=== PATIENT | female | born 1970 | race Caucasian/White ===

== ENCOUNTER 2018-06-16 16:01 | Emergency (ER) | payer SELFPAY ==
[2018-06-16] MEDS ORDERED: Morphine 4 MG/ML VIAL ONE (16:27)
[2018-06-16] MEDS ORDERED: Ondansetron HCl/PF 4 MG/2 ML Vial ONE (16:27)
[2018-06-16 16:41] LABS: Bilirubin Negative (Negative); Blood, Urine Negative (Negative); Clarity CLOUDY (Clear); Glucose, Urine (Dipstick) Negative (Negative); Leukocyte Small (Negative); Nitrite Negative (Negative); Protein, Urine (Dipstick) Negative (Neg-Trace); Specific Gravity, Urine 1.024 (1.002-1.036); Urobilinogen 0.2 mg/dL (0.2-1.0); pH, Urine 5.5 (5.0-9.0)
[2018-06-16 16:42] LABS: #Basophils 0.1 thou/uL (0.0-0.2); #Eosinphils 0.2 thou/uL (0.0-0.7); #Lymphocytes 2.1 thou/uL (1.20-3.40); #Monocytes 0.9 thou/uL (0.11-0.59); #Neutrophils 7.7 thou/uL (1.40-6.50); %Basophils 0.9 % (0.0-1.0); %Eosinophils 1.7 % (0.0-10.0); %Lymphocytes 19.1 % (21.0-51.0); %Neutrophils 70.3 % (42.0-75.0); Hemoglobin 14.5 g/dL (12.0-16.0); Mean Corpuscular HGB CONC 35.7 g/dL (32.0-36.0); Mean Corpuscular Hemoglobin 31.8 pg (27.0-31.0); Mean Corpuscular Volume 89.2 fL (78.0-98.0); Mean Platelet Volume 5.4 fL (7.4-10.4); Platelet Count 421 thou/uL (130-400); RBC Distribution Width 11.7 % (11.5-14.5); Red Blood Cell (RBC) Count 4.56 mill/uL (4.20-5.40)
[2018-06-16 16:43] LABS: Pathc Cast-AUWi Flag 1.59 (0-2.49); Squamous Epithelial 21-50 HPF (0-3); WBC/HPF 0-3 HPF (0-3)
[2018-06-16 16:51] LABS: RBC/HPF 0-3 HPF (0-3)
[2018-06-16 16:52] LABS: Hyaline Casts/LPF 0-3 HYALINE CAST LPF (0-3 Hyaline)
[2018-06-16 16:53] LABS: Bacteria/HPF 2+ HPF (None Seen)
[2018-06-16] MEDS ORDERED: Fentanyl 100 MCG/2 ML VIAL ONE (16:54)
[2018-06-16 17:02] LABS: ALT (SGPT) 17 U/L (8-55); AST (SGOT) 15 U/L (5-34); Albumin 4.1 g/dL (3.5-5.0); Alkaline Phosphatase 104 U/L (40-150); Anion Gap 17 mmol/L (10-20); BUN (Urea Nitrogen) 19 mg/dL (7.0-18.7); Bilirubin, Total 0.5 mg/dL (0.2-1.2); Calc. Creatinine Clearance 0 mL/min (70-130); Calcium 9.6 mg/dL (7.8-10.44); Carbon Dioxide 27 mmol/L (22-29); Chloride 98 mmol/L (98-107); Estimated GFR-MDRD 51; Globulin 3.6 g/dL (2.4-3.5); Glucose 109 mg/dL (70-105); Potassium 3.5 mmol/L (3.5-5.1); Protein, Total 7.7 g/dL (6.0-8.3); Sodium 138 mmol/L (136-145)
[2018-06-16] MEDS ORDERED: Ketorolac Tromethamine 30 MG/ML VIAL ONE (17:36)
--- NOTE | 2018-06-16 17:37 | CT ---
NONCONTRAST CT ABDOMEN AND PELVIS: 06/16/18 HISTORY: Bilateral flank pain, right greater than left. COMPARISON: None available. FINDINGS: No renal or ureteral calculi are seen bilaterally, and there is no hydronephrosis. There is a subcent imeter too small to characterize hypodense lesion in the mid portion left kidney with adjacent puncta te cortically based calcification as well as overlying scarring present. The liver, spleen, pancreas, bilateral adrenal glands, right kidney, and urinary bladder demonstrate a grossly normal nonenhanced CT appearance. The uterus is not visualized and likely related to hysterectomy. Surgical clips are seen adjacent to the cecal apex probably related to prior appendectomy. The append ix is not visualized. No free fluid, fluid collection, or lymphadenopathy is seen in the abdomen or p marty. Minimal vascular calcifications are seen at the origin of the left renal artery. Osseous structures appear intact. IMPRESSION: 1. No renal or ureteral calculi are seen bilaterally. 2. Small hiatal hernia. 3. Colonic diverticulosis. 4. Postsurgical changes adjacent to the cecal apex probably related to prior appendectomy. 5. Hysterectomy. 6. Subcentimeter too small to characterize hypodense lesion left kidney with adjacent punctate c alcification. POS: [facility]
[2018-06-16] MEDS ORDERED: diphenhydrAMINE 50 MG/ML VIAL ONE (17:48)
[2018-06-16] MEDS ORDERED: Famotidine/PF 20 mg/2ml Vial ONE (17:49)
== END 2018-06-16 18:32 | disposition home or self-care (01) ==
LOC: ERS 16:01
DX: N30.90 Cystitis, unspecified without hematuria (principal); I10 Essential (primary) hypertension; Z87.442 Personal history of urinary calculi
CPT/HCPCS: 74176; 80053; 81003; 81015; 85025; 87086; 96361; 96374; 96375; J1200; J1885; J2270; J2405; J3010; S0028

== ENCOUNTER 2018-10-25 07:48 | Emergency (ER) | payer SELFPAY ==
[2018-10-25 08:17] LABS: #Basophils 0.1 thou/uL (0.0-0.2); #Eosinphils 0.2 thou/uL (0.0-0.7); #Monocytes 0.9 thou/uL (0.11-0.59); #Neutrophils 5.6 thou/uL (1.40-6.50); %Basophils 0.8 % (0.0-1.0); %Eosinophils 1.8 % (0.0-10.0); %Lymphocytes 22.4 % (21.0-51.0); %Monocytes 10.7 % (0.0-10.0); %Neutrophils 64.2 % (42.0-75.0); Hemoglobin 14.2 g/dL (12.0-16.0); Mean Corpuscular HGB CONC 34.7 g/dL (32.0-36.0); Mean Corpuscular Hemoglobin 31.9 pg (27.0-31.0); Mean Corpuscular Volume 91.8 fL (78.0-98.0); Mean Platelet Volume 5.8 fL (7.4-10.4); Platelet Count 344 thou/uL (130-400); RBC Distribution Width 11.6 % (11.5-14.5); Red Blood Cell (RBC) Count 4.45 mill/uL (4.20-5.40); White Blood Cell (WBC) Count 8.7 thou/uL (4.8-10.8)
[2018-10-25] MEDS ORDERED: Nitroglycerin 0.4 MG TAB (25 Tab Bottle) ONE (08:20)
[2018-10-25] MEDS ORDERED: Acetaminophen 500 MG TAB ONE (08:20)
--- NOTE | 2018-10-25 08:30 | RAD ---
PORTABLE AP CHEST XRAY: DATE: 10/25/2018. HISTORY: Chest pain and jaw pain. Finger numbness that started last night. FINDINGS: The cardiac silhouette and pulmonary vasculature are within normal limits for the portable technique of the study. The lungs are clear. Osseous structures are intact. IMPRESSION: No acute cardiopulmonary process. POS: [facility]
[2018-10-25] MEDS ORDERED: diphenhydrAMINE 50 MG/ML VIAL ONE ×2 (08:37→09:49)
[2018-10-25] MEDS ORDERED: Metoclopramide HCl 10 MG/2 ML VIAL ONE (08:37)
[2018-10-25 08:40] LABS: ALT (SGPT) 14 U/L (8-55); AST (SGOT) 11 U/L (5-34); Albumin 3.9 g/dL (3.5-5.0); Alkaline Phosphatase 78 U/L (40-150); Anion Gap 15 mmol/L (10-20); BUN (Urea Nitrogen) 33 mg/dL (7.0-18.7); Bilirubin, Total 0.5 mg/dL (0.2-1.2); CK (CPK) 46 U/L (29-168); Calc. Creatinine Clearance 0 mL/min (70-130); Calcium 9.4 mg/dL (7.8-10.44); Carbon Dioxide 24 mmol/L (22-29); Chloride 104 mmol/L (98-107); Estimated GFR-MDRD 58; Globulin 3.2 g/dL (2.4-3.5); Glucose 104 mg/dL (70-105); Lipase 50 U/L (8-78); Potassium 3.8 mmol/L (3.5-5.1); Protein, Total 7.1 g/dL (6.0-8.3); Sodium 139 mmol/L (136-145)
[2018-10-25] MEDS ORDERED: Morphine 4 MG/ML VIAL ONE (09:17)
[2018-10-25] MEDS ORDERED: Famotidine/PF 20 mg/2ml Vial ONE (09:49)
[2018-10-25] MEDS ORDERED: methylPREDNISolone Sod Succ/PF 125 MG/2 ML VIAL ONE (09:49)
--- NOTE | 2018-10-25 10:02 | CT ---
HEAD CT WITHOUT CONTRAST: DATE: 10/25/2018. COMPARISON: None. HISTORY: Numbness and tingling, paresthesias. TECHNIQUE: Axial CT imaging obtained at 5 mm intervals from vertex through the skull base without contrast. FINDINGS: The imaged paranasal sinuses and mastoid air cells are well aerated. There is no displaced calvarial fracture. No intracranial hemorrhage, midline shift, mass effect, or ventricular enlargement. IMPRESSION: No acute findings. POS: [facility]
[2018-10-25] MEDS ORDERED: Ketorolac Tromethamine 30 MG/ML VIAL ONE (11:05)
[2018-10-25] MEDS ORDERED: Lidocaine Viscous Sol 2% 15 ml UD Cup ONE (11:57)
[2018-10-25] MEDS ORDERED: Mag-Al 1200 mg/1200 mg/30 ML UDCUP ONE (11:57)
[2018-10-25] MEDS ORDERED: Pantoprazole 40 MG VIAL ONE (11:58)
--- NOTE | 2018-10-25 12:14 | CT ---
CT ANGIOGRAM OF THORACIC AND ABDOMINAL AORTA: Date: 10/25/18 HISTORY: Chest pain. Numbness and tingling. Evaluate for dissection. COMPARISON: None. TECHNIQUE: CT angiogram of the thoracic and abdominal aorta performed in the axial plane. Three-dimensional refo rmatted images are submitted for interpretation. FINDINGS: CHEST CT: Nonspecific, nonenlarged mediastinal lymph nodes. No mediastinal mass, lymphadenopathy, or hematoma. No significant pericardial fluid. Heart size is within normal limits. Small hiatal hernia is noted. Dependent atelectatic changes and scarring in both lower lobes. No suspicious masses or consolidation . No pleural effusion or pneumothorax. Trachea and central bronchi are patent. ABDOMEN CT: There is arterial phase enhancement of the liver, spleen, pancreas, and adrenal glands. Symmetric enh ancement of the kidneys. No obstructive uropathy. No gastrohepatic, retrocrural, or periportal lymphadenopathy. No mesenteric mass, lymphadenopathy, free air, or free fluid. Limited evaluation of the alimentary canal due to lack of oral contrast. No evidence of bowel obstruc tion. Ileocecal junction is normal. No lytic or blastic lesions in the visualized osseous structures. CT ANGIOGRAM: There is appropriate enhancement and luminal diameter of the aortic root, ascending thoracic aorta, a ortic arch, descending thoracic aorta, abdominal aorta, and the aortic bifurcation. No aneurysm, diss ection, or periaortic fat stranding. The celiac artery origin, superior mesenteric artery origin, iris ateral renal artery origin, and the inferior mesenteric artery origin have appropriate enhancement an d luminal diameter. There is minimal atherosclerosis in the left renal artery ostium. IMPRESSION: 1. No evidence of aneurysm or dissection. 2. Dependent atelectatic changes in the lung parenchyma. POS: [facility]
[2018-10-25] MEDS ORDERED: Iopamidol 370 76% 50 ML VIAL FS ONE (16:51)
== END 2018-10-25 12:42 | disposition left against medical advice (07) ==
LOC: ERS 07:48
DX: R07.9 Chest pain, unspecified (principal); I10 Essential (primary) hypertension; F17.210 Nicotine dependence, cigarettes, uncomplicated; Z87.442 Personal history of urinary calculi; Z79.899 Other long term (current) drug therapy
CPT/HCPCS: 36415; 70450; 71045; 71275; 80053; 82550; 83690; 84484; 85025; 93005; 96365; 96366; 96375; C9113; J1200; J1885; J2270; J2765; J2930; S0028

== ENCOUNTER 2018-10-26 00:28 | Emergency (ER) | payer SELFPAY ==
[2018-10-26] MEDS ORDERED: Pantoprazole 40 MG VIAL ONE (00:45)
[2018-10-26] MEDS ORDERED: Lorazepam 2 MG/ML VIAL ONE (00:45)
[2018-10-26] MEDS ORDERED: Ondansetron PF 4 MG/2 ML Vial ONE (00:45)
[2018-10-26 01:22] LABS: ALT (SGPT) 14 U/L (8-55); AST (SGOT) 13 U/L (5-34); Alkaline Phosphatase 88 U/L (40-150); Anion Gap 18 mmol/L (10-20); BUN (Urea Nitrogen) 30 mg/dL (7.0-18.7); Bilirubin, Total 0.3 mg/dL (0.2-1.2); Calc. Creatinine Clearance 0 mL/min (70-130); Calcium 8.9 mg/dL (7.8-10.44); Carbon Dioxide 19 mmol/L (22-29); Chloride 105 mmol/L (98-107); Estimated GFR-MDRD 57; Glucose 196 mg/dL (70-105); Hemoglobin 13.7 g/dL (12.0-16.0); Lipase 46 U/L (8-78); Mean Corpuscular HGB CONC 34.5 g/dL (32.0-36.0); Mean Corpuscular Volume 92.6 fL (78.0-98.0); Platelet Count 351 thou/uL (130-400); RBC Distribution Width 11.4 % (11.5-14.5); Sodium 138 mmol/L (136-145); White Blood Cell (WBC) Count 13.3 thou/uL (4.8-10.8)
[2018-10-26 01:49] LABS: Band 4 % (5-11); Lymphocytes 8 % (21-51); MDiff Complete? YES; Monocytes 9 % (0-10); Neutrophil 79 % (42-75)
[2018-10-26] MEDS ORDERED: Morphine 4 MG/ML VIAL ONE (02:23)
[2018-10-26 03:18] LABS: Bilirubin Negative (Negative); Blood, Urine Negative (Negative); Clarity CLOUDY (Clear); Glucose, Urine (Dipstick) 100 mg/dL (Negative); Leukocyte Small (Negative); Nitrite Negative (Negative); Protein, Urine (Dipstick) Negative (Neg-Trace); Specific Gravity, Urine 1.029 (1.002-1.036); pH, Urine 5.5 (5.0-9.0)
[2018-10-26 03:21] LABS: Bacteria/HPF 1+ HPF (None Seen); Hyaline Casts/LPF 4-6 HYALINE CAST LPF (0-3 Hyaline); Squamous Epithelial 21-50 HPF (0-3); WBC/HPF 0-3 HPF (0-3)
== END 2018-10-26 03:37 | disposition home or self-care (01) ==
LOC: ERS 00:28
DX: R07.2 Precordial pain (principal); I10 Essential (primary) hypertension; F17.210 Nicotine dependence, cigarettes, uncomplicated; Z87.442 Personal history of urinary calculi; Z79.899 Other long term (current) drug therapy
CPT/HCPCS: 80053; 81003; 81015; 83690; 83880; 84484; 85025; 87086; 93005; 96361; 96374; 96375; C9113; J2060; J2270; J2405

== ENCOUNTER 2018-12-08 15:48 | Observation (INO) | payer SELFPAY ==
[~2018-12-08 15:48] MED LIST: ISOVUE-370 76%-LOCM 1 ML ONE
[2018-12-08] MEDS ORDERED: Ondansetron ODT 4 MG TAB ONE (15:53)
[2018-12-08 16:12] LABS: #Eosinphils 0.1 thou/uL (0.0-0.7); #Lymphocytes 1.5 thou/uL (1.20-3.40); #Monocytes 0.8 thou/uL (0.11-0.59); #Neutrophils 8.5 thou/uL (1.40-6.50); %Basophils 0.4 % (0.0-1.0); %Eosinophils 1.2 % (0.0-10.0); %Lymphocytes 13.5 % (21.0-51.0); %Monocytes 7.7 % (0.0-10.0); %Neutrophils 77.3 % (42.0-75.0); Hemoglobin 14.8 g/dL (12.0-16.0); Mean Corpuscular HGB CONC 34.1 g/dL (32.0-36.0); Mean Corpuscular Hemoglobin 31.8 pg (27.0-31.0); Mean Corpuscular Volume 93.3 fL (78.0-98.0); Mean Platelet Volume 5.6 fL (7.4-10.4); Platelet Count 401 thou/uL (130-400); RBC Distribution Width 11.4 % (11.5-14.5); Red Blood Cell (RBC) Count 4.66 mill/uL (4.20-5.40); White Blood Cell (WBC) Count 10.9 thou/uL (4.8-10.8)
[2018-12-08 16:34] LABS: ALT (SGPT) 14 U/L (8-55); AST (SGOT) 13 U/L (5-34); Albumin 4.4 g/dL (3.5-5.0); Alkaline Phosphatase 122 U/L (40-150); Anion Gap 14 mmol/L (10-20); BUN (Urea Nitrogen) 18 mg/dL (7.0-18.7); Bilirubin, Total 0.6 mg/dL (0.2-1.2); CK (CPK) 66 U/L (29-168); Calc. Creatinine Clearance 0 mL/min (70-130); Calcium 9.6 mg/dL (7.8-10.44); Carbon Dioxide 27 mmol/L (22-29); Chloride 100 mmol/L (98-107); Estimated GFR-MDRD 65; Globulin 3.6 g/dL (2.4-3.5); Glucose 171 mg/dL (70-105); Potassium 3.2 mmol/L (3.5-5.1); Sodium 138 mmol/L (136-145)
--- NOTE | 2018-12-08 16:39 | RAD ---
PORTABLE CHEST ONE VIEW 12/08/18 at 3:19 p.m. HISTORY: Chest pain, shortness of breath. FINDINGS: Comparison made with exam of 10/25/18. The heart size is borderline. The lungs are expanded without focal areas of consolidation, pneumothor ax, maurice pulmonary edema or pleural effusions. IMPRESSION: No radiographic evidence of acute cardiopulmonary process. POS: [facility]
[2018-12-08] MEDS ORDERED: Nitroglycerin 0.4 MG TAB 1 EACH ONE (16:50)
[2018-12-08] MEDS ORDERED: Ondansetron PF 4 MG/2 ML Vial ONE (16:50)
[2018-12-08] MEDS ORDERED: Morphine 4 MG/ML VIAL ONE ×2 (17:24→19:45)
[2018-12-08] MEDS ORDERED: methylPREDNISolone Sod Succ/PF 125 MG/2 ML VIAL ONE (17:32)
[2018-12-08] MEDS ORDERED: Famotidine/PF 20 mg/2ml Vial ONE (17:32)
[2018-12-08] MEDS ORDERED: diphenhydrAMINE 50 MG/ML VIAL ONE (17:32)
--- NOTE | 2018-12-08 19:02 | CT ---
CT PULMONARY ANGIOGRAM WITH IV CONTRAST AND 3D POSTPROCESSIN12/08/18 HISTORY: Chest pain. FINDINGS: There is good contrast opacification of the pulmonary artery vasculature without filling defects to s uggest pulmonary embolism. The thoracic aorta is well opacified without aneurysmal dissection. No ple ural or pericardial effusions are seen. A small hiatal hernia is present. No pneumothoraces, lobar co nsolidation, or lung bases are identified. There are mild degenerative changes in the spine. IMPRESSION: No CT evidence of pulmonary embolism. POS: [facility]
[2018-12-08] MEDS ORDERED: Ondansetron PF 4 MG/2 ML Vial IVP PRN (20:24)
[2018-12-08] MEDS ORDERED: Acetaminophen 325 MG TAB PO PRN (20:24)
[2018-12-08] MEDS ORDERED: Ondansetron ODT 4 MG TAB PO PRN (20:24)
[2018-12-08 22:27] VITALS: BMI 37.5
[2018-12-08] MEDS ORDERED: Ketorolac Tromethamine 30 MG/ML VIAL IVP PRN (23:09)
[2018-12-08] MEDS ORDERED: diphenhydrAMINE 50 MG/ML VIAL IVP SCH (23:45)
[2018-12-08] MEDS ORDERED: Famotidine/PF 20 mg/2ml Vial SLOW IVP SCH (23:45)
[2018-12-08] MEDS ORDERED: methylPREDNISolone Sod Succ/PF 125 MG/2 ML VIAL IVP SCH (23:45)
[2018-12-09] MEDS: Morphine 4 MG/ML VIAL SLOW IVP PRN ×4 (00:30→20:26)
[2018-12-09] MEDS ORDERED: Morphine 4 MG/ML VIAL SLOW IVP SCH ×2 (01:00→03:30)
--- NOTE | 2018-12-09 04:47 | HP ---
PRIMARY CARE DOCTOR: The patient goes to [facility]. CODE STATUS: Full code. TIME OF EVALUATION: 8:10 p.m. CHIEF COMPLAINT: Chest pain. HISTORY OF PRESENT ILLNESS: This is a 48-year-old female patient with past medical history of obesity, hypertension, and chronic kidney disease, came to the hospital after having severe chest pain that radiates to the back in between the shoulder blades, the patient described the pain as pressure-like, associated with diaphoresis, nausea. No clear triggers, no alleviating factors. The patient reported she had a stress test 5 to 6 years ago that was normal. The pain is severe, 10/10, needing opiate medications for optimal control. REVIEW OF SYSTEMS: CONSTITUTIONAL: No fever, chills, or generalized weakness. RESPIRATORY: No cough, sputum production, or shortness of breath. CARDIOVASCULAR: The patient has chest pain as described in HPI with radiation to the jaw associated with diaphoresis. GASTROINTESTINAL: The patient had nausea and vomiting. No diarrhea or abdominal pain. SAWYER HELPER: No dizziness, headache, or feeling lightheaded. GENITOURINARY: No burning on urination. EXTREMITIES: No leg swelling. All other systems were negative except for the findings mentioned in HPI. PAST MEDICAL HISTORY: As reported in HPI. PAST SURGICAL HISTORY: Hysterectomy, two C-sections, further removal of ovary, tonsillectomy. PSYCHIATRIC HISTORY: No previous psych history. SOCIAL HISTORY: No alcohol, no drugs. Smokes cigars on a daily basis half a pack per day. FAMILY HISTORY: Reviewed and noncontributory for current presentation. KNOWN ALLERGIES: To iodine, oral and IV dye, penicillins. REPORTED MEDICATIONS: 1. Hydrochlorothiazide. 2. Metoprolol. 3. Estradiol. 4. Acetaminophen with codeine. 5. Aspirin. 6. Clindamycin. PHYSICAL EXAMINATION: VITAL SIGNS: On presentation, heart rate 122, oxygen saturation was 100% with blood pressure 151/105, respiratory rate was 18. GENERAL APPEARANCE: The patient is alert, oriented, in distress due to pain. HEENT: Eyes, normal conjunctivae. Moist oral mucosa. Anicteric. No JVD. RESPIRATORY: Bilateral air entry. No rales. No wheezes. Symmetric expansion. CARDIOVASCULAR: Normal rate, regular rhythm. No murmurs, no gallops. No edema. ABDOMEN: Soft. Normal bowel sounds. MUSCULOSKELETAL: Baseline range of motion. No sternal tenderness. SKIN: Warm, intact. No pallor. No rash. No redness. Peripheral pulses are present. Capillary refill seems to be intact. NEUROLOGIC: No evidence of any new focal weakness. Baseline speech. Cranial nerves seems to be intact. PSYCHIATRIC: The patient is in good mood. No anxiety. Optimal judgment. IMAGING STUDIES: EKG was reviewed. The patient has sinus tachycardia at a rate of 122 with VA 126, QRS 79, QT corrected 481 that is mildly prolonged for this patient. Repeat EKG during the pain was also normal. Chest x-ray was done and reviewed. The patient has no radiographic evidence of acute cardiopulmonary process and CT angio was done and reviewed. CT angio of the chest showed no CTA evidence of pulmonary embolism. The thoracic aorta is well opacified without aneurysmal dissection. No pleural or pericardial effusion is seen. LABORATORY DATA: Labs were reviewed. The patient has white count 10.9, RBC , hemoglobin 14.8, MCV 93, platelet count 401, and neutrophils 77.3. Coagulation less than 0.27. Chemistry; sodium 138, potassium 3.2, chloride 100, carbon dioxide 27, anion gap 14, BUN 18, creatinine 0.91, GFR 65, glucose 171, calcium 9.6. Total bilirubin 0.6. LFTs were negative. Troponins were negative x2. Albumin 4.4, lipase 19, and albumin globulin ratio is 1.2. ASSESSMENT AND PLAN: The patient has been placed in the hospital with following medical problems: 1. Chest pain, rule out acute coronary syndrome. The patient has severe pain needing opioid medications. EKG and troponins have been negative. However, the pain has continued. Lipase has been negative. Other differentials including gallbladder pathologies are going to be ruled out. Ultrasound is being ordered, we will follow result and treat accordingly. If chest pain continues to be severe, might need Cardiology evaluation prior to the stress test. CT angio was negative for any PE and also for dissection. 2. Hypokalemia with potassium 3.2, we will replace electrolytes as needed. This is mild. 3. Uncontrolled hypertension, likely secondary to acute physical distress. We will treat the pain first, reconcile home medications. 4. She has allergies to dye. The patient received protocol to get the CT scan, needing Benadryl, Pepkelly, Solu-Medrol. We will continue to monitor and treat accordingly. 5. Deep venous thrombosis prophylaxis. Job ID: [id number]
[2018-12-09 06:10] LABS: #Lymphocytes 0.9 thou/uL (1.20-3.40); #Monocytes 0.1 thou/uL (0.11-0.59); #Neutrophils 10.4 thou/uL (1.40-6.50); %Basophils 0.3 % (0.0-1.0); %Eosinophils 0.2 % (0.0-10.0); %Lymphocytes 7.7 % (21.0-51.0); %Monocytes 0.5 % (0.0-10.0); %Neutrophils 91.4 % (42.0-75.0); Hemoglobin 14.1 g/dL (12.0-16.0); Mean Corpuscular HGB CONC 33.7 g/dL (32.0-36.0); Mean Corpuscular Hemoglobin 32.2 pg (27.0-31.0); Mean Corpuscular Volume 95.5 fL (78.0-98.0); Mean Platelet Volume 5.9 fL (7.4-10.4); Platelet Count 332 thou/uL (130-400); RBC Distribution Width 11.5 % (11.5-14.5); Red Blood Cell (RBC) Count 4.39 mill/uL (4.20-5.40); White Blood Cell (WBC) Count 11.4 thou/uL (4.8-10.8)
[2018-12-09] MEDS: Morphine 2 MG/ML SYRINGE SLOW IVP SCH (06:26)
[2018-12-09 06:32] LABS: Anion Gap 16 mmol/L (10-20); BUN (Urea Nitrogen) 20 mg/dL (7.0-18.7); Calc. Creatinine Clearance 124 mL/min (70-130); Calcium 9.4 mg/dL (7.8-10.44); Carbon Dioxide 21 mmol/L (22-29); Chloride 104 mmol/L (98-107); Estimated GFR-MDRD 68; Glucose 140 mg/dL (70-105); Potassium 3.9 mmol/L (3.5-5.1); Sodium 137 mmol/L (136-145)
--- NOTE | 2018-12-09 07:41 | ULT ---
GALLBLADDER ULTRASOUND: Date: 12/09/18 INDICATION: Upper abdominal pain, intermittent for duration of 2 weeks. FINDINGS: There is no acute gallbladder pathology or focal hepatic lesion. No ascites. The imaged common duct m easures 5.0 mm, without abnormal dilatation evident. Mercado's sign reported as negative. IMPRESSION: No acute gallbladder pathology. POS: [facility]
[2018-12-09] MEDS: Amlodipine 10 MG TAB PO SCH (08:40)
[2018-12-09] MEDS: Estradiol 1 MG TAB PO SCH (08:40)
[2018-12-09] MEDS: Hydrochlorothiazide 25 MG TAB PO SCH (08:41)
[2018-12-09] MEDS: Enoxaparin Sodium 40 MG/0.4 ML SYRINGE SC SCH (08:41)
[2018-12-09] MEDS: Aspirin 325 MG TAB PO SCH (08:41)
[2018-12-09] MEDS: Metoprolol Tartrate 50 MG TAB PO SCH ×2 (09:00→17:06)
[2018-12-09] MEDS ORDERED: ADENOSINE 60 MG/20 ML VIAL ONE (10:14)
[2018-12-09 12:23] LABS: Free T4 (Free Thyroxine) 1.12 ng/dL (0.70-1.48); Thyroid Stimulating Hormone 0.404 uIU/mL (0.35-4.94)
[2018-12-09] MEDS: Lorazepam 0.5 MG TAB PO PRN (16:05)
--- NOTE | 2018-12-09 17:24 | PDOC.PN ---
- Subjective Encounter Start Date: 12/09/18 Encounter Start Time: 09:00 Subjective: Patient examined this am, c/o of chest pain which radiated up to her jaw, -: Strong family hx of early CAD, reports acute on chronic thoracic pain - Objective Resuscitation Status - Order Detail: 12/08/18 20:24 Resuscitation Status Routine Resuscitation Status: FULL: Full Resuscitation Vital Signs & Weight: Vital Signs (12 hours) Temp Pulse Resp BP Pulse Ox 12/09/18 15:40 97.8 F 104 H 16 103/55 L 100 12/09/18 11:32 97.7 F 90 20 116/71 97 12/09/18 08:00 98.3 F 95 14 107/59 L 92 L Weight Weight 102.512 kg Result Diagrams: 12/09/18 04:43 12/09/18 04:43 Phys Exam - Physical Examination Constitutional: NAD HEENT: PERRLA, moist MMs Neck: no nodes, no JVD Respiratory: clear to auscultation bilateral Cardiovascular: RRR, no significant murmur Gastrointestinal: soft, non-tender Musculoskeletal: pulses present Neurological: non-focal, normal sensation, moves all 4 limbs Lymphatic: no nodes Psychiatric: A&O x 3 Deviation from normal: anxious Skin: no rash, normal turgor, cap refill <2 seconds Dx/Plan (1) Chest pain Code(s): R07.9 - CHEST PAIN, UNSPECIFIED Status: Acute (2) Back pain Code(s): M54.9 - DORSALGIA, UNSPECIFIED Status: Chronic Qualifiers: Back pain location: thoracic back pain (3) Hypertension Code(s): I10 - ESSENTIAL (PRIMARY) HYPERTENSION Status: Chronic (4) Anxiety Code(s): F41.9 - ANXIETY DISORDER, UNSPECIFIED Status: Chronic - Plan cont current plan of care, DVT proph w/SCDs Will need resting stress in the am, reports acute on chronic back pain, -: RUQ U/S negative, CTA chest is negative -: Home in AM in stress is negative * . Review of Systems - Review of Systems Respiratory: Shortness of Breath Cardiovascular: chest pain Musculoskeletal: Back Pain - Medications/Allergies Allergies/Adverse Reactions: Allergies Allergy/AdvReac Type Severity Reaction Status Date / Time Iodinated Contrast- Oral and AdvReac Severe Anaphylaxis Verified 12/09/18 03:14 IV Dye Medications: Current Medications Acetaminophen (Tylenol) 650 mg PO Q4H PRN PRN Reason: Headache/Fever/Mild Pain (1-3) Last Admin: 12/08/18 22:14 Dose: 650 mg Amlodipine Besylate (Norvasc) 10 mg PO DAILY [facility] Last Admin: 12/09/18 08:40 Dose: 10 mg Aspirin (Aspirin) 325 mg PO DAILY [facility] Last Admin: 12/09/18 08:41 Dose: 325 mg Enoxaparin Sodium (Lovenox) 40 mg SC 0900 [facility] Last Admin: 12/09/18 08:41 Dose: 40 mg Estradiol (Estrace) 2 mg PO DAILY [facility] Last Admin: 12/09/18 08:40 Dose: 2 mg Hydrochlorothiazide (Hydrochlorothiazide) 25 mg PO DAILY [facility] Last Admin: 12/09/18 08:41 Dose: 25 mg Lorazepam (Ativan) 0.5 mg PO Q4H PRN PRN Reason: Anxiety Last Admin: 12/09/18 16:05 Dose: 0.5 mg Metoprolol Tartrate (Lopressor) 50 mg PO BID [facility] Last Admin: 12/09/18 17:06 Dose: 50 mg Morphine Sulfate (Morphine) 2 mg SLOW IVP Q4H PRN PRN Reason: Moderate to Severe Pain (4-10) Last Admin: 12/09/18 16:50 Dose: 2 mg Ondansetron HCl (Zofran Odt) 4 mg PO Q6H PRN PRN Reason: Nausea/Vomiting Ondansetron HCl (Zofran) 4 mg IVP Q6H PRN PRN Reason: Nausea/Vomiting Last Admin: 12/09/18 08:42 Dose: 4 mg Sodium Chloride (Flush - Normal Saline) 10 ml IVF PRN PRN PRN Reason: Saline Flush Last Admin: 12/09/18 00:30 Dose: 10 ml
[2018-12-09] MEDS: Clindamycin 150 MG CAP PO SCH (20:27)
[2018-12-10] MEDS: Morphine 4 MG/ML VIAL SLOW IVP PRN ×4 (00:09→14:12)
[2018-12-10] MEDS: Lorazepam 0.5 MG TAB PO PRN ×3 (00:11→16:36)
[2018-12-10 05:21] LABS: #Eosinphils 0.1 thou/uL (0.0-0.7); #Lymphocytes 2.5 thou/uL (1.20-3.40); #Monocytes 1.1 thou/uL (0.11-0.59); #Neutrophils 11.7 thou/uL (1.40-6.50); %Basophils 0.2 % (0.0-1.0); %Eosinophils 0.4 % (0.0-10.0); %Lymphocytes 16.1 % (21.0-51.0); %Monocytes 7.3 % (0.0-10.0); Hemoglobin 12.5 g/dL (12.0-16.0); Mean Corpuscular HGB CONC 33.4 g/dL (32.0-36.0); Mean Corpuscular Volume 95.8 fL (78.0-98.0); Mean Platelet Volume 5.8 fL (7.4-10.4); Platelet Count 353 thou/uL (130-400); RBC Distribution Width 11.6 % (11.5-14.5); White Blood Cell (WBC) Count 15.4 thou/uL (4.8-10.8)
[2018-12-10 05:53] LABS: ALT (SGPT) 9 U/L (8-55); AST (SGOT) 10 U/L (5-34); Albumin 3.6 g/dL (3.5-5.0); Alkaline Phosphatase 102 U/L (40-150); Anion Gap 14 mmol/L (10-20); BUN (Urea Nitrogen) 30 mg/dL (7.0-18.7); Bilirubin, Total 0.2 mg/dL (0.2-1.2); Calc. Creatinine Clearance 136 mL/min (70-130); Calcium 9.1 mg/dL (7.8-10.44); Carbon Dioxide 24 mmol/L (22-29); Cardiac Risk 3.4 (Less than 4.5); Chloride 104 mmol/L (98-107); Cholesterol 206 mg/dl (< 200 Desired); Estimated GFR-MDRD 76; Globulin 2.8 g/dL (2.4-3.5); Glucose 115 mg/dL (70-105); HDL Cholesterol 61 mg/dL (>60 Neg Risk); LDL Cholesterol, Calculated 93 mg/dL; Potassium 3.3 mmol/L (3.5-5.1); Protein, Total 6.4 g/dL (6.0-8.3); Sodium 139 mmol/L (136-145); Triglycerides 260 mg/dL (Less than 150)
--- NOTE | 2018-12-10 08:36 | STRESS ---
Acquisition Time: 2018-12-09 13:50:07 Total Exercise Time: 00:04:00 Test Indications: CHEST PAIN Medications: Protocol: ADENOSINE Max HR: 121 BPM 71% of Pred: 170 BPM Max BP: 130/080 mmHG Max Work Load: 1.0 METS RESTING ECG: NORMAL SINUS RHYTHM AT 91 BPM SYMPTOMS: CHEST PAIN, SANZ, NAUSEA APPROPRIATE BP RESPONSE FOR ADENOSINE ECTOPY: NONE ECG STRESS: 1MM ST DEPRESSION INTERPRETATION: AWAIT NUCLEAR IMAGES FOR DEFINITIVE DIAGNOSIS Confirmed by ARIANA GUARDADO ([id number]) on 12/10/2018 8:36:00 AM Referred By: Confirmed By:ARIANA GUARDADO
[2018-12-10] MEDS: Aspirin 325 MG TAB PO SCH (08:41)
[2018-12-10] MEDS: Enoxaparin Sodium 40 MG/0.4 ML SYRINGE SC SCH (08:41)
[2018-12-10] MEDS: Estradiol 1 MG TAB PO SCH (08:41)
[2018-12-10] MEDS: HYDROcodone/Acetaminophen 5/325 mg Tablet PO PRN ×2 (08:41→13:04)
[2018-12-10] MEDS: Clindamycin 150 MG CAP PO SCH ×3 (08:41→16:35)
[2018-12-10] MEDS: Morphine 2 MG/ML SYRINGE SLOW IVP SCH (10:09)
[2018-12-10] MEDS: Hydrochlorothiazide 25 MG TAB PO SCH (11:44)
[2018-12-10] MEDS: Amlodipine 10 MG TAB PO SCH (11:44)
[2018-12-10] MEDS: Metoprolol Tartrate 50 MG TAB PO SCH (11:44)
--- NOTE | 2018-12-10 13:41 | NM ---
CARDIAC SPECT: CLINICAL HISTORY: 48-year-old female with chest pain and hypertension. TECHNIQUE: A myocardial perfusion scan was performed using the single isotope two day protocol with 29 mCi techn etium-99m sestamibi injected intravenously for both stress and rest images. Pharmacologic stress with Adenosine was monitored and interpreted by Dr. Napier. FINDINGS: Homogeneous tracer distribution is seen in the myocardial segments on stress and rest images without fixed or reversible defects. GATED SPECT LVEF: 83%. WALL MOTION EXAM: Normal. IMPRESSION: Normal myocardial perfusion scan. POS: [facility]
[2018-12-10 16:16] VITALS: BP 94/50; TEMP 97.8
--- NOTE | 2018-12-11 14:52 | DIS ---
DATE OF ADMISSION: 12/08/2018 DATE OF DISCHARGE: 12/10/2018 DISCHARGE DIAGNOSES: 1. Chronic neck pain. 2. Headaches. 3. Hypertension. CONSULTING PHYSICIAN: None. HOSPITAL COURSE: Ms. Heath is a 48-year-old woman who presented complaining of pain in her neck, radiating to her chest and into her jaw. She reported a strong family history of early coronary artery disease; therefore, was admitted for cardiac investigations. She underwent initial laboratory studies that demonstrated negative troponins. Her D-dimer was also unremarkable. Her laboratory studies were notable for slightly low potassium of 3.2, which was replaced. The patient underwent a chest x-ray, demonstrating no radiographic evidence of acute cardiopulmonary process. A CTA of the chest was done, showing no evidence of PE. She also underwent an abdominal ultrasound as she had reported upper abdominal discomfort that was intermittent for 2 weeks. There was no acute gallbladder pathology noted. The patient underwent further investigations with a stress test showing normal myocardial perfusion scan. Her headaches and neck pain persisted on and off through her stay, and seemed to be out of proportion to what was found on examination. The patient had initially stated she wanted to stay away from narcotics including morphine; however, proceeded to ask for morphine due to neck pain. After seeing the patient on the day of discharge early in the morning, she expressed that she was happy to try milder pain medications, such as hydrocodone. She reported improvement in her neck pain following hydrocodone; however, later requested morphine for a headache. I assessed the patient immediately before she received the morphine. She reported having 9/10 pain with sensitivity to light; however, once speaking to the patient, she did not seem to be showing any evidence of being in pain or discomfort. I explained that we were not happy to discharge her home after she had gotten morphine for headache as it would indicate there could be something going on and if that is severe and acute in onset, we would require further investigation. The patient was immediately regretful for taking morphine and then stated that her headache was not as severe as she had initially indicated and that she would have been happy to try milder medications such as Tylenol or ibuprofen. Nonetheless, we observed her for 3 hours post administration of morphine. She did not require any further narcotics during her stay. However, at the time of discharge, she did inquire about going home on a prescription for hydrocodone or Ativan or any other narcotic. Dr. Staples did see the patient and instruct that he would not be prescribing any narcotics, and she would need to follow up with her primary care physician. She was advised to take zjfc-opr-tabptdi analgesia including Tylenol and/or ibuprofen. The patient otherwise has done well. She had no further complaints of chest pressure or she has had no other complaints of chest pain. She was cleared for discharge to home. She did have this mildly raised. Her white blood count 15.4 on discharge; however, this was after a dose of methylprednisolone 60 mg. She remained afebrile and without any signs of infection. The patient was eating and drinking without any difficulties. Denies any abdominal pain or cramping. No changes with her bowels or urinary symptoms. No shortness of breath or palpitations. REVIEW OF SYSTEMS: All other review of systems are negative. PHYSICAL EXAMINATION: GENERAL: The patient appears well developed, well nourished, in no acute distress. VITAL SIGNS: Temperature 97.8, pulse 67, respirations 16, O2 saturation 93% on room air, and blood pressure 94/50. HEENT: Normocephalic, atraumatic. Pupils are equal, reactive to light. Sclerae are without icterus. Oropharynx is clear. NECK: Supple. No lymphadenopathy. No nuchal rigidity. Full range of motion. Nontender. LUNGS: Clear to auscultation bilaterally without wheezes, rales, or rhonchi. CARDIAC: Regular rate and rhythm without audible murmurs, rubs, or gallops. ABDOMEN: Soft, nontender, nondistended. Normoactive bowel sounds present. EXTREMITIES: No clubbing, cyanosis, or edema. NEUROLOGIC: Alert and oriented x3. Facial movements normal, and facial sensation intact. Extraocular movements normal. No speech disturbances or visual disturbances. No focal deficits. SKIN: Without rash or jaundice. LABORATORY DATA: White blood count 15.4, hemoglobin 12.5, and hematocrit 37.4. D-dimer less than 0.27. Sodium 139, potassium 3.3, BUN 30, creatinine 0.90, GFR 76, glucose 115, calcium 9.1, total bilirubin 0.3, AST 10, ALT 9, alkaline phosphatase 102, triglycerides 66, cholesterol 206, LDL 93, HDL 61, heart disease risk ratio 3.4. Lipase 19. TSH 0.4040, free T3 2.60, free T4 1.12. IMAGING DATA: 1. Chest x-ray on December 08, 2018. No radiographic evidence of acute cardiopulmonary process. 2. Chest CT angio, no CT evidence of pulmonary embolism. Small hiatal hernia present. Mild degenerative changes in the spine. 3. Abdominal ultrasound on December 09, 2018. No acute gallbladder pathology. 4. Stress test on December 09, 2018: Normal myocardial perfusion scan. DISCHARGE MEDICATIONS: 1. The patient was given prescription refill for her metoprolol 50 mg p.o. twice daily as well as estradiol 2 mg p.o. daily since she has run out. Advised to resume all other home medications. 2. Advised to take ljju-eeh-jihzlnp analgesia such as ibuprofen or Tylenol as needed for chronic back pain. CONDITION: Stable on discharge. ACTIVITY: As tolerated. DIET: Heart healthy. FOLLOWUP: The patient advised to follow up with her primary care physician. She does wish to establish care at another facility and given the fact, she does not have any insurance. She was given information for the [facility] as well as . Advised to obtain an appointment this week for repeat laboratory studies to ensure her white blood count is normalizing and then, she does not require any further potassium replacement. DISPOSITION: The patient was discharged to home on December 11, 2018. Job ID: [id number]
== END 2018-12-10 18:31 | disposition home or self-care (01) ==
LOC: ERS 15:48 → 2SW 20:24
PROVIDERS: ADMIT Hospitalist; ATTEND Hospitalist
DX: M54.2 Cervicalgia (principal); R51 Headache; I12.9 Hypertensive chronic kidney disease with stage 1 through stage 4 chronic kidney disease, or unspecified chronic kidney disease; N18.9 Chronic kidney disease, unspecified; F17.210 Nicotine dependence, cigarettes, uncomplicated; E87.6 Hypokalemia; F41.9 Anxiety disorder, unspecified; Z91.041 Radiographic dye allergy status; Z79.82 Long term (current) use of aspirin; E66.9 Obesity, unspecified; Z68.37 Body mass index [BMI] 37.0-37.9, adult; Z90.710 Acquired absence of both cervix and uterus; Z90.721 Acquired absence of ovaries, unilateral; Z90.89 Acquired absence of other organs; Z88.0 Allergy status to penicillin; Z79.818 Long term (current) use of other agents affecting estrogen receptors and estrogen levels; Z79.2 Long term (current) use of antibiotics; Z79.899 Other long term (current) drug therapy
CPT/HCPCS: 36415; 71045; 71275; 76705; 78452; 80048; 80053; 80061; 82550; 83690; 84439; 84443; 84481; 84484; 85025; 85379; 93005; 93010; 93017; 96361; 96372; 96374; 96375; 96376; A9500; G0378; J0153; J1200; J1650; J1885; J2270; J2405; J2930; Q0162; Q9966; S0028

== ENCOUNTER 2019-01-03 12:47 | Emergency (ER) | payer SELFPAY ==
[2019-01-03 13:26] LABS: Bilirubin Small (Negative); Blood, Urine Negative (Negative); Glucose, Urine (Dipstick) Negative (Negative); Leukocyte Negative (Negative); Nitrite Negative (Negative); Protein, Urine (Dipstick) Trace mg/dL (Neg-Trace); Urobilinogen 0.2 mg/dL (0.2-1.0); pH, Urine 5.5 (5.0-9.0)
[2019-01-03 13:31] LABS: Clarity CLEAR (Clear); Specific Gravity, Urine 1.046 (1.002-1.036)
[2019-01-03 13:35] LABS: #Basophils 0.1 thou/uL (0.0-0.2); #Eosinphils 0.1 thou/uL (0.0-0.7); #Lymphocytes 1.3 thou/uL (1.20-3.40); #Monocytes 0.6 thou/uL (0.11-0.59); #Neutrophils 4.6 thou/uL (1.40-6.50); %Basophils 0.8 % (0.0-1.0); %Eosinophils 1.9 % (0.0-10.0); %Lymphocytes 19.2 % (21.0-51.0); %Neutrophils 69.1 % (42.0-75.0); Hemoglobin 13.7 g/dL (12.0-16.0); Mean Corpuscular HGB CONC 34.4 g/dL (32.0-36.0); Mean Corpuscular Hemoglobin 31.3 pg (27.0-31.0); Mean Corpuscular Volume 91.1 fL (78.0-98.0); Mean Platelet Volume 5.8 fL (7.4-10.4); Platelet Count 358 thou/uL (130-400); RBC Distribution Width 11.1 % (11.5-14.5); Red Blood Cell (RBC) Count 4.36 mill/uL (4.20-5.40); White Blood Cell (WBC) Count 6.7 thou/uL (4.8-10.8)
[2019-01-03 13:52] LABS: ALT (SGPT) 11 U/L (8-55); AST (SGOT) 11 U/L (5-34); Albumin 3.8 g/dL (3.5-5.0); Alkaline Phosphatase 83 U/L (40-150); Anion Gap 12 mmol/L (10-20); BUN (Urea Nitrogen) 26 mg/dL (7.0-18.7); Bilirubin, Total 0.5 mg/dL (0.2-1.2); Calc. Creatinine Clearance 0 mL/min (70-130); Calcium 9.2 mg/dL (7.8-10.44); Carbon Dioxide 25 mmol/L (22-29); Chloride 102 mmol/L (98-107); Estimated GFR-MDRD 62; Globulin 2.8 g/dL (2.4-3.5); Glucose 103 mg/dL (70-105); Lipase 45 U/L (8-78); Potassium 3.5 mmol/L (3.5-5.1); Protein, Total 6.6 g/dL (6.0-8.3); Sodium 135 mmol/L (136-145)
[2019-01-03] MEDS ORDERED: Morphine 4 MG/ML VIAL ONE ×2 (14:01→15:33)
[2019-01-03] MEDS ORDERED: Ketorolac Tromethamine 30 MG/ML VIAL ONE (14:02)
[2019-01-03] MEDS ORDERED: Ondansetron PF 4 MG/2 ML Vial ONE ×2 (14:02→15:39)
--- NOTE | 2019-01-03 14:26 | CT ---
CT ABDOMEN AND PELVIS WITHOUT CONTRAST: Date: 01/03/19 Multiple axial tomograms obtained through abdomen and pelvis without IV enhancement. INDICATION: Right lower quadrant pain. COMPARISON: CT abdomen and pelvis dated 06/16/18. FINDINGS: Lung bases are clear. Liver, spleen, and pancreas are unremarkable given the limitations of an unenhanced exam. Adrenal glands and kidneys unremarkable. No hydronephrosis or urinary calculus. The small bowel loops are normal caliber. Colon unremarkable. Diverticulosis of the left colon and si gmoid. No definite CT evidence of diverticulitis. No mass or adenopathy. No free fluid. Urinary bladd er is contracted. IMPRESSION: There is left colon and sigmoid diverticulosis. No convincing CT evidence of diverticulitis. Some min imal stranding around the colon is stable from 2018. No acute process identified. POS: [facility]
--- NOTE | 2019-01-03 15:10 | ULT ---
GALLBLADDER ULTRASOUND: Indication: Pain Comparison: 12-09-18 FINDINGS: There is no focal hepatic lesion or acute abdominal pathology. Common duct is normal measuring 5 mm i n diameter. No ascites. Mercado's sign is reported as negative. IMPRESSION: No acute gallbladder pathology. POS: [facility]
== END 2019-01-03 15:50 | disposition home or self-care (01) ==
LOC: ERS 12:47
DX: R10.31 Right lower quadrant pain (principal); I10 Essential (primary) hypertension; Z87.891 Personal history of nicotine dependence; Z79.899 Other long term (current) drug therapy; Z79.82 Long term (current) use of aspirin
CPT/HCPCS: 36415; 74176; 76705; 80053; 81003; 83690; 85025; 87086; 96361; 96374; 96375; 96376; J1885; J2270; J2405

== ENCOUNTER 2019-01-07 23:41 | Emergency (ER) | payer SELFPAY ==
[2019-01-08] MEDS ORDERED: Morphine 4 MG/ML VIAL ONE (00:09)
[2019-01-08] MEDS ORDERED: Ketorolac Tromethamine 30 MG/ML VIAL ONE (00:09)
[2019-01-08] MEDS ORDERED: Ondansetron PF 4 MG/2 ML Vial ONE (00:10)
[2019-01-08 00:23] LABS: #Basophils 0.1 thou/uL (0.0-0.2); #Eosinphils 0.2 thou/uL (0.0-0.7); #Lymphocytes 2.2 thou/uL (1.20-3.40); #Monocytes 0.8 thou/uL (0.11-0.59); #Neutrophils 5.2 thou/uL (1.40-6.50); %Eosinophils 1.8 % (0.0-10.0); %Lymphocytes 26.2 % (21.0-51.0); %Monocytes 9.7 % (0.0-10.0); %Neutrophils 61.3 % (42.0-75.0); Hemoglobin 13.6 g/dL (12.0-16.0); Mean Corpuscular HGB CONC 34.4 g/dL (32.0-36.0); Mean Corpuscular Hemoglobin 32.1 pg (27.0-31.0); Mean Corpuscular Volume 93.3 fL (78.0-98.0); Mean Platelet Volume 5.7 fL (7.4-10.4); Platelet Count 374 thou/uL (130-400); RBC Distribution Width 11.4 % (11.5-14.5); Red Blood Cell (RBC) Count 4.24 mill/uL (4.20-5.40); White Blood Cell (WBC) Count 8.5 thou/uL (4.8-10.8)
[2019-01-08 00:50] LABS: ALT (SGPT) 11 U/L (8-55); AST (SGOT) 14 U/L (5-34); Albumin 3.7 g/dL (3.5-5.0); Alkaline Phosphatase 93 U/L (40-150); Anion Gap 13 mmol/L (10-20); BUN (Urea Nitrogen) 21 mg/dL (7.0-18.7); Bilirubin, Total 0.2 mg/dL (0.2-1.2); Calc. Creatinine Clearance 0 mL/min (70-130); Calcium 9.1 mg/dL (7.8-10.44); Carbon Dioxide 24 mmol/L (22-29); Chloride 105 mmol/L (98-107); Estimated GFR-MDRD 49; Globulin 3.1 g/dL (2.4-3.5); Glucose 105 mg/dL (70-105); Lipase 42 U/L (8-78); Potassium 3.6 mmol/L (3.5-5.1); Protein, Total 6.8 g/dL (6.0-8.3); Sodium 138 mmol/L (136-145)
[2019-01-08 01:07] LABS: Bilirubin Negative (Negative); Blood, Urine Large (Negative); Clarity CLEAR (Clear); Glucose, Urine (Dipstick) Negative (Negative); Leukocyte Negative (Negative); Nitrite Negative (Negative); Protein, Urine (Dipstick) Negative (Neg-Trace); Specific Gravity, Urine 1.035 (1.002-1.036); pH, Urine 5.5 (5.0-9.0)
[2019-01-08 01:10] LABS: Bacteria/HPF None Seen HPF (None Seen); RBC/HPF GREATER THAN 50-TNTC HPF (0-3); WBC/HPF 0-3 HPF (0-3)
[2019-01-08 01:12] LABS: Pathc Cast-AUWi Flag 2.99 (0-2.49)
[2019-01-08 01:21] LABS: Hyaline Casts/LPF NONE SEEN LPF (0-3 Hyaline); Other Casts/LPF None Seen LPF (0-3 Hyaline)
--- NOTE | 2019-01-08 08:46 | CT ---
PRELIMINARY REPORT/[facility]/EMERGENTY AFTER-HOURS PROCEDURE CT Abdomen and Pelvis Without Contrast EXAM DATE/TIME: 01/08/2019 12:17 AM CLINICAL HISTORY: 48 years old, female; Pain; Abdominal pain; Flank; Right; Patient HX: F50 presents to ed for flank pa in. PT reports lower right sided abdominal pain. PT denies blood in stools, but reports dark stools. PT reports vomiting, no blood. PT denies hematuria, reports dysuria. PT was seen last week for simila r SX, but this time reports pain more intense. PT reports pain began monday around noon and has gotte n gradually worse. PT has had kidney stones but denies similar pain. Hx- allergies to penicillin, sul fa, ceftriaxone; Prior abdominal surgery- unsure if appendix removed, 1 year ago, complete hysterectomy TECHNIQUE: Axial computed tomography images of the abdomen and pelvis without contrast. Coronal reformatted images were created and reviewed. COMPARISON: No relevant prior studies available. FINDINGS: Lower thorax: Small to moderate sliding hiatal hernia. ABDOMEN: Liver: No liver masses. Gallbladder and bile ducts: Normal appearance of the gallbladder. No ductal dilation. Pancreas: No pancreatic mass or ductal dilation. Spleen: No splenic masses. Adrenals: No adrenal nodules. Kidneys and ureters: No nephroureterolithiasis or hydronephrosis. Stomach and bowel: Scattered colonic diverticula. Appendix: Prior appendectomy. PELVIS: Bladder: The bladder is decompressed. Reproductive: Hysterectomy. No adnexal masses. ABDOMEN and PELVIS: Intraperitoneal space: Normal. No free air. No significant fluid collection. Bones/joints: No acute fracture. No dislocation. Soft tissues: Unremarkable. Vasculature: Normal. No abdominal aortic aneurysm. Lymph nodes: Normal. No enlarged lymph nodes. IMPRESSION: 1. No acute findings in the CT of the abdomen or pelvis. 2. No nephroureterolithiasis or hydronephrosis. 3. Colonic diverticulosis without evidence of diverticulitis. 4. Small to moderate sliding hiatal hernia. Thank you for allowing us to participate in the care of your patient. Dictated and Authenticated by: Azalea Zuleta MD 01/08/2019 1:35 AM Central Time ([place] & [place]) CT ABDOMEN WITHOUT CONTRAST: CT PELVIS WITHOUT CONTRAST: HISTORY: Right back pain. Right flank pain. The patient was seen recently and diagnosed with diverticulitis. COMPARISON: 06/16/2018 FINDINGS: This report is in agreement with the preliminary report by [facility]. No evidence of nephrolithiasis or ob structive uropathy. There is diverticulosis, without evidence of diverticulitis. POS: [facility]
== END 2019-01-08 01:55 | disposition home or self-care (01) ==
LOC: ERS 23:41
DX: R10.31 Right lower quadrant pain (principal); R31.9 Hematuria, unspecified; I10 Essential (primary) hypertension; F17.210 Nicotine dependence, cigarettes, uncomplicated; Z87.442 Personal history of urinary calculi; Z79.82 Long term (current) use of aspirin; Z79.899 Other long term (current) drug therapy
CPT/HCPCS: 36415; 74176; 80053; 81003; 81015; 83605; 83690; 85025; 86140; 87086; 96361; 96374; 96375; J1885; J2270; J2405

== ENCOUNTER 2019-01-14 18:20 | Emergency (ER) | payer SELFPAY ==
[2019-01-14 18:57] LABS: #Basophils 0.1 thou/uL (0.0-0.2); #Eosinphils 0.1 thou/uL (0.0-0.7); #Lymphocytes 1.7 thou/uL (1.20-3.40); #Monocytes 0.8 thou/uL (0.11-0.59); #Neutrophils 6.5 thou/uL (1.40-6.50); %Basophils 0.9 % (0.0-1.0); %Eosinophils 0.9 % (0.0-10.0); %Lymphocytes 18.9 % (21.0-51.0); %Monocytes 8.9 % (0.0-10.0); %Neutrophils 70.4 % (42.0-75.0); Hemoglobin 14.1 g/dL (12.0-16.0); Mean Corpuscular HGB CONC 34.2 g/dL (32.0-36.0); Mean Corpuscular Hemoglobin 31.7 pg (27.0-31.0); Mean Corpuscular Volume 92.5 fL (78.0-98.0); Mean Platelet Volume 5.7 fL (7.4-10.4); Platelet Count 368 thou/uL (130-400); RBC Distribution Width 11.3 % (11.5-14.5); Red Blood Cell (RBC) Count 4.45 mill/uL (4.20-5.40); White Blood Cell (WBC) Count 9.2 thou/uL (4.8-10.8)
[2019-01-14 19:23] LABS: Bilirubin Negative (Negative); Blood, Urine Moderate (Negative); Clarity CLEAR (Clear); Glucose, Urine (Dipstick) Negative (Negative); Leukocyte Negative (Negative); Nitrite Negative (Negative); Protein, Urine (Dipstick) Negative (Neg-Trace); Specific Gravity, Urine 1.014 (1.002-1.036); pH, Urine 7.5 (5.0-9.0)
[2019-01-14 19:24] LABS: ALT (SGPT) 11 U/L (8-55); AST (SGOT) 13 U/L (5-34); Albumin 4.2 g/dL (3.5-5.0); Alkaline Phosphatase 94 U/L (40-150); Anion Gap 15 mmol/L (10-20); BUN (Urea Nitrogen) 19 mg/dL (7.0-18.7); Bilirubin, Total 0.4 mg/dL (0.2-1.2); Calc. Creatinine Clearance 0 mL/min (70-130); Calcium 9.7 mg/dL (7.8-10.44); Carbon Dioxide 27 mmol/L (22-29); Chloride 101 mmol/L (98-107); Estimated GFR-MDRD 66; Globulin 3.1 g/dL (2.4-3.5); Glucose 97 mg/dL (70-105); Potassium 4.5 mmol/L (3.5-5.1); Protein, Total 7.3 g/dL (6.0-8.3); Sodium 138 mmol/L (136-145)
[2019-01-14 19:25] LABS: Bacteria/HPF None Seen HPF (None Seen); Hyaline Casts/LPF 4-6 HYALINE CAST LPF (0-3 Hyaline); Pathc Cast-AUWi Flag 1.63 (0-2.49); WBC/HPF None Seen HPF (0-3)
--- NOTE | 2019-01-14 19:35 | RAD ---
RADIOGRAPH CHEST 2 VIEWS: HISTORY: 48-year-old female with dyspnea. FINDINGS: There is no air space density, pulmonary edema, pleural effusion, pneumothorax, or cardiomegaly. IMPRESSION: No acute cardiopulmonary findings. griselda POS: JIN
[2019-01-14] MEDS ORDERED: Morphine 4 MG/ML VIAL ONE (20:04)
[2019-01-14] MEDS ORDERED: Famotidine/PF 20 mg/2ml Vial ONE (20:04)
[2019-01-14] MEDS ORDERED: Ondansetron PF 4 MG/2 ML Vial ONE (20:04)
[2019-01-14] MEDS ORDERED: diphenhydrAMINE 50 MG/ML VIAL ONE (20:04)
[2019-01-14] MEDS ORDERED: methylPREDNISolone Sod Succ/PF 125 MG/2 ML VIAL ONE (20:04)
--- NOTE | 2019-01-14 20:51 | CT ---
CT ABDOMEN AND PELVIS WITH IV CONTRAST: History: Abdominal pain. Comparison: 01-08-19 FINDINGS: Lung bases are clear. Small hiatal hernia. Tiny renal cysts are stable. No enlarged lymph nodes or fr ee fluid. Diverticula arise from the colon without adjacent inflammation. Urinary bladder is unremark able. Appendix is surgically absent. IMPRESSION: 1. Mild diverticulosis. No evidence of diverticulitis. 2. Chronic type findings are stable. POS: [facility]
[2019-01-14] MEDS ORDERED: Ketorolac Tromethamine 30 MG/ML VIAL ONE (22:27)
== END 2019-01-14 22:36 | disposition home or self-care (01) ==
LOC: ERS 18:20
DX: R10.9 Unspecified abdominal pain (principal); I10 Essential (primary) hypertension; F17.210 Nicotine dependence, cigarettes, uncomplicated; Z87.442 Personal history of urinary calculi; Z79.82 Long term (current) use of aspirin; Z79.899 Other long term (current) drug therapy; Z79.891 Long term (current) use of opiate analgesic
CPT/HCPCS: 36415; 71046; 74177; 80053; 81003; 81015; 84484; 85025; 93005; 94760; 96361; 96374; 96375; J1200; J1885; J2270; J2405; J2930; Q9966; S0028

== ENCOUNTER 2019-01-31 15:22 | Emergency (ER) | payer SELFPAY | END 2019-01-31 17:37 | disposition left against medical advice (07) | LOC: ERS 15:22 | DX: Z53.21 Procedure and treatment not carried out due to patient leaving prior to being seen by health care provider (principal) ==

== ENCOUNTER 2019-02-09 20:21 | Emergency (ER) | payer SELFPAY ==
[2019-02-09 20:51] LABS: #Basophils 0.1 thou/uL (0.0-0.2); #Eosinphils 0.1 thou/uL (0.0-0.7); #Lymphocytes 2.3 thou/uL (1.20-3.40); #Monocytes 1.2 thou/uL (0.11-0.59); #Neutrophils 7.3 thou/uL (1.40-6.50); %Basophils 1.1 % (0.0-1.0); %Eosinophils 1.2 % (0.0-10.0); %Monocytes 11.2 % (0.0-10.0); %Neutrophils 65.6 % (42.0-75.0); Hemoglobin 14.3 g/dL (12.0-16.0); Mean Corpuscular HGB CONC 34.2 g/dL (32.0-36.0); Mean Corpuscular Hemoglobin 31.4 pg (27.0-31.0); Mean Corpuscular Volume 91.9 fL (78.0-98.0); Mean Platelet Volume 5.8 fL (7.4-10.4); Platelet Count 381 thou/uL (130-400); Red Blood Cell (RBC) Count 4.56 mill/uL (4.20-5.40); White Blood Cell (WBC) Count 11.1 thou/uL (4.8-10.8)
[2019-02-09 21:10] LABS: ALT (SGPT) 11 U/L (8-55); AST (SGOT) 12 U/L (5-34); Albumin 4.2 g/dL (3.5-5.0); Alkaline Phosphatase 88 U/L (40-150); Anion Gap 17 mmol/L (10-20); BUN (Urea Nitrogen) 27 mg/dL (7.0-18.7); Bilirubin, Total 0.3 mg/dL (0.2-1.2); Calc. Creatinine Clearance 0 mL/min (70-130); Calcium 9.4 mg/dL (7.8-10.44); Carbon Dioxide 23 mmol/L (22-29); Chloride 100 mmol/L (98-107); Estimated GFR-MDRD 61; Globulin 3.3 g/dL (2.4-3.5); Glucose 93 mg/dL (70-105); Potassium 3.7 mmol/L (3.5-5.1); Protein, Total 7.5 g/dL (6.0-8.3); Sodium 136 mmol/L (136-145)
[2019-02-09] MEDS ORDERED: Morphine 4 MG/ML VIAL ONE ×3 (21:12→22:58)
[2019-02-09] MEDS ORDERED: Ondansetron PF 4 MG/2 ML Vial ONE ×2 (21:12→21:50)
[2019-02-09 21:22] LABS: Bilirubin Negative (Negative); Blood, Urine Negative (Negative); Clarity CLEAR (Clear); Glucose, Urine (Dipstick) Negative (Negative); Leukocyte Negative (Negative); Nitrite Negative (Negative); Protein, Urine (Dipstick) Negative (Neg-Trace); Specific Gravity, Urine 1.027 (1.002-1.036); Urobilinogen 0.2 mg/dL (0.2-1.0)
--- NOTE | 2019-02-09 21:53 | CT ---
NONCONTRAST ENHANCED CT IMAGES ABDOMEN AND PELVIS: 02/09/19 HISTORY: Left sided abdominal pain. Noncontrast enhanced CT images of the abdomen and pelvis is obtained. The lung bases are unremarkable. No evidence of free intraperitoneal air is seen. The liver and spleen are unremarkable. The gallbladder and pancreas unremarkable. A moderate sized sl iding hiatal hernia is seen. No dilated loops of small bowel seen. The patient has had previous appendectomy. Moderate degree of descending and transverse colonic mucos al thickening seen possibly representing colitis. Numerous transverse and descending colonic divertic autumn are also present. No evidence of adrenal lesions seen. No evidence of renal calculi seen. No evidence of periaortic lymphadenopathy seen. The patient has had a previous hysterectomy. IMPRESSION: 1. Descending and transverse colonic diverticulosis. 2. Descending and transverse colonic areas of colonic thickening concerning for possible colitis . POS: [facility]
[2019-02-09] MEDS ORDERED: Promethazine HCl 25 MG/ML VIAL ONE (23:07)
== END 2019-02-10 00:21 | disposition home or self-care (01) ==
LOC: ERS 20:21
DX: K52.9 Noninfective gastroenteritis and colitis, unspecified (principal); I10 Essential (primary) hypertension; F17.210 Nicotine dependence, cigarettes, uncomplicated; Z79.899 Other long term (current) drug therapy
CPT/HCPCS: 36415; 74176; 80053; 81003; 83690; 85025; 96374; 96375; 96376; J0500; J2270; J2405; J2550

== ENCOUNTER 2019-02-28 14:22 | Emergency (ER) | payer SELFPAY ==
--- NOTE | 2019-02-28 14:59 | RAD ---
CHEST ONE VIEW: HISTORY: Chest pain and shortness of breath for one hour. COMPARISON: 01/14/2019 FINDINGS: Mild stable parenchymal changes in the left lower lobe and costophrenic angle. Heart size is normal. Lungs are otherwise clear. No confluent pneumonia, overt edema, or pleural effusion. IMPRESSION: Minimal stable parenchymal changes in the left lower lobe and costophrenic angle region. No acute in trathoracic disease. POS: C
[2019-02-28] MEDS ORDERED: Ketorolac Tromethamine 30 MG/ML VIAL ONE (16:18)
[2019-02-28 16:21] LABS: #Basophils 0.1 thou/uL (0.0-0.2); #Eosinphils 0.1 thou/uL (0.0-0.7); #Lymphocytes 1.8 thou/uL (1.20-3.40); #Monocytes 0.9 thou/uL (0.11-0.59); #Neutrophils 5.6 thou/uL (1.40-6.50); %Basophils 0.7 % (0.0-1.0); %Eosinophils 1.4 % (0.0-10.0); %Monocytes 10.5 % (0.0-10.0); %Neutrophils 66.5 % (42.0-75.0); Hemoglobin 14.7 g/dL (12.0-16.0); Mean Corpuscular HGB CONC 34.2 g/dL (32.0-36.0); Mean Corpuscular Hemoglobin 31.4 pg (27.0-31.0); Mean Corpuscular Volume 91.7 fL (78.0-98.0); Mean Platelet Volume 5.6 fL (7.4-10.4); Platelet Count 362 thou/uL (130-400); RBC Distribution Width 11.3 % (11.5-14.5); White Blood Cell (WBC) Count 8.5 thou/uL (4.8-10.8)
[2019-02-28] MEDS ORDERED: methylPREDNISolone Sod Succ/PF 125 MG/2 ML VIAL ONE (16:34)
[2019-02-28] MEDS ORDERED: Famotidine/PF 20 mg/2ml Vial ONE (16:34)
[2019-02-28] MEDS ORDERED: diphenhydrAMINE 50 MG/ML VIAL ONE (16:34)
[2019-02-28 16:43] LABS: ALT (SGPT) 12 U/L (8-55); AST (SGOT) 11 U/L (5-34); Albumin 4.3 g/dL (3.5-5.0); Alkaline Phosphatase 98 U/L (40-150); Anion Gap 14 mmol/L (10-20); BUN (Urea Nitrogen) 26 mg/dL (7.0-18.7); Bilirubin, Total 0.4 mg/dL (0.2-1.2); CK (CPK) 52 U/L (29-168); Calc. Creatinine Clearance 0 mL/min (70-130); Calcium 9.7 mg/dL (7.8-10.44); Carbon Dioxide 26 mmol/L (22-29); Chloride 100 mmol/L (98-107); Estimated GFR-MDRD 60; Globulin 3.4 g/dL (2.4-3.5); Glucose 104 mg/dL (70-105); Lipase 36 U/L (8-78); Potassium 4.1 mmol/L (3.5-5.1); Protein, Total 7.7 g/dL (6.0-8.3); Sodium 136 mmol/L (136-145)
[2019-02-28] MEDS ORDERED: Ondansetron PF 4 MG/2 ML Vial ONE (16:44)
[2019-02-28] MEDS ORDERED: Morphine 4 MG/ML VIAL ONE (17:06)
--- NOTE | 2019-02-28 17:33 | CT ---
CTA Angio Chest W WO Con History: [Shortness of breath. Chest pain.] Comparison: Radiograph same day Findings: CT angiogram of the chest performed after the intravenous administration of contrast. 3-D r endering provided. There is no proximal segmental pulmonary arterial filling defect. Aortic contour is normal. No dilata tion of the pulmonary trunk. Heart size is not enlarged. No pericardial effusion. No periaortic adenopathy. No pneumothorax. No effusion. No airspace consolidation. Low-grade atelectasis in the lung bases. No acute osseous abnormality. Impression: 1. No proximal segmental pulmonary arterial filling defect. 2. No acute inflammatory process within the chest.
== END 2019-02-28 17:48 | disposition home or self-care (01) ==
LOC: ERS 14:22
DX: R07.89 Other chest pain (principal); I10 Essential (primary) hypertension; F17.210 Nicotine dependence, cigarettes, uncomplicated; F41.9 Anxiety disorder, unspecified; Z79.899 Other long term (current) drug therapy
CPT/HCPCS: 36415; 71045; 71275; 80053; 82550; 83690; 84484; 85025; 93005; 96374; 96375; J1200; J1885; J2270; J2405; J2930; Q9966; S0028

== ENCOUNTER 2019-04-08 17:26 | Emergency (ER) | payer SELFPAY ==
[2019-04-08 17:50] LABS: Bilirubin Small (Negative); Blood, Urine Large (Negative); Clarity CLOUDY (Clear); Glucose, Urine (Dipstick) Negative (Negative); Leukocyte Negative (Negative); Nitrite Negative (Negative); Protein, Urine (Dipstick) Negative (Neg-Trace); Specific Gravity, Urine 1.037 (1.002-1.036); pH, Urine 5.5 (5.0-9.0)
[2019-04-08 17:53] LABS: WBC/HPF 0-3 HPF (0-3)
[2019-04-08 18:07] LABS: Pregnancy Test - Urine (BHCG) Negative (Negative); Pregu Control Background? CLEAR/WHITE (CLR/WHITE); Pregu Control Bar Appear? YES (CONTROL BAR); Specific Gravity 1.037 (1.002-1.036)
[2019-04-08 18:10] LABS: #Basophils 0.1 thou/uL (0.0-0.2); #Eosinphils 0.2 thou/uL (0.0-0.7); #Lymphocytes 1.5 thou/uL (1.20-3.40); #Monocytes 0.7 thou/uL (0.11-0.59); %Basophils 0.8 % (0.0-1.0); %Eosinophils 2.3 % (0.0-10.0); %Lymphocytes 17.5 % (21.0-51.0); %Monocytes 7.8 % (0.0-10.0); %Neutrophils 71.6 % (42.0-75.0); Hemoglobin 13.3 g/dL (12.0-16.0); Mean Corpuscular HGB CONC 34.9 g/dL (32.0-36.0); Mean Corpuscular Hemoglobin 32.1 pg (27.0-31.0); Mean Platelet Volume 5.5 fL (7.4-10.4); Platelet Count 346 thou/uL (130-400); RBC Distribution Width 11.5 % (11.5-14.5); Red Blood Cell (RBC) Count 4.14 mill/uL (4.20-5.40); White Blood Cell (WBC) Count 8.4 thou/uL (4.8-10.8)
[2019-04-08 18:11] LABS: Bacteria/HPF Rare-Few HPF (None Seen); Hyaline Casts/LPF NONE SEEN LPF (0-3 Hyaline)
[2019-04-08] MEDS ORDERED: Ondansetron ODT 4 MG TAB ONE (18:14)
--- NOTE | 2019-04-08 18:28 | CT ---
CT OF ABDOMEN AND PELVIS PERFORMED WITHOUT CONTRAST ENHANCEMENT: 04/08/19 HISTORY: Left flank pain radiating to left lower quadrant. COMPARISON: A 02/09/19 exam. The lung bases show subsegmental atelectatic change. There is a hiatal hernia noted. The liver, spleen, pancreas, and gallbladder regions appear unremarkable. Right and left adrenal glands and right and left kidneys are normal in size. There are no renal or ureteral calculi identified. There is a tiny punctate calcification in the mid pole of the left kidney but this appears to be in the cortex and associated with what appears to be a small area of scar. There is no significant periaortic or mesenteric lymphadenopathy. There is mild colonic diverticulosis but no acute inflammatory change. Colon is somewhat decompressed. Surgical clips are seen in the region of the appendix. There is no evidence of adenopathy, mass or f ree fluid. IMPRESSION: 1. Colonic diverticulosis. 2. Mild hiatal hernia. 3. Punctate calcification in the mid pole region of the left kidney which is felt to be cortical based and not within the collecting system. POS: [facility]
[2019-04-08 18:39] LABS: ALT (SGPT) 14 U/L (8-55); AST (SGOT) 12 U/L (5-34); Albumin 3.9 g/dL (3.5-5.0); Alkaline Phosphatase 104 U/L (40-150); Anion Gap 15 mmol/L (10-20); BUN (Urea Nitrogen) 19 mg/dL (7.0-18.7); Bilirubin, Total 0.4 mg/dL (0.2-1.2); Calc. Creatinine Clearance 0 mL/min (70-130); Carbon Dioxide 19 mmol/L (22-29); Chloride 104 mmol/L (98-107); Estimated GFR-MDRD 70; Globulin 3.2 g/dL (2.4-3.5); Glucose 136 mg/dL (70-105); Lipase 28 U/L (8-78); Protein, Total 7.1 g/dL (6.0-8.3); Sodium 134 mmol/L (136-145)
[2019-04-08] MEDS ORDERED: HYDROcodone/Acetaminophen 5/325 mg Tablet ONE (19:49)
== END 2019-04-08 19:57 | disposition home or self-care (01) ==
LOC: ERS 17:26
DX: K57.90 Diverticulosis of intestine, part unspecified, without perforation or abscess without bleeding (principal); R31.9 Hematuria, unspecified; I10 Essential (primary) hypertension; F41.9 Anxiety disorder, unspecified; F17.210 Nicotine dependence, cigarettes, uncomplicated; Z79.899 Other long term (current) drug therapy
CPT/HCPCS: 36415; 74176; 80053; 81003; 81015; 81025; 83690; 85025; Q0162

== ENCOUNTER 2019-04-09 02:29 | Observation (INO) | payer SELFPAY ==
[2019-04-09] MEDS ORDERED: Morphine 4 MG/ML VIAL ONE ×2 (03:15→05:33)
[2019-04-09] MEDS ORDERED: Acetaminophen 500 MG TAB ONE (03:15)
[2019-04-09 03:32] LABS: Bilirubin Negative (Negative); Blood, Urine Negative (Negative); Clarity CLOUDY (Clear); Glucose, Urine (Dipstick) Negative (Negative); Leukocyte Negative (Negative); Nitrite Negative (Negative); Protein, Urine (Dipstick) Negative (Neg-Trace); Urobilinogen 0.2 mg/dL (0.2-1.0); pH, Urine 5.5 (5.0-9.0)
[2019-04-09 03:43] LABS: #Eosinphils 0.2 thou/uL (0.0-0.7); #Lymphocytes 1.7 thou/uL (1.20-3.40); #Monocytes 0.8 thou/uL (0.11-0.59); #Neutrophils 5.1 thou/uL (1.40-6.50); %Basophils 0.6 % (0.0-1.0); %Eosinophils 2.5 % (0.0-10.0); %Lymphocytes 21.7 % (21.0-51.0); %Monocytes 9.9 % (0.0-10.0); %Neutrophils 65.3 % (42.0-75.0); Hemoglobin 12.7 g/dL (12.0-16.0); Mean Corpuscular HGB CONC 34.4 g/dL (32.0-36.0); Mean Corpuscular Hemoglobin 31.6 pg (27.0-31.0); Mean Corpuscular Volume 91.7 fL (78.0-98.0); Mean Platelet Volume 5.7 fL (7.4-10.4); Platelet Count 327 thou/uL (130-400); RBC Distribution Width 11.6 % (11.5-14.5); Red Blood Cell (RBC) Count 4.01 mill/uL (4.20-5.40); White Blood Cell (WBC) Count 7.9 thou/uL (4.8-10.8)
[2019-04-09] MEDS ORDERED: Ondansetron PF 4 MG/2 ML Vial ONE ×2 (03:59→05:59)
[2019-04-09 04:04] LABS: ALT (SGPT) 14 U/L (8-55); AST (SGOT) 20 U/L (5-34); Albumin 3.8 g/dL (3.5-5.0); Alkaline Phosphatase 97 U/L (40-150); Anion Gap 12 mmol/L (10-20); BUN (Urea Nitrogen) 21 mg/dL (7.0-18.7); Bilirubin, Total 0.3 mg/dL (0.2-1.2); Calc. Creatinine Clearance 0 mL/min (70-130); Calcium 9.2 mg/dL (7.8-10.44); Carbon Dioxide 23 mmol/L (22-29); Chloride 105 mmol/L (98-107); Estimated GFR-MDRD 56; Globulin 3.3 g/dL (2.4-3.5); Glucose 102 mg/dL (70-105); Potassium 4.4 mmol/L (3.5-5.1); Protein, Total 7.1 g/dL (6.0-8.3); Sodium 136 mmol/L (136-145)
[2019-04-09] MEDS ORDERED: Lorazepam 2 MG/ML VIAL ONE (04:41)
[2019-04-09] MEDS ORDERED: metroNIDAZOLE 500 MG/100 ML BAG ONE (05:33)
[2019-04-09] MEDS: Morphine 4 MG/ML VIAL SLOW IVP PRN ×5 (07:42→16:10)
[2019-04-09] MEDS: Ondansetron PF 4 MG/2 ML Vial SLOW IVP PRN ×3 (09:19→21:21)
[2019-04-09] MEDS ORDERED: traMADol HCl 50 MG TAB PO PRN (10:38)
[2019-04-09] MEDS ORDERED: Bisacodyl 5 MG TAB PO PRN (10:46)
[2019-04-09] MEDS ORDERED: Acetaminophen 650 MG Suppository PR PRN (10:46)
[2019-04-09] MEDS: traMADol HCl 50 MG TAB PO PRN (10:52)
[2019-04-09 11:40] VITALS: BMI 36.1
[2019-04-09] MEDS: Sodium Chloride 0.9% 1,000 ML IV SCH (11:55)
[2019-04-09] MEDS: Nicotine 21 MG PATCH TD SCH (11:58)
[2019-04-09 12:37] LABS: Hemoglobin 12.2 g/dL (12.0-16.0)
--- NOTE | 2019-04-09 13:06 | HP ---
PRIMARY CARE PROVIDER: Gary Vazquez. CHIEF COMPLAINT: Rectal bleeding. HISTORY OF PRESENT ILLNESS: Ms. Heath is a pleasant 48-year-old lady who was seen at [facility] on April 09, 2019. She was hospitalized at this facility from December 08 to of this year for chronic neck pain, headaches, and hypertension. She was seen in the emergency room earlier yesterday for suspected hematuria. CT scan of the abdomen and pelvis done at that time showed colonic diverticulosis, mild hiatal hernia, and punctate calcification in the midpole region of the left kidney, which was felt to be cortical based and not within the collecting system. She was discharged home. She returned to the emergency room complaining of abdominal pain and blood in stool. She reports that the pain started yesterday evening, burning in nature, 8/10 at its worst, starting in the left lower quadrant and radiating to the front of her abdomen. She reports multiple episodes of the pain. She also reports multiple episodes of bloody stools. She denies any fevers or chills. She denies any nausea or vomiting. REVIEW OF SYSTEMS: All other systems reviewed and found to be negative. PAST MEDICAL HISTORY: Obesity, hypertension, chronic kidney disease. PAST SURGICAL HISTORY: Hysterectomy, section x2, oophorectomy, and tonsillectomy. SOCIAL HISTORY: The patient smokes half to one pack of cigarettes a day. She denies any alcohol use or recreational drug use. FAMILY HISTORY: Mother was diagnosed with colon cancer in her 30s. She at age 60 from metastatic malignancy. ALLERGIES: 1. CEFTRIAXONE. 2. PENICILLIN. 3. SULFA. CURRENT MEDICATIONS: 1. Metoprolol succinate 50 mg 2 times a day. 2. Estradiol 2 mg daily. 3. Xanax 0.5 mg as needed. 4. Hydrochlorothiazide 25 mg daily. 5. Tylenol No. 3 p.r.n. 6. Zofran p.r.n. PHYSICAL EXAMINATION: GENERAL: On examination, Ms. Heath is awake and alert, not in acute distress. VITAL SIGNS: Blood pressure is 114/74, pulse 78, respiratory rate 18, and oxygen saturation 94% on room air. She is afebrile. She is obese, with a BMI of 36.1. EYES: No scleral icterus, no conjunctival pallor. ENT: Moist mucosal membranes. No oropharyngeal erythema or exudates. NECK: Supple, nontender, trachea is midline. RESPIRATORY: Accessory muscles of breathing are not active. Chest wall movements are symmetric bilaterally. Lungs are clear to auscultation without wheeze, rhonchi, or crepitations. CARDIOVASCULAR: S1 and S2 are heard, regular. Peripheral pulses palpable. No carotid bruit. No pericardial rub. ABDOMEN: Soft, mild left lower quadrant tenderness, no guarding or rigidity. Bowel sounds heard, no hepatomegaly, no splenomegaly. NEUROLOGIC: Cranial nerves 2 through 12 intact, deep tendon reflexes 2+. MUSCULOSKELETAL: Power is 5/5 in all 4 extremities. SKIN: No rashes or subcutaneous nodules. LYMPHATIC: No cervical lymphadenopathy. PSYCHIATRIC: Normal mood, normal affect, the patient is oriented to person, place, and time. LABORATORY DATA: Ms. Heath's labs and investigations were reviewed. As mentioned, she had CT scan of the abdomen and pelvis done, with the results described earlier. She has an unremarkable CBC and unremarkable comprehensive metabolic profile. Urinalysis is negative. ASSESSMENT AND PLAN: Ms. Heath is a pleasant 48-year-old lady, who was seen at [facility] on April 09, 2019. Her problem list includes: 1. Gastrointestinal bleed: Ms. Heath is presenting with lower gastrointestinal bleed. She is hemodynamically stable. Hemoglobin is stable at this time as well. She will be admitted to the hospital. We will recheck her hemoglobin level. We will consult GI Service for opinion and help with management. 2. Hypertension: Will resume home medications, monitor vital signs, and titrate antihypertensives as needed. Further management depending on how she does clinically over the next several hours. Many thanks for allowing me to participate in your patient's care. Please feel free to contact me with any questions or concerns. LEVEL OF RISK: Moderate. LEVEL OF COMPLEXITY: Moderate. Job ID: [id number]
--- NOTE | 2019-04-09 17:44 | CON ---
DATE OF CONSULTATION: 04/09/2019 REASON FOR CONSULTATION: GI bleeding and abdominal pain. HISTORY OF PRESENT ILLNESS: Taylor Heath is a 48-year-old woman, who was admitted to the hospital overnight with acute abdominal pain and hematochezia. She has a history of hypertension and obesity as well as hysterectomy. She has never undergone EGD or colonoscopy. Interestingly, her mother had colon cancer in her 30s or 40s and later of metastatic disease in her 50s. The patient does smoke cigarettes. Yesterday morning, the patient had a small amount of red blood with her stool. She thought that this might actually represent vaginal or urinary bleeding and presented to the ER for evaluation. A CT of the abdomen and pelvis yesterday demonstrated colonic diverticulosis, but no evidence of diverticulitis. No intraabdominal lymphadenopathy. Normal appearing liver, spleen, and pancreas. The patient was discharged home; however, around that time, she started developing significant left lower quadrant abdominal pain and diarrhea. She says she had escalating burning pain in the lower abdomen, particularly on the left as well as multiple loose urgent, initially nonbloody stools. However, as the bowel movements progressed last night, she finally had a bowel movement. There was a large amount of bright red blood, which appeared to be mixed in with the stool. This had never happened to her before and was quite alarming. She presented back to the hospital. Hemoglobin is normal at 12.2. Her abdominal pain is still considerable. She had another bloody bowel movement earlier this morning. She has remained hemodynamically stable. She is getting morphine. She got doses of ciprofloxacin and Flagyl. She states that her had a little bit of stomach upset yesterday as well, but did not have diarrhea or bleeding like this. Looking back, the patient has had multiple CT scans of the abdomen and pelvis over the past few years, diverticulosis in the left side of the colon that has been demonstrated multiple times. There has never been a time that I can see that real diverticulitis was demonstrated including her CT scans yesterday. She did have one in January, which suggested some possible thickening in the descending colon and transverse colon. REVIEW OF SYSTEMS: Full review of systems including constitutional; head, eyes, ears, nose, throat; GI; ; cardiovascular; respiratory; musculoskeletal; neurologic systems is negative except as noted in the HPI. PAST MEDICAL HISTORY: Hypertension, hysterectomy, obesity, chronic kidney disease. FAMILY HISTORY: Her mother had colon cancer in her 30s or 40s. SOCIAL HISTORY: She smokes 1/2 to 1 pack of cigarettes per day. No alcohol or drug abuse. ALLERGIES: CEFTRIAXONE, PENICILLIN, SULFA. OUTPATIENT MEDICATIONS: Metoprolol, estradiol, Xanax, hydrochlorothiazide, Tylenol No.3, and Zofran. PHYSICAL EXAMINATION: VITAL SIGNS: Temperature 97.7, pulse 78, blood pressure 114/74, and 98% oxygen saturation on room air. GENERAL: A 48-year-old woman lying in bed, in mild distress from abdominal discomfort, appearing nontoxic. SKIN: No jaundice. No rashes were palpable. EYES: No scleral icterus. Extraocular movements intact. ENT: Mucous membranes moist. No oral lesions. LYMPH: No submandibular or supraclavicular lymphadenopathy. Thyroid nontender to palpation. MENTAL: Alert and oriented. Able to give a detailed coherent history. HEART: Regular rate and rhythm. LUNGS: Clear to auscultation bilaterally. ABDOMEN: Nondistended. Bowel sounds are present, soft. Tender to palpation across the lower abdomen, particularly in the left lower quadrant. No guarding or rebound tenderness. EXTREMITIES: No peripheral edema. VESSELS: Radial pulses 2+ bilaterally. NEURO: Cranial nerves 2 through 12 intact bilaterally. No focal deficits. LABORATORY STUDIES: Hemoglobin 12.2, WBC 7.9, platelets 327. Sodium 136, potassium 4.4, BUN 21, creatinine 1.04. LFTs all normal with total bilirubin 0.3, alkaline phosphatase 97, AST 20, ALT 14, albumin 3.8. Urinalysis negative. IMAGING STUDIES: CT of the abdomen and pelvis was performed yesterday. It shows colonic diverticulosis, but no evidence of diverticulitis. There is a small hiatal hernia. No intraabdominal lymphadenopathy. Liver, spleen, and pancreas appear normal. ASSESSMENT AND PLAN: 1. Acute hematochezia. 2. Acute left lower quadrant abdominal pain. The patient's presentation seems most consistent with an acute colitis. Notably, her CT scan yesterday did not demonstrate any evidence of diverticulitis. Also note, normal stable hemoglobin today. There is no inflammatory stranding as might be expected with an episode of acute ischemic colitis. I think an acute infectious gastroenteritis would probably lead the differential. Stool studies need to be obtained and sent for C difficile, Campylobacter, shiga toxin, etc. I have gone ahead and order these. We will follow up tomorrow and hopefully, we will have stool study results back by then. Continue supportive care. In the meantime, I will give the patient a clear liquid diet. 3. If the stool studies are unrevealing and there is no clear symptomatic improvement, then we would consider diagnostic colonoscopy later this admission. Regardless, the patient is overdue for her first screening colonoscopy given her high risk family history. I discussed this all with the patient in detail. 4. GI will follow along with stool study results. Thank you for the consultation. Please call back anytime with questions or concerns. Job ID: [id number]
[2019-04-09] MEDS: Morphine 2 MG/ML SYRINGE SLOW IVP PRN ×3 (19:05→23:30)
[2019-04-09] MEDS: Metoprolol Tartrate 50 MG TAB PO SCH (20:32)
[2019-04-09 20:41] LABS: Hemoglobin 12.2 g/dL (12.0-16.0)
[2019-04-09] MEDS: ALPRAZolam 0.5 MG TAB PO PRN (21:22)
[2019-04-10] MEDS: Morphine 2 MG/ML SYRINGE SLOW IVP PRN ×8 (01:43→20:33)
[2019-04-10] MEDS: Sodium Chloride 0.9% 1,000 ML IV SCH ×2 (01:44→15:35)
[2019-04-10] MEDS: Ondansetron PF 4 MG/2 ML Vial SLOW IVP PRN ×3 (04:45→16:50)
[2019-04-10 06:50] LABS: #Eosinphils 0.2 thou/uL (0.0-0.7); #Lymphocytes 1.8 thou/uL (1.20-3.40); #Monocytes 0.7 thou/uL (0.11-0.59); #Neutrophils 4.2 thou/uL (1.40-6.50); %Basophils 0.3 % (0.0-1.0); %Eosinophils 3.4 % (0.0-10.0); %Monocytes 10.1 % (0.0-10.0); %Neutrophils 60.3 % (42.0-75.0); Hemoglobin 12.4 g/dL (12.0-16.0); Mean Corpuscular Volume 91.6 fL (78.0-98.0); Mean Platelet Volume 5.5 fL (7.4-10.4); Platelet Count 300 thou/uL (130-400); RBC Distribution Width 11.5 % (11.5-14.5); Red Blood Cell (RBC) Count 3.88 mill/uL (4.20-5.40); White Blood Cell (WBC) Count 6.9 thou/uL (4.8-10.8)
[2019-04-10 07:07] LABS: Anion Gap 9 mmol/L (10-20); BUN (Urea Nitrogen) 10 mg/dL (7.0-18.7); Calc. Creatinine Clearance 141 mL/min (70-130); Calcium 8.7 mg/dL (7.8-10.44); Carbon Dioxide 23 mmol/L (22-29); Chloride 107 mmol/L (98-107); Estimated GFR-MDRD 83; Glucose 93 mg/dL (70-105); Potassium 3.9 mmol/L (3.5-5.1); Sodium 135 mmol/L (136-145)
[2019-04-10] MEDS: Metoprolol Tartrate 50 MG TAB PO SCH (07:46)
[2019-04-10] MEDS: Amlodipine 10 MG TAB PO SCH (07:46)
[2019-04-10] MEDS: Hydrochlorothiazide 25 MG TAB PO SCH (07:46)
[2019-04-10] MEDS: Nicotine 21 MG PATCH TD SCH (10:05)
[2019-04-10] MEDS: Estradiol 1 MG TAB PO SCH (10:09)
--- NOTE | 2019-04-10 15:26 | PRG ---
DATE OF SERVICE: 04/10/2019 SUBJECTIVE: Ms. Heath had 4 loose bowel movements throughout the night last night and another 1 so far today. She says the amount of blood has declined, but there is still a little bit of blood with each bowel movement. She continues to have lower abdominal discomfort and associated nausea. She has been hemodynamically stable and afebrile, continuing on the Zofran as well as morphine. OBJECTIVE: VITAL SIGNS: Temperature 98.2, pulse 74, blood pressure 125/86, and 92% oxygen saturation on room air. GENERAL: Lying in bed fairly comfortably, somnolent but easily arousable, able to answer questions appropriately. HEART: Regular rate and rhythm. LUNGS: Clear to auscultation bilaterally. ABDOMEN: Bowel sounds are present throughout. Tender to palpation throughout the lower abdomen. No tenderness in the upper abdomen, but no guarding or rebound tenderness. EXTREMITIES: No peripheral edema. LABORATORY STUDIES: Sodium 135, potassium 3.9, BUN 10, creatinine 0.74. WBC 6.9, hemoglobin 12.4, platelets 300. Stool studies all came back essentially negative. C difficile assay was not performed due to the stool being formed. Campylobacter antigen and Shiga toxin are negative. Stool culture shows normal enteric bronson and actually the stool lactoferrin shows no elevation. ASSESSMENT AND PLAN: 1. Acute hematochezia. 2. Left lower quadrant pain, acute. At this point, the stool studies are unrevealing. Recalled the CT scan, showed diverticulosis, but no clear evidence of diverticulitis. Symptoms really do not seem to be resolving, endoscopic investigation is warranted. We will plan for bowel preparation this evening and colonoscopy tomorrow. The patient desires to proceed. Further recommendations following colonoscopy. Job ID: [id number]
[2019-04-10] MEDS: Acetaminophen 325 MG TAB PO PRN (15:47)
[2019-04-10] MEDS ORDERED: GoLYTELY 4,000 ml Bottle PO SCH (16:00)
--- NOTE | 2019-04-10 17:36 | PDOC.PN ---
- Subjective Encounter Start Date: 04/10/19 Encounter Start Time: 11:00 Pt seen for followup re: lower GI bleed. c/o loose stools, c/o abdo pain. - Objective MAR Reviewed: Yes Vital Signs & Weight: Vital Signs (12 hours) Temp Pulse Resp BP BP Pulse Ox 04/10/19 16:02 98.8 F 74 16 139/94 H 93 L 04/10/19 12:11 98.2 F 74 18 125/86 92 L 04/10/19 07:46 77 142/91 H 04/10/19 07:45 97.7 F 77 18 142/91 H 94 L Weight Weight 217 lb I&O: 04/09/19 04/10/19 04/11/19 06:59 06:59 06:59 Intake Total 1050 Balance 1050 Result Diagrams: 04/10/19 06:01 04/10/19 06:01 Additional Labs: Labs reviewed by me Phys Exam - Physical Examination Obese HEENT: moist MMs, sclera anicteric, oral pharynx no lesions, 2+ tonsils Neck: no nodes, no JVD, supple, full ROM Respiratory: clear to auscultation bilateral Cardiovascular: RRR, no rub S1, S2 Gastrointestinal: soft, no distention, positive bowel sounds Mild LLQ tenderness, no guarding or rigidity Neurological: moves all 4 limbs Psychiatric: normal affect, A&O x 3 Dx/Plan (1) Lower GI bleed Code(s): K92.2 - GASTROINTESTINAL HEMORRHAGE, UNSPECIFIED Status: Acute Comment: for colonoscopy tomorrow. (2) Abdominal pain Code(s): R10.9 - UNSPECIFIED ABDOMINAL PAIN Status: Acute Comment: continue PRN acetaminophen and IV morphine (3) Hypertension Code(s): I10 - ESSENTIAL (PRIMARY) HYPERTENSION Status: Chronic Comment: reasonable control - Plan * . Review of Systems - Review of Systems Constitutional: negative: fever, chills, sweats, weakness, malaise Respiratory: negative: Cough, Shortness of Breath, SOB with Excertion, Pleuritic Pain, Wheezing Cardiovascular: negative: chest pain, palpitations, orthopnea, paroxysmal nocturnal dyspnea, edema, light headedness Gastrointestinal: Abdominal Pain, Hematochezia, Other. negative: Nausea, Vomiting, Diarrhea, Constipation, Melena Genitourinary: negative: Dysuria, Frequency, Incontinence, Hematuria, Retention Skin: negative: Rash, Lesions, Aidan, Bruising - Medications/Allergies Allergies/Adverse Reactions: Allergies Allergy/AdvReac Type Severity Reaction Status Date / Time ketorolac [From Toradol] Allergy Verified 04/10/19 10:01 Iodinated Contrast- Oral and AdvReac Severe Anaphylaxis Verified 12/09/18 03:14 IV Dye Medications: Current Medications Acetaminophen (Tylenol) 650 mg PO Q4H PRN PRN Reason: Headache/Fever/Mild Pain (1-3) Last Admin: 04/10/19 15:47 Dose: 650 mg Acetaminophen (Tylenol) 650 mg [place] Q4H PRN PRN Reason: Headache/Fever/Mild Pain (1-3) Alprazolam (Xanax) 0.5 mg PO HS PRN PRN Reason: Anxiety Last Admin: 04/09/19 21:22 Dose: 0.5 mg Amlodipine Besylate (Norvasc) 10 mg PO DAILY [facility] Last Admin: 04/10/19 07:46 Dose: 10 mg Bisacodyl (Dulcolax) 10 mg PO DAILYPRN PRN PRN Reason: Constipation Estradiol (Estrace) 2 mg PO DAILY [facility] Last Admin: 04/10/19 10:09 Dose: 2 mg Hydrochlorothiazide (Hydrochlorothiazide) 25 mg PO DAILY [facility] Last Admin: 04/10/19 07:46 Dose: 25 mg Sodium Chloride (Normal Saline 0.9%) 1,000 mls @ 70 mls/hr IV .[id number] [facility] Last Admin: 04/10/19 15:35 Dose: 1,000 mls Metoprolol Tartrate (Lopressor) 50 mg PO BID [facility] Last Admin: 04/10/19 07:46 Dose: 50 mg Morphine Sulfate (Morphine) 2 mg SLOW IVP Q2H PRN PRN Reason: Severe Pain (7-10) Last Admin: 04/10/19 15:47 Dose: 2 mg Nicotine (Nicoderm Patch) 21 mg TD Q24HR [facility] Last Admin: 04/10/19 10:05 Dose: 21 mg Ondansetron HCl (Zofran) 4 mg SLOW IVP Q6H PRN PRN Reason: Nausea/Vomiting Last Admin: 04/10/19 16:50 Dose: 4 mg Polyethylene Glycol/Electrolytes (Golytely) 4,000 ml PO 1600 [facility] Stop: 04/10/19 23:59 Last Admin: 04/10/19 16:50 Dose: 4,000 ml Sodium Chloride (Flush - Normal Saline) 10 ml IVF Q12HR [facility] Last Admin: 04/10/19 07:47 Dose: Not Given Sodium Chloride (Flush - Normal Saline) 10 ml IVF PRN PRN PRN Reason: Saline Flush Tramadol HCl (Ultram) 50 mg PO Q6H PRN PRN Reason: Mild Pain (1-3) Tramadol HCl (Ultram) 100 mg PO Q6H PRN PRN Reason: Moderate Pain (4-6) Last Admin: 04/09/19 10:52 Dose: 100 mg
[2019-04-11] MEDS ORDERED: Morphine 2 MG/ML SYRINGE ONE ×4 (00:15→07:38)
[2019-04-11] MEDS ORDERED: Ondansetron PF 4 MG/2 ML Vial ONE (03:25)
[2019-04-11] MEDS: Estradiol 1 MG TAB PO SCH (08:10)
[2019-04-11] MEDS: Metoprolol Tartrate 50 MG TAB PO SCH ×3 (08:10→21:41)
[2019-04-11] MEDS: Morphine 2 MG/ML SYRINGE SLOW IVP PRN ×6 (08:10→21:41)
[2019-04-11] MEDS: Acetaminophen 325 MG TAB PO PRN ×3 (09:10→21:41)
[2019-04-11] MEDS: Sodium Chloride 0.9% 1,000 ML IV SCH ×2 (09:21→21:48)
[2019-04-11] MEDS: Amlodipine 10 MG TAB PO SCH (09:22)
[2019-04-11] MEDS: Hydrochlorothiazide 25 MG TAB PO SCH (09:22)
[2019-04-11 09:53] LABS: Calcium 8.7 mg/dL (7.8-10.44); Chloride 105 mmol/L (98-107); Potassium 3.5 mmol/L (3.5-5.1); Sodium 138 mmol/L (136-145)
[2019-04-11 09:54] LABS: Glucose 94 mg/dL (70-105)
[2019-04-11 09:55] LABS: Anion Gap 14 mmol/L (10-20); Carbon Dioxide 23 mmol/L (22-29)
[2019-04-11 09:57] LABS: Calc. Creatinine Clearance 149 mL/min (70-130); Estimated GFR-MDRD 89
[2019-04-11 09:58] LABS: BUN (Urea Nitrogen) 6 mg/dL (7.0-18.7)
[2019-04-11 11:54] LABS: #Basophils 0.1 thou/uL (0.0-0.2); #Eosinphils 0.2 thou/uL (0.0-0.7); #Lymphocytes 1.5 thou/uL (1.20-3.40); #Monocytes 0.6 thou/uL (0.11-0.59); #Neutrophils 5.6 thou/uL (1.40-6.50); %Basophils 0.9 % (0.0-1.0); %Eosinophils 2.6 % (0.0-10.0); %Lymphocytes 18.6 % (21.0-51.0); %Neutrophils 69.9 % (42.0-75.0); Hemoglobin 12.9 g/dL (12.0-16.0); Mean Corpuscular HGB CONC 34.3 g/dL (32.0-36.0); Mean Corpuscular Volume 93.4 fL (78.0-98.0); Mean Platelet Volume 5.7 fL (7.4-10.4); Platelet Count 271 thou/uL (130-400); RBC Distribution Width 11.8 % (11.5-14.5); Red Blood Cell (RBC) Count 4.02 mill/uL (4.20-5.40)
[2019-04-11] MEDS: Ondansetron PF 4 MG/2 ML Vial SLOW IVP PRN ×2 (12:21→21:41)
--- NOTE | 2019-04-11 14:00 | OP ---
DATE OF PROCEDURE: 04/11/2019 PREOPERATIVE DIAGNOSES: 1. Diarrheal illness. 2. Hematochezia. 3. Nondiagnostic CAT scan, although this was done without contrast as she has allergy. POSTOPERATIVE DIAGNOSES: 1. There is a flat 1 cm lesion in the sigmoid colon at 60 cm ulcerated on the surface. It was removed with saline-assisted snare polypectomy. The area was tattooed, likely this would be incomplete removal. It is firm and concerning for neoplasia. 2. Otherwise normal colonoscopy. 3. No other causes to explain diarrhea or pain. ANESTHESIA: TIVA. PROCEDURE IN DETAIL: After the patient was informed of the risks, benefits, and possible complications of endoscopy including perforation, bleeding, reaction to medication, aspiration, and informed consent was obtained. The patient was brought to endoscopy suite, where she was sedated in gradual fashion. Once she was comfortable, a rectal examination was performed, which was normal. Endoscope was advanced into the anal canal through the colon of the cecum. The ileocecal valve and then the terminal ileum were identified and found to be normal. The scope was then slowly removed. There was good visualization of the mucosa. There was no mass lesions or AV malformations identified in the proximal colon or ileum. There was mild diverticulosis in the transverse and descending colon, but no diverticulitis. There was an area at 30 cm from the anorectal verge in the sigmoid colon with atypical appearing submucosal mass with superficial ulceration that was firm on biopsy. I was able to get a snare around this, and we ultimately decided then to take that off and lift it with a saline injection of 10 mL. Then, it was removed by snare polypectomy. It was about a centimeter in diameter and firm and hard, ulcerated on the surface. It is likely this was incomplete resection. We will have to wait for the pathology to determine further treatment plan. No other lesions were seen. No other areas of inflammation were seen in this area. This did not appear to be diverticular disease. This seemed to be probably a submucosal lesion and ulcerated such as a GIST or carcinoid. Other possibility would be superficial colonic neoplasia. The remainder of the sigmoid colon and rectum were normal in forward and retroflexed views. The scope was removed. The patient tolerated procedure well. There were no complications. Job ID: [id number]
[2019-04-11] MEDS: traMADol HCl 50 MG TAB PO PRN (16:06)
--- NOTE | 2019-04-11 16:24 | PDOC.PN ---
- Subjective Encounter Start Date: 04/11/19 Encounter Start Time: 10:00 Pt seen for followup re: GI bleed. Feels better, no complaints. - Objective MAR Reviewed: Yes Vital Signs & Weight: Vital Signs (12 hours) Temp Pulse Resp BP Pulse Ox 04/11/19 09:22 92 04/11/19 08:00 97.8 F 92 16 147/92 H 94 L Weight Weight 217 lb I&O: 04/10/19 04/11/19 04/12/19 06:59 06:59 06:59 Intake Total 1050 Balance 1050 Result Diagrams: 04/11/19 05:40 04/11/19 05:40 Additional Labs: Labs reviewed by me Phys Exam - Physical Examination Obese HEENT: moist MMs Neck: supple Respiratory: clear to auscultation bilateral Cardiovascular: RRR Gastrointestinal: soft Neurological: moves all 4 limbs Psychiatric: normal affect Dx/Plan (1) Lower GI bleed Code(s): K92.2 - GASTROINTESTINAL HEMORRHAGE, UNSPECIFIED Status: Acute Comment: for colonoscopy tomorrow. (2) Abdominal pain Code(s): R10.9 - UNSPECIFIED ABDOMINAL PAIN Status: Acute Comment: continue PRN pain medications (3) Hypertension Code(s): I10 - ESSENTIAL (PRIMARY) HYPERTENSION Status: Chronic Comment: reasonably controlled - Plan * . Review of Systems - Review of Systems Gastrointestinal: Hematochezia. negative: Nausea, Vomiting, Abdominal Pain, Diarrhea, Constipation, Melena Genitourinary: negative: Dysuria, Frequency, Incontinence, Hematuria, Retention - Medications/Allergies Allergies/Adverse Reactions: Allergies Allergy/AdvReac Type Severity Reaction Status Date / Time ketorolac [From Toradol] Allergy Verified 04/10/19 10:01 Iodinated Contrast- Oral and AdvReac Severe Anaphylaxis Verified 12/09/18 03:14 IV Dye Medications: Current Medications Acetaminophen (Tylenol) 650 mg PO Q4H PRN PRN Reason: Headache/Fever/Mild Pain (1-3) Last Admin: 04/11/19 14:39 Dose: 650 mg Acetaminophen (Tylenol) 650 mg MA Q4H PRN PRN Reason: Headache/Fever/Mild Pain (1-3) Alprazolam (Xanax) 0.5 mg PO HS PRN PRN Reason: Anxiety Last Admin: 04/09/19 21:22 Dose: 0.5 mg Amlodipine Besylate (Norvasc) 10 mg PO DAILY [facility] Last Admin: 04/11/19 09:22 Dose: Not Given Bisacodyl (Dulcolax) 10 mg PO DAILYPRN PRN PRN Reason: Constipation Estradiol (Estrace) 2 mg PO DAILY [facility] Last Admin: 04/11/19 08:10 Dose: 2 mg Hydrochlorothiazide (Hydrochlorothiazide) 25 mg PO DAILY [facility] Last Admin: 04/11/19 09:22 Dose: Not Given Sodium Chloride (Normal Saline 0.9%) 1,000 mls @ 70 mls/hr IV .[id number] [facility] Last Admin: 04/11/19 09:21 Dose: Not Given Metoprolol Tartrate (Lopressor) 50 mg PO BID [facility] Last Admin: 04/11/19 09:20 Dose: Not Given Morphine Sulfate (Morphine) 2 mg SLOW IVP Q2H PRN PRN Reason: Severe Pain (7-10) Last Admin: 04/11/19 14:34 Dose: 2 mg Nicotine (Nicoderm Patch) 21 mg TD Q24HR [facility] Last Admin: 04/10/19 10:05 Dose: 21 mg Ondansetron HCl (Zofran) 4 mg SLOW IVP Q6H PRN PRN Reason: Nausea/Vomiting Last Admin: 04/11/19 12:21 Dose: 4 mg Sodium Chloride (Flush - Normal Saline) 10 ml IVF Q12HR [facility] Last Admin: 04/11/19 09:25 Dose: Not Given Sodium Chloride (Flush - Normal Saline) 10 ml IVF PRN PRN PRN Reason: Saline Flush Tramadol HCl (Ultram) 50 mg PO Q6H PRN PRN Reason: Mild Pain (1-3) Tramadol HCl (Ultram) 100 mg PO Q6H PRN PRN Reason: Moderate Pain (4-6) Last Admin: 04/11/19 16:06 Dose: 100 mg
[2019-04-11] MEDS ORDERED: PROPOFOL 200 MG/20 ML VIAL ONE (16:30)
[2019-04-11] MEDS ORDERED: Hyoscyamine Sulfate SL 0.125 mg Tablet PO PRN (17:57)
--- NOTE | 2019-04-11 18:21 | PRG ---
DATE OF SERVICE: 04/11/2019 SUBJECTIVE: Ms. Heath's nurse called me and noted that she was having pain she notes it is similar to the pain she had before her endoscopy, but a little bit different and feels like it is burning, it is inside in the lower left quadrant. She states it makes her nauseated. She is tolerating a full liquid diet. She is taking morphine 2 q.2 hours, but this is what the same she was taking before the endoscopy. PHYSICAL EXAMINATION: VITAL SIGNS: Blood pressure 115/75, temperature 97.6, pulse 68, on room air 95%. GENERAL: She is alert and oriented to person, place, and time. LUNGS: Clear. HEART: Regular rate and rhythm without clicks or murmurs. ABDOMEN: Soft. She is mildly tender in the left lower quadrant. There is no rebound. There is voluntary guarding. EXTREMITIES: No clubbing, cyanosis, or edema. ASSESSMENT AND PLAN: Status post colonoscopy with polypectomy, saline assisted, with complaints of ongoing abdominal pain. Her exam is pretty benign, but she had a fairly large polyp removed by saline-assisted polypectomy, and it was atypical in appearance, possibly submucosal. She needs a CAT scan to rule out perforation. I explained this to her, and we will get a noncontrast CT now stat. Should have signs perforation, she would need surgery. Otherwise, we will await pathology. We will give her some Bentyl as this may be more spasm pain, and we will continue to follow along. I will check her CAT scan later this evening. Job ID: [id number]
--- NOTE | 2019-04-11 18:58 | CT ---
CT OF CHEST AND ABDOMEN AND PELVIS PERFORMED WITHOUT INTRAVENOUS CONTRAST ENHANCEMENT: 04/11/19 HISTORY: Patient had colonoscopy and polypectomy. Now with left lower quadrant abdominal pain. A large sigmoid polyp was reportedly removed. COMPARISON: 04/08/19 CT examination of the abdomen and pelvis. Lungs show some mild vascular engorgement. Slightly increased interstitial markings. No pleural effus ions, although the changes could represent some element of edema. Some of this is related to less christina n optimal inspiration. No discrete pulmonary nodules are identified. A hiatal hernia is noted. No sig nificant mediastinal adenopathy. The liver, spleen, pancreas, and gallbladder regions appear unremarkable. Right and left adrenal glands and right and left kidneys are normal in size. A tiny punctate base cor tical calcification in the mid pole region of the left kidney is more difficult to visualize on today 's study but does appear to be present. There is no significant periaortic or mesenteric adenopathy. CT OF PELVIS PERFORMED WITHOUT CONTRAST ENHANCEMENT: No evidence of adenopathy, mass or free fluid. No free air demonstrated. Surgical clips in the append ix region. IMPRESSION: 1. No evidence of free air. 2. Hiatal hernia. 3. Tiny punctate cortical based calcification mid pole left kidney. POS: OFF
[2019-04-11] MEDS: Nicotine 21 MG PATCH TD SCH (19:02)
[2019-04-11] MEDS: ALPRAZolam 0.5 MG TAB PO PRN (21:41)
[2019-04-12] MEDS: Morphine 2 MG/ML SYRINGE SLOW IVP PRN ×5 (00:32→10:49)
[2019-04-12] MEDS ORDERED: diphenhydrAMINE 25 MG CAP PO PRN (01:29)
[2019-04-12] MEDS: Acetaminophen 325 MG TAB PO PRN (04:16)
[2019-04-12 04:41] VITALS: TEMP 98
[2019-04-12 06:02] LABS: #Basophils 0.1 thou/uL (0.0-0.2); #Eosinphils 0.2 thou/uL (0.0-0.7); #Lymphocytes 1.7 thou/uL (1.20-3.40); #Monocytes 0.7 thou/uL (0.11-0.59); #Neutrophils 3.7 thou/uL (1.40-6.50); %Basophils 0.8 % (0.0-1.0); %Eosinophils 2.9 % (0.0-10.0); %Monocytes 11.3 % (0.0-10.0); %Neutrophils 58.9 % (42.0-75.0); Hemoglobin 12.4 g/dL (12.0-16.0); Mean Corpuscular HGB CONC 34.1 g/dL (32.0-36.0); Mean Corpuscular Hemoglobin 31.5 pg (27.0-31.0); Mean Corpuscular Volume 92.6 fL (78.0-98.0); Mean Platelet Volume 5.6 fL (7.4-10.4); Platelet Count 273 thou/uL (130-400); RBC Distribution Width 11.5 % (11.5-14.5); Red Blood Cell (RBC) Count 3.94 mill/uL (4.20-5.40); White Blood Cell (WBC) Count 6.3 thou/uL (4.8-10.8)
[2019-04-12] MEDS: Ondansetron PF 4 MG/2 ML Vial SLOW IVP PRN (06:13)
[2019-04-12] MEDS: Sodium Chloride 0.9% 1,000 ML IV SCH (07:58)
[2019-04-12] MEDS: Metoprolol Tartrate 50 MG TAB PO SCH (07:59)
[2019-04-12] MEDS: Amlodipine 10 MG TAB PO SCH (07:59)
[2019-04-12] MEDS: Estradiol 1 MG TAB PO SCH (07:59)
[2019-04-12] MEDS: Hydrochlorothiazide 25 MG TAB PO SCH (07:59)
[2019-04-12 08:28] VITALS: BP 151/95
[2019-04-12] MEDS: Nicotine 21 MG PATCH TD SCH (09:04)
[2019-04-12] MEDS ORDERED: Nicotine 14 MG PATCH TD PRN (11:00)
--- NOTE | 2019-04-12 17:53 | PRG ---
DATE OF SERVICE: 04/12/2019 SUBJECTIVE: Ms. Heath is without complaints. She states her pain is much better. She wants to go home today. Her pathology is still pending at the time of rounding. She notes she just has rectal pain, but no bleeding. She has no fever or chills. She is eating well. OBJECTIVE: VITAL SIGNS: Temperature is 98, T-max 98.3, pulse 80, and blood pressure 151/95. ABDOMEN: Soft and nontender. No rebound or guarding. EXTREMITIES: No clubbing, cyanosis, or edema. LABORATORY DATA: White count 6.3, hemoglobin 12.2, platelet count 273. Basic metabolic profile normal. CT scan last night showed no signs of perforation, resources of pain. ASSESSMENT: 1. Atypical polyp with ulceration on the surface, removed by snare polypectomy, pathology is pending at time of discharge. I would let her stay until late this afternoon when pathology is probably back, but she wants to go home. Now, we will go and give her call on Monday. 2. Recommended sitz baths, Anusol suppositories p.r.n. for rectal pain and bland diet to be advanced slowly. 3. She had some reaction to Levsin last night apparently and I have recommended that hospitalist give her some Bentyl . Job ID: [id number]
--- NOTE | 2019-04-12 19:52 | DIS ---
DATE OF ADMISSION: 04/09/2019 DATE OF DISCHARGE: 04/12/2019 DISCHARGE DISPOSITION: Home. FOLLOWUP: 1. Follow up with primary care physician at [facility] in 1 week. 2. Follow up with Gastroenterology, Dr. Aleksandr Chapman, in 1 to 2 weeks. 3. The patient was advised to follow up on the biopsy report as well as ova and parasite report. INPATIENT FLOOR LAYER TILE: Gastroenterology, Dr. Morton. INPATIENT PROCEDURES: 1. On 04/11/2019, the patient underwent colonoscopy, that showed a flat 1-cm lesion in the sigmoid colon with ulceration at the surface. This was removed with snare polypectomy. Otherwise, the colonoscopy was normal. 2. CT scan of the chest, abdomen, and pelvis without IV contrast was negative for acute findings. 3. Pathology report from colonoscopy is pending at this time. BRIEF HOSPITAL COURSE: The patient is a 48-year-old female, who presented to the hospital on 04/09/2019 with rectal bleeding. Please refer to the history and physical for further details. The patient was admitted to the hospital with a diagnosis of lower gastrointestinal bleeding. She was evaluated by Gastroenterology Service. She underwent colonoscopy, that showed the polyp as discussed above. Her pain improved with Bentyl along with tramadol. She also required IV pain medicine, that has been discontinued. A biopsy report from colonoscopy is pending at this time. She was advised to follow up with Gastroenterology Clinic in next week. Her hemoglobin stayed stable at 12.4. She has been cleared by Gastroenterology Service for discharge. FINAL DIAGNOSES: 1. Rectal bleeding of unclear etiology. 2. Sigmoid colon polyp, status post snare polypectomy, biopsy pending at the time of discharge. 3. Hypertension. 4. Obesity with a BMI of 36.1. 5. Chronic kidney disease, stage 2. 6. Mild hyponatremia. 7. Anemia with probably mild acute gastrointestinal blood loss. 8. Hiatal hernia. 9. Tiny punctate cortical base calcification in the mid pole of the left kidney. Primary care physician advised to follow. 10. Tobacco dependence. 11. Family history of colon cancer. Plan of care was discussed with the patient in detail. She stated understanding. Job ID: [id number]
[2019-04-18 12:12] LABS: Routine O & P Final report (.)
== END 2019-04-12 12:22 | disposition home or self-care (01) ==
LOC: ERS 02:29 → T4-A 06:06
PROVIDERS: ADMIT Internal Medicine; ATTEND Internal Medicine
PROC: 0DBN8ZX Excision of Sigmoid Colon, Via Natural or Artificial Opening Endoscopic, Diagnostic (ICD-10-PCS; principal; 2019-04-11)
PROC: 3E0H8GC Introduction of Other Therapeutic Substance into Lower GI, Via Natural or Artificial Opening Endoscopic (ICD-10-PCS; 2019-04-11)
DX: C18.7 Malignant neoplasm of sigmoid colon (principal); K57.31 Diverticulosis of large intestine without perforation or abscess with bleeding; G89.29 Other chronic pain; M54.2 Cervicalgia; I12.9 Hypertensive chronic kidney disease with stage 1 through stage 4 chronic kidney disease, or unspecified chronic kidney disease; N18.2 Chronic kidney disease, stage 2 (mild); F17.210 Nicotine dependence, cigarettes, uncomplicated; K44.9 Diaphragmatic hernia without obstruction or gangrene; N28.89 Other specified disorders of kidney and ureter; E66.9 Obesity, unspecified; Z68.36 Body mass index [BMI] 36.0-36.9, adult; Z80.0 Family history of malignant neoplasm of digestive organs; Z79.82 Long term (current) use of aspirin; Z79.899 Other long term (current) drug therapy; Z88.0 Allergy status to penicillin; Z88.1 Allergy status to other antibiotic agents; Z88.2 Allergy status to sulfonamides; Z88.6 Allergy status to analgesic agent; Z91.013 Allergy to seafood; Z91.030 Bee allergy status; Z91.041 Radiographic dye allergy status; Z98.890 Other specified postprocedural states
CPT/HCPCS: 36415; 71250; 74177; 80048; 80053; 81003; 83630; 85025; 87045; 87046; 87177; 87449; 87899; 88305; 94760; 96361; 96365; 96375; 96376; 99406; G0378; J0744; J2060; J2270; J2405; J2704; Q0163

== ENCOUNTER 2019-04-15 00:34 | Inpatient (IN) | payer SELFPAY ==
[2019-04-15 01:14] LABS: #Basophils 0.1 thou/uL (0.0-0.2); #Eosinphils 0.2 thou/uL (0.0-0.7); #Monocytes 0.9 thou/uL (0.11-0.59); #Neutrophils 6.5 thou/uL (1.40-6.50); %Basophils 0.8 % (0.0-1.0); %Eosinophils 2.2 % (0.0-10.0); %Lymphocytes 20.4 % (21.0-51.0); %Monocytes 9.6 % (0.0-10.0); %Neutrophils 66.9 % (42.0-75.0); Hemoglobin 13.7 g/dL (12.0-16.0); Mean Corpuscular HGB CONC 34.9 g/dL (32.0-36.0); Mean Corpuscular Hemoglobin 31.9 pg (27.0-31.0); Mean Corpuscular Volume 91.6 fL (78.0-98.0); Mean Platelet Volume 5.7 fL (7.4-10.4); Platelet Count 370 thou/uL (130-400); RBC Distribution Width 11.7 % (11.5-14.5); Red Blood Cell (RBC) Count 4.29 mill/uL (4.20-5.40); White Blood Cell (WBC) Count 9.7 thou/uL (4.8-10.8)
[2019-04-15 01:24] LABS: ALT (SGPT) 13 U/L (8-55); AST (SGOT) 14 U/L (5-34); Alkaline Phosphatase 92 U/L (40-150); Anion Gap 14 mmol/L (10-20); BUN (Urea Nitrogen) 20 mg/dL (7.0-18.7); Bilirubin, Total 0.5 mg/dL (0.2-1.2); Calc. Creatinine Clearance 0 mL/min (70-130); Calcium 9.3 mg/dL (7.8-10.44); Carbon Dioxide 24 mmol/L (22-29); Chloride 105 mmol/L (98-107); Estimated GFR-MDRD 70; Glucose 132 mg/dL (70-105); Potassium 3.6 mmol/L (3.5-5.1); Sodium 139 mmol/L (136-145)
[2019-04-15] MEDS ORDERED: methylPREDNISolone Sod Succ/PF 125 MG/2 ML VIAL ONE (01:32)
[2019-04-15] MEDS ORDERED: Morphine 4 MG/ML VIAL ONE ×2 (01:32→02:25)
[2019-04-15] MEDS ORDERED: Famotidine/PF 20 mg/2ml Vial ONE (01:32)
[2019-04-15] MEDS ORDERED: Ondansetron PF 4 MG/2 ML Vial ONE (01:32)
[2019-04-15] MEDS ORDERED: diphenhydrAMINE 50 MG/ML VIAL ONE (01:32)
[2019-04-15 06:36] LABS: #Basophils 0.1 thou/uL (0.0-0.2); #Eosinphils 0.1 thou/uL (0.0-0.7); #Lymphocytes 0.9 thou/uL (1.20-3.40); #Monocytes 0.1 thou/uL (0.11-0.59); #Neutrophils 8.8 thou/uL (1.40-6.50); %Basophils 0.6 % (0.0-1.0); %Eosinophils 0.6 % (0.0-10.0); %Lymphocytes 9.3 % (21.0-51.0); %Monocytes 1.5 % (0.0-10.0); Hemoglobin 13.8 g/dL (12.0-16.0); Mean Corpuscular HGB CONC 33.7 g/dL (32.0-36.0); Mean Corpuscular Hemoglobin 31.2 pg (27.0-31.0); Mean Corpuscular Volume 92.6 fL (78.0-98.0); Mean Platelet Volume 5.7 fL (7.4-10.4); Platelet Count 321 thou/uL (130-400); RBC Distribution Width 11.7 % (11.5-14.5); Red Blood Cell (RBC) Count 4.41 mill/uL (4.20-5.40)
[2019-04-15] MEDS ORDERED: Sodium Chloride 0.9% 1,000 ML IV SCH (07:30)
[2019-04-15] MEDS ORDERED: Preparation H HC 1% Cream 26 GM TUBE TOP PRN (07:56)
[2019-04-15] MEDS ORDERED: traMADol HCl 50 MG TAB PO PRN (07:56)
[2019-04-15] MEDS ORDERED: Bisacodyl 10 MG SUPP PR PRN (07:56)
[2019-04-15] MEDS ORDERED: Artificial Tears 18 DROP/0.9 ML EA EYE PRN (07:56)
[2019-04-15] MEDS ORDERED: Cepastat Lozenges 1 LOZ PO PRN (07:56)
[2019-04-15] MEDS ORDERED: Sodium Chloride 0.65% Nasal 44 ML BOT EA NARE PRN (07:56)
[2019-04-15] MEDS ORDERED: Zolpidem Tartrate 5 MG TAB PO PRN (07:56)
[2019-04-15] MEDS ORDERED: HYDROcodone/Acetaminophen 5/325 mg Tablet PO PRN (07:56)
[2019-04-15] MEDS ORDERED: Senokot S 8.6-50 MG TAB PO PRN (07:56)
[2019-04-15] MEDS ORDERED: Dicyclomine 10 MG CAP PO PRN (07:56)
[2019-04-15] MEDS ORDERED: Diabetic Tussin 200 MG/10 ML UDCUP PO PRN (07:56)
[2019-04-15] MEDS ORDERED: hydrALAZINE 20 MG/ML VIAL SLOW IVP PRN (07:56)
[2019-04-15] MEDS ORDERED: Loratadine 10 MG TAB PO PRN (07:56)
[2019-04-15] MEDS ORDERED: Acetaminophen 325 MG TAB PO PRN (07:56)
[2019-04-15] MEDS ORDERED: Labetalol HCl 100 MG/20 ML VIAL SLOW IVP PRN (07:56)
[2019-04-15] MEDS: Sodium Chloride 0.9% 1,000 ML IV SCH ×2 (08:44→17:46)
[2019-04-15] MEDS: Famotidine/PF 20 mg/2ml Vial SLOW IVP SCH ×2 (08:45→20:40)
--- NOTE | 2019-04-15 08:45 | CT ---
PRELIMINARY REPORT/[facility]/EMERGENCY AFTER HOURS PROCEDURE: EXAM: CT Abdomen and Pelvis With Contrast EXAM DATE/TIME: 04/15/2019 2:36 AM CLINICAL HISTORY: 48 years old, female; Abdominal pain; Patient HX: 48yof who was recently admitted for rectal bleeding returns to ED for rectal bleeding and abd pain. PT was admitted last Monday and had a colonoscopy on . They removed a polyp and her symptoms improved. PT states was discharged on Monday and was doing well until tonight. She states after dinner she vomited and then began having diarrhea. She st ates she had 5-6 episodes of diarrhea and each one was bloodier than the last. Now feels as if blood is oozing from rectum. Is also have worsening lower abd pain. TECHNIQUE: Imaging protocol: Axial computed tomography images of the abdomen and pelvis with intravenous contras t. COMPARISON: No relevant prior studies available. FINDINGS: Lungs: No consolidations in the lung bases. Mediastinum: Small to moderate hiatal hernia. Liver: No liver masses. Gallbladder and bile ducts: No calcified stones. No ductal dilation. Pancreas: No pancreatic mass or ductal dilation. Spleen: No splenic masses. Adrenals: No adrenal nodules. Kidneys and ureters: No enhancing mass or hydronephrosis. Stomach and bowel: No bowel obstruction. No sign of active colonic identified by CT. Appendix: The appendix has been removed. Intraperitoneal space: No free air or free fluid. Vasculature: No abdominal aortic aneurysm. Lymph nodes: No lymphadenopathy. Bladder: Normal. Reproductive: The uterus is not visualized. No adnexal masses. Bones/joints: No suspicious bone lesions. Soft tissues: No acute findings. IMPRESSION: 1. Scattered colonic diverticula, otherwise normal appearance of the bowel. Site of active colonic bleeding not identified by CT. 2. No acute findings in the abdomen or pelvis. Thank you for allowing us to participate in the care of your patient. Dictated and Authenticated by: Azalea Zuleta MD 04/15/2019 3:51 AM Central Time ([place] & [place]) FINAL REPORT EMERGENT AFTER HOURS CT OF THE ABDOMEN AND PELVIS WITH COTNRAST: FINDINGS/IMPRESSION: I agree with the findings and impression given in the preliminary report per [facility] physician. Diverticulosis without evidence of acute diverticulitis. POS: SJ
[2019-04-15] MEDS: Morphine 4 MG/ML VIAL SLOW IVP PRN ×4 (09:12→21:33)
[2019-04-15] MEDS: Metoprolol Tartrate 50 MG TAB PO SCH ×2 (09:15→20:39)
[2019-04-15] MEDS ORDERED: ISOVUE-370 76%-LOCM 1 ML ONE (10:56)
[2019-04-15] MEDS: Famotidine 20 MG TAB PO SCH ×2 (12:19→20:39)
[2019-04-15] MEDS: Hydrochlorothiazide 25 MG TAB PO SCH (12:29)
[2019-04-15] MEDS: Amlodipine 10 MG TAB PO SCH (12:29)
[2019-04-15] MEDS: Estradiol 1 MG TAB PO SCH (12:30)
[2019-04-15] MEDS: Docusate 100 MG CAP PO SCH ×2 (12:30→20:39)
[2019-04-15 12:36] LABS: Hemoglobin 13.7 g/dL (12.0-16.0)
[2019-04-15] MEDS ORDERED: metroNIDAZOLE 500 MG in Premix Bag 1 BAG IVPB SCH (13:15)
[2019-04-15] MEDS: ALPRAZolam 0.25 MG TAB PO PRN (13:37)
--- NOTE | 2019-04-15 13:45 | PRG ---
DATE OF SERVICE: 04/15/2019 SUBJECTIVE: Ms. Heath is a pleasant 48-year-old female, who went home on Monday. Her pain had resolved. Her bleeding had resolved. She had undergone polypectomy of a large sigmoid polyp that was tattooed. She returned to the emergency room last night with complaints of rectal pain and bleeding. She reports that last night she began having some bleeding. She came in around midnight. Now she says she is having a little bit of oozing per rectum, but has had no bowel movements in about 6 hours. She has no complaints now. Medications reviewed. PHYSICAL EXAMINATION: VITAL SIGNS: Temperature is 98.2, pulse is 82, blood pressure 181/114 to 135/86. LUNGS: Clear. HEART: Regular rhythm. ABDOMEN: Soft and nontender. LABORATORY DATA: Hemoglobin is 13.7 at admission, 13.8 at 6:00 this morning, and 13.7 at noon. This is similar to what her hemoglobin when she was here at last admission last week. ASSESSMENT: 1. Rectal bleeding, likely related to polypectomy site, it was resolving, not hemostatic consequential with stable hemoglobin. 2. Polyp, that was taken off on , was malignant. I reviewed this with her, as the malignancy recommended segmental resection, area has already been tattooed endoscopy last week. Dr. Youssef had been called and he is going to come by and see her as well and we will get that done this week. 3. I discussed with her the possibility of Penaloza syndrome with her family history of colorectal cancer in her mother of age 40 to 50 and the pathologist is having genetic marker sent on the tissue they have. CEA was less than 3, which is good. It is 2.24. PLAN: 1. Continue observation in the hospital post polypectomy bleed. Recheck hemoglobin and hematocrit tomorrow. 2. Liquid diet. 3. Dr. Harrell has been offered opportunity to perform a bowel prep tomorrow and plan for sigmoid resection on Monday. Job ID: [id number]
--- NOTE | 2019-04-15 14:27 | CON ---
DATE OF CONSULTATION: HISTORY OF PRESENT ILLNESS: Taylor Heath is a 48-year-old female, admitted for bleeding after a colonoscopy and sigmoid polypectomy. She had a 1 cm malignant-appearing polyp in the mid sigmoid colon, removed by Dr. Morton. She had some rectal bleeding. Her hemoglobin is unchanged. Her vital signs remained stable. Her bleeding has ceased. Pathology reveals adenocarcinoma. The patient has a family history of colon cancer, her mother had a complicated colon cancer with complications of surgery, requiring multiple operations, subtotal colectomy. The patient has had a CAT scan of her abdomen and pelvis on this admission and it is normal. No evidence of metastatic disease. Her CEA level is 2.24. ALLERGIES: IODINE, SHELLFISH, PENICILLIN, ROCEPHIN. SULFA CAUSES GI UPSET WHEN SHE WAS A CHILD. HABITS: Tobacco 1/2 pack per day. Alcohol, none. MEDICATIONS AT HOME: 1. Hydrochlorothiazide 25 mg a day. 2. Estradiol 2 mg a day. 3. Colace 100 mg b.i.d. 4. Bentyl 10 mg p.r.n. 5. Aspirin 325 mg daily. 6. Amlodipine 10 mg daily. 7. Xanax 0.5 mg at bedtime p.r.n. 8. Tramadol p.r.n. pain. 9. Metoprolol 50 mg b.i.d. 10. Hydrocortisone cream as needed. PAST SURGICAL HISTORY: 1. Two C-sections. 2. Appendectomy. 3. Total abdominal hysterectomy. 4. Bilateral salpingo-oophorectomy. PAST MEDICAL HISTORY: Hypertension. SOCIAL HISTORY: The patient is . She is unemployed. REVIEW OF SYSTEMS: Noncontributory. FAMILY HISTORY: Mother had colon cancer. PHYSICAL EXAMINATION: VITAL SIGNS: Temperature 98.2, heart rate 82, blood pressure 181/114. Weight is 92 kg. HEAD, EARS, EYES, NOSE, AND THROAT: Unremarkable. LUNGS: Clear to auscultation. CARDIAC: Regular rate and rhythm without murmur or gallop. ABDOMEN: Soft and nontender. Midline infraumbilical incision well healed. No hernias. EXTREMITIES: Unremarkable. No ankle edema. LABORATORY DATA: BUN 20, creatinine 0.86, and GFR 70. Hemoglobin 13. ASSESSMENT AND PLAN: 1. Sigmoid colon cancer. This is a very early lesion. I expect she would not need adjunctive therapy post colon resection. We would recommend bowel prep tomorrow and laparoscopic sigmoid resection on 04/17/2019. Risks of infection, bleeding, reoperation, anastomotic leakage, wound infection, conversion to open procedure were discussed. Questions answered. 2. Tobacco abuse. Cessation preoperatively. 3. Hypertension. 4. The patient had a cardiac stress test and cardiac catheterization in October of this year, it was normal. Job ID: [id number]
[2019-04-15] MEDS: Nicotine 21 MG PATCH TOP SCH (17:39)
[2019-04-15 18:07] VITALS: BMI 35.7
[2019-04-15] MEDS: ALPRAZolam 0.5 MG TAB PO PRN (21:34)
--- NOTE | 2019-04-15 22:01 | HP ---
PRIMARY CARE PHYSICIAN: [facility]. REASON FOR ADMISSION: Hematochezia, invasive adenocarcinoma of colon. HISTORY OF PRESENT ILLNESS: A 48-year-old female who was recently admitted in our hospital on April 09, 2019. At that time, the patient was having hematochezia. The patient was evaluated by platform mill supervisor during that admission, and the patient underwent colonoscopy by Dr. Morton on April 11, 2019. During that colonoscopy, the patient was found with 1 cm lesion in sigmoid colon which was ulcerated and that lesion was removed with saline-assisted snare polypectomy. There was concern for underlying neoplasia and subsequently Pathology report came back positive as invasive moderately-differentiated adenocarcinoma. The patient was discharged home on April 12, 2019. The patient also had chest, abdomen, and pelvis CT scan before her discharge, which did not show any acute process. Last night, the patient came back to emergency room because she was having bright red blood per rectum. She was having intense abdominal pain. She also had 1 episode of vomiting after dinner and she was also having bloody diarrhea and that is why the patient decided to come back to emergency room for evaluation. In the emergency room, she was hemodynamically stable, but she was subjectively complaining of a lot of pain and nausea and after emergency room evaluation, the patient was admitted to medical floor. The patient denies any hematemesis. She denies any fever or chills. She denies any headache, chest pain, or palpitation. She denies any UTI symptoms. REVIEW OF SYSTEMS: CONSTITUTIONAL: Negative for weight loss or gain, ability to conduct usual activities. SKIN: Negative for rash, itching. EYES: Negative for double vision, pain. ENT/MOUTH: Negative for nose bleeding, neck stiffness, pain, tenderness. CARDIOVASCULAR: Negative for palpitations, dyspnea on exertion, orthopnea. RESPIRATORY: Negative for shortness of breath, wheezing, cough, hemoptysis, fever or night sweats. GASTROINTESTINAL: Negative for poor appetite, abdominal pain, heartburn, nausea, vomiting, constipation, or diarrhea. GENITOURINARY: Negative for urgency, frequency, dysuria, nocturia. MUSCULOSKELETAL: Negative for pain, swelling. NEUROLOGIC/PSYCHIATRIC: Negative for anxiety, depression. ALLERGY/IMMUNOLOGIC: Negative for skin rash, bleeding tendency. Please see my HPI for pertinent positives and negatives. All other review of systems reviewed and negative except as mentioned in HPI. PAST MEDICAL HISTORY: Hypertension, recent admission for lower GI bleed, history of colon polyps status post snare polypectomy, and tobacco abuse disorder. PAST PSYCHIATRIC HISTORY: Anxiety and depression. PAST SURGICAL HISTORY: x2, hysterectomy, colonoscopy with snare polypectomy. SOCIAL HISTORY: The patient is smoking about 1 pack per day. She is trying to cut down to half pack per day recently. She denies any alcohol abuse. She denies any other illicit drug abuse. FAMILY HISTORY: No strong family history of premature coronary artery disease or stroke. The patient has a positive family history of colon cancer in her mother. She by age of 58 from metastatic disease. ALLERGIES: BEE VENOM, IODINE, SHELLFISH, PENICILLIN, ROCEPHIN, AND SULFA DRUGS. CURRENT HOME MEDICATIONS: 1. Xanax 0.5 mg p.o. at bedtime. 2. Amlodipine 10 mg daily. 3. Aspirin 325 mg daily. 4. Hydrochlorothiazide 25 mg p.o. daily. 5. Bentyl 10 mg q.i.d. p.r.n. 6. Colace 100 mg b.i.d. 7. Estrace 2 mg p.o. daily. 8. Preparation H application b.i.d. 9. Metoprolol 50 mg b.i.d. 10. Tramadol 50 mg q.6 hourly p.r.n. EMERGENCY ROOM COURSE: In the emergency room, the patient has received IV fluids 2 L, morphine 4 mg x2, Bentyl 20 mg, Zofran 4 mg, Pepcid 40 mg, and Benadryl 50 mg. PHYSICAL EXAMINATION: VITAL SIGNS: On arrival, blood pressure 149/99, pulse 88, respiratory rate 20, temperature 98.7, saturation 96% on room air. Weight 95.2 kg. GENERAL: The patient is currently alert, awake. No obvious acute distress. HEAD: Normocephalic, atraumatic. EYES: Pupils round, reactive to light. Extraocular muscles intact. ENT: Oropharynx within normal limits. Moist mucous membranes. No oral lesion. No pharyngeal erythema. No exudate. NECK: Supple. No JVD. No thyromegaly. No carotid bruit. No jugular venous distention. LUNGS: Clear. No rhonchi. No rales. CARDIAC: S1, S2 regular. No murmur. No gallop. No rub. ABDOMEN: Soft. Bowel sounds present. The patient does have subjective tenderness in sigmoid colon. No peritoneal sign. No guarding. No rigidity. No rebound. BACK: Unremarkable. No CVA tenderness. UPPER EXTREMITIES: Passive movement of all joints are normal. LOWER EXTREMITIES: No edema. Good distal pulsation. SKIN: No skin rash. HEMATOLOGICAL SYSTEM: No lymphadenopathy. NEUROLOGIC: Nonfocal examination. SIGNIFICANT LABORATORY RESULTS: Abdomen and pelvis done today showing scattered colonic diverticula. No acute finding. CBC; WBC 9.7, hemoglobin 13.7, platelet 370. BMP: Sodium 139, potassium 3.6, chloride 105, carbon dioxide 24, anion gap 14, BUN 20, creatinine 0.86, glucose 132, calcium 9.3. LFT; AST 14, ALT 13, alkaline phosphatase 92, albumin 4.0, lipase 19. CEA 2.24. ASSESSMENT AND PLAN: 1. Hematochezia. Differential diagnosis is bleeding per rectum may be due to post polypectomy bleeding as well as underlying colon cancer as well as diverticular bleed. At this point, hemoglobin is stable. The patient already had colonoscopy few days ago. We will monitor H and H. at this point, we will continue with clear liquid diet. Gastroenterology has been consulted. 2. Invasive moderately-differentiated adenocarcinoma. This patient had colon polyp which was ulcerated and biopsy snare polypectomy was performed and Pathology report came back as adenocarcinoma. The patient was requesting to know about the pathology report from polyp and I explored that result with the patient in presence of the patient's . Hacksaw Inspector has been consulted. The patient will need General Surgery evaluation. We will keep her on clear liquid diet. She will need bowel preparation and ultimately she will need a sigmoid colon resection. 3. Hypertension. We will continue with amlodipine 10 mg p.o. daily. 4. Hydrochlorothiazide 25 mg p.o. daily and metoprolol 50 mg p.o. b.i.d. 5. Anxiety disorder. Continue Xanax 0.5 mg p.o. at bedtime. 6. Tobacco abuse disorder. Smoking cessation counseling given. We will provide nicotine patch while in hospital if needed. 7. Chronic pain disorder. The patient has intractable abdominal pain, unclear etiology whether it is related with colon cancer, but we will control her pain with morphine p.r.n. basis. 8. Obesity with BMI 35. Dietary education given. Weight loss education given. Healthy lifestyle measure discussed with the patient. DISPOSITION PLAN: Based on the clinical course, we are expecting the patient's stay in hospital more than 2 midnights. Plan of care discussed with the patient and her at bedside. Job ID: [id number]
[2019-04-15] MEDS: Ondansetron PF 4 MG/2 ML Vial IVP PRN (22:22)
[2019-04-16 00:15] LABS: Hemoglobin 12.6 g/dL (12.0-16.0)
[2019-04-16] MEDS: Morphine 4 MG/ML VIAL SLOW IVP PRN ×6 (01:23→21:39)
[2019-04-16 04:50] LABS: #Basophils 0.1 thou/uL (0.0-0.2); #Lymphocytes 1.8 thou/uL (1.20-3.40); #Neutrophils 8.9 thou/uL (1.40-6.50); %Basophils 0.4 % (0.0-1.0); %Eosinophils 0.3 % (0.0-10.0); %Lymphocytes 14.9 % (21.0-51.0); %Monocytes 8.8 % (0.0-10.0); %Neutrophils 75.6 % (42.0-75.0); Hemoglobin 11.5 g/dL (12.0-16.0); Mean Corpuscular HGB CONC 34.1 g/dL (32.0-36.0); Mean Corpuscular Volume 93.7 fL (78.0-98.0); Mean Platelet Volume 5.5 fL (7.4-10.4); Platelet Count 318 thou/uL (130-400); RBC Distribution Width 11.8 % (11.5-14.5); Red Blood Cell (RBC) Count 3.59 mill/uL (4.20-5.40); White Blood Cell (WBC) Count 11.8 thou/uL (4.8-10.8)
[2019-04-16 05:08] LABS: Anion Gap 10 mmol/L (10-20); BUN (Urea Nitrogen) 12 mg/dL (7.0-18.7); Calc. Creatinine Clearance 148 mL/min (70-130); Calcium 8.4 mg/dL (7.8-10.44); Carbon Dioxide 26 mmol/L (22-29); Chloride 107 mmol/L (98-107); Estimated GFR-MDRD 89; Glucose 102 mg/dL (70-105); Potassium 3.5 mmol/L (3.5-5.1); Sodium 139 mmol/L (136-145)
[2019-04-16] MEDS: Sodium Chloride 0.9% 1,000 ML IV SCH (05:23)
[2019-04-16] MEDS: Ondansetron PF 4 MG/2 ML Vial IVP PRN ×3 (05:24→21:39)
[2019-04-16] MEDS ORDERED: Acetaminophen 500 MG TAB PO PRN (06:51)
[2019-04-16] MEDS ORDERED: Nicotine 21 MG PATCH TOP SCH (09:00)
[2019-04-16] MEDS: Estradiol 1 MG TAB PO SCH (09:03)
[2019-04-16] MEDS: Metoprolol Tartrate 50 MG TAB PO SCH ×2 (09:03→21:37)
[2019-04-16] MEDS: Hydrochlorothiazide 25 MG TAB PO SCH (09:03)
[2019-04-16] MEDS: Famotidine 20 MG TAB PO SCH ×2 (09:03→21:38)
[2019-04-16] MEDS: Amlodipine 10 MG TAB PO SCH (09:03)
[2019-04-16] MEDS: ALPRAZolam 0.25 MG TAB PO PRN (09:49)
--- NOTE | 2019-04-16 09:52 | PRG ---
DATE OF SERVICE: SUBJECTIVE: Taylor Heath is doing well today. She has no complaints. She is on clear liquids today. Plan is for a GoLYTELY bowel prep today and a laparoscopic sigmoid colon resection tomorrow for her early sigmoid cancer. Her CEA level is normal. CAT scan does not reveal any evidence of metastasis. OBJECTIVE: VITAL SIGNS: Temperature 98.1 degrees, pulse 69, blood pressure 136/79. LUNGS: Clear to auscultation. CARDIAC: Regular rate and rhythm. No murmur or gallop. ABDOMEN: Soft, nontender. LABORATORY DATA: Hemoglobin is 11.5, white count 11.8. Basic metabolic profile normal. She has not had any more rectal bleeding. PLAN: At this point, I will plan initiation of Lovenox as I think this was safe. We will plan laparoscopic sigmoid colon resection with general anesthesia and TAP block tomorrow. Job ID: [id number]
[2019-04-16] MEDS ORDERED: GoLYTELY 4,000 ml Bottle PO SCH (10:00)
--- NOTE | 2019-04-16 11:43 | PDOC.PN ---
- Subjective Encounter Start Date: 04/16/19 Encounter Start Time: 09:15 -: old records requested/rev Patient seen and examined. No new complaints. No overnight events - Objective Resuscitation Status - Order Detail: 04/15/19 06:38 Resuscitation Status Routine Resuscitation Status: FULL: Full Resuscitation MAR Reviewed: Yes Vital Signs & Weight: Vital Signs (12 hours) Temp Pulse Resp BP BP Pulse Ox 04/16/19 09:03 69 136/79 04/16/19 07:48 98.1 F 69 18 136/79 96 04/16/19 04:00 97.7 F 71 20 135/79 96 04/16/19 01:17 99.7 F H 76 20 149/92 H 97 Weight Weight 215 lb Result Diagrams: 04/16/19 04:12 04/16/19 04:12 Phys Exam - Physical Examination Constitutional: NAD HEENT: PERRLA, moist MMs, sclera anicteric Neck: no JVD, supple Respiratory: no wheezing, no rales, no rhonchi Cardiovascular: RRR, no significant murmur, no rub Gastrointestinal: soft, non-tender, no distention, positive bowel sounds obesity+ Musculoskeletal: no edema, pulses present Neurological: non-focal, normal sensation, moves all 4 limbs Lymphatic: no nodes Psychiatric: normal affect, A&O x 3 Skin: no rash, normal turgor Dx/Plan (1) Adenocarcinoma of sigmoid colon Code(s): C18.7 - MALIGNANT NEOPLASM OF SIGMOID COLON Status: Acute (2) Hematochezia Code(s): K92.1 - MELENA Status: Acute (3) Anxiety Code(s): F41.9 - ANXIETY DISORDER, UNSPECIFIED Status: Chronic (4) Chronic low back pain Code(s): M54.5 - LOW BACK PAIN; G89.29 - OTHER CHRONIC PAIN Status: Chronic (5) Hypertension Code(s): I10 - ESSENTIAL (PRIMARY) HYPERTENSION Status: Chronic Comment: reasonably controlled (6) Obesity (BMI 30-39.9) Code(s): E66.9 - OBESITY, UNSPECIFIED Status: Chronic (7) Tobacco abuse Code(s): Z72.0 - TOBACCO USE Status: Chronic - Plan cont current plan of care * medication reviewed as below * symptomatic treatment * tomorrow surgery * today bowel preparation * counselled to avoid smoking * pain controlled. Review of Systems - Review of Systems ENT: negative: Ear Pain, Ear Discharge, Nose Pain, Nose Discharge, Nose Congestion, Mouth Pain, Mouth Swelling, Throat Pain, Throat Swelling, Other Respiratory: negative: Cough, Dry, Shortness of Breath, Hemoptysis, SOB with Excertion, Pleuritic Pain, Sputum, Wheezing Cardiovascular: negative: chest pain, palpitations, orthopnea, paroxysmal nocturnal dyspnea, edema, light headedness, other Gastrointestinal: Abdominal Pain. negative: Nausea, Vomiting, Diarrhea, Constipation, Melena, Hematochezia, Other Genitourinary: negative: Dysuria, Frequency, Incontinence, Hematuria, Retention , Other Musculoskeletal: negative: Neck Pain, Shoulder Pain, Arm Pain, Back Pain, Hand Pain, Leg Pain, Foot Pain, Other Skin: negative: Rash, Lesions, Aidan, Bruising, Other - Medications/Allergies Allergies/Adverse Reactions: Allergies Allergy/AdvReac Type Severity Reaction Status Date / Time bee venom protein (honey bee) Allergy Severe Anaphylaxis Verified 04/15/19 11:03 iodine Allergy Severe Anaphylaxis Verified 04/15/19 11:03 shellfish derived Allergy Severe Anaphylaxis Verified 04/15/19 11:03 ketorolac [From Toradol] Allergy Verified 04/15/19 11:04 Iodinated Contrast- Oral and AdvReac Severe Anaphylaxis Verified 12/09/18 03:14 IV Dye Medications: Current Medications Acetaminophen (Tylenol) 1,000 mg PO Q6H PRN PRN Reason: Moderate to Severe Pain (6-10) Hydrocodone Bitart/Acetaminophen ([place] 5/325) 1 tab PO Q4H PRN PRN Reason: Moderate Pain (4-6) Alprazolam (Xanax) 0.5 mg PO HS PRN PRN Reason: Anxiety Last Admin: 04/15/19 21:34 Dose: 0.5 mg Alprazolam (Xanax) 0.25 mg PO TIDPRN PRN PRN Reason: Anxiety Last Admin: 04/16/19 09:49 Dose: 0.25 mg Amlodipine Besylate (Norvasc) 10 mg PO DAILY JIL Last Admin: 04/16/19 09:03 Dose: 10 mg Artificial Tears (Tears Naturale) 2 drop EA EYE PRN PRN PRN Reason: Dry Eyes Dicyclomine HCl (Bentyl) 10 mg PO QID PRN PRN Reason: GI Cramping Enoxaparin Sodium (Lovenox) 40 mg SC 2100 [facility] Estradiol (Estrace) 2 mg PO DAILY [facility] Last Admin: 04/16/19 09:03 Dose: 2 mg Famotidine (Pepcid) 20 mg PO BID [facility] Last Admin: 04/16/19 09:03 Dose: 20 mg Guaifenesin (Robitussin Sf) 200 mg PO Q4H PRN PRN Reason: Cough Hydralazine HCl (Apresoline) 10 mg SLOW IVP Q4H PRN PRN Reason: SBP > 180 and HR < 70 Hydrochlorothiazide (Hydrochlorothiazide) 25 mg PO DAILY [facility] Last Admin: 04/16/19 09:03 Dose: 25 mg Hydrocortisone Sodium Succinate (Preparation H Hc Cream) 0 gm TOP BID PRN PRN Reason: Anal irritation Sodium Chloride (Normal Saline 0.9%) 1,000 mls @ 100 mls/hr IV .Q10H [facility] Labetalol HCl (Normodyne) 20 mg SLOW IVP Q4H PRN PRN Reason: SBP > 180 and HR >/= 70 Loratadine (Claritin) 10 mg PO DAILYPRN PRN PRN Reason: Sinus Symptoms Metoprolol Tartrate (Lopressor) 50 mg PO BID [facility] Last Admin: 04/16/19 09:03 Dose: 50 mg Morphine Sulfate (Morphine) 4 mg SLOW IVP Q4H PRN PRN Reason: Pain Last Admin: 04/16/19 08:59 Dose: 4 mg Nicotine (Nicoderm Patch) 21 mg TOP 1600 [facility] Last Admin: 04/15/19 17:39 Dose: 21 mg Ondansetron HCl (Zofran Odt) 4 mg PO Q6H PRN PRN Reason: Nausea/Vomiting Ondansetron HCl (Zofran) 4 mg IVP Q6H PRN PRN Reason: Nausea/Vomiting Last Admin: 04/16/19 05:24 Dose: 4 mg Polyethylene Glycol/Electrolytes (Golytely) 4,000 ml PO ONE [facility] Stop: 04/16/19 21:00 Last Admin: 04/16/19 09:50 Dose: 4,000 ml Senna/Docusate Sodium (Senokot S) 2 tab PO BID PRN PRN Reason: Constipation Sodium Chloride (Flush - Normal Saline) 10 ml IVF Q12HR [facility] Last Admin: 04/16/19 09:04 Dose: Not Given Sodium Chloride (Flush - Normal Saline) 10 ml IVF PRN PRN PRN Reason: Saline Flush Sodium Chloride ([place] Nasal [place] 0.65%) 0 ml EA NARE QIDPRN PRN PRN Reason: Nasal Congestion Throat Lozenges (Cepastat Lozenges) 1 cristian PO Q2H PRN PRN Reason: Sore Throat Tramadol HCl (Ultram) 50 mg PO Q6H PRN PRN Reason: Mild Pain (1-3) Zolpidem Tartrate (Ambien) 5 mg PO HSPRN PRN PRN Reason: Insomnia
[2019-04-16] MEDS: Nicotine 21 MG PATCH TOP SCH (17:43)
[2019-04-16] MEDS: ALPRAZolam 0.5 MG TAB PO PRN (21:38)
[2019-04-16] MEDS: Enoxaparin Sodium 40 MG/0.4 ML SYRINGE SC SCH (21:38)
[2019-04-17] MEDS: Morphine 4 MG/ML VIAL SLOW IVP PRN ×3 (02:47→15:19)
[2019-04-17] MEDS: Ondansetron PF 4 MG/2 ML Vial IVP PRN ×2 (06:35→15:19)
[2019-04-17] MEDS: Sodium Chloride 0.9% 1,000 ML IV SCH ×2 (06:39→17:08)
[2019-04-17] MEDS: Famotidine 20 MG TAB PO SCH ×2 (07:32→20:30)
[2019-04-17] MEDS: ALPRAZolam 0.25 MG TAB PO PRN (07:32)
[2019-04-17] MEDS: Hydrochlorothiazide 25 MG TAB PO SCH (07:32)
[2019-04-17] MEDS: Estradiol 1 MG TAB PO SCH (07:33)
[2019-04-17] MEDS: Amlodipine 10 MG TAB PO SCH (07:33)
[2019-04-17] MEDS: Metoprolol Tartrate 50 MG TAB PO SCH ×2 (07:33→20:30)
--- NOTE | 2019-04-17 09:24 | PRG ---
DATE OF SERVICE: 04/17/2019 Ms. Heath is doing well today. She has tolerated her bowel prep. She is ready for operation today. I have discussed with her use of the TAP blocks for postoperative pain control and the fact that she will have general anesthetic for the surgery. She understands risks and benefits and questions were answered. We will proceed with laparoscopic sigmoid colon resection, possible open is indicated. Job ID: [id number]
[2019-04-17] MEDS ORDERED: Dexamethasone 4 mg/ml Vial ONE (10:11)
[2019-04-17] MEDS ORDERED: Fentanyl 100 MCG/2 ML VIAL ONE ×2 (10:11→10:16)
[2019-04-17] MEDS ORDERED: Midazolam HCl 2 mg/2 ml Vial ONE ×2 (10:11→10:28)
[2019-04-17] MEDS ORDERED: HYDROmorphone 2 MG/ML VIAL ONE (10:17)
[2019-04-17] MEDS ORDERED: metroNIDAZOLE 500 MG/100 ML BAG ONE (10:45)
[2019-04-17] MEDS ORDERED: Levofloxacin 500 mg/D5W 100 ml Premix Bag ONE (10:45)
--- NOTE | 2019-04-17 10:51 | PDOC.PN ---
- Subjective Encounter Start Date: 04/17/19 Encounter Start Time: 08:30 Patient seen and examined. No new complaints. No overnight events - Objective Resuscitation Status - Order Detail: 04/15/19 06:38 Resuscitation Status Routine Resuscitation Status: FULL: Full Resuscitation MAR Reviewed: Yes Vital Signs & Weight: Vital Signs (12 hours) Temp Pulse Resp BP BP Pulse Ox 04/17/19 08:00 92 L 04/17/19 07:33 64 131/77 04/17/19 07:29 97.9 F 64 18 131/77 94 L 04/17/19 04:00 97.7 F 70 20 131/88 92 L 04/17/19 00:00 98.0 F 71 20 104/64 95 Weight Weight 215 lb I&O: 04/16/19 04/17/19 04/18/19 06:59 06:59 06:59 Intake Total 650 Balance 650 Result Diagrams: 04/16/19 04:12 04/16/19 04:12 Phys Exam - Physical Examination Constitutional: NAD HEENT: PERRLA, moist MMs, sclera anicteric Neck: no JVD, supple Respiratory: no wheezing, no rales, no rhonchi Cardiovascular: RRR, no significant murmur, no rub Gastrointestinal: soft, non-tender, no distention, positive bowel sounds Musculoskeletal: no edema, pulses present Neurological: non-focal, normal sensation, moves all 4 limbs Lymphatic: no nodes Psychiatric: normal affect, A&O x 3 Skin: no rash, normal turgor Dx/Plan (1) Adenocarcinoma of sigmoid colon Code(s): C18.7 - MALIGNANT NEOPLASM OF SIGMOID COLON Status: Acute (2) Hematochezia Code(s): K92.1 - MELENA Status: Acute (3) Anxiety Code(s): F41.9 - ANXIETY DISORDER, UNSPECIFIED Status: Chronic (4) Chronic low back pain Code(s): M54.5 - LOW BACK PAIN; G89.29 - OTHER CHRONIC PAIN Status: Chronic (5) Hypertension Code(s): I10 - ESSENTIAL (PRIMARY) HYPERTENSION Status: Chronic Comment: reasonably controlled (6) Obesity (BMI 30-39.9) Code(s): E66.9 - OBESITY, UNSPECIFIED Status: Chronic (7) Tobacco abuse Code(s): Z72.0 - TOBACCO USE Status: Chronic - Plan cont current plan of care, plan discussed w/ family * today plan for surgery * post op care will defer to surgeon * medication reviewed as below * symptomatic treatment * updated information to . * pain controlled Review of Systems - Review of Systems ENT: negative: Ear Pain, Ear Discharge, Nose Pain, Nose Discharge, Nose Congestion, Mouth Pain, Mouth Swelling, Throat Pain, Throat Swelling, Other Respiratory: negative: Cough, Dry, Shortness of Breath, Hemoptysis, SOB with Excertion, Pleuritic Pain, Sputum, Wheezing Cardiovascular: negative: chest pain, palpitations, orthopnea, paroxysmal nocturnal dyspnea, edema, light headedness, other Gastrointestinal: negative: Nausea, Vomiting, Abdominal Pain, Diarrhea, Constipation, Melena, Hematochezia, Other Genitourinary: negative: Dysuria, Frequency, Incontinence, Hematuria, Retention , Other Musculoskeletal: negative: Neck Pain, Shoulder Pain, Arm Pain, Back Pain, Hand Pain, Leg Pain, Foot Pain, Other Skin: negative: Rash, Lesions, Aidan, Bruising, Other - Medications/Allergies Allergies/Adverse Reactions: Allergies Allergy/AdvReac Type Severity Reaction Status Date / Time bee venom protein (honey bee) Allergy Severe Anaphylaxis Verified 04/15/19 11:03 iodine Allergy Severe Anaphylaxis Verified 04/15/19 11:03 shellfish derived Allergy Severe Anaphylaxis Verified 04/15/19 11:03 ketorolac [From Toradol] Allergy Verified 04/15/19 11:04 Iodinated Contrast- Oral and AdvReac Severe Anaphylaxis Verified 12/09/18 03:14 IV Dye Medications: Current Medications Acetaminophen (Tylenol) 1,000 mg PO Q6H PRN PRN Reason: Moderate to Severe Pain (6-10) Hydrocodone Bitart/Acetaminophen ([place] 5/325) 1 tab PO Q4H PRN PRN Reason: Moderate Pain (4-6) Alprazolam (Xanax) 0.5 mg PO HS PRN PRN Reason: Anxiety Last Admin: 04/16/19 21:38 Dose: 0.5 mg Alprazolam (Xanax) 0.25 mg PO TIDPRN PRN PRN Reason: Anxiety Last Admin: 04/17/19 07:32 Dose: 0.25 mg Amlodipine Besylate (Norvasc) 10 mg PO DAILY JIL Last Admin: 04/17/19 07:33 Dose: 10 mg Artificial Tears (Tears Naturale) 2 drop EA EYE PRN PRN PRN Reason: Dry Eyes Dicyclomine HCl (Bentyl) 10 mg PO QID PRN PRN Reason: GI Cramping Enoxaparin Sodium (Lovenox) 40 mg SC 2100 [facility] Last Admin: 04/16/19 21:38 Dose: 40 mg Estradiol (Estrace) 2 mg PO DAILY [facility] Last Admin: 04/17/19 07:33 Dose: 2 mg Famotidine (Pepcid) 20 mg PO BID [facility] Last Admin: 04/17/19 07:32 Dose: 20 mg Guaifenesin (Robitussin Sf) 200 mg PO Q4H PRN PRN Reason: Cough Hydralazine HCl (Apresoline) 10 mg SLOW IVP Q4H PRN PRN Reason: SBP > 180 and HR < 70 Hydrochlorothiazide (Hydrochlorothiazide) 25 mg PO DAILY [facility] Last Admin: 04/17/19 07:32 Dose: 25 mg Hydrocortisone Sodium Succinate (Preparation H Hc Cream) 0 gm TOP BID PRN PRN Reason: Anal irritation Sodium Chloride (Normal Saline 0.9%) 1,000 mls @ 100 mls/hr IV .Q10H [facility] Last Admin: 04/17/19 06:39 Dose: 1,000 mls Labetalol HCl (Normodyne) 20 mg SLOW IVP Q4H PRN PRN Reason: SBP > 180 and HR >/= 70 Loratadine (Claritin) 10 mg PO DAILYPRN PRN PRN Reason: Sinus Symptoms Metoprolol Tartrate (Lopressor) 50 mg PO BID [facility] Last Admin: 04/17/19 07:33 Dose: 50 mg Morphine Sulfate (Morphine) 4 mg SLOW IVP Q4H PRN PRN Reason: Pain Last Admin: 04/17/19 06:34 Dose: 4 mg Nicotine (Nicoderm Patch) 21 mg TOP 1600 [facility] Last Admin: 04/16/19 17:43 Dose: 21 mg Ondansetron HCl (Zofran Odt) 4 mg PO Q6H PRN PRN Reason: Nausea/Vomiting Ondansetron HCl (Zofran) 4 mg IVP Q6H PRN PRN Reason: Nausea/Vomiting Last Admin: 04/17/19 06:35 Dose: 4 mg Senna/Docusate Sodium (Senokot S) 2 tab PO BID PRN PRN Reason: Constipation Sodium Chloride (Flush - Normal Saline) 10 ml IVF Q12HR [facility]IL Last Admin: 04/17/19 07:33 Dose: Not Given Sodium Chloride (Flush - Normal Saline) 10 ml IVF PRN PRN PRN Reason: Saline Flush Sodium Chloride ([place] Nasal [place] 0.65%) 0 ml EA NARE QIDPRN PRN PRN Reason: Nasal Congestion Throat Lozenges (Cepastat Lozenges) 1 cristian PO Q2H PRN PRN Reason: Sore Throat Tramadol HCl (Ultram) 50 mg PO Q6H PRN PRN Reason: Mild Pain (1-3) Zolpidem Tartrate (Ambien) 5 mg PO HSPRN PRN PRN Reason: Insomnia
[2019-04-17] MEDS ORDERED: Albumin 5% 0 ML ONE (10:55)
[2019-04-17] MEDS ORDERED: Phenylephrine HCL 10 MG/ML VIAL ONE (10:59)
[2019-04-17] MEDS ORDERED: Albuterol Sulfate HFA (OR ONLY) ONE (12:45)
[2019-04-17] MEDS ORDERED: SUGAMMADEX SODIUM 500 MG/5 ML VIAL ONE (13:47)
[2019-04-17] MEDS ORDERED: HYDROmorphone 2 MG/ML VIAL SLOW IVP PRN (14:25)
[2019-04-17] MEDS ORDERED: Promethazine HCl 25 MG/ML VIAL SLOW IVP PRN (14:25)
[2019-04-17] MEDS ORDERED: Promethazine HCl 25 MG/ML VIAL IM PRN (14:25)
[2019-04-17] MEDS ORDERED: Meperidine HCl/PF 25 MG/ML VIAL SLOW IVP PRN (14:25)
[2019-04-17] MEDS ORDERED: Ondansetron HCl/PF 4 MG/2 ML Vial IVP PRN (14:25)
[2019-04-17] MEDS ORDERED: traMADol HCl 50 MG TAB PO PRN (14:30)
[2019-04-17] MEDS ORDERED: Promethazine HCl 25 MG/ML VIAL ONE (14:31)
--- NOTE | 2019-04-17 16:03 | OP ---
DATE OF PROCEDURE: 04/17/2019 PREOPERATIVE DIAGNOSES: 1. Sigmoid cancer. 2. Morbid obesity. POSTOPERATIVE DIAGNOSES: 1. Sigmoid cancer. 2. Morbid obesity. PROCEDURES PERFORMED: Laparoscopic mobilization of splenic flexure, conversion to lower midline open laparotomy with sigmoid resection, low anterior resection; colorectal anastomosis, 31-mm EEA stapler, checked under water, no leaks. The tattooed area of mid sigmoid colon resected. Conversion to open due to morbid obesity, problem with ventilating the patient in the Trendelenburg position, requiring open procedure. ANESTHESIA: General anesthesia, TAP block. ESTIMATED BLOOD LOSS: Less than 70 mL. BLOOD TRANSFUSION: None. DESCRIPTION OF PROCEDURE: The patient was taken to the operating room, where under general anesthesia in the dorsal lithotomy position, a Escobar catheter was placed. Abdomen and pelvis respectfully prepared with ChloraPrep and Betadine. Right periumbilical incision was made. Pneumoperitoneum to 15 mmHg was obtained with a Veress needle, replaced with a 5 port. Right subcostal incision was made, upper right midline incision made and a 5 port placed. Right lower quadrant incision made and a 12 port placed. There were adhesions in the midline, taken down with the LigaSure. This required placement of left upper quadrant, another right lateral mid abdominal 5 ports. The splenic flexure was mobilized using the LigaSure, freeing the gastrocolic ligament from the transverse colon distally, mobilizing the splenic flexure from Gerota's fascia. This required a position in reverse Trendelenburg. Once we placed her in Trendelenburg and turned our attention to the pelvis, the patient could not ventilate due to her morbid obesity and repeat airway pressures were too high. A midline incision was made from the umbilicus to the pubis. The tattooed areas in the mid sigmoid colon, sigmoid colon freed, left ureter and right ureter kept free of harm. The mesentery was mobilized on either side with the cautery, keeping the ureters in view and free of harm. The YU pedicle was divided with the 2-0 silk ties. Mesentery was mobilized up to the junction of the sigmoid and descending colon, with more than adequate proximal and distal margins. Colon divided with a contour stapler. Sigmoid colon mobilized down to the sacral hollow, mobilizing the hemorrhoidal vessels. The rectosigmoid dissected free, mesentery mobilized, divided with the LigaSure. Rectosigmoid was skeletonized, divided with a contour stapler. This resected specimen marked distally with a silk suture. The tattooed areas to the mid sigmoid colon. No other abnormalities were noted except for extreme morbid obesity. At this point, sponge and needle counts were correct. A Bookwalter retractor was being used for retraction. The proximal colon with staple line opened and a pursestring suture of 2-0 Prolene placed and a 31 mm EEA anvil placed and pursestring suture tied. Our gloves were then changed. Attention turned to the pelvis. The rectal stump was cleared of fatty tissue around the staple line. Ebd Teacher then attended the rectum, where the right anus and rectum were dilated with serial dilators. Finally placing the stapler in optimal position, advancing the post and the staple line, visualized through the laparotomy incision. It was then connected to the proximal anvil in the colon and approximated within the torque fire range and fired, loosening removed, noting intact donuts. Staple line reinforced with several interrupted Lembert sutures of 3-0 silk. The anastomosis was checked under water and there was no leak. Sponge and needle counts were correct and good hemostasis noted. The midline fascia was closed with continuous suture of #1 PDS. Skin and subcutaneous tissues were copiously irrigated. Skin was approximated loosely with anish with Telfa emily between and incisional VAC applied. The patient tolerated the procedure well without complications. Job ID: [id number]
[2019-04-17] MEDS ORDERED: diphenhydrAMINE 50 MG/ML VIAL IM PRN (16:16)
[2019-04-17] MEDS ORDERED: diphenhydrAMINE 25 MG CAP PO PRN (16:16)
[2019-04-17] MEDS ORDERED: Ondansetron PF 4 MG/2 ML Vial IVP PRN (16:16)
[2019-04-17] MEDS ORDERED: Zolpidem Tartrate 5 MG TAB PO PRN (16:16)
[2019-04-17] MEDS ORDERED: Naloxone HCl 0.4 mg/ml Vial IV PRN (16:16)
[2019-04-17] MEDS ORDERED: diphenhydrAMINE 50 MG/ML VIAL IVP PRN (16:16)
[2019-04-17] MEDS ORDERED: Communication Order-Pharmacy FS SCH (16:30)
[2019-04-17] MEDS: Acetaminophen 1,000 MG in Premix Bag 1 BAG IVPB SCH (17:02)
[2019-04-17] MEDS: HYDROmorphone 10 mg/100 ml CADD IVPB PRN (17:09)
[2019-04-17] MEDS: Nicotine 21 MG PATCH TOP SCH (18:29)
[2019-04-17] MEDS: Promethazine HCl 25 MG/ML VIAL IM PRN (18:33)
[2019-04-17] MEDS: Enoxaparin Sodium 40 MG/0.4 ML SYRINGE SC SCH (20:30)
[2019-04-18] MEDS: Acetaminophen 1,000 MG in Premix Bag 1 BAG IVPB SCH ×3 (00:38→12:00)
[2019-04-18] MEDS: Ondansetron ODT 4 MG TAB PO PRN ×2 (04:05→12:03)
[2019-04-18 05:42] LABS: #Lymphocytes 0.6 thou/uL (1.20-3.40); #Monocytes 0.7 thou/uL (0.11-0.59); #Neutrophils 12.3 thou/uL (1.40-6.50); %Eosinophils 0.1 % (0.0-10.0); %Lymphocytes 4.3 % (21.0-51.0); %Monocytes 5.1 % (0.0-10.0); %Neutrophils 90.5 % (42.0-75.0); Hemoglobin 11.2 g/dL (12.0-16.0); Mean Corpuscular HGB CONC 33.2 g/dL (32.0-36.0); Mean Corpuscular Volume 93.5 fL (78.0-98.0); Mean Platelet Volume 5.6 fL (7.4-10.4); Platelet Count 312 thou/uL (130-400); RBC Distribution Width 11.6 % (11.5-14.5); White Blood Cell (WBC) Count 13.6 thou/uL (4.8-10.8)
[2019-04-18 06:01] LABS: Anion Gap 12 mmol/L (10-20); BUN (Urea Nitrogen) 7 mg/dL (7.0-18.7); Calc. Creatinine Clearance 144 mL/min (70-130); Calcium 8.9 mg/dL (7.8-10.44); Carbon Dioxide 30 mmol/L (22-29); Chloride 98 mmol/L (98-107); Estimated GFR-MDRD 86; Glucose 161 mg/dL (70-105); Potassium 3.5 mmol/L (3.5-5.1); Sodium 136 mmol/L (136-145)
[2019-04-18] MEDS: Sodium Chloride 0.9% 1,000 ML IV SCH ×3 (06:09→12:07)
[2019-04-18] MEDS: Promethazine HCl 25 MG/ML VIAL IM PRN (09:30)
[2019-04-18] MEDS: Famotidine 20 MG TAB PO SCH ×2 (09:32→20:58)
[2019-04-18] MEDS: Metoprolol Tartrate 50 MG TAB PO SCH ×2 (09:32→20:58)
[2019-04-18] MEDS: Estradiol 1 MG TAB PO SCH (09:32)
[2019-04-18] MEDS: Amlodipine 10 MG TAB PO SCH (09:32)
[2019-04-18] MEDS: Aspirin 325 MG TAB PO SCH (09:32)
[2019-04-18] MEDS: Hydrochlorothiazide 25 MG TAB PO SCH (09:32)
[2019-04-18] MEDS: HYDROmorphone 10 mg/100 ml CADD IVPB PRN (09:53)
--- NOTE | 2019-04-18 12:47 | PDOC.PN ---
- Subjective Encounter Start Date: 04/18/19 Encounter Start Time: 09:45 Patient seen and examined. No new complaints. No overnight events, s/p surgery yesterday, drain was removed today, she is on clear liquid, she is on PRODUCTION SUPPORT DEVELOPER for pain control - Objective Resuscitation Status - Order Detail: 04/15/19 06:38 Resuscitation Status Routine Resuscitation Status: FULL: Full Resuscitation MAR Reviewed: Yes Vital Signs & Weight: Vital Signs (12 hours) Temp Pulse Resp BP Pulse Ox 04/18/19 11:26 98.2 F 72 12 105/72 92 L 04/18/19 09:32 82 04/18/19 07:16 98.2 F 82 14 108/58 L 94 L 04/18/19 03:20 98.7 F 81 16 120/75 95 Weight Weight 215 lb I&O: 04/17/19 04/18/19 04/19/19 06:59 06:59 06:59 Intake Total 498 126 1241 Output Total 1875 3200 Balance 650 -1375 -1300 Result Diagrams: 04/18/19 05:03 04/18/19 05:03 Additional Labs: Accuchecks 04/17/19 14:34 POC Glucose 162 H Phys Exam - Physical Examination Constitutional: NAD HEENT: PERRLA, moist MMs, sclera anicteric Neck: no JVD, supple Respiratory: no wheezing, no rales, no rhonchi Cardiovascular: RRR, no significant murmur, no rub Gastrointestinal: soft, non-tender, no distention, positive bowel sounds surgical site with dressing Musculoskeletal: no edema, pulses present Neurological: non-focal, normal sensation, moves all 4 limbs Lymphatic: no nodes Psychiatric: normal affect, A&O x 3 Skin: no rash, normal turgor Dx/Plan (1) Adenocarcinoma of sigmoid colon Code(s): C18.7 - MALIGNANT NEOPLASM OF SIGMOID COLON Status: Acute Comment: s/p sigmoid resection, and colorectal anstomosis (2) Hematochezia Code(s): K92.1 - MELENA Status: Acute (3) Anxiety Code(s): F41.9 - ANXIETY DISORDER, UNSPECIFIED Status: Chronic (4) Chronic low back pain Code(s): M54.5 - LOW BACK PAIN; G89.29 - OTHER CHRONIC PAIN Status: Chronic (5) Hypertension Code(s): I10 - ESSENTIAL (PRIMARY) HYPERTENSION Status: Chronic Comment: reasonably controlled (6) Obesity (BMI 30-39.9) Code(s): E66.9 - OBESITY, UNSPECIFIED Status: Chronic (7) Tobacco abuse Code(s): Z72.0 - TOBACCO USE Status: Chronic - Plan cont current plan of care, plan discussed w/ family * continue PRODUCTION SUPPORT DEVELOPER for pain control * post surgical care as per general surgery * diet advancement will defer to surgeon * medication reviewed as below * symptomatic treatment. Review of Systems - Review of Systems ENT: negative: Ear Pain, Ear Discharge, Nose Pain, Nose Discharge, Nose Congestion, Mouth Pain, Mouth Swelling, Throat Pain, Throat Swelling, Other Respiratory: negative: Cough, Dry, Shortness of Breath, Hemoptysis, SOB with Excertion, Pleuritic Pain, Sputum, Wheezing Cardiovascular: negative: chest pain, palpitations, orthopnea, paroxysmal nocturnal dyspnea, edema, light headedness, other Gastrointestinal: negative: Nausea, Vomiting, Abdominal Pain, Diarrhea, Constipation, Melena, Hematochezia, Other Genitourinary: negative: Dysuria, Frequency, Incontinence, Hematuria, Retention , Other Musculoskeletal: negative: Neck Pain, Shoulder Pain, Arm Pain, Back Pain, Hand Pain, Leg Pain, Foot Pain, Other - Medications/Allergies Allergies/Adverse Reactions: Allergies Allergy/AdvReac Type Severity Reaction Status Date / Time bee venom protein (honey bee) Allergy Severe Anaphylaxis Verified 04/15/19 11:03 iodine Allergy Severe Anaphylaxis Verified 04/15/19 11:03 shellfish derived Allergy Severe Anaphylaxis Verified 04/15/19 11:03 ketorolac [From Toradol] Allergy Verified 04/15/19 11:04 Iodinated Contrast- Oral and AdvReac Severe Anaphylaxis Verified 12/09/18 03:14 IV Dye Medications: Current Medications Acetaminophen (Tylenol) 1,000 mg PO Q6H PRN PRN Reason: Moderate to Severe Pain (6-10) Amlodipine Besylate (Norvasc) 10 mg PO DAILY [facility] Last Admin: 04/18/19 09:32 Dose: 10 mg Artificial Tears (Tears Naturale) 2 drop EA EYE PRN PRN PRN Reason: Dry Eyes Aspirin (Aspirin) 325 mg PO DAILY [facility] Last Admin: 04/18/19 09:32 Dose: 325 mg Diphenhydramine HCl (Benadryl) 25 mg IVP Q3H PRN PRN Reason: Itching Diphenhydramine HCl (Benadryl) 25 mg PO Q3H PRN PRN Reason: Itching Diphenhydramine HCl (Benadryl) 25 mg IM Q3H PRN PRN Reason: Itching Enoxaparin Sodium (Lovenox) 40 mg SC 2100 [facility] Last Admin: 04/17/19 20:30 Dose: 40 mg Estradiol (Estrace) 2 mg PO DAILY [facility] Last Admin: 04/18/19 09:32 Dose: 2 mg Famotidine (Pepcid) 20 mg PO BID [facility] Last Admin: 04/18/19 09:32 Dose: 20 mg Guaifenesin (Robitussin Sf) 200 mg PO Q4H PRN PRN Reason: Cough Hydralazine HCl (Apresoline) 10 mg SLOW IVP Q4H PRN PRN Reason: SBP > 180 and HR < 70 Hydrochlorothiazide (Hydrochlorothiazide) 25 mg PO DAILY [facility] Last Admin: 04/18/19 09:32 Dose: 25 mg Hydrocortisone Sodium Succinate (Preparation H Hc Cream) 0 gm TOP BID PRN PRN Reason: Anal irritation Hydromorphone HCl (Dilaudid Cadd) 0 mg IVPB INF PRN PRN Reason: Pain Last Admin: 04/18/19 09:53 Dose: 10 mg Sodium Chloride (Normal Saline 0.9%) 1,000 mls @ 100 mls/hr IV .Q10H [facility] Last Admin: 04/18/19 12:07 Dose: Not Given Labetalol HCl (Normodyne) 20 mg SLOW IVP Q4H PRN PRN Reason: SBP > 180 and HR >/= 70 Loratadine (Claritin) 10 mg PO DAILYPRN PRN PRN Reason: Sinus Symptoms Metoprolol Tartrate (Lopressor) 50 mg PO BID [facility] Last Admin: 04/18/19 09:32 Dose: 50 mg Miscellaneous Information (Communication Order-Pharmacy) 1 each FS ONE [facility] Stop: 04/18/19 16:31 Naloxone HCl (Narcan) 0.2 mg IV Q5MIN PRN PRN Reason: Opiate Reversal Nicotine (Nicoderm Patch) 21 mg TOP 1600 [facility] Last Admin: 04/17/19 18:29 Dose: Not Given Ondansetron HCl (Zofran Odt) 4 mg PO Q6H PRN PRN Reason: Nausea/Vomiting Last Admin: 04/18/19 12:03 Dose: 4 mg Ondansetron HCl (Zofran) 4 mg IVP Q6H PRN PRN Reason: Nausea/Vomiting Promethazine HCl (Phenergan) 12.5 mg IM Q4H PRN PRN Reason: Nausea/Vomiting Last Admin: 04/18/19 09:30 Dose: 12.5 mg Sodium Chloride (Flush - Normal Saline) 10 ml IVF Q12HR [facility] Last Admin: 04/18/19 09:33 Dose: 10 ml Sodium Chloride (Flush - Normal Saline) 10 ml IVF PRN PRN PRN Reason: Saline Flush Sodium Chloride ([place] Nasal [place] 0.65%) 0 ml EA NARE QIDPRN PRN PRN Reason: Nasal Congestion Throat Lozenges (Cepastat Lozenges) 1 cristian PO Q2H PRN PRN Reason: Sore Throat Zolpidem Tartrate (Ambien) 5 mg PO HSPRN PRN PRN Reason: Insomnia
--- NOTE | 2019-04-18 13:50 | PRG ---
DATE OF SERVICE: 04/18/2019 SUBJECTIVE: Taylor Heath is doing well one day status post laparoscopic mobilization of splenic flexure and open sigmoid colon resection with colorectal anastomosis with 31 mm EEA stapler. She is tolerating her liquids with some nausea and she has backed out of liquid consumption. OBJECTIVE: VITAL SIGNS: Temperature 98.2 degrees, heart rate 72, blood pressure 105/72. A STREET LIGHT REPAIRER HELPER was started last night as her tap block postoperatively was not adequately effective along and controlling her pain. It is better controlled with the STREET LIGHT REPAIRER HELPER. LUNGS: Clear to auscultation. CARDIAC: Regular rate and rhythm without murmur or gallop. ABDOMEN: Soft and obese. Postoperative tenderness. Incisional VAC is healthy otherwise. EXTREMITIES: Unremarkable. LABORATORY DATA: White count 13 and hemoglobin 11.2. Basic metabolic profile, normal. Escobar catheter had been removed and she is voiding. ASSESSMENT AND PLAN: Sigmoid cancer, status post resection yesterday. Continue full liquids. Continue STREET LIGHT REPAIRER HELPER. KVO, IV fluids whenever she is tolerating adequate liquids. Continue ambulation up in chair. Continue DVT prophylaxis. Job ID: [id number]
[2019-04-18] MEDS: Nicotine 21 MG PATCH TOP SCH (16:41)
--- NOTE | 2019-04-18 17:43 | PRG ---
DATE OF SERVICE: 04/18/2019 SUBJECTIVE: Ms. Heath is postop day 1. She feels pretty well and she is up walking and eating a little bit. OBJECTIVE: VITAL SIGNS: Temperature 98.2, pulse 85, blood pressure is 104/66. ABDOMEN: Soft, nontender. There is no rebound. There is no guarding. LABORATORY DATA: White count 13.6, hemoglobin 11.2, platelet count 312. BMP normal. BUN and creatinine are 17 and 0.7. Pathology from colon resection is pending. ASSESSMENT: Malignant polyp in sigmoid colon, sessile with positive margins on polypectomy, now status post sigmoid resection, normal CT with evidence of metastatic disease. Normal CEA. RECOMMENDATIONS: 1. Advance diet as tolerated. Repeat colonoscopy in 1 year. 2. We will wait genetic testing on the polypectomy from 04/11/2019 as her send outs are pending. If the marker is consistent with Penaloza, we will recommend genetic testing for the patient for . We will follow along with you. Job ID: [id number]
[2019-04-18] MEDS ORDERED: Acetaminophen 500 MG TAB PO PRN (18:00)
[2019-04-18] MEDS: Enoxaparin Sodium 40 MG/0.4 ML SYRINGE SC SCH (20:59)
[2019-04-19] MEDS: HYDROmorphone 10 mg/100 ml CADD IVPB PRN ×2 (01:38→23:28)
[2019-04-19] MEDS: Sodium Chloride 0.9% 1,000 ML IV SCH ×3 (01:40→20:38)
[2019-04-19] MEDS: Amlodipine 10 MG TAB PO SCH (09:16)
[2019-04-19] MEDS: Aspirin 325 MG TAB PO SCH (09:16)
[2019-04-19] MEDS: Hydrochlorothiazide 25 MG TAB PO SCH (09:16)
[2019-04-19] MEDS: Metoprolol Tartrate 50 MG TAB PO SCH ×2 (09:16→20:33)
[2019-04-19] MEDS: Estradiol 1 MG TAB PO SCH (09:16)
[2019-04-19] MEDS: Famotidine 20 MG TAB PO SCH ×2 (09:17→20:33)
[2019-04-19] MEDS: Promethazine HCl 25 MG/ML VIAL IM PRN ×2 (11:15→23:29)
--- NOTE | 2019-04-19 11:37 | PDOC.PN ---
- Subjective Encounter Start Date: 04/19/19 Encounter Start Time: 09:45 Patient seen and examined. No new complaints. No overnight events she feels some nausea, pain controlled - Objective Resuscitation Status - Order Detail: 04/15/19 06:38 Resuscitation Status Routine Resuscitation Status: FULL: Full Resuscitation MAR Reviewed: Yes Vital Signs & Weight: Vital Signs (12 hours) Temp Pulse Resp BP BP Pulse Ox 04/19/19 09:16 68 120/69 04/19/19 07:15 97.7 F 68 12 120/69 93 L 04/19/19 04:10 98.3 F 63 18 108/70 93 L 04/19/19 00:07 98.8 F 68 18 129/80 94 L Weight Weight 215 lb I&O: 04/18/19 04/19/19 04/20/19 06:59 06:59 06:59 Intake Total 500 2620 Output Total 1875 3200 Balance -1375 -580 Result Diagrams: 04/18/19 05:03 04/18/19 05:03 Phys Exam - Physical Examination Constitutional: NAD HEENT: PERRLA, moist MMs, sclera anicteric Neck: no JVD, supple Respiratory: no wheezing, no rales, no rhonchi Cardiovascular: RRR, no significant murmur, no rub Gastrointestinal: soft, non-tender, no distention, positive bowel sounds surgical site clean Musculoskeletal: no edema, pulses present Neurological: non-focal, normal sensation, moves all 4 limbs Psychiatric: normal affect, A&O x 3 Skin: no rash, normal turgor Dx/Plan (1) Adenocarcinoma of sigmoid colon Code(s): C18.7 - MALIGNANT NEOPLASM OF SIGMOID COLON Status: Acute Comment: s/p sigmoid resection, and colorectal anstomosis (2) Hematochezia Code(s): K92.1 - MELENA Status: Acute (3) Anxiety Code(s): F41.9 - ANXIETY DISORDER, UNSPECIFIED Status: Chronic (4) Chronic low back pain Code(s): M54.5 - LOW BACK PAIN; G89.29 - OTHER CHRONIC PAIN Status: Chronic (5) Hypertension Code(s): I10 - ESSENTIAL (PRIMARY) HYPERTENSION Status: Chronic Comment: reasonably controlled (6) Obesity (BMI 30-39.9) Code(s): E66.9 - OBESITY, UNSPECIFIED Status: Chronic (7) Tobacco abuse Code(s): Z72.0 - TOBACCO USE Status: Chronic - Plan cont current plan of care, plan discussed w/ family * currently on EPIC TRAINER * tolerating full liquid diet * await pathology and genetic report * medication reviewed as below * symptomatic treatment * discharge and diet advancement will defer to surgeon. Review of Systems - Review of Systems ENT: negative: Ear Pain, Ear Discharge, Nose Pain, Nose Discharge, Nose Congestion, Mouth Pain, Mouth Swelling, Throat Pain, Throat Swelling, Other Respiratory: negative: Cough, Dry, Shortness of Breath, Hemoptysis, SOB with Excertion, Pleuritic Pain, Sputum, Wheezing Cardiovascular: negative: chest pain, palpitations, orthopnea, paroxysmal nocturnal dyspnea, edema, light headedness, other Gastrointestinal: negative: Nausea, Vomiting, Abdominal Pain, Diarrhea, Constipation, Melena, Hematochezia, Other Genitourinary: negative: Dysuria, Frequency, Incontinence, Hematuria, Retention , Other Musculoskeletal: negative: Neck Pain, Shoulder Pain, Arm Pain, Back Pain, Hand Pain, Leg Pain, Foot Pain, Other - Medications/Allergies Allergies/Adverse Reactions: Allergies Allergy/AdvReac Type Severity Reaction Status Date / Time bee venom protein (honey bee) Allergy Severe Anaphylaxis Verified 04/15/19 11:03 iodine Allergy Severe Anaphylaxis Verified 04/15/19 11:03 shellfish derived Allergy Severe Anaphylaxis Verified 04/15/19 11:03 ketorolac [From Toradol] Allergy Verified 04/15/19 11:04 Iodinated Contrast- Oral and AdvReac Severe Anaphylaxis Verified 12/09/18 03:14 IV Dye Medications: Current Medications Acetaminophen (Tylenol) 1,000 mg PO Q6H PRN PRN Reason: Moderate to Severe Pain (6-10) Amlodipine Besylate (Norvasc) 10 mg PO DAILY [facility] Last Admin: 04/19/19 09:16 Dose: 10 mg Artificial Tears (Tears Naturale) 2 drop EA EYE PRN PRN PRN Reason: Dry Eyes Aspirin (Aspirin) 325 mg PO DAILY [facility] Last Admin: 04/19/19 09:16 Dose: 325 mg Diphenhydramine HCl (Benadryl) 25 mg IVP Q3H PRN PRN Reason: Itching Diphenhydramine HCl (Benadryl) 25 mg PO Q3H PRN PRN Reason: Itching Diphenhydramine HCl (Benadryl) 25 mg IM Q3H PRN PRN Reason: Itching Enoxaparin Sodium (Lovenox) 40 mg SC 2100 [facility] Last Admin: 04/18/19 20:59 Dose: 40 mg Estradiol (Estrace) 2 mg PO DAILY [facility] Last Admin: 04/19/19 09:16 Dose: 2 mg Famotidine (Pepcid) 20 mg PO BID [facility] Last Admin: 04/19/19 09:17 Dose: 20 mg Guaifenesin (Robitussin Sf) 200 mg PO Q4H PRN PRN Reason: Cough Hydralazine HCl (Apresoline) 10 mg SLOW IVP Q4H PRN PRN Reason: SBP > 180 and HR < 70 Hydrochlorothiazide (Hydrochlorothiazide) 25 mg PO DAILY [facility] Last Admin: 04/19/19 09:16 Dose: 25 mg Hydrocortisone Sodium Succinate (Preparation H Hc Cream) 0 gm TOP BID PRN PRN Reason: Anal irritation Hydromorphone HCl (Dilaudid Cadd) 0 mg IVPB INF PRN PRN Reason: Pain Last Admin: 04/19/19 01:38 Dose: 10 mg Sodium Chloride (Normal Saline 0.9%) 1,000 mls @ 100 mls/hr IV .Q10H [facility] Last Admin: 04/19/19 11:15 Dose: Not Given Labetalol HCl (Normodyne) 20 mg SLOW IVP Q4H PRN PRN Reason: SBP > 180 and HR >/= 70 Loratadine (Claritin) 10 mg PO DAILYPRN PRN PRN Reason: Sinus Symptoms Metoprolol Tartrate (Lopressor) 50 mg PO BID [facility] Last Admin: 04/19/19 09:16 Dose: 50 mg Naloxone HCl (Narcan) 0.2 mg IV Q5MIN PRN PRN Reason: Opiate Reversal Nicotine (Nicoderm Patch) 21 mg TOP 1600 [facility] Last Admin: 04/18/19 16:41 Dose: 21 mg Ondansetron HCl (Zofran Odt) 4 mg PO Q6H PRN PRN Reason: Nausea/Vomiting Last Admin: 04/18/19 12:03 Dose: 4 mg Ondansetron HCl (Zofran) 4 mg IVP Q6H PRN PRN Reason: Nausea/Vomiting Promethazine HCl (Phenergan) 12.5 mg IM Q4H PRN PRN Reason: Nausea/Vomiting Last Admin: 04/19/19 11:15 Dose: 12.5 mg Sodium Chloride (Flush - Normal Saline) 10 ml IVF Q12HR [facility] Last Admin: 04/19/19 09:17 Dose: Not Given Sodium Chloride (Flush - Normal Saline) 10 ml IVF PRN PRN PRN Reason: Saline Flush Sodium Chloride ([place] Nasal [place] 0.65%) 0 ml EA NARE QIDPRN PRN PRN Reason: Nasal Congestion Throat Lozenges (Cepastat Lozenges) 1 cristian PO Q2H PRN PRN Reason: Sore Throat Zolpidem Tartrate (Ambien) 5 mg PO HSPRN PRN PRN Reason: Insomnia
[2019-04-19] MEDS ORDERED: Ibuprofen 600 MG TAB PO PRN (12:42)
--- NOTE | 2019-04-19 12:58 | PRG ---
DATE OF SERVICE: 04/19/2019 SUBJECTIVE: Taylor Heath is doing well today. She is tolerating her diet. She has not had a bowel movement. She is looking forward to a regular food and wants that this evening. She has not had any vomiting or nausea. She is on a NOISE TESTER for pain control. This morning, she dropped her suction device in the toilet. The suction device is connected to her incisional VAC. I have discussed with the nurse, and we will remove her incisional VAC today, remove the Telfa emily and leave the wound open and cover it p.r.n. drainage. She can shower and pat the wound dry daily and covered as needed until drain sees and leave it open. OBJECTIVE: LUNGS: Clear to auscultation. CARDIAC: Regular rate and rhythm. No murmur or gallop. ABDOMEN: Soft, obese, nontender. Excellent bowel sounds. Nontender. Pathology pending. VITAL SIGNS: Temperature 97.7, pulse 68, and blood pressure 120/69. ASSESSMENT AND PLAN: 1. Doing well. We will plan to remove her incisional VAC today, leave her wound open. Remove the Telfa emily. Plan as above. 2. Advance diet as tolerated. Resume home medications. Prescription for [place] 5/325, #40, one p.o. q.i.d. p.r.n. pain, left on her charge for discharge tomorrow. She can take Tylenol and Advil as able to minimize the [place]. She can follow up in my office in about 7 or 8 days for staple removal. We will discuss path at that time. Job ID: [id number]
[2019-04-19] MEDS: Nicotine 21 MG PATCH TOP SCH (16:15)
[2019-04-19] MEDS: Enoxaparin Sodium 40 MG/0.4 ML SYRINGE SC SCH (20:33)
[2019-04-20] MEDS ORDERED: HYDROcodone/Acetaminophen 5/325 mg Tablet PO PRN (06:00)
[2019-04-20] MEDS: Sodium Chloride 0.9% 1,000 ML IV SCH (07:26)
[2019-04-20] MEDS ORDERED: Polyethylene Glycol 3350 17 GM Packet PO SCH (09:00)
[2019-04-20] MEDS: Amlodipine 10 MG TAB PO SCH (09:20)
[2019-04-20] MEDS: Famotidine 20 MG TAB PO SCH (09:20)
[2019-04-20] MEDS: Estradiol 1 MG TAB PO SCH (09:20)
[2019-04-20] MEDS: Hydrochlorothiazide 25 MG TAB PO SCH (09:21)
[2019-04-20] MEDS: Aspirin 325 MG TAB PO SCH (09:21)
[2019-04-20] MEDS: Metoprolol Tartrate 50 MG TAB PO SCH (09:21)
--- NOTE | 2019-04-20 11:08 | DIS ---
DATE OF ADMISSION: 04/15/2019 DATE OF DISCHARGE: 04/20/2019 [facility]: Home. PRIMARY DISCHARGE DIAGNOSES: 1. Hematochezia, status post recent polypectomy. 2. Polypectomy consistent with adenocarcinoma of sigmoid colon. 3. Status post laparoscopic sigmoid resection and colorectal anastomosis. SECONDARY DISCHARGE DIAGNOSES: 1. Tobacco abuse disorder. 2. Obesity with body mass index of 35. 3. Hypertension. 4. Chronic low back pain. 5. Anxiety disorder. PRIMARY PROCEDURE/OPERATION: The patient underwent laparoscopic colon sigmoid resection as well as partial laparotomy for colorectal anastomosis. RADIOLOGICAL INVESTIGATION: Abdomen and pelvis CT scan. SIGNIFICANT LABORATORY DATA: Hemoglobin 11.2 and creatinine 0.72. LFT, normal. Stool for guaiac positive. DISCHARGE MEDICATIONS: 1. Xanax 0.5 mg p.o. nightly p.r.n. 2. Amlodipine 10 mg daily. 3. Aspirin 325 mg daily. 4. Hydrochlorothiazide 25 mg daily. 5. Bentyl 10 mg q.i.d. p.r.n. 6. Colace 100 mg b.i.d. 7. Estradiol 2 mg daily. 8. [place] 5 one tablet q.4 hourly p.r.n. 9. Preparation H topical application b.i.d. p.r.n. 10. Lopressor 50 mg b.i.d. 11. Tramadol 50 mg q.6 hourly p.r.n. CONTRAINDICATION: None. CODE STATUS: Full code. INPATIENT FINAL INSPECTOR AND TESTER: Dr. Morton was consulted while in hospital. Dr. Youssef was consulted while in hospital. TEST RESULTS PENDING ON DISCHARGE: None. ALLERGIES: IODINE AND SHELLFISH. DISCHARGE PLAN: Posthospital, the patient will follow up with Dr. Youssef on April 30, 2019, at 10:20 a.m. The patient will make appointment with Dr. Morton and [facility]. HOSPITAL COURSE: A 48-year-old female, who had recent colonoscopy for lower GI bleed. She was found with a polyp, which was removed. A subsequent pathology report from polyp came back positive for a moderately invasive adenocarcinoma. The patient was discharged home and she was having recurrent hematochezia and lower abdominal pain and that is why she came back to emergency room and she was admitted to the hospital. During this admission, she had stable H and H. the patient was evaluated by General Surgery and Gastroenterology. General Surgery did laparoscopic sigmoid resection and she had a conversion to lower midline open laparotomy, low anterior resection and colorectal anastomosis. Postprocedure, the patient required TALK SHOW HOST for pain control and diet was advanced slowly as per general surgeon. TALK SHOW HOST discontinued and the patient's pain was controlled with oral pain medication. She was tolerating her diet as well. The patient appeared stable for discharge. Surgeon cleared her for discharge as well and the patient will follow up with primary care physician, Dr. Morton, as well as Dr. Youssef. PHYSICAL EXAMINATION: VITAL SIGNS I have seen and examined the patient at bedside today. Currently temperature is 98.4, pulse 66, respiratory rate 14, saturations are 94% on room air, and blood pressure 124/80. Weight 215 pounds. GENERAL: The patient is currently alert and awake, in no obvious acute distress. LUNGS: Clear to auscultation without any rhonchi or rales. CARDIAC: S1 and S2, regular without any murmur. ABDOMEN: Soft and benign. EXTREMITIES: No edema. NEUROLOGIC: Nonfocal examination. The surgical site is clean and healthy. The patient will be discharged home later on today. The patient is given prescription for [place] by Dr. Youssef. Job ID: [id number]
[2019-04-20 11:17] VITALS: BP 126/80; TEMP 99
== END 2019-04-20 11:51 | disposition home or self-care (01) | DRG 330 ==
LOC: ERS 00:34 → T4-A 06:54 → SURG A 04-17 12:56
PROVIDERS: ADMIT Hospitalist; ATTEND Hospitalist
PROC: 0DTN0ZZ Resection of Sigmoid Colon, Open Approach (ICD-10-PCS; principal; 2019-04-17)
PROC: 0WJP4ZZ Inspection of Gastrointestinal Tract, Percutaneous Endoscopic Approach (ICD-10-PCS; 2019-04-17)
DX: C18.7 Malignant neoplasm of sigmoid colon (principal); K92.1 Melena; E66.01 Morbid (severe) obesity due to excess calories; I10 Essential (primary) hypertension; M54.5 Low back pain; G89.29 Other chronic pain; F17.210 Nicotine dependence, cigarettes, uncomplicated; F41.9 Anxiety disorder, unspecified; Z91.041 Radiographic dye allergy status; Z91.013 Allergy to seafood; Z88.5 Allergy status to narcotic agent; Z79.82 Long term (current) use of aspirin; Z79.899 Other long term (current) drug therapy; Z90.49 Acquired absence of other specified parts of digestive tract; Z90.710 Acquired absence of both cervix and uterus; Z53.31 Laparoscopic surgical procedure converted to open procedure; Z68.35 Body mass index [BMI] 35.0-35.9, adult
CPT/HCPCS: 36415; 36416; 74177; 80048; 80053; 82274; 82378; 83690; 85025; 86900; 86901; 88307; 96361; 96372; 96374; 96375; 96376; 99406; J0131; J0500; J1100; J1170; J1200; J1650; J1956; J2250; J2270; J2370; J2405; J2550; J2930; J3010; P9045; Q0162; Q9966; S0028

== ENCOUNTER 2019-04-21 17:25 | Inpatient (IN) | payer SELFPAY ==
[~2019-04-21 17:25] MED LIST changes: -ISOVUE-370 76%-LOCM 1 ML ONE; +Iopamidol 370 76% 100 ML VIAL ONE
[2019-04-21] MEDS ORDERED: Morphine 4 MG/ML VIAL ONE ×2 (17:37→18:48)
[2019-04-21] MEDS ORDERED: Morphine 2 MG/ML SYRINGE ONE ×2 (17:38→18:48)
[2019-04-21] MEDS ORDERED: Ondansetron PF 4 MG/2 ML Vial ONE (17:38)
[2019-04-21 17:49] LABS: #Basophils 0.1 thou/uL (0.0-0.2); #Eosinphils 0.3 thou/uL (0.0-0.7); #Lymphocytes 1.5 thou/uL (1.20-3.40); #Neutrophils 9.4 thou/uL (1.40-6.50); %Basophils 0.4 % (0.0-1.0); %Eosinophils 2.2 % (0.0-10.0); %Lymphocytes 12.6 % (21.0-51.0); %Monocytes 7.7 % (0.0-10.0); %Neutrophils 77.1 % (42.0-75.0); Hemoglobin 13.4 g/dL (12.0-16.0); Mean Corpuscular HGB CONC 34.3 g/dL (32.0-36.0); Mean Corpuscular Hemoglobin 31.8 pg (27.0-31.0); Mean Corpuscular Volume 92.8 fL (78.0-98.0); Mean Platelet Volume 5.5 fL (7.4-10.4); Platelet Count 432 thou/uL (130-400); RBC Distribution Width 11.7 % (11.5-14.5); Red Blood Cell (RBC) Count 4.22 mill/uL (4.20-5.40); White Blood Cell (WBC) Count 12.2 thou/uL (4.8-10.8)
[2019-04-21] MEDS ORDERED: Famotidine/PF 20 mg/2ml Vial ONE (18:06)
[2019-04-21] MEDS ORDERED: methylPREDNISolone Sod Succ/PF 125 MG/2 ML VIAL ONE (18:06)
[2019-04-21] MEDS ORDERED: diphenhydrAMINE 50 MG/ML VIAL ONE (18:06)
[2019-04-21 18:10] LABS: ALT (SGPT) 13 U/L (8-55); AST (SGOT) 16 U/L (5-34); Albumin 3.8 g/dL (3.5-5.0); Alkaline Phosphatase 114 U/L (40-150); Anion Gap 16 mmol/L (10-20); BUN (Urea Nitrogen) 9 mg/dL (7.0-18.7); Calc. Creatinine Clearance 0 mL/min (70-130); Calcium 9.8 mg/dL (7.8-10.44); Carbon Dioxide 29 mmol/L (22-29); Chloride 97 mmol/L (98-107); Estimated GFR-MDRD 84; Glucose 119 mg/dL (70-105); Protein, Total 6.8 g/dL (6.0-8.3); Sodium 139 mmol/L (136-145)
[2019-04-21] MEDS ORDERED: Lorazepam 2 MG/ML VIAL ONE (18:28)
[2019-04-21] MEDS ORDERED: MEROPENEM 1 GM/50 ML 1 GM in Premix Bag 1 BAG IVPB SCH (18:30)
--- NOTE | 2019-04-21 18:35 | RAD ---
Exam: Chest one view abdomen 2 views: HISTORY: Abdominal pain, status post surgery Inspiration is less than optimal with some increased markings in the perihilar regions and lower lung zones, probably minimal subsegmental atelectasis. No evidence for free intraperitoneal air on the left lateral decubitus views. Postop surgical changes . No evidence for large or small bowel obstruction. No overt calculus. IMPRESSION: Evidence for recent abdominal surgery. No bowel obstruction or free air or other significant acute pr ocess. Minimal bibasilar parenchymal changes probably minimal subsegmental atelectasis.
[2019-04-21 19:47] LABS: Bilirubin Negative (Negative); Blood, Urine Negative (Negative); Clarity CLEAR (Clear); Glucose, Urine (Dipstick) Negative (Negative); Leukocyte Negative (Negative); Nitrite Negative (Negative); Protein, Urine (Dipstick) Negative (Neg-Trace)
--- NOTE | 2019-04-21 19:50 | CT ---
EXAM: Abdomen and pelvic CT scan with contrast: HISTORY: Fever after surgery several days ago pain beginning this afternoon. COMPARISON: 04/15/2019 FINDINGS: Minimal linear parenchymal changes are noted bilaterally evidence for subsegmental atelectasis. Liver: Unremarkable. Gallbladder:Unremarkable. Pancreas:Unremarkable Spleen:Unremarkable. Adrenal glands:Unremarkable. Kidneys:No renal calculus or acute obstruction.Small left renal hypodensity statistically a small cyst. Postoperative changes in the rectosigmoid region with some scattered nonspecific fat stranding in the pelvis and upper lung the left lateral abdomen into the left upper quadrant with trace free fluid. No evidence for drainable abscess. No evidence for obstruction. Status post appendectomy. The urinary bladder is unremarkable. IMPRESSION: Postoperative changes in the rectosigmoid region with some minimal nonspecific fat stranding in the p marty and extending up the left lateral abdomen trace free fluid. No evidence for drainable abscess. No bowel obstruction or other acute process. Small hiatal hernia. Bibasilar parenchymal torres ges evidence for subsegmental atelectasis.
[2019-04-21] MEDS ORDERED: Acetaminophen 325 MG TAB PO PRN (21:32)
[2019-04-21] MEDS ORDERED: Ondansetron ODT 4 MG TAB SL PRN (21:32)
[2019-04-21] MEDS ORDERED: Sodium Chloride 0.9% 1,000 ML IV SCH (21:32)
[2019-04-21] MEDS ORDERED: Ondansetron PF 4 MG/2 ML Vial IVP PRN (21:32)
[2019-04-21] MEDS ORDERED: HYDROcodone/Acetaminophen 5/325 mg Tablet PO PRN (21:32)
[2019-04-21] MEDS ORDERED: Dextrose 50% Abboject 50 ML SYRINGE SLOW IVP PRN (21:34)
[2019-04-21] MEDS ORDERED: Dextrose 5% in Water 1,000 ML IV PRN (21:34)
[2019-04-21] MEDS ORDERED: Ondansetron ODT 4 MG TAB PO PRN (21:34)
[2019-04-21] MEDS ORDERED: traMADol HCl 50 MG TAB PO PRN ×2 (21:34)
[2019-04-21] MEDS ORDERED: Famotidine 20 MG TAB PO SCH (21:45)
[2019-04-21] MEDS ORDERED: Potassium Chloride 20 MEQ TAB PO SCH (21:45)
[2019-04-21] MEDS: Ondansetron PF 4 MG/2 ML Vial IVP PRN (21:59)
[2019-04-21] MEDS: HYDROcodone/Acetaminophen 5/325 mg Tablet PO PRN (22:00)
[2019-04-21] MEDS ORDERED: Promethazine HCl 25 MG/ML VIAL IM PRN (22:18)
[2019-04-21 22:26] LABS: Lactic Acid 1.7 mmol/L (0.5-2.2)
[2019-04-21] MEDS ORDERED: Morphine 4 MG/ML VIAL SLOW IVP SCH (22:30)
[2019-04-21] MEDS: Promethazine HCl 25 MG/ML VIAL IM PRN (22:31)
[2019-04-21] MEDS: Potassium Chloride 20 MEQ in Lactated Ringer's 1,000 ML IV SCH (22:31)
--- NOTE | 2019-04-21 22:49 | HP ---
This is Maico Freedman PA-C dictating a report for Lucas Vences DO. REQUESTING PHYSICIAN: Dr. Westfall. HISTORY OF PRESENT ILLNESS: The patient is a 48-year-old female who presented to the emergency department [facility] complaining of postoperative abdominal pain. The patient on the th of this month underwent the following procedure of laparoscopic mobilization of splenic flexure, conversion to lower midline open laparotomy with sigmoid resection, low-anterior resection, colorectal anastomosis, 31 mm EEA stapler, checked under water, no leaks. The tattooed area of mid sigmoid colon resected. Conversion to open due to morbid obesity, problem with ventilating the patient in the Trendelenburg position requiring open procedure. The patient initially had her pain controlled with a METALIZING MACHINE OPERATOR and was then converted to p.o. and discharged on p.o. Prior to discharge, the patient states that she was ambulating. She was tolerating primarily liquid diet, but did have some regular food just prior to discharge. Her pain was controlled on oral medications and she was passing gas. This afternoon, the patient reported having a fever of 101 that resolved with Tylenol. She reports that she woke up sweating and in significant amount of pain. She was brought to the emergency department, underwent evaluation and examination and due to the amount of pain and poor pain control in the emergency department, we were asked to admit her. CT of her abdomen and pelvis did not show any significant changes other than postoperative. There did not appear to be any abscess, bleeding, or free air. ALLERGIES: CEFTRIAXONE, PENICILLIN, SHELLFISH-CONTAINING PRODUCTS, SULFA, TRAMADOL, AND TORADOL. CURRENT MEDICATIONS: 1. Metoprolol. 2. Estradiol. 3. Xanax. 4. Hydrochlorothiazide. 5. Garfield. 6. Zofran. 7. Flagyl. PAST MEDICAL HISTORY: Hypertension, anxiety. PAST SURGICAL HISTORY: x2 and previously noted recent history and hysterectomy. SOCIAL HISTORY: The patient denies drug or alcohol use. Smokes approximately one pack of cigarettes per day, though she says that she has started to cut down to almost half a pack per day. The patient lives at home with her family and spouse. REVIEW OF SYSTEMS: 10-point review of systems is negative as otherwise stated. PHYSICAL EXAMINATION: VITAL SIGNS: Temperature is 98.2, blood pressure 138/89, heart rate 95, respirations 22, oxygen saturations 93% on room air. GENERAL: The patient is resting comfortably in bed, though there are times when she does appear uncomfortable which she states that she is having some crampy feelings and bloating that she is afraid will get much worse as previously, which is what brought her to the hospital. Otherwise, she is awake, alert, and appropriate. HEENT: Head is normocephalic and atraumatic. Eyes, extraocular motions intact. PERRLA bilaterally. Ears are atraumatic without discharge. Nose, atraumatic without discharge. Oropharynx is clear. LUNGS: Clear to auscultation with good inspiratory and expiratory effort. HEART: Regular rate and rhythm. ABDOMEN: Soft, tender diffusely, but it does appear to be located to her incisions for her port sites and her midline incision. The patient did not appear to have peritoneal signs. Her surgical site anish were intact. The wounds did not have any discharge coming from them. The midline incision did have small areas of dehiscence, though due to her body habitus, it looked more related to the spacing of the anish. There was also expected bruising along the areas, but no redness. EXTREMITIES: Neurovascularly intact x4. LABORATORY FINDINGS: WBCs 12.2, hemoglobin 13.4, hematocrit 39.2, platelets 432. Sodium 139, potassium 3.0, chloride 97, CO2 of 29, BUN 9, creatinine 0.73, glucose 119, lactic acid 2.2. LFTs are unremarkable. Urinalysis is unremarkable. RADIOGRAPHIC REPORTS: Acute abdominal series shows evidence of recent abdominal surgery. No bowel obstruction or free air or other significant acute process. Minimal bibasilar parenchymal changes, probably minimal segmental atelectasis. CT of the abdomen and pelvis with IV contrast shows postoperative changes in the rectosigmoid region with some minimal nonspecific fat stranding in the pelvis and extending up to the left lateral abdomen, trace free fluid. No evidence for drainable abscess. No bowel obstruction or other acute process. Small hiatal hernia. Bibasilar parenchymal changes. Evidence for a segmental atelectasis. ASSESSMENT AND PLAN: 1. Abdominal pain, with history of recent abdominal surgery. 2. Hypokalemia. PLAN: Plan will be to admit the patient to the surgical floor for observation. We will repeat her labs in the morning, serial exams, IV hydration, clear liquid diet, pain control, pulmonary toilet, gastritis and mechanical VTE prophylaxis. ER has already discussed this case with Dr. Vences. He was in agreement with the admission and we will talk with Dr. Youssef tomorrow morning in regard to this patient. Job ID: [id number] MTDD
[2019-04-22] MEDS: Acetaminophen 500 MG TAB PO SCH ×3 (00:26→12:23)
[2019-04-22] MEDS: ALPRAZolam 0.5 MG TAB PO PRN ×2 (00:40→21:03)
[2019-04-22] MEDS: Ibuprofen 600 MG TAB PO SCH ×5 (00:40→23:04)
[2019-04-22] MEDS: Morphine 2 MG/ML SYRINGE SLOW IVP PRN ×11 (00:41→23:05)
[2019-04-22 04:05] VITALS: BMI 33.1
[2019-04-22] MEDS: Ondansetron PF 4 MG/2 ML Vial IVP PRN ×3 (04:21→18:08)
[2019-04-22] MEDS: HYDROcodone/Acetaminophen 5/325 mg Tablet PO PRN ×4 (04:22→23:11)
[2019-04-22 05:17] LABS: #Lymphocytes 0.7 thou/uL (1.20-3.40); #Monocytes 0.1 thou/uL (0.11-0.59); #Neutrophils 9.6 thou/uL (1.40-6.50); %Basophils 0.2 % (0.0-1.0); %Eosinophils 0.2 % (0.0-10.0); %Lymphocytes 6.5 % (21.0-51.0); %Monocytes 0.9 % (0.0-10.0); %Neutrophils 92.3 % (42.0-75.0); Hemoglobin 11.7 g/dL (12.0-16.0); Mean Corpuscular HGB CONC 33.3 g/dL (32.0-36.0); Mean Corpuscular Hemoglobin 31.3 pg (27.0-31.0); Mean Corpuscular Volume 94.1 fL (78.0-98.0); Mean Platelet Volume 5.6 fL (7.4-10.4); Platelet Count 377 thou/uL (130-400); RBC Distribution Width 11.6 % (11.5-14.5); Red Blood Cell (RBC) Count 3.74 mill/uL (4.20-5.40); White Blood Cell (WBC) Count 10.4 thou/uL (4.8-10.8)
[2019-04-22 05:47] LABS: Anion Gap 14 mmol/L (10-20); BUN (Urea Nitrogen) 9 mg/dL (7.0-18.7); Calc. Creatinine Clearance 128 mL/min (70-130); Carbon Dioxide 29 mmol/L (22-29); Chloride 99 mmol/L (98-107); Estimated GFR-MDRD 82; Glucose 179 mg/dL (70-105); Magnesium 1.6 mg/dL (1.6-2.6); Phosphorus 2.6 mg/dL (2.3-4.7); Potassium 3.5 mmol/L (3.5-5.1); Sodium 138 mmol/L (136-145)
[2019-04-22] MEDS: Promethazine HCl 25 MG/ML VIAL IM PRN ×2 (06:41→23:06)
[2019-04-22] MEDS: Potassium Chloride 20 MEQ in Lactated Ringer's 1,000 ML IV SCH ×2 (06:50→18:52)
[2019-04-22] MEDS: Metoprolol Tartrate 50 MG TAB PO SCH ×2 (08:53→21:00)
[2019-04-22] MEDS: Hydrochlorothiazide 25 MG TAB PO SCH (08:53)
[2019-04-22] MEDS: Famotidine 20 MG TAB PO SCH ×2 (08:53→21:00)
[2019-04-22] MEDS: Docusate 100 MG CAP PO SCH ×2 (08:53→21:00)
[2019-04-22] MEDS ORDERED: HYDROcodone/Acetaminophen 5/325 mg Tablet PO PRN (13:57)
--- NOTE | 2019-04-22 14:14 | PRG ---
DATE OF SERVICE: 04/22/2019 SUBJECTIVE: Taylor Heath is doing well today. She was discharged home on Monday. She was readmitted yesterday. She complains of lower abdominal pain. She presented to the emergency room yesterday and was readmitted by Dr. Vences. PETER Snell, saw her. The patient is status post laparoscopic splenic flexure mobilization and open sigmoid colon resection. Pathology reveals T1 N0 M0 tumor. She was converted to open due to her obesity and increased peak airway pressures. She complained of lower abdominal pain. In the emergency room, she was evaluated, and CT scan of her abdomen and pelvis with IV contrast without oral contrast did not show any changes other than postoperative. There was no free air and no abscesses. The patient's white count was 12, today it is 10.4, hemoglobin 13. Basic metabolic profile is normal. She complains of abdominal pain. she had some atelectasis. Her white count is normal. OBJECTIVE: VITAL SIGNS: She has remained afebrile. Her heart rate is normal. Respiratory rate normal. LUNGS: Clear to auscultation. CARDIAC: Regular rate and rhythm without murmur or gallop. ABDOMEN: Soft, obese, difficult to examine due to her obesity. EXTREMITIES: Unremarkable. ASSESSMENT AND PLAN: Post colon resection abdominal pain. She is status post 04/17/2019, five days ago laparoscopic converted open sigmoid colon resection. There was no residual tumor seen on pathology. At this point, we will obtain a CT scan of abdomen and pelvis with rectal contrast to assure there is no leak. We will do this with oral and rectal and IV contrast. If this is normal, we will resume her diet. Currently, she is on clear liquids. She states that she has been ambulatory. ADDENDUM: Ms. Heath's CT scan was reviewed with Radiology. There is no indication for any complication from her colorectal anastomosis. Considering her normal vital signs, normal white count, and normal hemoglobin, we will plan to advance her diet, saline lock her, and observe her. At this point, we hope that with better pain control, she will be able to be discharged home in the next 1 to 2 days. Job ID: [id number]
[2019-04-23] MEDS: Morphine 2 MG/ML SYRINGE SLOW IVP PRN (01:07)
[2019-04-23] MEDS ORDERED: Promethazine HCl 25 MG/ML VIAL IM PRN (02:53)
[2019-04-23] MEDS ORDERED: diphenhydrAMINE 50 MG/ML VIAL IM PRN (02:53)
[2019-04-23] MEDS ORDERED: Naloxone HCl 0.4 mg/ml Vial IV PRN (02:53)
[2019-04-23] MEDS ORDERED: Zolpidem Tartrate 5 MG TAB PO PRN (02:53)
[2019-04-23] MEDS ORDERED: diphenhydrAMINE 50 MG/ML VIAL IVP PRN (02:53)
[2019-04-23] MEDS ORDERED: diphenhydrAMINE 25 MG CAP PO PRN (02:53)
[2019-04-23] MEDS ORDERED: Communication Order-Pharmacy FS SCH (03:00)
[2019-04-23] MEDS: HYDROmorphone 10 mg/100 ml CADD IVPB PRN ×2 (03:46→21:42)
[2019-04-23] MEDS: Potassium Chloride 20 MEQ in Lactated Ringer's 1,000 ML IV SCH ×2 (03:47→17:24)
[2019-04-23] MEDS: Ondansetron PF 4 MG/2 ML Vial IVP PRN ×3 (05:25→22:25)
[2019-04-23] MEDS: Ibuprofen 600 MG TAB PO SCH ×4 (05:25→23:54)
[2019-04-23 05:28] LABS: #Eosinphils 0.2 thou/uL (0.0-0.7); #Lymphocytes 2.2 thou/uL (1.20-3.40); #Monocytes 1.1 thou/uL (0.11-0.59); #Neutrophils 9.6 thou/uL (1.40-6.50); %Basophils 0.3 % (0.0-1.0); %Eosinophils 1.3 % (0.0-10.0); %Lymphocytes 16.7 % (21.0-51.0); %Monocytes 8.6 % (0.0-10.0); Hemoglobin 10.4 g/dL (12.0-16.0); Mean Corpuscular HGB CONC 32.9 g/dL (32.0-36.0); Mean Corpuscular Hemoglobin 31.2 pg (27.0-31.0); Mean Platelet Volume 5.5 fL (7.4-10.4); Platelet Count 386 thou/uL (130-400); RBC Distribution Width 12.1 % (11.5-14.5); Red Blood Cell (RBC) Count 3.34 mill/uL (4.20-5.40); White Blood Cell (WBC) Count 13.2 thou/uL (4.8-10.8)
[2019-04-23] MEDS: Hydrochlorothiazide 25 MG TAB PO SCH (09:35)
[2019-04-23] MEDS: Metoprolol Tartrate 50 MG TAB PO SCH ×2 (09:35→20:55)
[2019-04-23] MEDS: Famotidine 20 MG TAB PO SCH ×2 (09:35→20:55)
[2019-04-23] MEDS: Docusate 100 MG CAP PO SCH ×2 (09:35→20:55)
[2019-04-23] MEDS: Polyethylene Glycol 3350 17 GM Packet PO SCH (09:35)
[2019-04-23] MEDS ORDERED: Estradiol 1 MG TAB PO SCH (12:45)
[2019-04-23] MEDS ORDERED: Nicotine 14 MG PATCH TOP SCH (16:00)
--- NOTE | 2019-04-23 17:33 | PRG ---
DATE OF SERVICE: SUBJECTIVE: Taylor Heath is doing well today. She complains of abdominal incisional pain. She is tolerating her diet. She is having normal bowel movements. She complains of loss of her sphincter control and loss of stool sensation. She overall is doing well. Her pain control required a MARKET RESEARCH CONSULTANT last night. I have discussed with her pain control and decision is made to increase her [place] 10/325 tomorrow. Discontinue her MARKET RESEARCH CONSULTANT and work toward discharge home. OBJECTIVE: VITAL SIGNS: Temperature 98.3 degrees, pulse 78, and blood pressure 131/85. LUNGS: Clear to auscultation. CARDIAC: Regular rate and rhythm without murmur or gallop. ABDOMEN: Soft. Incisional wounds look good. LABORATORY DATA: White count 13 and hemoglobin 10. Basic metabolic profile normal. ASSESSMENT AND PLAN: Postoperative pain control. Plan as above. Job ID: [id number]
[2019-04-24] MEDS: Potassium Chloride 20 MEQ in Lactated Ringer's 1,000 ML IV SCH (01:12)
[2019-04-24] MEDS: Ondansetron PF 4 MG/2 ML Vial IVP PRN (04:23)
[2019-04-24] MEDS: Ibuprofen 600 MG TAB PO SCH (05:27)
[2019-04-24] MEDS ORDERED: HYDROcodone/Acetaminophen 10/325 mg Tablet PO PRN ×2 (06:15)
[2019-04-24 07:52] VITALS: BP 135/76; TEMP 97.8
--- NOTE | 2019-04-24 07:53 | DIS ---
DATE OF ADMISSION: 04/21/2019 DATE OF DISCHARGE: 04/23/2019 DISCHARGE DIAGNOSIS: Abdominal pain, post colon resection. On 04/17/2019, laparoscopic converted to open sigmoid colon resection 31 mm EEA stapler conversion due to inability of the patient to tolerate Trendelenburg due to increased peak airway pressure due to morbid obesity. Pathology reveals no residual colon cancer. She has a T1 N0 M0 sigmoid colon cancer. She had a malignant polyp with positive margins and endoscopy. Preoperative CEA level and CAT scan were negative. PROCEDURES DURING HOSPITALIZATIONS: CT scan of the abdomen and pelvis without contrast, normal. No evidence of leak or fluid collections. Contrast study not repeated. Discharge hemoglobin 10, white count 13. DISCHARGE MEDICATIONS: Resume home medications; 1. Aspirin 325 b.i.d. 2. Xanax 0.5 mg p.o. at bedtime p.r.n. 3. Metoprolol 50 mg b.i.d. 4. Hydrochlorothiazide 25 mg a day. 5. Hydrocodone 10/325, #50 given. 6. Estradiol 2 mg a day. 7. Docusate b.i.d. DISCHARGE INSTRUCTIONS: Follow up in my office next week for staple removal. Shower and bathe p.r.n. No lifting over 25 pounds for 8 weeks. HISTORY: A 48-year-old female undergoing laparoscopic converted open colon resection date noted above. Postoperatively, discharged home 2 days ago, but returned the next day for intractable pain. Her vital signs were normal. White count normal. CAT scan revealed any problems suggestive of leak. Due to excessive pain, consideration for a contrast enema triple contrast CAT scan given, but given her normal vital signs, normal white count, like a fever and lack of any significant findings suggesting a leak on regular CAT scan with IV contrast without enteric contrast. This decision was made not to repeat this. She was treated with SPRAY GUN SIZER 24 hours prior to discharge. SPRAY GUN SIZER discontinued the day of discharge. She was given [place] 10/325 on this occasion. She is allergic to Ultram. She will follow up in my office next week for staple removal. On the day of discharge, abdomen was soft, nontender. Good bowel sounds. She is having bowel movements. Tolerating a regular diet. Job ID: [id number]
[2019-04-24] MEDS: Docusate 100 MG CAP PO SCH (08:13)
[2019-04-24] MEDS: Famotidine 20 MG TAB PO SCH (08:13)
[2019-04-24] MEDS: Metoprolol Tartrate 50 MG TAB PO SCH (08:13)
[2019-04-24] MEDS: Hydrochlorothiazide 25 MG TAB PO SCH (08:13)
[2019-04-24] MEDS: Polyethylene Glycol 3350 17 GM Packet PO SCH (08:13)
[2019-04-24] MEDS ORDERED: Estradiol 1 MG TAB PO SCH (09:00)
== END 2019-04-24 08:17 | disposition home or self-care (01) | DRG 948 ==
LOC: ERS 17:25 → OBSVTOIN 21:19 → SURG A 21:19
PROVIDERS: ADMIT Surgery; ATTEND Surgery
DX: G89.18 Other acute postprocedural pain (principal); R10.9 Unspecified abdominal pain; E66.01 Morbid (severe) obesity due to excess calories; E87.6 Hypokalemia; F17.210 Nicotine dependence, cigarettes, uncomplicated; F41.9 Anxiety disorder, unspecified; I10 Essential (primary) hypertension; Z90.710 Acquired absence of both cervix and uterus; Z90.49 Acquired absence of other specified parts of digestive tract; Z88.2 Allergy status to sulfonamides; Z88.8 Allergy status to other drugs, medicaments and biological substances; Z88.1 Allergy status to other antibiotic agents; Z88.0 Allergy status to penicillin; Z91.013 Allergy to seafood
CPT/HCPCS: 36415; 74022; 74177; 80048; 80053; 81003; 83605; 83735; 84100; 85025; 87040; 87086; 93005; 94640; 96361; 96365; 96366; 96372; 96375; 96376; J0500; J1200; J2060; J2185; J2270; J2405; J2550; J2930; J3480; J7120; J7620; Q0162; Q9967; S0028

== ENCOUNTER 2019-04-28 04:47 | Emergency (ER) | payer SELFPAY ==
[2019-04-28 05:25] LABS: #Eosinphils 0.2 thou/uL (0.0-0.7); #Lymphocytes 1.3 thou/uL (1.20-3.40); #Monocytes 0.9 thou/uL (0.11-0.59); #Neutrophils 7.4 thou/uL (1.40-6.50); %Basophils 0.4 % (0.0-1.0); %Eosinophils 2.2 % (0.0-10.0); %Lymphocytes 13.6 % (21.0-51.0); %Monocytes 9.1 % (0.0-10.0); %Neutrophils 74.7 % (42.0-75.0); Hemoglobin 11.4 g/dL (12.0-16.0); Mean Corpuscular HGB CONC 33.5 g/dL (32.0-36.0); Mean Corpuscular Hemoglobin 31.8 pg (27.0-31.0); Mean Corpuscular Volume 95.2 fL (78.0-98.0); Mean Platelet Volume 5.3 fL (7.4-10.4); Platelet Count 454 thou/uL (130-400); RBC Distribution Width 11.9 % (11.5-14.5); Red Blood Cell (RBC) Count 3.59 mill/uL (4.20-5.40); White Blood Cell (WBC) Count 9.9 thou/uL (4.8-10.8)
[2019-04-28 05:50] LABS: ALT (SGPT) 13 U/L (8-55); AST (SGOT) 13 U/L (5-34); Albumin 3.7 g/dL (3.5-5.0); Alkaline Phosphatase 162 U/L (40-150); Anion Gap 12 mmol/L (10-20); BUN (Urea Nitrogen) 14 mg/dL (7.0-18.7); Bilirubin, Total 0.4 mg/dL (0.2-1.2); Calc. Creatinine Clearance 0 mL/min (70-130); Calcium 9.1 mg/dL (7.8-10.44); Carbon Dioxide 27 mmol/L (22-29); Chloride 104 mmol/L (98-107); Estimated GFR-MDRD 78; Globulin 3.1 g/dL (2.4-3.5); Glucose 116 mg/dL (70-105); Lipase 23 U/L (8-78); Potassium 4.1 mmol/L (3.5-5.1); Protein, Total 6.8 g/dL (6.0-8.3); Sodium 139 mmol/L (136-145)
[2019-04-28 05:54] LABS: Bilirubin Negative (Negative); Blood, Urine Negative (Negative); Clarity Clear (Clear); Glucose, Urine (Dipstick) Normal (Negative); Leukocyte Negative Leu/uL (Negative); Nitrite Negative (Negative); Protein, Urine (Dipstick) Negative (Neg-Trace)
--- NOTE | 2019-04-28 09:08 | RAD ---
XR Abdomen 2 View/1 View Cxr History: Abdominal pain with constipation Comparison: Radiograph April 21, 2019 Findings: Atelectasis in both lower lobes. Multiple surgical anish project over the abdomen. No dilated air-filled loops of large or small bowel. No definite free intraperitoneal gas. No abnormal calcifications projecting over the renal shadows. Impression: No acute abnormality.
--- NOTE | 2019-04-28 09:56 | CT ---
CT Abdomen Pelvis WO Con History: Abdominal pain. Comparison: CT abdomen and pelvis April 15, 2019 Findings: Extensive atelectatic changes lung bases. No pericardial effusion. Prior partial sigmoid co lectomy. No dilated loops of large or small bowel. There are surgical sutures near the cecum. No significant free intraperitoneal gas or fluid. Liver is enlarged. Noncontrast evaluation of the spleen pancreas and adrenal glands are unremarkable. No nephro ureterolithiasis or hydroureteronephrosis. No secondary evidence of a recently passed stone. Small sliding hiatal hernia. No acute osseous abnormality. Impression: Uncomplicated postoperative appearance of the abdomen and pelvis.
[2019-04-28] MEDS ORDERED: Morphine 4 MG/ML VIAL ONE (10:11)
[2019-04-28] MEDS ORDERED: diphenhydrAMINE 50 MG/ML VIAL ONE (10:30)
[2019-04-28] MEDS ORDERED: Ondansetron PF 4 MG/2 ML Vial ONE (10:34)
== END 2019-04-28 11:19 | disposition home or self-care (01) ==
LOC: ERS 04:47
DX: G89.18 Other acute postprocedural pain (principal); R10.9 Unspecified abdominal pain; F41.9 Anxiety disorder, unspecified; F17.210 Nicotine dependence, cigarettes, uncomplicated; I10 Essential (primary) hypertension; Z79.899 Other long term (current) drug therapy
CPT/HCPCS: 36415; 74022; 74176; 80053; 81003; 83690; 85025; 96361; 96374; 96375; J1200; J2270; J2405

== ENCOUNTER 2019-05-04 22:36 | Observation (INO) | payer SELFPAY ==
[2019-05-04] MEDS ORDERED: Ondansetron ODT 4 MG TAB ONE (22:50)
[2019-05-05 00:09] LABS: #Eosinphils 0.2 thou/uL (0.0-0.7); #Lymphocytes 1.4 thou/uL (1.20-3.40); #Monocytes 0.7 thou/uL (0.11-0.59); #Neutrophils 5.7 thou/uL (1.40-6.50); %Basophils 0.2 % (0.0-1.0); %Eosinophils 2.5 % (0.0-10.0); %Monocytes 9.3 % (0.0-10.0); Hemoglobin 11.9 g/dL (12.0-16.0); Mean Corpuscular HGB CONC 32.5 g/dL (32.0-36.0); Mean Corpuscular Hemoglobin 30.6 pg (27.0-31.0); Mean Corpuscular Volume 94.1 fL (78.0-98.0); Mean Platelet Volume 5.4 fL (7.4-10.4); Platelet Count 430 thou/uL (130-400); RBC Distribution Width 12.5 % (11.5-14.5); Red Blood Cell (RBC) Count 3.88 mill/uL (4.20-5.40)
[2019-05-05] MEDS ORDERED: diphenhydrAMINE 50 MG/ML VIAL ONE (00:18)
[2019-05-05] MEDS ORDERED: Morphine 4 MG/ML VIAL ONE ×3 (00:18→02:20)
[2019-05-05] MEDS ORDERED: methylPREDNISolone Sod Succ/PF 125 MG/2 ML VIAL ONE (00:18)
[2019-05-05 00:30] LABS: ALT (SGPT) 10 U/L (8-55); AST (SGOT) 9 U/L (5-34); Albumin 3.7 g/dL (3.5-5.0); Alkaline Phosphatase 120 U/L (40-150); Anion Gap 13 mmol/L (10-20); BUN (Urea Nitrogen) 16 mg/dL (7.0-18.7); Bilirubin, Total 0.4 mg/dL (0.2-1.2); Calc. Creatinine Clearance 0 mL/min (70-130); Calcium 9.1 mg/dL (7.8-10.44); Carbon Dioxide 23 mmol/L (22-29); Chloride 105 mmol/L (98-107); Estimated GFR-MDRD 72; Globulin 2.9 g/dL (2.4-3.5); Glucose 114 mg/dL (70-105); Lipase 10 U/L (8-78); Potassium 3.7 mmol/L (3.5-5.1); Protein, Total 6.6 g/dL (6.0-8.3); Sodium 137 mmol/L (136-145)
[2019-05-05] MEDS ORDERED: Ketorolac Tromethamine 30 MG/ML VIAL ONE (02:20)
[2019-05-05] MEDS ORDERED: Ondansetron PF 4 MG/2 ML Vial ONE (02:41)
[2019-05-05] MEDS ORDERED: HYDROcodone/Acetaminophen 5/325 mg Tablet PO PRN ×3 (03:56→11:14)
[2019-05-05] MEDS ORDERED: Ondansetron ODT 4 MG TAB SL PRN (03:56)
[2019-05-05 04:10] VITALS: BMI 38.0
[2019-05-05] MEDS: Morphine 4 MG/ML VIAL SLOW IVP PRN ×9 (04:25→14:13)
[2019-05-05] MEDS: Sodium Chloride 0.9% 1,000 ML IV SCH ×2 (04:26→15:02)
[2019-05-05] MEDS: HYDROcodone/Acetaminophen 5/325 mg Tablet PO PRN ×2 (04:26→10:41)
[2019-05-05] MEDS: Ondansetron PF 4 MG/2 ML Vial IVP PRN ×2 (05:52→12:03)
--- NOTE | 2019-05-05 07:46 | CT ---
CT HEAD NONCONTRAST: Date: 05/04/19 INDICATION: Mechanical injury related to fall. Pain. Reference made to 10/25/[address] FINDINGS: No ventriculomegaly, mass effect, midline shift, or acute intracranial hemorrhage is demonstrated. Th ere is mild mucosal prominence of the imaged paranasal sinuses. IMPRESSION: No acute intracranial hemorrhage or mass effect. POS: CATRACHITO
--- NOTE | 2019-05-05 09:06 | CT ---
ABDOMEN AND PELVIS CT WITH CONTRAST CT LUMBAR SPINE WITH CONTRAST WITH 3D VOLUME RENDERING: Date: 05/04/19 INDICATION: History of recent colectomy. Fall with abdominal pain. FINDINGS: The imaged pulmonary parenchyma reveals linear densities favoring atelectasis. There is anastomotic s uture of the region of the sigmoid colon with surrounding pericolonic fat stranding. There is also fa t stranding and mild ascites of left paracolic gutter adjacent to the descending colon. There is loca lized fat density of the low central abdomen/pelvis which may be on the basis of herniation of fat th rough the mesentery. Mild adjacent edema is present. No focal hepatic or splenic lesion. Pancreas kirsty ssly unremarkable. No hydronephrosis of either kidney, or evidence of adrenal mass. No disseminated f ree air. Gallbladder is unremarkable by CT imaging appearance. The lumbar spine reveals maintained vertebral body height and alignment. IMPRESSION: 1. No definite acute post-traumatic sequelae. 2. Evidence of prior partial colonic resection with anastomotic suture seen at the level of the sigm oid colon. There is associated wall prominence and inflammation of the colon in this region, as well as mild pericolonic inflammatory fat stranding, free fluid, as well as the appearance of adjacent her niated omental fat. No acute drainable fluid collection or significant post-traumatic hematoma. POS: SUZANK
[2019-05-05] MEDS ORDERED: Ibuprofen 600 MG TAB PO PRN (11:17)
[2019-05-05] MEDS ORDERED: Ibuprofen 800 MG TAB PO PRN (11:17)
[2019-05-05] MEDS ORDERED: Ibuprofen 200 MG TAB PO PRN (11:17)
[2019-05-05] MEDS ORDERED: ALPRAZolam 0.5 MG TAB PO PRN (11:20)
[2019-05-05] MEDS ORDERED: HYDROcodone/Acetaminophen 10/325 mg Tablet PO PRN ×2 (13:27)
[2019-05-05 15:19] VITALS: BP 138/83; TEMP 98.4
--- NOTE | 2019-05-05 17:12 | SS ---
CHIEF COMPLAINT: Abdominal pain. HISTORY OF PRESENT ILLNESS: Ms. Heath is a 48-year-old woman, who is status post a sigmoid colectomy for colon cancer about [address] Youssef. She was outside on her porch and saw a wasp and in her hurry to get back inside, she tripped over a folding chair, landing on full force on her abdomen. She had immediate onset of severe abdominal pain near her incision, which was not getting better. In addition the next time she had a bowel movement, she saw some blood in it, so she came to the emergency room. She has not had any further bloody bowel movements. The pain is still quite severe. She required multiple doses of morphine in the emergency room. She is out of [place], having finished it about 3 days before she came in, but was taking two of the [place] 10s about every 6 hours until she ran out. She has not had any nausea, vomiting, fevers, or chills. Her stools have been loose since her surgery, but she has not had any profuse or frequent diarrhea. PAST MEDICAL HISTORY: Anxiety, hypertension, morbid obesity, and colon cancer. PAST SURGICAL HISTORY: , hysterectomy, and sigmoid colectomy. SOCIAL HISTORY: The patient does not use illicit drugs or alcohol, but smokes about a pack a day and also takes Xanax. ALLERGIES: SHE HAS MULTIPLE ALLERGIES INCLUDING BEES AND WASPS, IODINE, PENICILLINS, SHELLFISH, SULFA, TRAMADOL, CEFTRIAXONE, TORADOL, AND IV CONTRAST. SHE DOES TOLERATE IBUPROFEN. OUTPATIENT MEDICATIONS: Include; 1. Xanax. 2. Aspirin. 3. Docusate. 4. Estradiol. 5. Hydrochlorothiazide. 6. Ibuprofen. 7. Metoprolol. 8. She was taking [place] until 3 days before admission. REVIEW OF SYSTEMS: Ten-system review of systems is negative except per HPI. PHYSICAL EXAMINATION: VITAL SIGNS: The patient has been afebrile since her admission, heart rate in the 80s, respirations 14 to 18, 93% to 95% saturated on room air, and blood pressure in the high normal range. GENERAL: Reveals a pleasant woman, in no acute distress. She is not jaundiced or icteric. She is not flushed or toxic or diaphoretic in appearance. HEENT: Unremarkable. NECK: Supple. HEART: Regular in its rate and rhythm without murmurs, rubs, or gallops. LUNGS: Clear to auscultation bilaterally. ABDOMEN: Soft and nondistended. Her incisions are intact. No palpable hematoma or seroma. She is tender to palpation near her midline incision and in the left lower quadrant where she has some visible bruising. She has multiple other small bruises on her limbs as well as a couple of superficial scratches from her fall. EXTREMITIES: Otherwise, normal. NEUROLOGIC: No focal deficits. PSYCHIATRIC: Anxious, but alert, oriented and appropriate. LABORATORY DATA: White count is normal, hematocrit 36.5. Electrolytes unremarkable. LFTs normal. IMAGING DATA: CT images are reviewed and I agree with the written report. There is some postoperative stranding, but no evidence of anastomotic leak, hernia, abscess, or other problems. ASSESSMENT AND PLAN: Musculoskeletal pain following blunt trauma from ground level fall. Morphine does not seems to be very effective in managing the patient's pain and I am going to switch her to [place] 10s, which she was taking after her surgery. She states that she had been doing well without any pain medicine prior to her fall, so hopefully will only require these for short period of time. She is at high risk for narcotic dependence due to concurrent Xanax use, so we will try to limit the length of her therapy. She can follow up with Dr. Youssef as an outpatient if she tolerates. If her pain is tolerable on oral medications, she will be discharged home later today. Job ID: [id number]
[2019-05-05] MEDS ORDERED: Docusate 100 MG CAP PO SCH (21:00)
[2019-05-05] MEDS ORDERED: Metoprolol Tartrate 50 MG TAB PO SCH (21:00)
[2019-05-06] MEDS ORDERED: Aspirin 325 MG TAB PO SCH (09:00)
[2019-05-06] MEDS ORDERED: Estradiol 1 MG TAB PO SCH (09:00)
[2019-05-06] MEDS ORDERED: Hydrochlorothiazide 25 MG TAB PO SCH (09:00)
== END 2019-05-05 17:35 | disposition home or self-care (01) ==
LOC: ERS 22:36 → SURG A 05-05 03:25
PROVIDERS: ADMIT Surgery; ATTEND Surgery
DX: R10.9 Unspecified abdominal pain (principal); F41.9 Anxiety disorder, unspecified; I10 Essential (primary) hypertension; F17.210 Nicotine dependence, cigarettes, uncomplicated; E66.01 Morbid (severe) obesity due to excess calories; Z79.82 Long term (current) use of aspirin; Z79.899 Other long term (current) drug therapy; Z88.0 Allergy status to penicillin; Z88.1 Allergy status to other antibiotic agents; Z88.2 Allergy status to sulfonamides; Z88.5 Allergy status to narcotic agent; Z88.8 Allergy status to other drugs, medicaments and biological substances; Z91.013 Allergy to seafood; Z91.030 Bee allergy status; Z91.038 Other insect allergy status; Z91.041 Radiographic dye allergy status; Z90.49 Acquired absence of other specified parts of digestive tract; W18.09XA Striking against other object with subsequent fall, initial encounter
CPT/HCPCS: 36415; 70450; 74177; 80053; 83690; 85025; 86850; 86900; 86901; 96361; 96374; 96375; 96376; G0378; J1200; J1885; J2270; J2405; J2930; Q0162; Q9967

== ENCOUNTER 2019-05-12 21:21 | Observation (INO) | payer SELFPAY ==
[~2019-05-12 21:21] MED LIST changes: +ISOVUE-370 76%-LOCM 1 ML ONE; -Iopamidol 370 76% 100 ML VIAL ONE
[2019-05-12] MEDS ORDERED: Ondansetron PF 4 MG/2 ML Vial ONE ×2 (22:19→22:58)
[2019-05-12] MEDS ORDERED: Morphine 4 MG/ML VIAL ONE (22:21)
[2019-05-12 22:27] LABS: #Basophils 0.1 thou/uL (0.0-0.2); #Eosinphils 0.1 thou/uL (0.0-0.7); #Lymphocytes 1.4 thou/uL (1.20-3.40); #Monocytes 1.1 thou/uL (0.11-0.59); #Neutrophils 5.1 thou/uL (1.40-6.50); %Basophils 0.7 % (0.0-1.0); %Eosinophils 1.5 % (0.0-10.0); %Lymphocytes 17.9 % (21.0-51.0); %Monocytes 13.7 % (0.0-10.0); %Neutrophils 66.3 % (42.0-75.0); Hemoglobin 12.9 g/dL (12.0-16.0); Mean Corpuscular Hemoglobin 30.3 pg (27.0-31.0); Mean Corpuscular Volume 94.6 fL (78.0-98.0); Mean Platelet Volume 5.4 fL (7.4-10.4); Platelet Count 400 thou/uL (130-400); RBC Distribution Width 12.4 % (11.5-14.5); Red Blood Cell (RBC) Count 4.27 mill/uL (4.20-5.40); White Blood Cell (WBC) Count 7.7 thou/uL (4.8-10.8)
[2019-05-12 22:58] LABS: ALT (SGPT) 11 U/L (8-55); AST (SGOT) 11 U/L (5-34); Albumin 4.2 g/dL (3.5-5.0); Alkaline Phosphatase 95 U/L (40-150); Anion Gap 13 mmol/L (10-20); BUN (Urea Nitrogen) 21 mg/dL (7.0-18.7); Bilirubin, Total 0.4 mg/dL (0.2-1.2); Calc. Creatinine Clearance 0 mL/min (70-130); Calcium 9.7 mg/dL (7.8-10.44); Carbon Dioxide 23 mmol/L (22-29); Chloride 107 mmol/L (98-107); Estimated GFR-MDRD 55; Globulin 2.9 g/dL (2.4-3.5); Glucose 102 mg/dL (70-105); Lipase 35 U/L (8-78); Potassium 3.5 mmol/L (3.5-5.1); Protein, Total 7.1 g/dL (6.0-8.3); Sodium 139 mmol/L (136-145)
--- NOTE | 2019-05-12 23:04 | CT ---
CT of abdomen and pelvis: 05/12/2019 COMPARISON: 05/05/2019, 04/28/2019, 04/21/2019, 04/15/2019, 04/11/2019, 04/08/2019 HISTORY: Rectal bleeding, pain, diarrhea TECHNIQUE: Axial CT imaging obtained at 5 mm intervals from lung bases through pubic symphysis with I V contrast. Coronal reformatted imaging obtained. FINDINGS: Small hiatal hernia noted. Imaged lung bases unremarkable. No free intraperitoneal air. The liver, gallbladder, spleen, pancreas, adrenal glands, and kidneys demonstrate no acute findings. There is a suture line within the sigmoid colon. There is minimal stranding of the adjacent pericolon ic fat, less conspicuous than on the prior exam. There is diverticulosis of the descending colon. There is minimal stranding of the fat adjacent to the colon in the region of the splenic flexure, les s conspicuous than on the prior exam. There is no evidence for bowel obstruction. Question prior appendectomy. No right lower quadrant inflammatory change. The vascular structures of the abdomen/pelvis appear patent. There is no lymphadenopathy seen in the abdomen or pelvis. The osseous structures demonstrate no acute findings. IMPRESSION: No acute findings.
[2019-05-12] MEDS ORDERED: Promethazine HCl 25 MG/ML VIAL ONE (23:28)
[2019-05-13 00:17] LABS: Bilirubin Negative (Negative); Blood, Urine Negative (Negative); Clarity Clear (Clear); Glucose, Urine (Dipstick) Normal (Negative); Leukocyte 75 Leu/uL (Negative); Nitrite Negative (Negative); Protein, Urine (Dipstick) 10 mg/dL (Neg-Trace); Squamous Epithelial 21-50 HPF (0-3); Urobilinogen Normal mg/dL (Less than 2)
[2019-05-13 00:25] LABS: Bacteria/HPF 1+ HPF (None Seen); RBC/HPF None Seen HPF (0-3)
[2019-05-13] MEDS ORDERED: Morphine 2 MG/ML SYRINGE SLOW IVP PRN (00:39)
[2019-05-13] MEDS ORDERED: Ondansetron PF 4 MG/2 ML Vial IVP PRN (00:40)
[2019-05-13] MEDS ORDERED: Ondansetron ODT 4 MG TAB SL PRN (00:40)
[2019-05-13] MEDS ORDERED: Promethazine HCl 25 MG/ML VIAL SLOW IVP PRN (00:58)
[2019-05-13] MEDS: Fentanyl 100 MCG/2 ML VIAL SLOW IVP PRN ×4 (01:07→09:26)
[2019-05-13 01:55] VITALS: BMI 39.2
[2019-05-13] MEDS: Sodium Chloride 0.9% 1,000 ML IV SCH ×2 (03:01→09:43)
[2019-05-13] MEDS ORDERED: Promethazine HCl 12.5 MG in Sodium Chloride 0.9% 50 ML IVPB PRN (03:42)
[2019-05-13] MEDS ORDERED: Ibuprofen 600 MG TAB PO PRN (10:08)
[2019-05-13] MEDS ORDERED: Acetaminophen 500 MG TAB PO PRN (10:08)
[2019-05-13] MEDS ORDERED: HYDROcodone/Acetaminophen 5/325 mg Tablet PO PRN ×2 (10:11→10:13)
[2019-05-13] MEDS ORDERED: Ondansetron ORAL SOLN. 4 MG/5 ML UDCUP PO PRN ×2 (10:12)
[2019-05-13] MEDS ORDERED: Ondansetron ODT 8 MG TAB SL PRN (10:12)
[2019-05-13] MEDS ORDERED: Ondansetron ODT 8 MG TAB PO PRN ×2 (10:12→21:08)
[2019-05-13] MEDS ORDERED: ALPRAZolam 0.5 MG TAB PO PRN (10:13)
[2019-05-13] MEDS: HYDROcodone/Acetaminophen 5/325 mg Tablet PO PRN ×3 (11:31→19:38)
[2019-05-13] MEDS ORDERED: Meropenem 2 GM, Admixture Fee 1 EACH in Sodium Chloride 0.9% 100 ML IVPB SCH (14:00)
[2019-05-13] MEDS ORDERED: Ondansetron ODT 4 MG TAB PO PRN (15:45)
[2019-05-13] MEDS: Lidocaine 2% Jelly 5 ML TUBE TOP SCH ×2 (15:57→21:18)
--- NOTE | 2019-05-13 16:12 | HP ---
HISTORY OF PRESENT ILLNESS: Taylor Heath is a 48-year-old female, who had a laparoscopic converted to open sigmoid colon resection for a malignant polyp for which no residual malignancy was noted. She had this performed on 04/17/2019 and was discharged home on 04/20/2019. She has a history of tobacco abuse, obesity, BMI of 35, hypertension, chronic low back pain, and anxiety. On the same day she was discharged, she was readmitted that evening for intolerable pain. She underwent a followup CAT scan of the abdomen and pelvis that was unremarkable. She has noted a prior history of T1, N0, M0 sigmoid colon cancer. She was treated with a RETIREMENT ASSISTANT pump and there was no imaging or abnormal studies suggest any complication from surgery. She was treated for pain and discharged home on 04/23/2019. She then reported back to the emergency room on 05/05/2019, and underwent a short-stay admission, discharged home the same day after she fell and tripped over a lawn chair and had lower abdominal wall pain. Again, she underwent a CAT scan of the abdomen and pelvis and labs that were unremarkable. She had a followup appointment in my office today; however, reported into the emergency room late last night at 2300 hours complaining of rectal pain of 2- to 3-day duration with some rectal bleeding, diarrhea and nausea. She required fentanyl. She is allergic to Ultram. On this occasion, she underwent another CT scan of the abdomen and pelvis at 2200 hours on 05/12/2019 last night, abdomen and pelvis revealing no evidence of any problems related to her colon resection. Her hemoglobin is 12.9, white count 7. Basic metabolic profile was normal. Her urinalysis did; however, reveal specific gravity of 1.060, but otherwise unremarkable. She is admitted, not received any intravenous antibiotics. Since admission late last night, she has not had any bowel movement. She has not had any diarrhea. She reports that she is having nausea and vomiting. However, the only thing noted that she has experienced is dashawn osiris in her emesis bag. She is crying in pain. Her is present with her intermittently. ALLERGIES: PENICILLIN, ULTRAM. HABITS: Tobacco use, alcohol socially. MEDICATIONS AT HOME: 1. Tylenol. 2. Xanax 0.5 mg at bedtime p.r.n. 3. Aspirin 325 mg a day. 4. Hydrocodone 5/325 q.i.d. p.r.n. pain. 5. Ibuprofen 600 mg q.6 hours p.r.n. pain. 6. Citrucel daily. 7. Lopressor 50 b.i.d. 8. Zofran p.r.n. PAST SURGICAL HISTORY: Laparoscopic converted to open sigmoid colon resection for T1, N0, M0 colon cancer, past appendectomy, hysterectomy, BSO. PAST MEDICAL HISTORY: Hypertension, tobacco use. SOCIAL HISTORY: The patient is . She is unemployed. PHYSICAL EXAMINATION: VITAL SIGNS: Height 5 feet 5 inches, 235 pounds, 39 BMI, temperature 97.9, heart rate 78, blood pressure 144/83. LUNGS: Clear to auscultation. No wheezing. CARDIAC: Regular rate and rhythm without murmur or gallop. ABDOMEN: Soft and nontender. Mild guarding in the left lower quadrant, she has had in the past. Surgical wound is well healed. No evidence of infection or problems. EXTREMITIES: Ankles without edema. Negative Homans. Nontender calves. Perianal area is normal. Gentle pressure over the right side of her buttocks. Perianal reveals pain and the posterior midline pain. There are no abnormalities. However, I cannot visualize anal fissure, but exam is very difficult due to time in the anus and resistance. ASSESSMENT/PLAN: Perianal pain. I had a long discussion with her regarding treatment. Told her I suspect the anal fissure. The hospital does not have nitroglycerin paste cream, it is compounded at [facility]. I have suggested that we call in a prescription of the compound, they will pick it up today, to see if we can resolve this nonoperatively as she has only had this problem for the past 2 or 3 days. I have informed her that even though she notes some blood on her toilet tissue and toilet bowl, her hemoglobin is stable. She is not actively bleeding. She has not had any bleeding since she has been here. I do not think repeat colonoscopy is necessary. CAT scan of the abdomen and pelvis does not reveal any abnormalities or abscess. I would recommend treatment for an anal fissure. However, she is in too much pain requiring fentanyl, and her and the patient were wanting more definitive treatment. Therefore, we will plan to place her on liquids, n.p.o. after midnight. Exam under anesthesia tomorrow. I will prescribe 2% xylocaine topical ointment perianal q.i.d. to see if this helps with her pain. Hopefully, if this helps her with her pain, we can use this at home along with the nitroglycerin ointment to see if we can treat this nonoperatively. If this is not successful, then exam under anesthesia, possible sphincterotomy could be performed tomorrow. Job ID: [id number]
[2019-05-13] MEDS: Morphine 4 MG/ML VIAL SLOW IVP PRN ×2 (17:19→21:20)
[2019-05-13] MEDS: Citrucel 500 MG TAB PO SCH (21:19)
[2019-05-13] MEDS: Metoprolol Tartrate 50 MG TAB PO SCH (21:20)
[2019-05-14] MEDS: HYDROcodone/Acetaminophen 5/325 mg Tablet PO PRN ×4 (00:02→15:45)
[2019-05-14] MEDS: Morphine 4 MG/ML VIAL SLOW IVP PRN ×4 (01:39→14:04)
[2019-05-14] MEDS: Ondansetron ODT 4 MG TAB PO PRN ×2 (05:41→11:02)
[2019-05-14] MEDS: Lidocaine 2% Jelly 5 ML TUBE TOP SCH ×2 (08:37→14:03)
[2019-05-14] MEDS: Citrucel 500 MG TAB PO SCH (08:37)
[2019-05-14] MEDS: Metoprolol Tartrate 50 MG TAB PO SCH (08:37)
[2019-05-14] MEDS ORDERED: Non-Formulary Item 1 EACH (Estradiol [Estradiol] 2 MG) PO SCH (09:00)
[2019-05-14] MEDS ORDERED: Estradiol 1 MG TAB PO SCH (09:00)
[2019-05-14] MEDS ORDERED: Aspirin 325 MG TAB PO SCH (09:00)
--- NOTE | 2019-05-14 14:35 | PRG ---
DATE OF SERVICE: 05/14/2019 SUBJECTIVE: Taylor Heath is doing well today. The perianal xylocaine jelly applied has helped her pain a little bit. When I saw her in the room, she was standing, coming out of the bathroom. She was walking without grimace. She states she is still having pain and it is still bothering her. She reiterates this pain has only been going on perianal for the past 2 days; prior to this, it was her abdominal pain. She states in the last 2 days the Norris has been controlling her pain in her abdomen, but the pain in her perianal is severe. We had a long discussion regarding treatment. She still insists on exam under anesthesia, which is scheduled this afternoon. I have discussed with her planned procedures pending operative findings. If a fistula is found, her pain is so severe, she wants definitive surgical treatment understanding the risk of incontinence of flatus or stool, although the risk is low. I reiterated the risk is nonetheless present. I have given her options of continuing with the xylocaine jelly and using the nitroglycerin paste gel for treatment of a fissure to delay sphincterotomy, but she however if fissure is documented on exam under anesthesia, sphincterotomy is desired by the patient to relieve her discomfort. PLAN: Operative evaluation this afternoon. Job ID: [id number]
[2019-05-14 15:17] VITALS: BP 131/87; TEMP 97.9
--- NOTE | 2019-05-15 05:08 | DIS ---
DATE OF ADMISSION: 05/12/2019 DATE OF DISCHARGE: 05/14/2019 DISCHARGE DIAGNOSES: 1. Perianal pain, suspect anal fissure. 2. Status post colon resection, 04/17/2019, for malignant polyp removed endoscopically with positive margins, but no residual cancer noted on specimen, T1 N0 M0 cancer. PROCEDURES: CAT scan of the abdomen and pelvis performed in the emergency room, normal. Hemoglobin on admission 12.9, white count normal. Urinalysis normal. HISTORY: A 48-year-old female had a malignant polyp, admitted through the emergency room for some bleeding, noted to have a normal hemoglobin, underwent hospitalization bowel prep and laparoscopic converted open sigmoid colon resection. She was discharged home 3 days later in the morning, and returned that evening to the emergency room with complaints of lower abdominal pain, undergone a repeat CAT scan of the abdomen and pelvis that was normal. She was hospitalized for another several days, requiring a THERMOMETER PRODUCTION WORKER for pain control. Her white blood cell count and hemoglobin remained normal. After about 3 to 4 days, she was discharged home on Bowler 10. She then reported back to the emergency room a few days later complaining that she has tripped over a lawn chair and injured her lower abdomen and she was seen by Dr. Wiggins, observed for a short-stay and discharged home the same day. She had a followup appointment in my office Monday, but reported in the emergency room Monday morning complaining of severe rectal pain. She had run out of Bowler 10. This rectal pain perianal had been ongoing only 2 days. She noted some blood in her toilet tissue and complained of diarrhea. Her hemoglobin and white count were normal in the emergency room. Repeat CAT scan of the abdomen and pelvis performed and that was normal. The patient was admitted to the hospital because of her severe pain perianal. Her abdominal pain was minimal. The patient in the hospital did not have any diarrhea. She complained of vomiting, although the only emesis noted by nursing and staff was that after dashawn osiris that she spit up after consuming it. She did not have diarrhea. Antibiotics were not administered. I examined her perianal and there was nothing in the perianal area of note. She did seem tender in the posterior midline and toward the right. I did think she was having too much discomfort to perform a rectal exam. My recommendations were that we treat her for an anal fissure, although this had been only ongoing for 2 days, I suggested we use nitroglycerin paste cream compounded at [facility] 0.2% applied perianal with a gloved finger t.i.d. and give this an outpatient trial. She however insisted that her pain was too severe. We tried to discontinue her parenteral narcotics fentanyl ordered from the emergency room, but she called the charge nurse and complained that she was not being taken care of and we gave her morphine 4 mg IV q.4 hours p.r.n. in addition to her Bowler 5. She then over the next 24 hours took morphine every 4 hours around the clock and then I ordered Bowler 5 two tablets whenever time allow her to have it. I discussed her at length my recommendations that she undergo treatment for an anal fissure consisting of fiber, warm to hot baths and nitroglycerin paste ointment, but she states she had too much pain to go home. We then discussed exam under anesthesia of her rectum and had that scheduled with plans to do a sphincterotomy if a significant anal fissure was found. Surgery was scheduled by the evening of 05/14, by late afternoon of 05/14, when she was preop, she stated that she decided not to have the surgery. She wanted to try nonsurgical care. At this point, the patient is being discharged home to take 2% Xylocaine jelly perianal p.r.n. b.i.d. to t.i.d. alternating with nitroglycerin paste 0.2% cream applied perianal with a gloved finger. Prescription called to [facility], where they compounded. She has been given Bowler 5 p.r.n. pain, #35. She will resume her home medications. She will follow up in my office 9 days from now and an appointment was given. Hopefully, this will resolve her complaints. Job ID: [id number]
== END 2019-05-14 16:30 | disposition home or self-care (01) ==
LOC: ERS 21:21 → SURG A 23:32
PROVIDERS: ADMIT Specialist; ATTEND Specialist
DX: K62.89 Other specified diseases of anus and rectum (principal); I10 Essential (primary) hypertension; E66.9 Obesity, unspecified; M54.5 Low back pain; G89.29 Other chronic pain; F41.9 Anxiety disorder, unspecified; F17.210 Nicotine dependence, cigarettes, uncomplicated; Z68.39 Body mass index [BMI] 39.0-39.9, adult; Z85.038 Personal history of other malignant neoplasm of large intestine; Z88.0 Allergy status to penicillin; Z88.5 Allergy status to narcotic agent; Z88.1 Allergy status to other antibiotic agents; Z88.2 Allergy status to sulfonamides; Z91.013 Allergy to seafood; Z91.030 Bee allergy status; Z91.041 Radiographic dye allergy status; Z79.82 Long term (current) use of aspirin; Z79.899 Other long term (current) drug therapy
CPT/HCPCS: 74177; 80053; 81003; 81015; 83690; 85025; 86850; 86900; 86901; 96361; 96365; 96366; 96372; 96375; 96376; G0378; J0500; J2270; J2405; J2550; J3010; Q0162; Q9966

== ENCOUNTER 2019-05-20 13:38 | Emergency (ER) | payer SELFPAY ==
[2019-05-20] MEDS ORDERED: Morphine 4 MG/ML VIAL ONE ×2 (14:43→17:04)
[2019-05-20] MEDS ORDERED: methylPREDNISolone Sod Succ/PF 125 MG/2 ML VIAL ONE (14:44)
[2019-05-20] MEDS ORDERED: diphenhydrAMINE 50 MG/ML VIAL ONE (14:44)
[2019-05-20] MEDS ORDERED: Pantoprazole 40 MG VIAL ONE (14:44)
[2019-05-20] MEDS ORDERED: Famotidine/PF 20 mg/2ml Vial ONE (14:44)
[2019-05-20] MEDS ORDERED: Ondansetron PF 4 MG/2 ML Vial ONE (14:44)
--- NOTE | 2019-05-20 14:46 | RAD ---
XR Chest 1 View Portable HISTORY: Nausea and vomiting, abdominal pain COMPARISON: 04/28/2019 FINDINGS: The heart size is normal. The lungs are well expanded without focal areas of consolidation, pneumothorax or pleural effusions. IMPRESSION: No radiographic evidence of acute cardiopulmonary process.
[2019-05-20 15:38] LABS: #Eosinphils 0.1 thou/uL (0.0-0.7); #Lymphocytes 1.4 thou/uL (1.20-3.40); #Monocytes 0.9 thou/uL (0.11-0.59); #Neutrophils 8.4 thou/uL (1.40-6.50); %Basophils 0.4 % (0.0-1.0); %Eosinophils 0.6 % (0.0-10.0); %Lymphocytes 12.8 % (21.0-51.0); %Monocytes 8.7 % (0.0-10.0); %Neutrophils 77.6 % (42.0-75.0); Hemoglobin 14.4 g/dL (12.0-16.0); Mean Corpuscular HGB CONC 33.3 g/dL (32.0-36.0); Mean Corpuscular Hemoglobin 31.1 pg (27.0-31.0); Mean Corpuscular Volume 93.5 fL (78.0-98.0); Mean Platelet Volume 5.6 fL (7.4-10.4); Platelet Count 426 thou/uL (130-400); RBC Distribution Width 12.2 % (11.5-14.5); Red Blood Cell (RBC) Count 4.62 mill/uL (4.20-5.40); White Blood Cell (WBC) Count 10.8 thou/uL (4.8-10.8)
[2019-05-20 15:58] LABS: ALT (SGPT) 11 U/L (8-55); AST (SGOT) 13 U/L (5-34); Albumin 4.4 g/dL (3.5-5.0); Alkaline Phosphatase 91 U/L (40-150); Anion Gap 18 mmol/L (10-20); BUN (Urea Nitrogen) 22 mg/dL (7.0-18.7); Bilirubin, Total 0.7 mg/dL (0.2-1.2); Calc. Creatinine Clearance 0 mL/min (70-130); Calcium 9.9 mg/dL (7.8-10.44); Carbon Dioxide 21 mmol/L (22-29); Chloride 102 mmol/L (98-107); Estimated GFR-MDRD 63; Globulin 3.3 g/dL (2.4-3.5); Glucose 116 mg/dL (70-105); Lipase 16 U/L (8-78); Potassium 3.7 mmol/L (3.5-5.1); Protein, Total 7.7 g/dL (6.0-8.3); Sodium 137 mmol/L (136-145)
[2019-05-20] MEDS ORDERED: Promethazine HCl 25 MG/ML VIAL ONE ×2 (16:09→18:21)
[2019-05-20] MEDS ORDERED: ISOVUE-370 76%-LOCM 1 ML ONE (16:20)
--- NOTE | 2019-05-20 17:40 | CT ---
CT ABDOMEN AND PELVIS WITH IV CONTRAST: HISTORY: Nausea, vomiting, and diarrhea in a patient with abdominal pain. COMPARISON: 05/12/2019 FINDINGS: Mild dependent bibasilar atelectasis is present. A small hiatal hernia is again identified. The liver, spleen, pancreas, bilateral adrenal glands, kidneys, abdominal aorta, and decompressed uri nary bladder demonstrate a normal CT appearance. Post surgical changes of the abdomen are again noted with evidence of a partial colon resection and a n anastomotic suture line in the region of the sigmoid colon. There is minimal adjacent inflammatory stranding seen, but this does appear mildly improved when compared to the prior exam. Linear densit ies in the anterior abdomen are present, which may be attributable to scarring. There are areas of st randing with central areas of fat density seen adjacent to the splenic flexure, which may be related to areas of fat necrosis or possibly due to epiploic appendagitis. Findings are unchanged when elaine red to the study from 05/12/2019. There is no fluid collection seen to suggest an abscess. Post surgical changes are seen adjacent to the cecal apex, and the appendix is not visualized. Findi ngs are probably attributable to a prior appendectomy. The uterus is not visualized, likely related to a hysterectomy. CT abdomen and pelvis has not significantly changed, compared to the prior exam. IMPRESSION: 1. No acute findings in the abdomen or pelvis. CT abdomen and pelvis is stable compared to the prio r examination from 05/12/2019. 2. No evidence of a bowel obstruction. POS: [facility]
[2019-05-20 17:48] LABS: Bilirubin Negative (Negative); Blood, Urine Negative (Negative); Clarity Clear (Clear); Glucose, Urine (Dipstick) Normal (Negative); Leukocyte Negative Leu/uL (Negative); Nitrite Negative (Negative); Protein, Urine (Dipstick) Negative (Neg-Trace); Urobilinogen Normal mg/dL (Less than 2)
[2019-05-20] MEDS ORDERED: Lidocaine Viscous Sol 2% 15 ml UD Cup ONE (18:21)
[2019-05-20] MEDS ORDERED: Mag-Al 1200 mg/1200 mg/30 ML UDCUP ONE (18:21)
[2019-05-20] MEDS ORDERED: Haloperidol Lactate 5 MG/ML VIAL ONE (19:25)
[2019-05-20] MEDS ORDERED: HYDROcodone/Acetaminophen 5/325 mg Tablet ONE (20:23)
== END 2019-05-20 20:30 | disposition home or self-care (01) ==
LOC: ERS 13:38
DX: R10.10 Upper abdominal pain, unspecified (principal); R11.2 Nausea with vomiting, unspecified; I10 Essential (primary) hypertension; F41.9 Anxiety disorder, unspecified; F17.210 Nicotine dependence, cigarettes, uncomplicated; Z79.899 Other long term (current) drug therapy; Z85.038 Personal history of other malignant neoplasm of large intestine
CPT/HCPCS: 71045; 74177; 80053; 81003; 83690; 85025; 96361; 96374; 96375; 96376; C9113; J1200; J1630; J2270; J2405; J2550; J2930; Q9966; S0028

== ENCOUNTER 2019-06-15 11:57 | Inpatient (IN) | payer SELFPAY ==
[2019-06-15 12:50] LABS: #Eosinphils 0.1 thou/uL (0.0-0.7); #Lymphocytes 1.3 thou/uL (1.20-3.40); #Monocytes 0.7 thou/uL (0.11-0.59); #Neutrophils 6.8 thou/uL (1.40-6.50); %Basophils 0.3 % (0.0-1.0); %Eosinophils 0.8 % (0.0-10.0); %Lymphocytes 14.9 % (21.0-51.0); %Monocytes 7.6 % (0.0-10.0); %Neutrophils 76.3 % (42.0-75.0); Hemoglobin 13.7 g/dL (12.0-16.0); Mean Corpuscular HGB CONC 34.3 g/dL (32.0-36.0); Mean Corpuscular Hemoglobin 31.5 pg (27.0-31.0); Mean Corpuscular Volume 91.7 fL (78.0-98.0); Mean Platelet Volume 5.4 fL (7.4-10.4); Platelet Count 381 thou/uL (130-400); RBC Distribution Width 11.6 % (11.5-14.5); Red Blood Cell (RBC) Count 4.34 mill/uL (4.20-5.40); White Blood Cell (WBC) Count 8.8 thou/uL (4.8-10.8)
[2019-06-15] MEDS ORDERED: Ondansetron ODT 4 MG TAB ONE (13:00)
[2019-06-15] MEDS ORDERED: Ketorolac Tromethamine 60 MG/2 ML VIAL ONE (13:00)
[2019-06-15 13:02] LABS: Bacteria/HPF None Seen HPF (None Seen); Bilirubin Negative (Negative); Blood, Urine 3+ (Negative); Clarity Turbid (Clear); Glucose, Urine (Dipstick) Normal (Negative); Leukocyte Negative Leu/uL (Negative); Nitrite Negative (Negative); Protein, Urine (Dipstick) 10 mg/dL (Neg-Trace); Squamous Epithelial 21-50 HPF (0-3); Urobilinogen Normal mg/dL (Less than 2); WBC/HPF 0-3 HPF (0-3)
[2019-06-15 13:10] LABS: ALT (SGPT) 14 U/L (8-55); AST (SGOT) 13 U/L (5-34); Albumin 4.2 g/dL (3.5-5.0); Alkaline Phosphatase 63 U/L (40-150); Anion Gap 18 mmol/L (10-20); BUN (Urea Nitrogen) 15 mg/dL (7.0-18.7); Bilirubin, Total 0.4 mg/dL (0.2-1.2); Calc. Creatinine Clearance 0 mL/min (70-130); Calcium 9.2 mg/dL (7.8-10.44); Carbon Dioxide 16 mmol/L (22-29); Chloride 108 mmol/L (98-107); Estimated GFR-MDRD 79; Globulin 2.7 g/dL (2.4-3.5); Glucose 104 mg/dL (70-105); Lipase 19 U/L (8-78); Potassium 3.6 mmol/L (3.5-5.1); Protein, Total 6.9 g/dL (6.0-8.3); Sodium 138 mmol/L (136-145)
[2019-06-15] MEDS ORDERED: Ondansetron PF 4 MG/2 ML Vial ONE (13:26)
[2019-06-15] MEDS ORDERED: Morphine 4 MG/ML VIAL ONE (13:26)
--- NOTE | 2019-06-15 13:29 | CT ---
Exam: Abdomen CT without contrast Pelvic CT without contrast HISTORY: Previous colon resection for colon cancer. Previous lithotripsy. Left flank pain. Hematuria. COMPARISON: 01/08/2019 FINDINGS: Abdomen CT: Lung bases:Scarring in the left lung base Heart size: Normal heart size Aorta: Normal caliber Solid organs: Limited evaluation due to lack of IV contrast. Grossly no solid organ abnormality Lymph nodes: No gastrohepatic, retrocrural or periportal lymphadenopathy Gallbladder: Unremarkable Mesentery: No mesenteric mass or free air. There is stranding of the left upper quadrant mesentery. Kidneys: Bilaterally, no hydronephrosis, nephrolithiasis or perinephric fat stranding. Bilateral uret ers have a normal caliber. No hydroureter, periureteral fat stranding or ureterolithiasis. Alimentary canal: Limited evaluation due to lack of oral contrast. Small hiatal hernia is identified. No evidence of small bowel obstruction. Ileocecal junction is normal. Appendix is presumed to be surgically absent. There is diverticulosis along with bowel wall thickening involving the splenic fle xure. There appears to be a possible focus of extraluminal air which may represent a contained perforation. Coronal images demonstrate a linear hyperintensity. Axial images do not demonstrate vel esponding finding. Limited evaluation due to motion. Findings are presumed to be due to diverticulitis. No evidence of a well formed abscess. There is anastomosis of the level of the distal sigmoid colon. CT PELVIS: No mass, adenopathy, free air or free fluid. Urinary bladder: Unremarkable. Osseous structures: No lytic or blastic lesions IMPRESSION: 1. Diverticulosis in the left hemicolon. Evaluation of the splenic flexure is limited due to motion d egradation. 2. Inflammatory changes involving the splenic flexure, favoring diverticulitis. There appears to be a contained perforation. No definite abscess. 3. Small hiatal hernia. 4. No evidence of obstructive uropathy.
[2019-06-15] MEDS ORDERED: metroNIDAZOLE 500 MG/100 ML BAG ONE (14:43)
[2019-06-15] MEDS ORDERED: Promethazine HCl 25 MG/ML VIAL ONE (15:07)
[2019-06-15] MEDS ORDERED: metroNIDAZOLE 500 MG in Premix Bag 1 BAG IVPB SCH ×2 (15:15→22:00)
[2019-06-15] MEDS ORDERED: Promethazine HCl 25 MG/ML VIAL SLOW IVP SCH (15:15)
[2019-06-15 16:07] VITALS: BMI 35.7
[2019-06-15] MEDS ORDERED: Ondansetron PF 4 MG/2 ML Vial IVP PRN (16:12)
[2019-06-15] MEDS ORDERED: Ondansetron ODT 4 MG TAB SL PRN (16:12)
[2019-06-15] MEDS: Sodium Chloride 0.9% 1,000 ML IV SCH ×2 (16:45→21:45)
[2019-06-15] MEDS: Morphine 4 MG/ML VIAL SLOW IVP PRN ×4 (16:57→23:47)
[2019-06-16] MEDS ORDERED: metroNIDAZOLE 500 MG in Premix Bag 1 BAG IVPB SCH (01:00)
[2019-06-16] MEDS: Morphine 4 MG/ML VIAL SLOW IVP PRN ×11 (01:52→23:16)
[2019-06-16] MEDS: Sodium Chloride 0.9% 1,000 ML IV SCH ×2 (05:59→14:20)
[2019-06-16] MEDS: metroNIDAZOLE 500 MG in Premix Bag 1 BAG IVPB SCH ×3 (08:06→19:53)
[2019-06-16] MEDS: Ondansetron PF 4 MG/2 ML Vial IVP PRN ×2 (10:13→18:44)
--- NOTE | 2019-06-16 13:10 | HP ---
CHIEF COMPLAINT: Abdominal pain. HISTORY OF PRESENT ILLNESS: Ms. Heath is a 48-year-old woman with a known history of colon cancer, who underwent a colon resection by Dr. Youssef a couple months ago. She recovered well from that and has not had any problems since the operation, except for chronic loose stools and occasional blood in her stools, although not a large amount. She developed some left-sided flank pain, which seems very similar to pain that she has had in the past with kidney stones. She thought that she would pass the kidney stone, but the pain got progressively worse and she was having a lot of nausea and vomiting, so she came to the emergency room. Imaging there did not show any evidence of kidney stone, but did show evidence of diverticulitis near the splenic flexure with a possible contained perforation. The patient was admitted for IV antibiotics and observation. She states that the pain has been constant since its onset and radiates down her right flank and into her groin. She has had some chills, but no fevers that she knows of. She has had some discomfort with urination. She has had some recent weight loss. Her pain was worse with activities. PAST MEDICAL HISTORY: Hypertension, colon cancer, kidney stones, and sleep apnea. PAST SURGICAL HISTORY: , hysterectomy, colon resection, and lithotripsy. SOCIAL HISTORY: Tobacco use, although she is trying to quit. She does not drink or use illicit drugs. ALLERGIES: PENICILLIN CAUSES HER THROAT TO SWELL DOES SULFA MEDICATION, CEFTRIAXONE HAS ALSO CAUSED PROBLEMS IN THE PAST. OUTPATIENT MEDICATIONS: Include metoprolol, estradiol, and hydrochlorothiazide. REVIEW OF SYSTEMS: Ten system review of systems is negative except per HPI. PHYSICAL EXAMINATION: VITAL SIGNS: The patient is afebrile. Heart rate in the 90s when I saw her earlier today, 95% saturated on room air with some mild hypertension. GENERAL: Reveals a healthy-appearing woman, in no acute distress. She is not flushed or toxic in appearance. She is not jaundiced or icteric. She does grimace when moving about in the bed, but otherwise appears comfortable. HEENT: Unremarkable. NECK: Supple without lymphadenopathy or thyroid nodules. HEART: Regular in its rate and rhythm. I do not appreciate any murmurs, rubs, or gallops. LUNGS: Clear to auscultation bilaterally. ABDOMEN: Soft and nondistended. Her surgical incisions are well healed. No palpable masses or hernias. Bowel sounds are present, although somewhat hypoactive. She is not tender to palpation on the right side of the abdomen, but very tender in the left upper quadrant greater than left lower quadrant, although she reports the pain as being worse in the left lower quadrant. EXTREMITIES: Warm and well perfused without edema. NEURO: No focal deficits. PSYCHIATRIC: Alert, oriented, and appropriate. LABORATORY DATA: Her white count is normal at 8.8, but she does have a left shift of 76% segmented neutrophils. Hematocrit is 39.8 and platelets of 381. Electrolytes are unremarkable except for a slightly low bicarb of 16. Lactate is normal at 1.6, and LFTs are all normal. CT images are reviewed and I agree with the written report. She does have stranding and thickening of the colon in the left upper quadrant with a small adjacent fluid collection. ASSESSMENT: Diverticulitis. PLAN: Bowel rest on IV antibiotics. Once the patient's symptoms worsen or she develops peritonitis, then she will be taken to the operating room. However, currently she does not have peritoneal findings on her exam and does not have evidence of free perforation on CT. She has nausea, which she attributes to the pain, but no other symptoms of obstruction and has been having bowel movements throughout her illness, which are normal for her since her colectomy . The patient's diagnosis and treatment plan were discussed with her. She is in agreement with the plan. Job ID: [id number]
[2019-06-16] MEDS: D5 1/2 NS w/20 mEq KCL 1,000 ML IV SCH (18:44)
--- NOTE | 2019-06-16 18:48 | PDOC.GSPN ---
Surgery Progress Note: Subj - Subjective Narrative: Patient feels about the same. The nausea has resolved but she is still having abdominal pain on the left. Hasn't gotten any worse but she doesn't really feel like it has improved much. She is passing gas and having liquid bowel movements. Tolerating a liquid diet. Abdomen is soft and nondistended. Bowel sounds are diminished. 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 She is afebrile with normal vital signs. Assessment/plan: Diverticulitis with contained perforation, stable on IV antibiotics. She has multiple medical allergies which limit her antibiotic options. She describes anaphylactic reactions to penicillin and ceftriaxone. I will continue levofloxacin and Flagyl for now. If she doesn't improve meropenem could be tried, or ID could be consulted. No indication for urgent surgery but if she doesn't improve surgery may be necessary. Surgery Progress Note: Obj - Vital signs Vital signs: Vital Signs - Most Recent Temp Pulse Resp BP Pulse Ox 97.8 F 91 18 146/85 H 95 06/16/19 15:15 06/16/19 15:15 06/16/19 15:15 06/16/19 15:15 06/16/19 15:15 Surgery Progress Note: Results - Labs Result Diagrams: 06/15/19 12:41 06/15/19 12:41
[2019-06-16] MEDS: Famotidine/PF 20 mg/2ml Vial SLOW IVP SCH (19:55)
[2019-06-16] MEDS: Enoxaparin Sodium 40 MG/0.4 ML SYRINGE SC SCH (19:56)
[2019-06-16] MEDS ORDERED: Promethazine HCl 25 MG/ML VIAL SLOW IVP PRN (21:02)
[2019-06-16] MEDS: Nicotine 21 MG PATCH TOP SCH (21:16)
[2019-06-16] MEDS ORDERED: Promethazine HCl 25 MG/ML VIAL SLOW IVP SCH (22:45)
[2019-06-17] MEDS: metroNIDAZOLE 500 MG in Premix Bag 1 BAG IVPB SCH ×4 (01:16→20:42)
[2019-06-17] MEDS: Morphine 4 MG/ML VIAL SLOW IVP PRN ×10 (01:16→22:54)
[2019-06-17] MEDS: D5 1/2 NS w/20 mEq KCL 1,000 ML IV SCH ×3 (01:18→22:56)
[2019-06-17] MEDS: Ondansetron PF 4 MG/2 ML Vial IVP PRN ×2 (04:39→21:37)
[2019-06-17 06:09] LABS: #Eosinphils 0.2 thou/uL (0.0-0.7); #Lymphocytes 1.3 thou/uL (1.20-3.40); #Monocytes 0.6 thou/uL (0.11-0.59); #Neutrophils 3.1 thou/uL (1.40-6.50); %Basophils 0.1 % (0.0-1.0); %Eosinophils 4.5 % (0.0-10.0); %Lymphocytes 24.9 % (21.0-51.0); %Monocytes 11.5 % (0.0-10.0); %Neutrophils 58.9 % (42.0-75.0); Hemoglobin 11.7 g/dL (12.0-16.0); Mean Corpuscular HGB CONC 33.1 g/dL (32.0-36.0); Mean Corpuscular Hemoglobin 31.2 pg (27.0-31.0); Mean Corpuscular Volume 94.1 fL (78.0-98.0); Mean Platelet Volume 5.4 fL (7.4-10.4); Platelet Count 309 thou/uL (130-400); RBC Distribution Width 11.6 % (11.5-14.5); Red Blood Cell (RBC) Count 3.74 mill/uL (4.20-5.40); White Blood Cell (WBC) Count 5.2 thou/uL (4.8-10.8)
[2019-06-17 06:25] LABS: Anion Gap 12 mmol/L (10-20); BUN (Urea Nitrogen) 10 mg/dL (7.0-18.7); Calc. Creatinine Clearance 144 mL/min (70-130); Calcium 8.5 mg/dL (7.8-10.44); Carbon Dioxide 20 mmol/L (22-29); Chloride 111 mmol/L (98-107); Estimated GFR-MDRD 86; Glucose 113 mg/dL (70-105); Potassium 3.7 mmol/L (3.5-5.1); Sodium 139 mmol/L (136-145)
[2019-06-17] MEDS: Promethazine HCl 25 MG/ML VIAL SLOW IVP PRN ×2 (07:35→14:04)
[2019-06-17] MEDS: Saccharomyces boulardii 250 MG CAP PO SCH (08:41)
[2019-06-17] MEDS: Famotidine/PF 20 mg/2ml Vial SLOW IVP SCH ×2 (08:42→20:43)
--- NOTE | 2019-06-17 11:17 | PRG ---
DATE OF SERVICE: 06/17/2019 SUBJECTIVE: Ms. Heath is still having pain in her left upper quadrant, left abdomen. Over the weekend, yesterday morning, Dr. Wiggins admitted her for me. The patient presented in the emergency room with the above described pain. She had a CAT scan stone protocol without contrast revealing questionable extraluminal air splenic flexure colon area this contained. The patient has been treated for possible diverticulitis. She had other diverticula identified. She remains afebrile. Her white count is normal. Hemoglobin is stable. She is on clear liquids and Levaquin and Flagyl as she is allergic to other medications. The patient underwent on 04/17/2019, laparoscopic converted to open left colon resection with splenic flexure mobilization for cancer in a polyp. There was no residual tumor seen. She probably has a T2 N0 M0 situation. The patient is on liquids. She is on Levaquin and Flagyl. OBJECTIVE: LUNGS: Clear to auscultation. CARDIAC: Regular rate and rhythm without murmur or gallop. ABDOMEN: Soft. Tenderness in her left upper quadrant with mild guarding. Remainder of her abdomen is soft. ASSESSMENT AND PLAN: Suspect diverticulitis on this noncontrast CAT scan. This is unusual to have diverticulitis in this location. Her white count is normal. She is afebrile. There is no indications for urolithiasis, which she has a history of. Continue to treat her with Levaquin and Flagyl and relative bowel rest. Anticipate discharge home in the next 1 to 2 days pending clinical course. Consideration of repeating her CAT scan and in the future pending her clinical course to be given. If so, we would use oral IV contrast. Job ID: [id number]
[2019-06-17] MEDS: Acetaminophen 1,000 MG in Premix Bag 1 BAG IVPB PRN (19:33)
[2019-06-17] MEDS: Ketorolac Tromethamine 30 MG/ML VIAL IVP PRN (19:35)
[2019-06-17] MEDS: Enoxaparin Sodium 40 MG/0.4 ML SYRINGE SC SCH (20:43)
[2019-06-17] MEDS: Nicotine 21 MG PATCH TOP SCH (21:35)
[2019-06-18] MEDS: Morphine 4 MG/ML VIAL SLOW IVP PRN ×10 (01:08→23:09)
[2019-06-18] MEDS: metroNIDAZOLE 500 MG in Premix Bag 1 BAG IVPB SCH ×4 (01:09→20:36)
[2019-06-18] MEDS: Promethazine HCl 25 MG/ML VIAL SLOW IVP PRN ×2 (01:12→08:30)
[2019-06-18] MEDS: Acetaminophen 1,000 MG in Premix Bag 1 BAG IVPB PRN ×2 (05:50→11:48)
[2019-06-18] MEDS: Ketorolac Tromethamine 30 MG/ML VIAL IVP PRN ×2 (05:52→11:50)
[2019-06-18] MEDS: Ondansetron PF 4 MG/2 ML Vial IVP PRN ×3 (06:34→20:47)
[2019-06-18] MEDS: Saccharomyces boulardii 250 MG CAP PO SCH (08:18)
[2019-06-18] MEDS: Famotidine/PF 20 mg/2ml Vial SLOW IVP SCH ×2 (08:18→20:36)
[2019-06-18] MEDS: D5 1/2 NS w/20 mEq KCL 1,000 ML IV SCH (08:38)
[2019-06-18] MEDS: Lactated Ringer's 1,000 ML IV SCH ×2 (13:33→20:37)
--- NOTE | 2019-06-18 13:36 | PRG ---
DATE OF SERVICE: 06/18/2019 SUBJECTIVE: Taylor Heath is still complaining of pain, left upper quadrant. She has guarding on exam. She reports nausea, vomiting, and loose stools on several occasions this morning. She remains afebrile 98.3 degrees, 90, 122/81. White count yesterday was 5.2. White count has been normal since admission. Hemoglobin normal since admission. Basic metabolic profile essentially normal. 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 She has a history of tobacco use. CAT scan noncontrast stone protocol on admission suggest possible diverticulitis. Chest x-ray last obtained 05/20/2019, was unremarkable. ASSESSMENT AND PLAN: Abdominal pain and tenderness, uncertain etiology. CAT scan noncontrast on admission suggested possible splenic flexure diverticulitis. She has had previous splenic flexure mobilization and sigmoid colon resection for a T1 N0 M0 colon cancer. This was several months ago. Because of her persistent pain, which is not improved and her tenderness on exam, we will obtain a contrast CAT scan of abdomen and pelvis today. Repeat her CBC tomorrow. Obtain stool studies. We will await CAT scan results and consider GI consult pending the above measures. We will obtain a chest x-ray, PA and lateral. Job ID: [id number]
--- NOTE | 2019-06-18 14:30 | RAD ---
Chest 2 views: HISTORY: Left upper quadrant abdominal pain COMPARISON: 05/20/2019 FINDINGS: Minimal patchy parenchymal changes in the right left lower lobe regions probably subsegmental atelect asis. Biapical pleural thickening. No significant acute pleural effusion. No cardiomegaly. IMPRESSION: Minimal linear parenchymal changes in the lung bases probably representing subsegmental atelectasis.
[2019-06-18] MEDS: Promethazine 25 MG TAB PO PRN ×2 (15:19→23:09)
[2019-06-18] MEDS: Enoxaparin Sodium 40 MG/0.4 ML SYRINGE SC SCH (20:35)
[2019-06-18] MEDS: Nicotine 21 MG PATCH TOP SCH (20:36)
[2019-06-18] MEDS: predniSONE 50 MG TAB PO SCH (23:06)
[2019-06-19] MEDS: Morphine 4 MG/ML VIAL SLOW IVP PRN ×8 (01:29→16:03)
[2019-06-19] MEDS: predniSONE 50 MG TAB PO SCH ×2 (01:30→06:54)
[2019-06-19] MEDS: metroNIDAZOLE 500 MG in Premix Bag 1 BAG IVPB SCH ×3 (01:30→13:39)
[2019-06-19] MEDS: Ondansetron PF 4 MG/2 ML Vial IVP PRN ×3 (03:48→16:04)
[2019-06-19] MEDS: Promethazine 25 MG TAB PO PRN ×3 (05:33→18:33)
[2019-06-19 05:58] LABS: #Eosinphils 0.2 thou/uL (0.0-0.7); #Monocytes 0.5 thou/uL (0.11-0.59); #Neutrophils 3.1 thou/uL (1.40-6.50); %Basophils 0.6 % (0.0-1.0); %Eosinophils 4.3 % (0.0-10.0); %Lymphocytes 20.2 % (21.0-51.0); %Monocytes 10.9 % (0.0-10.0); %Neutrophils 63.9 % (42.0-75.0); Hemoglobin 11.9 g/dL (12.0-16.0); Mean Corpuscular HGB CONC 33.5 g/dL (32.0-36.0); Mean Corpuscular Hemoglobin 31.1 pg (27.0-31.0); Mean Platelet Volume 5.2 fL (7.4-10.4); Platelet Count 292 thou/uL (130-400); RBC Distribution Width 11.6 % (11.5-14.5); Red Blood Cell (RBC) Count 3.84 mill/uL (4.20-5.40); White Blood Cell (WBC) Count 4.9 thou/uL (4.8-10.8)
[2019-06-19 06:20] LABS: ALT (SGPT) 12 U/L (8-55); AST (SGOT) 17 U/L (5-34); Albumin 3.4 g/dL (3.5-5.0); Alkaline Phosphatase 57 U/L (40-150); Anion Gap 12 mmol/L (10-20); BUN (Urea Nitrogen) 5 mg/dL (7.0-18.7); Bilirubin, Total 0.3 mg/dL (0.2-1.2); Calc. Creatinine Clearance 152 mL/min (70-130); Calcium 8.4 mg/dL (7.8-10.44); Carbon Dioxide 23 mmol/L (22-29); Chloride 106 mmol/L (98-107); Estimated GFR-MDRD Greater than 90; Globulin 2.3 g/dL (2.4-3.5); Glucose 102 mg/dL (70-105); Potassium 3.2 mmol/L (3.5-5.1); Protein, Total 5.7 g/dL (6.0-8.3); Sodium 138 mmol/L (136-145)
[2019-06-19] MEDS ORDERED: diphenhydrAMINE 50 MG CAP PO SCH (07:00)
[2019-06-19] MEDS: Lactated Ringer's 1,000 ML IV SCH (08:01)
[2019-06-19] MEDS: Saccharomyces boulardii 250 MG CAP PO SCH ×2 (08:01→08:06)
[2019-06-19] MEDS: Famotidine/PF 20 mg/2ml Vial SLOW IVP SCH (08:01)
--- NOTE | 2019-06-19 10:52 | CT ---
CT ABDOMEN AND PELVIS WITH ORAL AND IV CONTRAST: Date: 06/19/19 HISTORY: Abdominal pain and nausea. COMPARISON: 06/15/19 and 05/20/19. FINDINGS: There are atelectatic changes at the lung bases. No calcified gallstones are seen. The liver, spleen, pancreas, adrenal glands, and kidneys are normal. No free air, free fluid, or lymphadenopathy seen i n the abdomen or pelvis. The small bowel loops are not abnormally dilated. Postop changes of appendectomy, hysterectomy, and c hronic resection surgery are again seen. Residual fat stranding in the pericolonic regions of the lef t hemiabdomen are likely related to previous fat necrosis or epiploic appendagitis. No new areas of p ericolonic inflammatory changes are seen. There is colonic diverticulosis. No abnormally loculated fl uid collections are noted to suggest abscess formation. A small hiatal hernia is again seen. IMPRESSION: No evidence of acute findings in the abdomen or pelvis. POS: [facility]
[2019-06-19] MEDS ORDERED: Ibuprofen 800 MG TAB PO PRN (14:57)
[2019-06-19] MEDS ORDERED: Acetaminophen 500 MG TAB PO PRN (14:57)
[2019-06-19] MEDS ORDERED: ALPRAZolam 0.5 MG TAB PO PRN (14:57)
[2019-06-19] MEDS ORDERED: traMADol HCl 50 MG TAB PO PRN ×2 (14:59)
[2019-06-19 15:32] VITALS: BP 174/100; TEMP 98.6
--- NOTE | 2019-06-19 16:54 | PRG ---
DATE OF SERVICE: 06/19/2019 SUBJECTIVE: CBC and comprehensive metabolic profile today is normal. White count is normal. She remains afebrile. Last night, we were going to obtain a CAT scan of the abdomen and pelvis. She told me she was not allergic to iodine, but in Radiology, she always prep for an iodine allergy. On further questioning, she says that she does have highs with iodine. I told her that this means she has an iodine allergy. We prepped her for this iodine allergy, and she had a CAT scan of her abdomen and pelvis p.o. and IV contrast today. This is compared to her CT scan of the abdomen and pelvis stone protocol without contrast when she was admitted three days ago. It was also compared to multiple past CAT scans. The patient's CAT scan of the abdomen and pelvis today is unremarkable. There is no evidence of diverticulitis. No evidence of perforation. No evidence of extraluminal air. Her past CAT scan three days ago was evaluated and without contrast, there was some concern, but certainly there is no free air. Past CAT scans revealed inflammatory changes related to her left colon resection 2 months ago. She did have splenic flexure mobilization and sigmoid colon resection. After that operation, she was discharged home in 2 to 3 days, but had three re-admissions for abdominal pain, and multiple CAT scans, all negative for any complications. The patient informs me and reminds me that she had complications after surgery. I have educated that she has not had complications, except for the unexplained pain that she has had. Today, she reports pain in her left upper quadrant. She complains of pain in her rectum that radiates to her right side at times. She tells me that on admission she had blood in her stool and she vomited blood. I have reviewed the emergency room records and there is no mention of hematochezia or hematemesis. There is mention of blood in her urine. Review of her urinalysis reveals that she did have microhematuria, no bacteriuria, and her urine red blood cells were 11 to 20, white counts 0 to 3, nitrite negative, dipstick 3+ blood. The patient has a urine culture from 06/15/2019, and is normal. The patient has been taking narcotics every 2 hours. We have tried to give her nonsteroidals, Toradol, but she states that this does not work. She is requesting Phenergan frequently. She had a colonoscopy two months ago and diagnosed her malignant polyp. Her sigmoid colon resection was performed, and there was no residual disease. She does not need any further therapy for this, except for a followup colonoscopy in a year to two. Dr. Chapman is her certified driver examiner. Dr. James is covering today. PHYSICAL EXAMINATION: LUNGS: Clear to auscultation. Chest x-ray reveals atelectasis. She has a pack of cigarettes at her bedside. CARDIAC: Regular rate and rhythm. ABDOMEN: Soft. Mild tenderness with guarding, left abdomen and right abdomen, but no peritoneal signs. EXTREMITIES: Unremarkable. LABORATORY DATA: As noted above, her white count is 4.9, hemoglobin is 11.9. Differential is unremarkable. Basic metabolic profile is normal. Liver function tests are normal. ASSESSMENT AND PLAN: 1. Atelectasis, tobacco abuse. This could be the cause of her upper abdominal pain. I have recommended tobacco cessation, use of incentive spirometer, and ambulation up in a chair. 2. No evidence of intra-abdominal problems. No evidence of urolithiasis. No evidence of diverticulitis or colon problems. She has inflammatory changes on her CAT scan, which has been present since her operation and these are gradually improving. I have personally reviewed her CAT scan with the radiologist. I have spent more than 30 to 40 minutes discussing her care with the patient and her . I have spent another 34 minutes reviewing her records and her CAT scans with the radiologist. At this point, I would recommend discontinuation of all narcotics, discontinuation of IV antibiotics, saline lock, resume a regular diet. We will ask Dr. Bobby James, certified driver examiner, covering for Dr. Chapman, for his input. Anticipate discharge home tomorrow. She has talked about going home tonight, but as she reports vomiting this morning hematochezia, I would like to prevent a readmission and observe her overnight to assure that she is able to tolerate her diet and plan discharge home in the morning. Job ID: [id number]
[2019-06-19] MEDS ORDERED: Metoprolol Tartrate 50 MG TAB PO SCH (21:00)
--- NOTE | 2019-06-20 00:38 | CON ---
DATE OF CONSULTATION: 06/19/2019 REASON FOR CONSULTATION: Abdominal pain and rectal bleeding. HISTORY OF PRESENT ILLNESS: Ms. Heath is a 48-year-old female who has had numerous ER visits and hospitalization for abdominal pain associated with loose stools, rectal bleeding, and nausea. In March of this year, she underwent a colonoscopy with notable finding of a firm sigmoid polyp that was removed with saline lift. Polyp turned out to be adenocarcinoma. She has subsequently underwent surgical resection of the sigmoid colon with normal margins and negative lymph node involvement. Since that time, she has had three recurrent admissions for intractable severe left- sided abdominal pain associated with rectal bleeding and nausea. With each admission , she required high dose of narcotic pain medications. In reviewing her history, she has had numerous ER visits for different pain. She was admitted earlier this year for a chest pain with negative cardiac evaluation. During that admission, according to the report, she also required high-dose narcotics with pain seem to be out of proportion of clinical findings. With this admission, she reports having onset of severe left middle quadrant and left flank pain with nausea, loose stools, and rectal bleeding. Initial CT done without contrast in the ER showed possible upper left colon splenic flexure area diverticulitis with contained perforation. However, repeat CT performed today with IV and oral contrast was completely normal. Thus far this admission, all her stool studies including culture, lactoferrin, Campylobacter antigen, shiga toxin and C diff, all came back normal or negative. She reports having had 4 to 5 episodes of very watery stool yesterday and today, however, nursing staff only noted two bowel movements yesterday and one thus far today. PAST MEDICAL HISTORY: 1. Malignant sigmoid colon polyp, status post polypectomy with subsequent sigmoidectomy. 2. Hypertension. 3. History of kidney stones. 4. Chronic kidney disease. 5. Status post hysterectomy. SOCIAL HISTORY: The patient is . Smoke half a pack to pack a day. She denies any alcohol or recreational drug use. ALLERGIES: PENICILLIN, SULFA, CEFTRIAXONE. HOME MEDICATIONS: Include: 1. Metoprolol 50 mg b.i.d. 2. HCTZ 25 mg daily. 3. Xanax 0.5 mg at bedtime as needed. 4. Motrin or Tylenol as needed for pain. REVIEW OF SYSTEMS: Ten-point review of systems did not show any other pertinent positives or negatives other than what was mentioned above in the HPI. PHYSICAL EXAMINATION: VITAL SIGNS: Temperature is 98.6, blood pressure 174/100, pulse of 89. GENERAL: She is alert and conversant, appears to be very comfortable. HEENT: Anicteric sclerae. Oropharynx clear. NECK: Supple. CV: Normal S1, S2. Regular rate and rhythm. CHEST: Breath sounds, no adventitious sounds. ABDOMEN: Very protuberant, but soft. No tympany. She has diffusely active bowel sounds. Distracted exam did not show any guarding, tensing or rebound. Organomegaly is not appreciated secondary to size. RECTAL: Did not show any obvious hemorrhoids or anal fissure from outside. Digital exam did not show any blood. EXTREMITIES: Did not show any edema. LABORATORY DATA: WBCs 4.9, hemoglobin 11.9, hematocrit 35.7, platelet count of 292. Sodium 138, creatinine 0.68. Her liver profile is normal. Lipase 19. Abdominal pelvic CT scan with contrast today was normal. ASSESSMENT: Recurrent severe abdominal pain associated with nausea and reported loose stool and rectal bleeding without any objective findings of any inflammatory process, infection, or any anatomical issue based on CT. Physical exam was unrevealing. Rectal exam did not show any obvious source of pain or bleeding. There was no fissure or hemorrhoids. Looking back, the patient has had numerous scans, totaling 12 CT studies of the abdomen so far this year that all have not amounted to any significant pathology. There is no definable reason for her abdominal pain, which I have explained to both her and her . RECOMMENDATIONS: 1. No GI evaluation or endoscopic procedure is indicated at the present time. 2. After discussing with patient, she wants to be discharged home, which I have relayed to Dr. Youssef. Job ID: [id number] [facility]
[2019-06-20] MEDS ORDERED: Hydrochlorothiazide 25 MG TAB PO SCH (09:00)
[2019-06-20] MEDS ORDERED: Estradiol 1 MG TAB PO SCH (09:00)
--- NOTE | 2019-06-20 11:30 | DIS ---
DATE OF ADMISSION: 06/15/2019 DATE OF DISCHARGE: 06/19/2019 DISCHARGE DIAGNOSIS: Abdominal pain of uncertain etiology. PROCEDURES DURING HOSPITALIZATIONS: CTA, iodine allergy, left colon. CAT scan of the abdomen and pelvis p.o. and IV contrast after iodine allergy prep reveals normal CAT scan. False-positive CTA non-contrast stone protocol scan on admission. 1. History of urolithiasis. 2. Chronic pain. 3. Two months status post mobilization of splenic flexure and sigmoid colon resection for malignant polyp. No residual disease. No further intervention necessary except a followup colonoscopy. Stool culture studies negative in this hospitalization. White count normal. Afebrile. Morbid obesity, 5 feet 5 inches, 214 pounds, 35 BMI. 4. Atelectasis. 5. Tobacco abuse. HISTORY: A 48-year-old female 2 months status post sigmoid colon resection, mobilization of splenic flexure, discharged home 2-3 days postoperatively. The patient was readmitted 3 times because of abdominal pain. She had multiple CAT scans, all of which were normal. There is no indication for any problems related to colon resection. Renal function is normal. The patient was admitted over the weekend by Dr. Wiggins. She presented to the emergency room with hematuria and left abdominal pain. Stone protocol noncontrast CAT scan suggested extra colonic gas. She was started on intravenous antibiotics. She remained afebrile with normal white count. After two days of intravenous antibiotics, a CT scan was ordered, but iodine allergy noted and she was given a steroid prep. She underwent a CAT scan today that was completely normal. Her Levaquin and Flagyl were discontinued. Dr. James saw her in consultation and agreed that further intervention not necessary. The patient reported hematochezia and hematemesis, but there is no report in the emergency room of this, only blood per urine, this was microhematuria. Her urinalysis was normal. Urine culture 2 days prior to admission was normal. At this point, she has been discharged home on [address] , [id number]. Follow up in my office as needed. She is given Zofran as needed. The etiology of her pain is uncertain. The patient, however, has had numerous admissions and prolonged narcotic prescriptions and after this prescription, I will not fill any more narcotics. She will follow up with me as needed. Follow up with GI per Dr. James and Dr. Chapman. Job ID: [id number]
== END 2019-06-19 19:32 | disposition home or self-care (01) | DRG 392 ==
LOC: ERS 11:57 → SURG B 16:04
PROVIDERS: ADMIT Surgery; ATTEND Surgery
DX: R10.9 Unspecified abdominal pain (principal); J98.11 Atelectasis; G47.30 Sleep apnea, unspecified; E66.01 Morbid (severe) obesity due to excess calories; F17.210 Nicotine dependence, cigarettes, uncomplicated; Z88.0 Allergy status to penicillin; Z68.35 Body mass index [BMI] 35.0-35.9, adult; Z85.038 Personal history of other malignant neoplasm of large intestine; Z90.49 Acquired absence of other specified parts of digestive tract; Z90.710 Acquired absence of both cervix and uterus; Z88.2 Allergy status to sulfonamides; Z88.1 Allergy status to other antibiotic agents; Z87.442 Personal history of urinary calculi; F41.9 Anxiety disorder, unspecified; Z91.013 Allergy to seafood; I12.9 Hypertensive chronic kidney disease with stage 1 through stage 4 chronic kidney disease, or unspecified chronic kidney disease; N18.9 Chronic kidney disease, unspecified; G89.29 Other chronic pain
CPT/HCPCS: 36415; 71046; 74176; 74177; 80048; 80053; 81003; 81015; 83605; 83630; 83690; 85025; 87045; 87046; 87086; 87324; 87427; 87449; 96365; 96372; 96375; B4083; J0131; J1650; J1885; J1956; J2270; J2405; J2550; Q0162; Q0163; Q0169; S0028

== ENCOUNTER 2020-03-08 04:57 | Emergency (ER) | payer OTHER, SELFPAY ==
[2020-03-08] MEDS ORDERED: Promethazine HCl 25 MG/ML VIAL ONE (05:17)
[2020-03-08 06:00] LABS: Bilirubin Negative (Negative); Blood, Urine Negative (Negative); Clarity Clear (Clear); Glucose, Urine (Dipstick) Normal (Negative); Leukocyte Negative Leu/uL (Negative); Nitrite Negative (Negative); Protein, Urine (Dipstick) Negative (Neg-Trace); Urobilinogen Normal mg/dL (Less than 2)
[2020-03-08] MEDS ORDERED: Ketorolac Tromethamine 30 MG/ML VIAL ONE (06:06)
[2020-03-08 06:17] LABS: #Eosinphils 0.2 thou/uL (0.0-0.7); #Lymphocytes 1.7 thou/uL (1.20-3.40); #Neutrophils 5.5 thou/uL (1.40-6.50); %Basophils 0.3 % (0.0-1.0); %Eosinophils 1.8 % (0.0-10.0); %Lymphocytes 20.1 % (21.0-51.0); %Monocytes 11.9 % (0.0-10.0); %Neutrophils 65.8 % (42.0-75.0); Hemoglobin 11.9 g/dL (12.0-16.0); Mean Corpuscular HGB CONC 32.4 g/dL (32.0-36.0); Mean Corpuscular Hemoglobin 28.8 pg (27.0-31.0); Mean Corpuscular Volume 88.8 fL (78.0-98.0); Mean Platelet Volume 6.5 fL (7.4-10.4); Platelet Count 148 thou/uL (130-400); RBC Distribution Width 12.7 % (11.5-14.5); Red Blood Cell (RBC) Count 4.14 mill/uL (4.20-5.40); White Blood Cell (WBC) Count 8.4 thou/uL (4.8-10.8)
[2020-03-08 06:30] LABS: AST (SGOT) 14 U/L (5-34); Albumin 3.8 g/dL (3.5-5.0); Anion Gap 16 mmol/L (10-20); Bilirubin, Total 0.3 mg/dL (0.2-1.2); Calc. Creatinine Clearance 0 mL/min (70-130); Carbon Dioxide 18 mmol/L (22-29); Chloride 106 mmol/L (98-107); Estimated GFR-MDRD 81; Potassium 3.4 mmol/L (3.5-5.1); Protein, Total 6.8 g/dL (6.0-8.3); Sodium 137 mmol/L (136-145)
[2020-03-08 06:41] LABS: ALT (SGPT) 11 U/L (8-55); Alkaline Phosphatase 109 U/L (40-110); BUN (Urea Nitrogen) 21 mg/dL (9.8-20.1); Glucose 96 mg/dL (70-105); Lipase 50 U/L (8-78)
[2020-03-08] MEDS ORDERED: Morphine 10 MG/ML VIAL ONE (06:49)
--- NOTE | 2020-03-08 07:45 | RAD ---
RADIOGRAPH CHEST ONE VIEW RADIOGRAPH ABDOMEN 2 VIEWS: DATE: 03/08/2020 HISTORY: 49-year-old female with left lower quadrant abdominal pain, nausea, and bright red blood per rectum. FINDINGS: There are no airspace densities or pulmonary edema. The lateral costophrenic angles are sharp. There is no cardiomegaly. There is no evidence of pneumothorax or pneumoperitoneum. There is no evidence of dilated small bowel loops, differential air-fluid levels, or organomegaly. IMPRESSION: 1) No acute cardiopulmonary findings. 2) no evidence of bowel obstruction.
== END 2020-03-08 07:00 | disposition home or self-care (01) ==
LOC: ERS 04:57
DX: K62.5 Hemorrhage of anus and rectum (principal); R10.32 Left lower quadrant pain; I10 Essential (primary) hypertension; F41.9 Anxiety disorder, unspecified; F17.210 Nicotine dependence, cigarettes, uncomplicated; Z79.899 Other long term (current) drug therapy
CPT/HCPCS: 36415; 74022; 80053; 81003; 83690; 85025; 96372; J0500; J1885; J2270; J2550

== ENCOUNTER 2020-03-09 15:25 | Emergency (ER) | payer OTHER, SELFPAY ==
[~2020-03-09 15:25] MED LIST changes: -ISOVUE-370 76%-LOCM 1 ML ONE; +Iopamidol-370 76% 500 ML 1 ML ONE
[2020-03-09] MEDS ORDERED: Famotidine/PF 20 mg/2ml Vial ONE (16:18)
[2020-03-09] MEDS ORDERED: methylPREDNISolone Sod Succ/PF 125 MG/2 ML VIAL ONE (16:19)
[2020-03-09] MEDS ORDERED: diphenhydrAMINE 50 MG/ML VIAL ONE (16:19)
[2020-03-09 16:45] LABS: #Eosinphils 0.1 thou/uL (0.0-0.7); #Lymphocytes 1.5 thou/uL (1.20-3.40); #Monocytes 0.7 thou/uL (0.11-0.59); #Neutrophils 5.4 thou/uL (1.40-6.50); %Basophils 0.5 % (0.0-1.0); %Eosinophils 1.7 % (0.0-10.0); %Lymphocytes 19.7 % (21.0-51.0); %Monocytes 8.4 % (0.0-10.0); %Neutrophils 69.7 % (42.0-75.0); Hemoglobin 11.9 g/dL (12.0-16.0); Mean Corpuscular HGB CONC 33.8 g/dL (32.0-36.0); Mean Corpuscular Hemoglobin 30.5 pg (27.0-31.0); Mean Corpuscular Volume 90.1 fL (78.0-98.0); Mean Platelet Volume 5.6 fL (7.4-10.4); Platelet Count 310 thou/uL (130-400); RBC Distribution Width 12.6 % (11.5-14.5); Red Blood Cell (RBC) Count 3.91 mill/uL (4.20-5.40); White Blood Cell (WBC) Count 7.7 thou/uL (4.8-10.8)
[2020-03-09] MEDS ORDERED: Morphine 4 MG/ML VIAL ONE (16:56)
[2020-03-09 16:57] LABS: Bilirubin Negative (Negative); Blood, Urine Negative (Negative); Clarity Clear (Clear); Glucose, Urine (Dipstick) Normal (Negative); Leukocyte Negative Leu/uL (Negative); Nitrite Negative (Negative); Protein, Urine (Dipstick) Negative (Neg-Trace); Urobilinogen Normal mg/dL (Less than 2)
[2020-03-09 17:08] LABS: ALT (SGPT) 11 U/L (8-55); AST (SGOT) 15 U/L (5-34); Albumin 3.7 g/dL (3.5-5.0); Alkaline Phosphatase 103 U/L (40-110); Anion Gap 17 mmol/L (10-20); BUN (Urea Nitrogen) 21 mg/dL (9.8-20.1); Bilirubin, Total 0.4 mg/dL (0.2-1.2); Calc. Creatinine Clearance 0 mL/min (70-130); Carbon Dioxide 18 mmol/L (22-29); Chloride 106 mmol/L (98-107); Estimated GFR-MDRD 72; Globulin 3.3 g/dL (2.4-3.5); Glucose 95 mg/dL (70-105); Lipase 36 U/L (8-78); Potassium 3.5 mmol/L (3.5-5.1); Sodium 137 mmol/L (136-145)
[2020-03-09] MEDS ORDERED: Ketorolac Tromethamine 30 MG/ML VIAL ONE (17:33)
--- NOTE | 2020-03-09 18:17 | CT ---
EXAM: CT ABDOMEN AND PELVIS HISTORY: Draining wound. GI bleed. COMPARISON: 06/19 2019 Procedure: Multiple contiguous axial images were obtained and a CT of the abdomen and pelvis with IV contrast. C oronal reformats were performed. FINDINGS: Lower Chest: Chronic lung parenchymal changes with nonspecific patchy groundglass opacities. Vessels: Normal caliber aorta. No periaortic fat stranding. Heart: Upper normal heart size. No significant pericardial fluid. Minimal calcification of mitral regi ulus Abdomen: Portal vein:Patent Gallbladder: No calcified gallstones. Normal caliber wall. Liver: within normal limits. Pancreas: within normal limits. Spleen: within normal limits. Adrenals: within normal limits. Kidneys: Symmetric enhancement. No obstructive uropathy. Peritoneum: No ascites or free air, no fluid collection. Bowel: Limited evaluation due to the lack of oral contrast administration. No evidence of bowel obstr uction. Ileocecal junction is unremarkable. Surgically absent appendix. Scattered fecal material in a nondistended, nondilated colon. Anastomosis at the level of the sigmoid colon. Mesentery and Retroperitoneum: No enlarged mesenteric or retroperitoneal lymph nodes. Abdominal Wall: Evidence of previous surgical intervention. No evidence of an infected fluid collecti on in the anterior abdominal wall. Pelvis: Reproductive Organs: Surgically absent uterus Pelvis: No mass, lymphadenopathy, free air or free fluid. Bladder: within normal limits. Bones: within normal limits. IMPRESSION: 1. No evidence of acute intraabdominal\pelvic abnormality. 2. No evidence of intra-abdominal abscess 3. Consider gastroenterology consultation for GI bleed. 4. Nonspecific groundglass opacities in the lung bases. Correlate for infiltrate or edema.
== END 2020-03-09 19:55 | disposition home or self-care (01) ==
LOC: ERS 15:25
DX: G89.18 Other acute postprocedural pain (principal); R10.9 Unspecified abdominal pain; K62.5 Hemorrhage of anus and rectum; F41.9 Anxiety disorder, unspecified; F17.210 Nicotine dependence, cigarettes, uncomplicated; Z79.899 Other long term (current) drug therapy
CPT/HCPCS: 36415; 74177; 80053; 81003; 83605; 83690; 85025; 86850; 86900; 86901; 94760; 96361; 96374; 96375; J1200; J1885; J2270; J2930; Q9967; S0028

== ENCOUNTER 2020-03-10 19:13 | Emergency (ER) | payer SELFPAY ==
[~2020-03-10 19:13] MED LIST changes: +Iopamidol 370 76% 100 ML VIAL ONE; -Iopamidol-370 76% 500 ML 1 ML ONE
[2020-03-10] MEDS ORDERED: Morphine 4 MG/ML VIAL ONE (21:18)
[2020-03-10] MEDS ORDERED: Promethazine HCl 25 MG/ML VIAL ONE (21:19)
[2020-03-10 21:21] LABS: #Lymphocytes 1.6 thou/uL (1.20-3.40); #Monocytes 1.3 thou/uL (0.11-0.59); #Neutrophils 11.9 thou/uL (1.40-6.50); %Basophils 0.3 % (0.0-1.0); %Eosinophils 0.2 % (0.0-10.0); %Lymphocytes 10.8 % (21.0-51.0); %Monocytes 8.5 % (0.0-10.0); %Neutrophils 80.3 % (42.0-75.0); Mean Corpuscular HGB CONC 33.7 g/dL (32.0-36.0); Mean Corpuscular Hemoglobin 30.3 pg (27.0-31.0); Mean Platelet Volume 5.7 fL (7.4-10.4); Platelet Count 372 thou/uL (130-400); RBC Distribution Width 12.8 % (11.5-14.5); Red Blood Cell (RBC) Count 3.96 mill/uL (4.20-5.40); White Blood Cell (WBC) Count 14.8 thou/uL (4.8-10.8)
[2020-03-10 21:49] LABS: ALT (SGPT) 11 U/L (8-55); AST (SGOT) 11 U/L (5-34); Albumin 4.2 g/dL (3.5-5.0); Alkaline Phosphatase 102 U/L (40-110); Anion Gap 15 mmol/L (10-20); BUN (Urea Nitrogen) 19 mg/dL (9.8-20.1); Bilirubin, Total 0.4 mg/dL (0.2-1.2); CK (CPK) 52 U/L (29-168); Calc. Creatinine Clearance 0 mL/min (70-130); Calcium 9.1 mg/dL (7.8-10.44); Carbon Dioxide 25 mmol/L (22-29); Chloride 104 mmol/L (98-107); Estimated GFR-MDRD 53; Globulin 3.1 g/dL (2.4-3.5); Glucose 107 mg/dL (70-105); Lipase 26 U/L (8-78); Potassium 3.3 mmol/L (3.5-5.1); Protein, Total 7.3 g/dL (6.0-8.3); Sodium 141 mmol/L (136-145)
--- NOTE | 2020-03-10 22:05 | ULT ---
EXAM: US Gallbladder RUQ CLINICAL HISTORY: Right upper quadrant pain. COMPARISON: 01/03/2019 FINDINGS: Pancreas: Obscured by bowel gas Liver:Hepatic parenchyma has a normal echotexture. No hepatic masses or intrahepatic biliary dilatati on. Right hepatic lobe: 20.6 cm Gallbladder: No sonographic evidence of cholelithiasis, gallbladder wall thickening or pericholecysti c fluid. Mercado's sign:Positive Portal Vein: Patent. Appropriate directional flow Bile ducts: Common bile duct diameter 0.55 cm Right kidney: No hydronephrosis. Right kidney measures 11.0 x 3.7 x 4.5 cm in length. IMPRESSION: 1. No sonographic evidence of cholelithiasis or cholecystitis. 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 There is concern for a calculus cholecystitis, consider HIDA scan
[2020-03-10] MEDS ORDERED: methylPREDNISolone Sod Succ/PF 125 MG/2 ML VIAL ONE (23:46)
[2020-03-10] MEDS ORDERED: diphenhydrAMINE 50 MG/ML VIAL ONE (23:46)
[2020-03-10] MEDS ORDERED: Famotidine/PF 20 mg/2ml Vial ONE (23:46)
[2020-03-11] MEDS ORDERED: Metoclopramide HCl 10 MG/2 ML VIAL ONE
[2020-03-11] MEDS ORDERED: Morphine 4 MG/ML VIAL ONE
[2020-03-11] MEDS ORDERED: Ondansetron PF 4 MG/2 ML Vial ONE ×2 (00:59→01:01)
[2020-03-11] MEDS ORDERED: HYDROcodone/Acetaminophen 10/325 mg Tablet ONE (02:35)
--- NOTE | 2020-03-11 08:12 | CT ---
PRELIMINARY REPORT/[facility]/EMERGENCY AFTER HOURS PROCEDURE EXAM: CTA Chest with Intravenous Contrast CLINICAL HISTORY: Elevated D-dimer/ chest discomfort TECHNIQUE: Axial CTA images of the chest with intravenous contrast. MIP reconstructed images were created and re viewed. CONTRAST: With; Isovue 370, 70ml COMPARISON: None provided. FINDINGS: PULMONARY ARTERIES There is no intraluminal filling defect suspicious for PE. AORTA No thoracic aortic aneurysm or dissection. LUNGS The lungs are clear. No pulmonary mass. No focal airspace consolidation. PLEURAL SPACES No pleural effusion. No pneumothorax. HEART AND MEDIASTINUM Mild cardiomegaly. Coronary artery calcifications. LYMPH NODES No lymphadenopathy. BONES No focal osseous abnormality or acute fracture. CHEST WALL AND UPPER ABDOMEN Images through the upper abdomen are unremarkable. The chest wall is unremarkable. MISCELLANEOUS: Small hernia. IMPRESSION: No pulmonary embolism. No thoracic aortic aneurysm or dissection. ELECTRONICALLY SIGNED BY: Jessy Morales MD March 11, 2020 1:05:22 AM CDT This report is intended for review by the ordering physician only, in accordance of law. If you recei ve this report in error, please call [facility] at [phone]. FINAL REPORT EMERGENT AFTER HOURS CTA OF THE CHEST WITH CONTRAST: FINDINGS/IMPRESSION: I agree with the findings and impression given in the preliminary report per [facility] physici an. No evidence of pulmonary thromboembolism. POS: [facility]
--- NOTE | 2020-03-11 16:10 | EKG ---
Test Reason : Blood Pressure : / mmHG Vent. Rate : 080 BPM Atrial Rate : 080 BPM P-R Int : 138 ms QRS Dur : 080 ms QT Int : 398 ms P-R-T Axes : 062 014 064 degrees QTc Int : 459 ms Normal sinus rhythm Normal ECG Confirmed by CB FRANCO DO ([id number]), order editor RAMON KELLEY ([id number]) on 03/11/2020 4:09:19 PM Referred By: Confirmed By:CB FRANCO DO
== END 2020-03-11 02:39 | disposition home or self-care (01) ==
LOC: ERS 19:13
DX: K62.5 Hemorrhage of anus and rectum (principal); I10 Essential (primary) hypertension; F41.9 Anxiety disorder, unspecified; F17.210 Nicotine dependence, cigarettes, uncomplicated; Z79.899 Other long term (current) drug therapy; Z85.038 Personal history of other malignant neoplasm of large intestine
CPT/HCPCS: 71275; 76705; 80053; 82550; 83690; 84484; 85025; 85379; 93005; 96365; 96375; 96376; J1200; J2270; J2405; J2550; J2765; J2930; Q9967; S0028

== ENCOUNTER 2020-03-14 01:02 | Emergency (ER) | payer SELFPAY ==
[2020-03-14] MEDS ORDERED: Mag-Al 1200 mg/1200 mg/30 ML UDCUP ONE (02:05)
[2020-03-14] MEDS ORDERED: Lidocaine Viscous Sol 2% 15 ml UD Cup ONE (02:05)
[2020-03-14] MEDS ORDERED: Promethazine HCl 25 MG/ML VIAL ONE (02:16)
[2020-03-14] MEDS ORDERED: Sucralfate 1 GM/10 ML UDCUP ONE (02:26)
[2020-03-14 02:31] LABS: #Eosinphils 0.2 thou/uL (0.0-0.7); #Lymphocytes 1.7 thou/uL (1.20-3.40); #Monocytes 0.7 thou/uL (0.11-0.59); #Neutrophils 4.2 thou/uL (1.40-6.50); %Basophils 0.6 % (0.0-1.0); %Eosinophils 2.2 % (0.0-10.0); %Lymphocytes 24.5 % (21.0-51.0); %Monocytes 10.8 % (0.0-10.0); Mean Corpuscular HGB CONC 33.6 g/dL (32.0-36.0); Mean Corpuscular Hemoglobin 30.2 pg (27.0-31.0); Mean Corpuscular Volume 89.8 fL (78.0-98.0); Mean Platelet Volume 5.8 fL (7.4-10.4); Platelet Count 324 thou/uL (130-400); RBC Distribution Width 12.5 % (11.5-14.5); Red Blood Cell (RBC) Count 3.99 mill/uL (4.20-5.40); White Blood Cell (WBC) Count 6.8 thou/uL (4.8-10.8)
[2020-03-14 02:51] LABS: ALT (SGPT) 7 U/L (8-55); AST (SGOT) 8 U/L (5-34); Albumin 3.9 g/dL (3.5-5.0); Alkaline Phosphatase 93 U/L (40-110); Anion Gap 15 mmol/L (10-20); BUN (Urea Nitrogen) 17 mg/dL (9.8-20.1); Bilirubin, Total 0.4 mg/dL (0.2-1.2); Calc. Creatinine Clearance 0 mL/min (70-130); Calcium 8.8 mg/dL (7.8-10.44); Carbon Dioxide 28 mmol/L (22-29); Chloride 101 mmol/L (98-107); Estimated GFR-MDRD 70; Globulin 2.8 g/dL (2.4-3.5); Glucose 109 mg/dL (70-105); Lipase 26 U/L (8-78); Potassium 3.2 mmol/L (3.5-5.1); Protein, Total 6.7 g/dL (6.0-8.3); Sodium 141 mmol/L (136-145)
== END 2020-03-14 03:40 | disposition home or self-care (01) ==
LOC: ERS 01:02
DX: R10.13 Epigastric pain (principal); I10 Essential (primary) hypertension; F41.9 Anxiety disorder, unspecified; Z79.899 Other long term (current) drug therapy
CPT/HCPCS: 36415; 80053; 83690; 85025; 93005; 96372; J2550

== ENCOUNTER 2020-03-20 14:06 | Inpatient (IN) | payer SELFPAY ==
[~2020-03-20 14:06] MED LIST changes: -Iopamidol 370 76% 100 ML VIAL ONE; +Iopamidol-370 76% 500 ML 1 ML ONE
[2020-03-20 14:39] LABS: #Eosinphils 0.1 thou/uL (0.0-0.7); #Lymphocytes 1.4 thou/uL (1.20-3.40); #Monocytes 0.7 thou/uL (0.11-0.59); #Neutrophils 4.5 thou/uL (1.40-6.50); %Basophils 0.5 % (0.0-1.0); %Eosinophils 2.1 % (0.0-10.0); %Lymphocytes 20.8 % (21.0-51.0); %Monocytes 10.2 % (0.0-10.0); %Neutrophils 66.4 % (42.0-75.0); Hemoglobin 11.2 g/dL (12.0-16.0); Mean Corpuscular Hemoglobin 29.7 pg (27.0-31.0); Mean Corpuscular Volume 90.2 fL (78.0-98.0); Mean Platelet Volume 6.4 fL (7.4-10.4); Platelet Count 225 thou/uL (130-400); RBC Distribution Width 12.6 % (11.5-14.5); Red Blood Cell (RBC) Count 3.75 mill/uL (4.20-5.40); White Blood Cell (WBC) Count 6.7 thou/uL (4.8-10.8)
[2020-03-20 15:15] LABS: ALT (SGPT) 14 U/L (8-55); AST (SGOT) 19 U/L (5-34); Albumin 3.7 g/dL (3.5-5.0); Alkaline Phosphatase 108 U/L (40-110); Anion Gap 16 mmol/L (10-20); BUN (Urea Nitrogen) 14 mg/dL (9.8-20.1); Bilirubin, Total 0.4 mg/dL (0.2-1.2); CK (CPK) 42 U/L (29-168); Calc. Creatinine Clearance 0 mL/min (70-130); Calcium 8.7 mg/dL (7.8-10.44); Carbon Dioxide 20 mmol/L (22-29); Chloride 106 mmol/L (98-107); Estimated GFR-MDRD 64; Globulin 2.9 g/dL (2.4-3.5); Glucose 99 mg/dL (70-105); Lipase 28 U/L (8-78); Potassium 4.4 mmol/L (3.5-5.1); Protein, Total 6.6 g/dL (6.0-8.3); Sodium 138 mmol/L (136-145)
[2020-03-20] MEDS ORDERED: Nitroglycerin 2% Ointment 1 INCH/1 GM Packet ONE (16:11)
[2020-03-20] MEDS ORDERED: Morphine 4 MG/ML VIAL ONE (17:03)
[2020-03-20] MEDS ORDERED: methylPREDNISolone Sod Succ/PF 125 MG/2 ML VIAL ONE (17:06)
[2020-03-20] MEDS ORDERED: Famotidine/PF 20 mg/2ml Vial ONE (17:06)
[2020-03-20] MEDS ORDERED: diphenhydrAMINE 50 MG/ML VIAL ONE ×2 (17:06→19:16)
--- NOTE | 2020-03-20 17:07 | RAD ---
PORTABLE CHEST ONE VIEW: 03/20/20 at 2:42 p.m. HISTORY: Chest pain and shortness of breath. FINDINGS/IMPRESSION: Comparison is made with the exam of 03/16/20. The heart size is prominent. The aorta is tortuous. There is pulmonary vascular congestion versus iris ateral infiltrates. No lobar consolidation, pneumothoraces or large effusions are seen. POS: [facility]
--- NOTE | 2020-03-20 18:23 | CT ---
CTA OF THE CHEST AND ABDOMEN UTILIZING AN AORTIC DISSECTION PROTOCOL AND 3-D REFORMATTED IMAGING INDICATION: 49-year-old female with chest pain COMPARISON: None FINDINGS: Aorta: No acute aortic stenosis, occlusion or aneurysmal formation demonstrated. Central pulmonary artery: No central pulmonary embolus demonstrated. Additional thorax findings: Scattered subsegmental volume loss within both lungs. Additional abdominal findings: Slight prominence of the renal pelves bilaterally which is stable like ly reflective of extrarenal pelves. There is postsurgical change involving the right lower quadrant of the abdomen which is similar to comparison dated March 14, 2020. There is a mild amount retained sto ol within 1. There are scattered colonic diverticulosis. Osseous structures: No acute osseous abnormality. There is scattered degenerative and osteoarthritic change present. IMPRESSION: 1. No appreciable aortic stenosis, occlusion or aneurysmal formation demonstrated.
[2020-03-20] MEDS ORDERED: Morphine 2 MG/ML SYRINGE ONE (19:15)
[2020-03-20] MEDS ORDERED: diphenhydrAMINE 50 MG CAP ONE (19:15)
[2020-03-20 19:56] LABS: Troponin I Less than 0.010 ng/mL (< 0.028)
[2020-03-20 21:26] VITALS: BMI 37.8
[2020-03-20] MEDS ORDERED: Morphine 2 MG/ML SYRINGE SLOW IVP SCH (22:00)
[2020-03-20] MEDS: Nitroglycerin 2% Ointment 1 INCH/1 GM Packet TOP SCH (22:06)
[2020-03-20 22:51] LABS: Troponin I Less than 0.010 ng/mL (< 0.028)
[2020-03-20] MEDS ORDERED: Nitroglycerin 0.4 MG TAB (25 Tab Bottle) PO PRN (22:56)
[2020-03-20] MEDS ORDERED: Ondansetron ODT 4 MG TAB PO PRN (23:00)
[2020-03-20] MEDS ORDERED: Acetaminophen 325 MG TAB PO PRN (23:00)
[2020-03-20] MEDS ORDERED: Nicotine 14 MG PATCH TD SCH (23:00)
[2020-03-20] MEDS ORDERED: Calcium Carbonate 500 MG ChewTAB PO PRN (23:00)
[2020-03-20] MEDS ORDERED: Ondansetron PF 4 MG/2 ML Vial IVP PRN (23:00)
[2020-03-20] MEDS ORDERED: Senokot S 8.6-50 MG TAB PO PRN (23:00)
[2020-03-20] MEDS ORDERED: hydrALAZINE 20 MG/ML VIAL SLOW IVP PRN (23:05)
[2020-03-20] MEDS ORDERED: Sodium Chloride 0.9% (PF) 10 ML VIAL FS PRN (23:31)
[2020-03-20] MEDS ORDERED: Diazepam 5 MG TAB PO SCH (23:45)
--- NOTE | 2020-03-21 01:59 | HP ---
PRIMARY CARE PHYSICIAN: Chela. CHIEF COMPLAINT: Chest pain. HISTORY OF PRESENT ILLNESS: The patient is a 49-year-old female with a past medical history significant for hypertension, smoking, anxiety, night terrors, morbid obesity, peptic ulcer disease, and GERD that presents for the above complaint. The patient reports developing the sudden onset of shortness of breath at approximately 8 o'clock when she awoke from a nightmare. The patient reports waking and gasping for air. She recalls dreaming someone was piling bricks on her chest. She felt like it was a panic attack "x1 million." After about 45 minutes, the patient reports that she developed tearing back pain radiating from the back to her chest. She reports it as sharp and constant in nature, exacerbated and relieved by nothing. Reports associated SANZ and mild swelling to her legs. Has chronic orthopnea, denies any heart palpitations. Denies cough or wheezing. Reports associated numbness or tingling to her right arm and leg. Denies any focal weakness, headaches or dysarthria. She checked her blood pressure. She reports that her blood pressure was high, stating 215/108. She called her primary care provider. Her primary care provider told her to go to the ER. The patient had her drive her to the ER. Prior to arriving at the ER, the patient took full dose aspirin, SL nitro x 2 and acetaminophen. At the ER, the patient was found to be hypertensive. Vital signs 181/95 was the blood pressure, 77 was the pulse, 16 was the respiration, 99% on room air. She was 8/10 pain. She was afebrile at 98.7 oral. She became diaphoretic and started vomiting. EKG showed sinus rhythm, 76 beats per minute. Chest x-ray showed pulmonary vascular congestion versus bilateral infiltrates. CT of aortic dissection protocol was negative. She had a BNP of 238. Troponins were negative x2. Lipase was 28. The patient was given Pepcid 20 mg, morphine 6 mg, diphenhydramine 75 mg, Solu-Medrol 125 mg, and nitroglycerin paste 1 inch on her chest. She reports some relief of symptoms. PAST MEDICAL HISTORY: 1. Hypertension. 2. Morbid obesity. 3. Anxiety, night terrors. 4. PUD. 5. GERD. 6. Kidney stones. 7. Colon cancer. PAST SURGICAL HISTORY: 1. Significant for colon cancer with resection in March of 2019. 2. . 3. Hysterectomy. SOCIAL HISTORY: The patient lives with her family at home. She has a one pack per day history of smoking of greater than 20 years. The patient reports she quit smoking 6 months ago. She denies any illicit drug use. She denies any EtOH intake. ALLERGIES: THE PATIENT REPORTS MULTIPLE ALLERGIES. 1. REPORTS ALLERGY TO BEE VENOM. 2. PENICILLINS. 3. SHELLFISH. 4. SULFA. 5. IODINE. 6. ROCEPHIN. 7. DICYCLOMINE. 8. REGLAN. 9. ONDANSETRON. HOME MEDICATIONS: The patient takes; 1. Metoprolol succinate 100 mg p.o. b.i.d. 2. Hydrochlorothiazide 25 mg p.o. daily. 3. Protonix 40 mg p.o. daily. 4. Diazepam 10 mg p.o. at bedtime. FAMILY HISTORY: Significant for cancer. REVIEW OF SYSTEMS: All other ROS are negative unless noted in the HPI. PHYSICAL EXAMINATION: VITAL SIGNS: The patient's temperature 98.7, blood pressure 181/95, heart rate 77, respirations 16, SpO2 of 99% on room air. Pain was 8/10. CONSTITUTIONAL: The patient is alert and oriented to person, place, and time. HEAD: Atraumatic, normocephalic. EYES: PERRLA. Extraocular muscles are intact. Nonicteric. ENT: Nares are patent bilaterally. EAC is patent bilaterally. Posterior oropharynx is clear. Uvula midline. Moist mucous membranes. NECK: Supple. Trachea midline. No JVD. RESPIRATORY/CHEST: Respirations are even and nonlabored. Clear to auscultation. No rhonchi, wheezes, or rales. CARDIOVASCULAR: Regular rate and rhythm. Heart sounds are normal. S1, S2. No murmurs, rubs, or gallops. ABDOMEN: Soft, nontender to palpation. Active bowel sounds in all 4 quadrants. No guarding, no rigidity. BACK: Normal inspection. No central spinous tenderness. No CVA tenderness. UPPER EXTREMITIES: Bilateral upper extremities inspection was normal. Range of motion was normal. No swelling. Palpable radial and ulnar pulses. Brisk cap refill. LOWER EXTREMITIES: Bilateral lower extremities; no gross deformities, no open lesions, no swelling or erythema. Palpable pedal pulses. Cap refill is brisk. Full range of motion. NEUROLOGIC: The patient was intact to person, place, and time. She follows commands. GCS of 15. SKIN: Clean, dry, and intact. LABORATORY DATA AND DIAGNOSTICS: EKG was normal sinus rhythm, [address] of aortic dissection was negative. Troponins were negative x2. BNP was 238. Sodium was 138, potassium was 4.4, chloride was 106, carbon dioxide 20, BUN 14, creatinine 0.93, GFR 64, glucose 99 , magnesium 1.9, calcium 8.7, bilirubin 0.4, AST 19, ALT 14, alkaline phosphatase 108. TSH 1.8335. WBC 6.7, hemoglobin of 11.2, hematocrit of 33.9, platelet count of 225. IMPRESSION AND PLAN: 1. Chest pain. Admit to telemetry for observation status. Expected length of stay at least 2 midnights. The patient's heart score was 4. CT aortic dissection was negative. Troponins have been negative x2.. BNP is 238. Last cardiac stress test was in October of 2018 which was a normal exam with an EF of 83%. We will order a Nuclear Medicine Cardiolite stress test with echo. We will continue aspirin. We will check fasting lipid, Mag, and TSH. We will make n.p.o. after midnight. 2. Hypertensive emergency. Currently, the patient's blood pressure is well controlled. SBP in the 150s. Restart her home dose of metoprolol. We will add hydralazine p.r.n. We will continue to monitor blood pressure. 3. Hypertension, chronic. We will restart the patient's home medications when reconciled. 4. Gastroesophageal reflux disease. We will start Protonix 40 mg IV push. 5. Obesity with a BMI of 37.9, we will place patient on a heart healthy diet. 6. Tobacco abuse. Reports quitting 6 months prior, previously 1 ppd habit. 7. We will consult walking program. Protonix for GI prophylaxis. 8. Sequential compression devices for deep venous thrombosis prophylaxis. 9. The patient is a full code. Her designated medical power of research attorney is Linwood, her spouse. His number is [phone]. Discussed the case with Dr. Ana Lilia Martinez. Job ID: [id number] [facility]
[2020-03-21] MEDS: Morphine 2 MG/ML SYRINGE SLOW IVP PRN ×6 (02:02→22:45)
[2020-03-21] MEDS: Nitroglycerin 2% Ointment 1 INCH/1 GM Packet TOP SCH ×3 (02:04→21:54)
[2020-03-21 05:02] LABS: #Lymphocytes 0.8 thou/uL (1.20-3.40); #Monocytes 0.1 thou/uL (0.11-0.59); #Neutrophils 14.8 thou/uL (1.40-6.50); %Eosinophils 0.2 % (0.0-10.0); %Monocytes 0.7 % (0.0-10.0); %Neutrophils 94.2 % (42.0-75.0); Hemoglobin 11.4 g/dL (12.0-16.0); Mean Corpuscular HGB CONC 33.9 g/dL (32.0-36.0); Mean Corpuscular Hemoglobin 29.9 pg (27.0-31.0); Mean Corpuscular Volume 88.3 fL (78.0-98.0); Mean Platelet Volume 5.8 fL (7.4-10.4); Platelet Count 279 thou/uL (130-400); RBC Distribution Width 12.7 % (11.5-14.5); Red Blood Cell (RBC) Count 3.81 mill/uL (4.20-5.40); White Blood Cell (WBC) Count 15.7 thou/uL (4.8-10.8)
[2020-03-21 05:17] LABS: Anion Gap 16 mmol/L (10-20); BUN (Urea Nitrogen) 17 mg/dL (9.8-20.1); Calc. Creatinine Clearance 121 mL/min (70-130); Calcium 8.8 mg/dL (7.8-10.44); Carbon Dioxide 18 mmol/L (22-29); Cardiac Risk 5.1 (Less than 4.5); Chloride 107 mmol/L (98-107); Cholesterol 321 mg/dl (< 200 Desired); Estimated GFR-MDRD 66; Glucose 159 mg/dL (70-105); HDL Cholesterol 63 mg/dL (>60 Neg Risk); LDL Cholesterol, Calculated 208 mg/dL; Potassium 4.4 mmol/L (3.5-5.1); Sodium 137 mmol/L (136-145); Triglycerides 250 mg/dL (Less than 150)
[2020-03-21] MEDS ORDERED: Calcium Carbonate 500 MG ChewTAB PO PRN (06:50)
[2020-03-21] MEDS ORDERED: Acetaminophen 500 MG TAB PO PRN (08:11)
[2020-03-21] MEDS ORDERED: Furosemide 20 MG/2 ML VIAL SLOW IVP SCH (08:15)
[2020-03-21] MEDS ORDERED: Ketorolac Tromethamine 30 MG/ML VIAL IVP SCH (08:15)
[2020-03-21] MEDS ORDERED: Aspirin 325 MG TAB PO SCH (09:00)
[2020-03-21] MEDS ORDERED: Nicotine 14 MG PATCH TD PRN (09:00)
[2020-03-21] MEDS ORDERED: Hydrochlorothiazide 25 MG TAB PO SCH (09:00)
[2020-03-21] MEDS ORDERED: Pantoprazole 40 MG VIAL IVP SCH (09:00)
[2020-03-21] MEDS ORDERED: Aspirin 81 mg Enteric Coated Tablet PO SCH (09:00)
[2020-03-21] MEDS: Estradiol 1 MG TAB PO SCH (09:05)
[2020-03-21] MEDS: Metoprolol Tartrate 100 MG TAB PO SCH ×2 (09:05→21:53)
--- NOTE | 2020-03-21 18:56 | PDOC.HOSPP ---
- Subjective Encounter Date: 03/21/20 Encounter Time: 14:30 Subjective: Patient seen and examined for CP. Still has persistent CP - 05/01. CP improving with NTG patch/Morphine PRN. No other complaints. No overnight events - Objective Vital Signs & Weight: Vital Signs (12 hours) Temp Pulse Resp BP BP Pulse Ox 03/21/20 16:00 97.8 F 77 18 126/60 99 03/21/20 14:21 80 139/68 03/21/20 11:52 98.1 F 77 18 148/82 H 100 03/21/20 07:41 97.6 F 73 16 177/92 H 99 Weight Weight 225 lb 8 oz I&O: 03/20/20 03/21/20 03/22/20 06:59 06:59 06:59 Intake Total 600 830 Output Total 500 3700 Balance 100 -2870 Result Diagrams: 03/23/20 04:02 03/22/20 04:16 Additional Labs: Laboratory Tests 03/20/20 03/20/20 03/21/20 16:54 17:03 04:52 B-Natriuretic Peptide 238.2 H Triglycerides 250 H Cholesterol 321 H LDL Cholesterol, Calc 208 TSH 3rd Generation 1.8335 Radiology Reviewed by me: Yes (CXR - PV congestion) EKG Reviewed by me: Yes (Tele SR) Hospitalist ROS - Review of Systems Respiratory: denies: cough, dry, shortness of breath, hemoptysis, SOB with excertion, pleuritic pain, sputum, wheezing, other Cardiovascular: denies: chest pain, palpitations, orthopnea, paroxysmal noc. dyspnea, edema, light headedness, other - Medication Medications: Active Medications Generic Name Dose Route Start Last Admin Trade Name Freq PRN Reason Stop Dose Admin Estradiol 2 mg 03/21/20 09:00 03/21/20 09:05 Estrace PO 2 mg DAILY JIL Administration Metoprolol Tartrate 100 mg 03/21/20 09:00 03/21/20 09:05 Lopressor PO 100 mg BID JIL Administration Morphine Sulfate 2 mg 03/20/20 23:04 03/21/20 18:39 Morphine SLOW IVP 2 mg Q4H PRN Administration Pain Nitroglycerin 0.5 inch 03/20/20 22:00 03/21/20 14:28 Nitro-Bid 2% Ointment TOP 0.5 inch Q8HR JIL Administration Sodium Chloride 10 ml 03/21/20 09:00 03/21/20 09:07 Flush - Normal Saline IVF 10 ml Q12HR JIL Administration - Exam General Appearance: NAD Neck: supple, no JVD Heart: RRR, no gallops, no rubs, normal peripheral pulses Respiratory: no wheezes, no rales, no ronchi, no tachypnea Gastrointestinal: soft, non-tender, non-distended, normal bowel sounds Extremities: no cyanosis, no clubbing Extremities - other findings: Trace Edema Psychiatric: normal affect, A&O x 3 Hosp A/P - Plan DVT proph w/SCDs Persistent CP - ?Unstable angina - Aortic dissection ruled out. chronic diastolic HF Obesity BMI 37.5 Dyslipidemia HTN urgency ?MARSHA Anxiety GERD PLAN: Cont Metoprolol Refusing ASA and anticoagulants due to PUD Add Statins Cont NTG patch AM labs Troponins negative Repeat EKG - no significant ST-T wave change Consult Cardiology in AM due to persistent CP.
[2020-03-21] MEDS ORDERED: Prevnar 13-Val Conj/PF 0.5 ML SYRINGE IM ONE (21:00)
[2020-03-21] MEDS: Atorvastatin Calcium 40 MG TAB PO SCH (21:53)
[2020-03-21] MEDS: Diazepam 5 MG TAB PO SCH (21:53)
[2020-03-22] MEDS: Promethazine 25 MG TAB PO PRN ×2 (00:13→05:58)
[2020-03-22] MEDS: Nitroglycerin 2% Ointment 1 INCH/1 GM Packet TOP SCH ×3 (00:31→21:37)
[2020-03-22] MEDS: Morphine 2 MG/ML SYRINGE SLOW IVP PRN ×5 (03:00→21:32)
[2020-03-22 04:45] LABS: Anion Gap 13 mmol/L (10-20); BUN (Urea Nitrogen) 22 mg/dL (9.8-20.1); Calc. Creatinine Clearance 112 mL/min (70-130); Calcium 8.6 mg/dL (7.8-10.44); Carbon Dioxide 23 mmol/L (22-29); Chloride 106 mmol/L (98-107); Estimated GFR-MDRD 62; Glucose 110 mg/dL (70-105); Potassium 4.4 mmol/L (3.5-5.1); Sodium 138 mmol/L (136-145)
[2020-03-22] MEDS ORDERED: HYDROmorphone 0.5 MG/0.5 ML SYRINGE SLOW IVP PRN (08:29)
[2020-03-22] MEDS: Estradiol 1 MG TAB PO SCH (08:57)
[2020-03-22] MEDS: Furosemide 20 MG/2 ML VIAL SLOW IVP SCH (08:58)
[2020-03-22] MEDS: Aspirin 81 mg Enteric Coated Tablet PO SCH (08:58)
[2020-03-22] MEDS: Metoprolol Tartrate 100 MG TAB PO SCH ×2 (09:02→21:33)
--- NOTE | 2020-03-22 12:45 | PDOC.HOSPP ---
- Subjective Encounter Date: 03/22/20 Subjective: patient seen on f/u states continued with severe chest pain 06/01 requiring continued pain management. pains is described as crushing band on the chest that radiates to back neck and r arm numbness. patient denies sob palpitations or diaphoresis - Objective Vital Signs & Weight: Vital Signs (12 hours) Temp Pulse Resp BP Pulse Ox 03/22/20 11:07 98.2 F 66 20 122/58 L 98 03/22/20 07:14 97.7 F 68 16 135/69 99 03/22/20 03:57 97 03/22/20 03:00 97.6 F 67 20 120/63 97 Weight Weight 222 lb 11.2 oz I&O: 03/21/20 03/22/20 03/23/20 06:59 06:59 06:59 Intake Total 600 1430 Output Total 500 4250 Balance 100 -2820 Result Diagrams: 03/21/20 04:52 03/22/20 04:16 Hospitalist ROS - Review of Systems All other systems reviewed; all pertinent +/- noted in HPI/Subj - Medication Medications: Active Medications Generic Name Dose Route Start Last Admin Trade Name Freq PRN Reason Stop Dose Admin Aspirin 81 mg 03/22/20 09:00 03/22/20 08:58 Ecotrin PO Not Given DAILY JIL Atorvastatin Calcium 40 mg 03/21/20 21:00 03/21/20 21:53 Lipitor PO 40 mg HS JIL Administration Diazepam 10 mg 03/21/20 21:00 03/21/20 21:53 Valium PO 10 mg HS JIL Administration Estradiol 2 mg 03/21/20 09:00 03/22/20 08:57 Estrace PO 2 mg DAILY JIL Administration Furosemide 20 mg 03/22/20 09:00 03/22/20 08:58 Lasix SLOW IVP 20 mg DAILY JIL Administration Hydromorphone HCl 0.5 mg 03/22/20 08:29 03/22/20 09:16 Dilaudid SLOW IVP 0.5 mg Q3H PRN Administration Pain Metoprolol Tartrate 100 mg 03/21/20 09:00 03/22/20 09:02 Lopressor PO Not Given BID JIL Morphine Sulfate 2 mg 03/20/20 23:04 03/22/20 04:41 Morphine SLOW IVP 2 mg Q4H PRN Administration Pain Nitroglycerin 0.5 inch 03/20/20 22:00 03/22/20 04:41 Nitro-Bid 2% Ointment TOP 0.5 inch Q8HR JIL Administration Pantoprazole Sodium 40 mg 03/22/20 09:00 03/22/20 08:57 Protonix PO 40 mg DAILY JIL Administration Promethazine HCl 12.5 mg 03/22/20 00:09 03/22/20 05:58 Phenergan PO 12.5 mg Q6H PRN Administration Nausea/Vomiting Sodium Chloride 10 ml 03/21/20 09:00 03/22/20 08:57 Flush - Normal Saline IVF 10 ml Q12HR JIL Administration - Exam General Appearance: NAD, awake alert Eye: PERRL, anicteric sclera ENT: normocephalic atraumatic, no oropharyngeal lesions Neck: supple, symmetric, no JVD, no thyromegaly Heart: RRR, no murmur, no gallops Respiratory: CTAB, no wheezes, no rales Gastrointestinal: soft, non-tender, non-distended Extremities: no cyanosis, no clubbing Skin: normal turgor, no lesions Neurological: cranial nerve grossly intact, normal sensation to touch Musculoskeletal: normal tone, normal strength Psychiatric: normal affect, normal behavior, A&O x 3 Hosp A/P - Plan chest pain acute diastolic hf dyslipidemia htn tomasz anxiety gerd plan started on beta blockers pt refusing anticoagulation and asa cont ngt patch pain management troponins and ekg negative, but pt continues with pain requiring iv therapy, and with multiple risk factors, cardiology was consulted, will undergo evaluation today, will follow recommendations increase in leukocytosis noted on todays, cxr showed vascular congestion vs infiltrates, pt denies any cough chills or fever, does refer that 2 weeks ago had a fever for a few days and got tested for covid 19 and was negative, will repeat cbc and get a procalcitonin, suspicion for infection low at this point but will try to r/o
--- NOTE | 2020-03-22 18:18 | CON ---
DATE OF CONSULTATION: 03/22/2020 INDICATION FOR CONSULTATION: A 49-year-old female with chest pain. HISTORY OF PRESENT ILLNESS: This very unfortunate 49-year-old female who has had a history of hypertension, tobacco abuse, dyslipidemia, morbid obesity and gastroesophageal reflux disease, presented to the hospital complaining of chest pain. She has undergone a stress test last year in November 2018, which was normal. She has also had a normal echocardiogram yesterday with no evidence of wall motion abnormalities and normal valvular structures. She does unfortunately have a history of significant dyslipidemia, it appears that her cholesterol is significantly elevated. I do not have any old cholesterol levels and she says her last one may have been done while she was living in [place]. She may have had one done previous to her undergoing a partial colectomy due to colon cancer which was recently diagnosed as her LDL cholesterol in November of this last year was 93 and this obviously will need to be re-evaluated. She did not think she was taking medications at that time, so this may be a false-positive test. She may have had a large intake of cholesterol prior to undergoing the test and this will need to be re-evaluated obviously before committing her to long-term statin medications. She said she explained to me that she has been having more trouble lying flat. She cannot breathe. She says she sits in the middle of night, so she can breathe and she started noticing chest discomfort about a week ago. She describes the pain to me as being on the right-sided pain which radiates to the right shoulder and she said her right hand feels like tingling like a bunch of ants. She also says her face becomes numb. Thus far, her EKG did not show any abnormalities and cardiac enzymes are negative. She did undergo a stress test previously as noted above, and I would suggest she undergo again a repeat stress test if there are any abnormalities and she will need to undergo a cardiac catheterization. She does not have diabetes, but does have a history of tobacco abuse as well as hypertension. She denies any significant palpitations, but today she did have a one 6-beat run of nonsustained ventricular tachycardia. However, this would not be felt to be significant unless she has had further episodes. If she has a normal stress test and a normal echocardiogram, the risk of a sudden cardiac event with the nonsustained ventricular tachycardia will be less than 1%. She has also been given pain medications, morphine, and I believe Dilaudid and still says she has some chest discomfort also with nitroglycerin. She does state she has some slight improvement, but she has had no significant changes on the EKG. She has undergone a CT of the chest, which showed no evidence of pulmonary emboli. Also, she had an aortic dissection protocol performed, which was also unremarkable. PAST MEDICAL HISTORY: Significant for hypertension, anxiety, night tears, morbid obesity, history of colon cancer for which she underwent a colon resection. She has peptic ulcer disease, gastroesophageal reflux disease, nephrolithiasis in the past. She has had and hysterectomy. SOCIAL HISTORY: She lives with her family. She has smoked a pack a day for more than 20 years. She said she apparently stopped smoking within the last 6 months. She has no significant drug use. No significant alcohol use. 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 ALLERGIES: SHE HAS MULTIPLE MEDICATION ALLERGIES WHICH INCLUDE PENICILLIN, SULFA, IODINE, ROCEPHIN, DICYCLOMINE, REGLAN, ONDANSETRON, BEE VENOM WELL SHELLFISH. MEDICATIONS: Prior to admission she was taking; 1. Estradiol. 2. Metoprolol. 3. Hydrochlorothiazide. 4. Diazepam. 5. Protonix. FAMILY HISTORY: Positive in her mother and grandmother for colon cancer. REVIEW OF SYSTEMS: Unremarkable except what is noted in the history of present illness. PHYSICAL EXAMINATION: GENERAL: Reveals a middle-aged female, who is in no acute distress at this time. She is alert. She is oriented. VITAL SIGNS: Stable. Blood pressure 135/69. She is afebrile. Respiratory rate is 16, heart rate 68 and regular, O2 saturation 99% on 2 L. HEENT: Shows head to be normocephalic and atraumatic. Carotid pulses are present. There were no bruits. CHEST: Clear to auscultation. Did not have any rales, rhonchi, or wheezing. CARDIOVASCULAR: Reveals regular rate and rhythm. Normal S1, S2. There is no significant S3, S4. There is no significant murmurs, heaves, thrills, bruits, or rubs noted. ABDOMEN: Shows obesity with positive bowel sounds. She has a surgical incision with one area just above the umbilicus, which appears to be still indurated and she has had from this area she still get drainage at times. EXTREMITIES: No clubbing, cyanosis, or edema. Pedal pulses are present. NEUROLOGIC: She appears to be fully intact. LABORATORY DATA: Shows a sodium 138, potassium 4.4, BUN was 22, and creatinine 0.95. Blood sugar was 110. Cardiac enzymes are negative. Her LDL was 208, but previously was only 93, this is less than a year ago. Triglyceride levels also elevated at 250, HDL was 63. Her WBC today is 15.7, but earlier was only 6.7, uncertain as to why the blood count has elevated this much in 24 hours. Her hemoglobin was 11.4, platelet count was 279,000. Chest x-ray is unremarkable. She has also had an evaluation for CT dissection protocol. No disease was noted and she also had a CT scan to rule out evidence of PE and again none were noted. IMPRESSION: 1. Chest pain, somewhat atypical in a 49-year-old female with some risk factors for coronary artery disease, who continues to smoke until about 6 months ago. She did have a negative stress test previously back in November 2018. I would suggest we repeat that CT scan and due to the fact that her EKG is unremarkable, cardiac enzymes are negative. An echocardiogram also was normal. If should she be found to have any abnormalities on stress test, I would proceed with cardiac catheterization. 2. History of hypertension. This is under reasonable control at this time. We will continue medications as you have them. At this time her present medications does include furosemide as well as metoprolol 100 mg b.i.d. and p.r.n. nitroglycerin. 3. Newly found elevated LDL level. Would certainly continue to monitor this and she may need to have this study repeated, but has already been placed on statin medications in the form of Lipitor 40 mg q.p.m. 4. Morbid obesity. She should obviously see someone about diet control. 5. Gastroesophageal reflux disease, uncertain whether or not this may be GI in nature rather than cardiac. Since there are no EKG changes and she had the pain was ongoing, she said for at least a week, she has been having chest pain. 6. History of orthopnea. Obviously, she does have obesity and may have sleep apnea. This may also need to be evaluated. We are more than happy to continue to follow the patient with you, but at this time, I would suggest we proceed with stress testing to rule out evidence of underlying ischemia. Job ID: [id number]
[2020-03-22] MEDS: Diazepam 5 MG TAB PO SCH (21:33)
[2020-03-22] MEDS: Atorvastatin Calcium 40 MG TAB PO SCH (21:33)
[2020-03-23] MEDS: Morphine 2 MG/ML SYRINGE SLOW IVP PRN ×4 (01:27→21:12)
[2020-03-23] MEDS: Promethazine 25 MG TAB PO PRN ×2 (01:34→11:49)
[2020-03-23] MEDS: Nitroglycerin 2% Ointment 1 INCH/1 GM Packet TOP SCH ×2 (04:03→13:27)
[2020-03-23 04:29] LABS: Band 1 % (5-11); Hemoglobin 10.5 g/dL (12.0-16.0); Hypochromia SLIGHT = 6-15 cells (100X) (0-5/hpf); Lymphocytes 21 % (21-51); MDiff Complete? YES; Mean Corpuscular HGB CONC 32.7 g/dL (32.0-36.0); Mean Corpuscular Hemoglobin 29.5 pg (27.0-31.0); Mean Corpuscular Volume 90.1 fL (78.0-98.0); Mean Platelet Volume 6.2 fL (7.4-10.4); Monocytes 6 % (0-10); Neutrophil 72 % (42-75); Platelet Count 203 thou/uL (130-400); Platelet Morphology Comment Appears Adequate; RBC Distribution Width 12.8 % (11.5-14.5); Red Blood Cell (RBC) Count 3.57 mill/uL (4.20-5.40); White Blood Cell (WBC) Count 8.5 thou/uL (4.8-10.8)
[2020-03-23] MEDS: Furosemide 20 MG/2 ML VIAL SLOW IVP SCH (09:18)
[2020-03-23] MEDS: Estradiol 1 MG TAB PO SCH (09:18)
[2020-03-23] MEDS: Aspirin 81 mg Enteric Coated Tablet PO SCH (09:21)
[2020-03-23] MEDS ORDERED: Regadenoson 0.4 MG/5 ML SYRINGE ONE (09:31)
[2020-03-23] MEDS ORDERED: traMADol HCl 50 MG TAB PO PRN (09:43)
[2020-03-23] MEDS ORDERED: Morphine 2 MG/ML SYRINGE SLOW IVP SCH (13:00)
--- NOTE | 2020-03-23 15:53 | NM ---
NUCLEAR MEDICINE CARDIAC MYOCARDIAL PERFUSION SPECT EJECTION FRACTION STUDY WALL MOTION CINE: DATE: 03/23/2020 HISTORY: 49-year-old hypertensive female smoker presents with chest pain TECHNIQUE: Number of days: 2 Rest study: Technetium 99m-sestamibi (Cardiolite) dose: 29.7 mCi Pharmacologic stress: Lexiscan dose: 0.4 mg Stress study: Technetium 99m-sestamibi (Cardiolite) dose: 27.0 mCi FINDINGS: CARDIAC (MYOCARDIAL PERFUSION) SPECT There are no reversible myocardial perfusion defects. Questionable subtle fixed anteroseptal defect. EJECTION FRACTION STUDY Left ventricular EF = 67 % WALL MOTION CINE Normal IMPRESSION: No evidence of reversible ischemia.
[2020-03-23] MEDS: Metoprolol Tartrate 100 MG TAB PO SCH ×2 (16:39→21:15)
[2020-03-23] MEDS ORDERED: GoLYTELY 4,000 ml Bottle PO SCH (18:00)
--- NOTE | 2020-03-23 18:59 | PDOC.HOSPP ---
- Subjective Encounter Date: 03/23/20 Encounter Time: 16:30 Subjective: Patient seen and examined for CP. Still has significant CP. No syncope/SOB/N/V. No new complaints. No overnight events - Objective Vital Signs & Weight: Vital Signs (12 hours) Temp Pulse Resp BP BP Pulse Ox 03/23/20 16:00 99.9 F H 82 14 133/74 96 03/23/20 11:45 97.8 F 64 16 148/72 H 99 03/23/20 08:00 97.4 F L 54 L 14 136/77 94 L Weight Weight 223 lb I&O: 03/22/20 03/23/20 03/24/20 06:59 06:59 06:59 Intake Total 1430 2606 1598 Output Total 4250 3400 Balance -2820 -794 1598 Result Diagrams: 03/23/20 04:02 03/22/20 04:16 EKG Reviewed by me: Yes (Tele SR) Hospitalist ROS - Review of Systems Respiratory: denies: cough, dry, shortness of breath, hemoptysis, SOB with excertion, pleuritic pain, sputum, wheezing, other Cardiovascular: denies: chest pain, palpitations, orthopnea, paroxysmal noc. dyspnea, edema, light headedness, other - Medication Medications: Active Medications Generic Name Dose Route Start Last Admin Trade Name Freq PRN Reason Stop Dose Admin Aspirin 81 mg 03/22/20 09:00 03/23/20 09:21 Ecotrin PO Not Given DAILY JIL Atorvastatin Calcium 40 mg 03/21/20 21:00 03/22/20 21:33 Lipitor PO 40 mg HS JIL Administration Diazepam 10 mg 03/21/20 21:00 03/22/20 21:33 Valium PO 10 mg HS JIL Administration Estradiol 2 mg 03/21/20 09:00 03/23/20 09:18 Estrace PO 2 mg DAILY JIL Administration Furosemide 20 mg 03/22/20 09:00 03/23/20 09:18 Lasix SLOW IVP 20 mg DAILY JIL Administration Metoprolol Tartrate 100 mg 03/21/20 09:00 03/23/20 16:39 Lopressor PO 100 mg BID JIL Administration Morphine Sulfate 2 mg 03/23/20 16:31 03/23/20 16:58 Morphine SLOW IVP 2 mg Q4H PRN Administration Severe Pain (7-10) Polyethylene Glycol/Electrolytes 4,000 ml 03/23/20 18:00 03/23/20 18:27 Golytely PO 03/23/20 23:59 4,000 ml NOW JIL Administration Promethazine HCl 12.5 mg 03/22/20 00:09 03/23/20 11:49 Phenergan PO 12.5 mg Q6H PRN Administration Nausea/Vomiting Senna/Docusate Sodium 2 tab 03/20/20 23:00 03/22/20 13:23 Senokot S PO 2 tab BID PRN Administration Constipation Sodium Chloride 10 ml 03/21/20 09:00 03/23/20 09:26 Flush - Normal Saline IVF 10 ml Q12HR JIL Administration Tramadol HCl 50 mg 03/23/20 09:43 03/23/20 10:24 Ultram PO 50 mg Q4H PRN Administration Moderate Pain (4-6) - Exam General Appearance: NAD Heart: RRR, no gallops Respiratory: no wheezes, no rales Gastrointestinal: non-tender, non-distended Extremities: no cyanosis, no clubbing Hosp A/P - Plan DVT proph w/SCDs Persistent CP - ?Unstable angina - Aortic dissection ruled out. chronic diastolic HF Obesity BMI 37.5 Dyslipidemia HTN urgency ?MARSHA Anxiety GERD PLAN: DC NTG patch Cont Metoprolol Refusing ASA and anticoagulants due to PUD Consult GI Change PPI to IV
[2020-03-23] MEDS: Diazepam 5 MG TAB PO SCH (21:11)
[2020-03-23] MEDS: Atorvastatin Calcium 40 MG TAB PO SCH (21:11)
[2020-03-23] MEDS: Pantoprazole 40 MG VIAL IVP SCH (21:13)
--- NOTE | 2020-03-23 22:44 | CON ---
DATE OF CONSULTATION: 03/23/2020 REASON FOR CONSULT: Noncardiac chest pain. HISTORY OF PRESENT ILLNESS: Ms. Heath is a 49-year-old female, I am asked to evaluate for noncardiac chest pain. She was admitted to the hospital on 03/20 with complaints of chest pain and negative cardiac enzymes, normal EKG and normal stress test. She had a negative CT scan dissection protocol, normal echocardiogram and has been seen by Cardiology who felt her chest pain is noncardiac. She has been seen, evaluated several times prior to this dating back 2017 for abdominal and chest pain with no etiology found on those evaluations. Last year, I saw her for rectal bleeding, at which time, we had a colonoscopy and she had an early rectal cancer in the sigmoid colon. It was stage I with no nodes. Colon wall invasion was basically in the flat polyp and the resection showed no residual disease nor adenopathy or metastatic disease. Her CEA at that point was 2.4. She did not follow up since that time. She does note occasional rectal bleeding. Of note, after the resection, she was in the hospital 3 or 4 times with severe rectal pain with no etiology ever found. This pain in her chest she states runs from her xiphoid process all the way up to her suprasternal notch. She feels like she is being torn apart. Occasionally she will get numbness in her right face and right arm. She denies any relationship to eating or to movement, to active breathing or to activity. She denies any dyspnea or shortness of breath, orthopnea, or nausea. She is on PPI regularly, Protonix daily, but states this controls her reflux 100%. She has no dysphagia or odynophagia. PAST MEDICAL HISTORY: 1. Early stage colon cancer, not requiring radiation and chemotherapy, resected with low risk of recurrence. She has not had followup exam since that time. 2. Hypertension. 3. Obesity. 4. Anxiety and history of night terrors. 5. Atypical chest pain. 6. Reflux. 7. History of kidney stones. PAST SURGICAL HISTORY: Colon resection in March of 2019 with no residual disease, hysterectomy, and . SOCIAL HISTORY: Patient lives with family at home. Smokes one pack per day. Stopped 6 months ago. Does not use drugs. Does not drink. ALLERGIES: PENICILLIN, SHELLFISH, SULFA, IODINE, ROCEPHIN, DICYCLOMINE, REGLAN, AND ONDANSETRON. FAMILY HISTORY: Mother had colon cancer in her 30s or 40s. MEDICATIONS: At home, metoprolol, hydrochlorothiazide, Protonix, and diazepam. Present medications; Tylenol, aspirin, Lipitor, Tums, Valium, Estrace, Lasix, prazosin, Lopressor, p.r.n. morphine, nitroglycerin p.r.n., Protonix, Phenergan, Senokot, tramadol. PHYSICAL EXAMINATION: GENERAL: The patient is resting comfortably in bed. The patient is walking around the room comfortable. She is in no distress. VITAL SIGNS: Temperature is 97 to 99, pulse 82, blood pressure is 133/74. HEENT: Oropharynx, no lesions. NECK: Supple. LUNGS: Clear. HEART: Regular rate and rhythm without murmurs. ABDOMEN: Soft and nontender. It is obese. There is no palpable hepatosplenomegaly. There is no right upper quadrant tenderness. Has mild chest wall tenderness between the breast at the xiphoid region, but no point tenderness. EXTREMITIES: No clubbing, cyanosis, or edema. LABORATORY STUDIES: Sodium 138, potassium 4.4, BUN and creatinine are 22 and 0.9. Liver function tests were normal on admission. Troponins were negative. BNP 238. Protein 6.8, albumin 3.7, lipase 28. ASSESSMENT: 1. Atypical chest pain. This is likely related to anxiety or panic attack. She has had episodes of hospitalization for chest pain in the past. Multiple evaluations being negative. This admission, she underwent a stress test and echocardiogram. Gunite Mixer does not feel this is cardiac in nature and I would agree. There are no overt signs of reflux. There are no signs of biliary disease on ultrasound this year of the gallbladder. 2. History of colon cancer, early stage, last year detected when she came in for rectal bleeding. Also her mother had colon cancer in her 20s to 30s she reported. Testing of the pathologic specimen was negative for mismatch repair genes. She did not return for other genetic testing, but this would seem to rule out Penaloza disease and there was not an overt polyposis syndrome present on last exam. RECOMMENDATIONS: 1. EGD and colonoscopy tomorrow. 2. Would address pain more in the fashion of anxiety or panic disorder. Dr. Chapman actually saw this patient in consult last admission and there is a anthropology instructor record in our system. He will be on-call tomorrow and will be able to perform her endoscopies. They have been scheduled for tomorrow morning. Risks, benefits, possible complications, indications of procedure were discussed with the patient and she wished to proceed. Job ID: [id number]
[2020-03-24] MEDS: Morphine 2 MG/ML SYRINGE SLOW IVP PRN ×2 (02:07→05:49)
[2020-03-24] MEDS: Promethazine 25 MG TAB PO PRN (02:08)
[2020-03-24] MEDS: Metoprolol Tartrate 100 MG TAB PO SCH (05:50)
[2020-03-24] MEDS ORDERED: Lorazepam 2 MG/ML VIAL SLOW IVP PRN (07:42)
[2020-03-24] MEDS ORDERED: Morphine 2 MG/ML SYRINGE SLOW IVP PRN (07:43)
[2020-03-24] MEDS ORDERED: Morphine 2 MG/ML SYRINGE ONE ×2 (08:48→11:10)
[2020-03-24] MEDS ORDERED: Morphine 4 MG/ML VIAL ONE (10:54)
[2020-03-24] MEDS ORDERED: Promethazine HCl 25 MG/ML VIAL ONE (11:01)
[2020-03-24] MEDS: Furosemide 20 MG/2 ML VIAL SLOW IVP SCH (11:38)
[2020-03-24] MEDS: Aspirin 81 mg Enteric Coated Tablet PO SCH (11:38)
[2020-03-24] MEDS: Estradiol 1 MG TAB PO SCH (11:38)
[2020-03-24] MEDS: Pantoprazole 40 MG VIAL IVP SCH (11:48)
[2020-03-24] MEDS ORDERED: Promethazine HCl 25 MG/ML VIAL IM/IV PRN (11:51)
[2020-03-24] MEDS ORDERED: Ondansetron HCl/PF 4 MG/2 ML Vial IVP PRN (11:51)
--- NOTE | 2020-03-24 12:33 | OP ---
DATE OF PROCEDURE: 03/24/2020 PROCEDURE PERFORMED: Esophagogastroduodenoscopy with biopsy and esophageal dilation over guidewire and colonoscopy with snare polypectomy. PREOPERATIVE DIAGNOSIS: Noncardiac chest pain and colon cancer surveillance. She had colonoscopy with cancerous polyp requiring distal sigmoid resection and is due for 1 year surveillance. DESCRIPTION OF PROCEDURE: Informed consent was obtained from the patient. She was sedated with total intravenous anesthesia. The bite block was placed and the endoscope was advanced easily to the second portion of the duodenum and retroflexion was performed in the stomach. The esophagus was normal proximally. There was an irregular Z-line with a 1 cm thin tongue of possible Cisneros's. This area was biopsied to evaluate for Cisneros's. There was a 2 cm hiatal hernia present. There was slight narrowing in the distal esophagus and an 18 mm Savary dilator was passed over a guidewire. There was significant resistance at the level of the bite block; however, on second-look endoscopy, there was no mucosal change after dilation. The stomach had mild erosive gastritis in the antrum and distal body. Biopsies were taken from the antrum and distal body to rule out H. pylori. Retroflexed views in the stomach were unremarkable, except for the hiatal hernia noted. The pylorus and first and second portions of the duodenum were normal. The patient was turned around. Rectal exam was performed and was normal. The preparation quality was adequate; however, there were areas of solid vegetable matter. There was diverticulosis throughout the transverse, descending, and sigmoid colon. I removed a 6 mm polyp from the descending colon by cold snare polypectomy. A healthy-appearing anastomosis was present at the rectosigmoid, which was widely patent. Retroflexed views in the rectum were unremarkable. IMPRESSION: 1. Irregular Z-line with a possible 1 cm thin tongue of Cisneros's esophagus, biopsied. 2. 2 cm hiatal hernia. 3. Slight distal esophageal narrowing or stenosis, which was dilated to 18 mm with a Savary dilator passed over a guidewire. There was no mucosal change on second-look endoscopy in this area. 4. Erosive gastritis, biopsied to rule out Helicobacter pylori. 5. Diverticulosis of the transverse, descending, and sigmoid colon. 6. 6 mm polyp removed from the descending colon. 7. Healthy patent anastomosis at the rectosigmoid junction. 8. Otherwise normal esophagogastroduodenoscopy and colonoscopy with some solid vegetable material in scattered folds of the colon, but overall she had adequate prep. RECOMMENDATIONS: 1. Proton pump inhibitor daily by mouth. 2. Repeat colonoscopy in 3 years. 3. I will sign off. Please call if GI can be of assistance. Job ID: [id number]
[2020-03-24 15:25] VITALS: BP 120/71; TEMP 99.5
--- NOTE | 2020-03-24 16:15 | DIS ---
DATE OF ADMISSION: 03/20/2020 DATE OF DISCHARGE: 03/24/2020 DISCHARGE DISPOSITION: Home. FOLLOWUP: 1. Follow up with [facility] in 1 week. 2. Follow up with Gastroenterology and Cardiology Service as needed. 3. Follow up with Dr. Youssef as needed. The patient was seen on the day of discharge. Denies any new complaints. Vital signs showed temperature 98.1 with pulse rate of 54, respirations of 14, blood pressure of 156/73 with O2 saturation of 97% on room air. BRIEF HOSPITAL COURSE: The patient is a 49-year-old female with hypertension, obesity with a BMI of 36 and colon cancer, status post resection, presented to the emergency room with chest discomfort along with shortness of breath. Please refer to the history and physical for further details. The patient was admitted to the hospital with a diagnosis of chest discomfort, rule out acute coronary syndrome. Serial troponins remained negative. Echocardiogram showed ejection fraction of 60% to 65% with borderline left ventricular hypertrophy. CT aortic dissection protocol was negative for aneurysm or dissection. Due to persistent chest discomfort, she was evaluated by Cardiology. She underwent Cardiolite stress test that was negative for reversible ischemia. However, her pain persisted. Per Cardiology recommendation, Gastroenterology Service was consulted. She underwent EGD and colonoscopy. The EGD showed irregular Z-line with possible 1 cm segment of Cisneros's esophagus, which was biopsied. She also had a 2-cm hiatal hernia. She had slight distal esophageal narrowing, which was dilated to 18 mm. There was some erosive gastritis as well. Colonoscopy showed diverticulosis with 6-mm polyp that was removed from the descending colon. The anastomosis at the rectosigmoid junction was healthy. The Gastroenterology Service recommended proton pump inhibitor daily for 1 month. She needs a repeat colonoscopy in 3 years. FINAL DIAGNOSES: 1. Persistent chest discomfort of unclear etiology. 2. Chronic diastolic heart failure. 3. Obesity with a BMI of 37.5. 4. Cisneros's esophagus with 2-cm hiatal hernia. 5. Distal esophageal narrowing, status post dilatation this admission. 6. Erosive gastritis. 7. Colonic polyp 6 mm in the descending colon, status post removal. 8. History of colon cancer. Repeat colonoscopy in 3 years is recommended. 9. Obesity with a BMI 37.5. 10. Dyslipidemia. 11. Hypertension with hypertensive urgency. 12. Chronic diastolic heart failure. 13. Suspected obstructive sleep apnea. Sleep study as outpatient is recommended. 14. Anxiety. 15. Gastroesophageal reflux disease. The patient understands the above plan of care. Job ID: [id number]
--- NOTE | 2020-03-27 10:24 | PQF ---
CHEPE TRINIDAD TONI MD [id number] CLINICAL DOCUMENTATION CLARIFICATION FORM: POST DISCHARGE Addendum to original discharge summary date: ____ Late entry note date: __ DATE: 03/27/2020 ATTN:DIANA GLEZ Please exercise your independent, professional judgment in responding to the clarification form. Clinical indicators are provided on the bottom of this form for your review Please check appropriate box(s): Conflicting documentation was noted in the Medical Record, please clarify if patient is being treated/monitored for: [ ] Acute diastolic heart failure [ x ]Chronic diastolic heart failure [ ] Other diagnosis(Please specify if any) [ ] Unable to determine In addition, please specify: Present on Admission (POA): [ x ] Yes [ ] No [ ] Unable to determine For continuity of documentation, please document condition throughout progress notes and discharge summary. Thank You. CLINICAL INDICATORS - SIGNS / SYMPTOMS/ LABS --Acute diastolic heart failure- PN 03/22 by José Miguel Echeverria MD --ECHO showed EF of 60-65% with borderline left ventriular hypertrophy - DS by Diana Glez MD --Chronic diastolic heart failure- DS 03/24 by Diana Glez MD RISK FACTOR --Hypertesion- H&P 03/22 by Po Guzman MD TREATMENT --IV Lasix 20 mg-DEC 25 , Amaris Kumar MD (This form is maintained as a part of the permanent medical record) 2014 [employer] All Rights Reserved [email or web address]
--- NOTE | 2020-03-28 15:04 | EKG ---
Test Reason : Blood Pressure : / mmHG Vent. Rate : 076 BPM Atrial Rate : 076 BPM P-R Int : 142 ms QRS Dur : 074 ms QT Int : 404 ms P-R-T Axes : 048 012 073 degrees QTc Int : 454 ms Normal sinus rhythm Possible Left atrial enlargement Borderline ECG No ST elevation/KS Confirmed by MILVIA CONCEPCION, JOSE ALFREDO ([id number]), marketing editor MANUEL WASHINGTON ([id number]) on 03/28/2020 3:03:42 PM Referred By: Confirmed By:JOSE ALFREDO STEEL MD
== END 2020-03-24 16:30 | disposition home or self-care (01) | DRG 313 ==
LOC: ERS 14:06 → 2NO 18:58 → OBSVTOIN 18:58
PROVIDERS: ADMIT Internal Medicine; ATTEND Internal Medicine
PROC: 0DB38ZX Excision of Lower Esophagus, Via Natural or Artificial Opening Endoscopic, Diagnostic (ICD-10-PCS; principal; 2020-03-24)
PROC: 0DB78ZX Excision of Stomach, Pylorus, Via Natural or Artificial Opening Endoscopic, Diagnostic (ICD-10-PCS; 2020-03-24)
PROC: 0DB68ZX Excision of Stomach, Via Natural or Artificial Opening Endoscopic, Diagnostic (ICD-10-PCS; 2020-03-24)
PROC: 0D738ZZ Dilation of Lower Esophagus, Via Natural or Artificial Opening Endoscopic (ICD-10-PCS; 2020-03-24)
PROC: BD41ZZZ Ultrasonography of Esophagus (ICD-10-PCS; 2020-03-24)
PROC: 0DBM8ZZ Excision of Descending Colon, Via Natural or Artificial Opening Endoscopic (ICD-10-PCS; 2020-03-24)
DX: R07.89 Other chest pain (principal); I16.1 Hypertensive emergency; I50.32 Chronic diastolic (congestive) heart failure; I47.2 Ventricular tachycardia; K22.70 Barrett's esophagus without dysplasia; K44.9 Diaphragmatic hernia without obstruction or gangrene; F41.9 Anxiety disorder, unspecified; F17.210 Nicotine dependence, cigarettes, uncomplicated; E66.01 Morbid (severe) obesity due to excess calories; K21.9 Gastro-esophageal reflux disease without esophagitis; I11.0 Hypertensive heart disease with heart failure; G47.33 Obstructive sleep apnea (adult) (pediatric); K29.60 Other gastritis without bleeding; K57.30 Diverticulosis of large intestine without perforation or abscess without bleeding; K63.5 Polyp of colon; F51.4 Sleep terrors [night terrors]; I16.0 Hypertensive urgency; Z85.038 Personal history of other malignant neoplasm of large intestine; Z85.41 Personal history of malignant neoplasm of cervix uteri; Z90.49 Acquired absence of other specified parts of digestive tract; Z90.710 Acquired absence of both cervix and uterus; Z98.890 Other specified postprocedural states; Z88.8 Allergy status to other drugs, medicaments and biological substances; Z88.0 Allergy status to penicillin; Z88.1 Allergy status to other antibiotic agents; Z88.2 Allergy status to sulfonamides; Z91.013 Allergy to seafood; Z68.36 Body mass index [BMI] 36.0-36.9, adult; Z79.899 Other long term (current) drug therapy
CPT/HCPCS: 36415; 36416; 71045; 71275; 72191; 74175; 78452; 80048; 80053; 80061; 82550; 83690; 83735; 83880; 84145; 84443; 84484; 85007; 85025; 85027; 88305; 88312; 93005; 93010; 93017; 93306; 94760; 96374; 96375; 96376; A9500; C9113; J1170; J1200; J1940; J2270; J2550; J2785; J2930; Q0163; Q0169; Q9967; S0028

== ENCOUNTER 2020-04-06 05:04 | Emergency (ER) | payer SELFPAY ==
[2020-04-06 06:17] LABS: #Eosinphils 0.2 thou/uL (0.0-0.7); #Lymphocytes 1.2 thou/uL (1.20-3.40); #Monocytes 0.7 thou/uL (0.11-0.59); #Neutrophils 3.5 thou/uL (1.40-6.50); %Basophils 0.5 % (0.0-1.0); %Eosinophils 3.2 % (0.0-10.0); %Monocytes 11.7 % (0.0-10.0); %Neutrophils 62.6 % (42.0-75.0); Hemoglobin 10.9 g/dL (12.0-16.0); Mean Corpuscular HGB CONC 33.4 g/dL (32.0-36.0); Mean Corpuscular Hemoglobin 29.2 pg (27.0-31.0); Mean Corpuscular Volume 87.3 fL (78.0-98.0); Mean Platelet Volume 5.7 fL (7.4-10.4); Platelet Count 305 thou/uL (130-400); RBC Distribution Width 12.7 % (11.5-14.5); Red Blood Cell (RBC) Count 3.73 mill/uL (4.20-5.40); White Blood Cell (WBC) Count 5.6 thou/uL (4.8-10.8)
[2020-04-06 06:33] LABS: ALT (SGPT) 9 U/L (8-55); AST (SGOT) 9 U/L (5-34); Albumin 3.8 g/dL (3.5-5.0); Alkaline Phosphatase 82 U/L (40-110); Anion Gap 12 mmol/L (10-20); BUN (Urea Nitrogen) 19 mg/dL (9.8-20.1); Bilirubin, Total 0.3 mg/dL (0.2-1.2); Calc. Creatinine Clearance 0 mL/min (70-130); Calcium 8.2 mg/dL (7.8-10.44); Carbon Dioxide 25 mmol/L (22-29); Chloride 104 mmol/L (98-107); Estimated GFR-MDRD 56; Globulin 2.5 g/dL (2.4-3.5); Glucose 110 mg/dL (70-105); Lipase 29 U/L (8-78); Protein, Total 6.3 g/dL (6.0-8.3); Sodium 138 mmol/L (136-145)
[2020-04-06] MEDS ORDERED: Acetaminophen 500 MG TAB ONE (06:44)
--- NOTE | 2020-04-06 08:42 | RAD ---
PORTABLE CHEST 1 VIEW: Date: 04/06/2020 Time: 0539 hours HISTORY: Right-sided abdominal pain, chest pain. COMPARISON: 03/20/2020. FINDINGS: The heart size is prominent, but stable. The lungs are well expanded without focal areas of consolida tion, pneumothoraces, maurice pulmonary edema, or pleural effusions. IMPRESSION: No acute process. POS: [facility]
[2020-04-06] MEDS ORDERED: NS 0.9% w/ 40 MEQ KCL 1,000 ML IV SCH (10:15)
--- NOTE | 2020-04-11 14:39 | EKG ---
Test Reason : Blood Pressure : / mmHG Vent. Rate : 117 BPM Atrial Rate : 117 BPM P-R Int : 134 ms QRS Dur : 072 ms QT Int : 358 ms P-R-T Axes : 045 016 017 degrees QTc Int : 499 ms Sinus tachycardia Possible Left atrial enlargement Nonspecific ST and T wave abnormality Abnormal ECG Confirmed by DEANA DOWNS ([id number]), multimedia editor MANUEL WASHINGTON ([id number]) on 04/11/2020 2:39:25 PM Referred By: Confirmed By:DEANA DOWNS
== END 2020-04-06 06:46 | disposition home or self-care (01) ==
LOC: ERS 05:04
DX: R07.9 Chest pain, unspecified (principal); G89.29 Other chronic pain; R10.9 Unspecified abdominal pain; R10.817 Generalized abdominal tenderness; F41.9 Anxiety disorder, unspecified; F17.210 Nicotine dependence, cigarettes, uncomplicated; I10 Essential (primary) hypertension; Z87.442 Personal history of urinary calculi; Z85.038 Personal history of other malignant neoplasm of large intestine; Z85.41 Personal history of malignant neoplasm of cervix uteri
CPT/HCPCS: 36415; 71045; 80053; 83690; 85025; 93005; J3480

== ENCOUNTER 2020-04-15 19:19 | Emergency (ER) | payer OTHER ==
[2020-04-15 20:33] LABS: #Eosinphils 0.1 thou/uL (0.0-0.7); #Lymphocytes 0.9 thou/uL (1.20-3.40); #Monocytes 0.7 thou/uL (0.11-0.59); #Neutrophils 7.8 thou/uL (1.40-6.50); %Eosinophils 0.6 % (0.0-10.0); %Lymphocytes 9.7 % (21.0-51.0); %Monocytes 7.5 % (0.0-10.0); %Neutrophils 82.2 % (42.0-75.0); Mean Corpuscular HGB CONC 31.7 g/dL (32.0-36.0); Mean Corpuscular Hemoglobin 27.9 pg (27.0-31.0); Mean Platelet Volume 6.4 fL (7.4-10.4); Platelet Count 153 thou/uL (130-400); RBC Distribution Width 12.8 % (11.5-14.5); Red Blood Cell (RBC) Count 4.63 mill/uL (4.20-5.40); White Blood Cell (WBC) Count 9.5 thou/uL (4.8-10.8)
[2020-04-15 20:48] LABS: ALT (SGPT) 11 U/L (8-55); AST (SGOT) 11 U/L (5-34); Alkaline Phosphatase 98 U/L (40-110); Anion Gap 18 mmol/L (10-20); BUN (Urea Nitrogen) 9 mg/dL (9.8-20.1); Bilirubin, Total 0.6 mg/dL (0.2-1.2); Calc. Creatinine Clearance 0 mL/min (70-130); Carbon Dioxide 19 mmol/L (22-29); Chloride 106 mmol/L (98-107); Estimated GFR-MDRD 69; Globulin 2.8 g/dL (2.4-3.5); Glucose 133 mg/dL (70-105); Lipase 13 U/L (8-78); Potassium 3.5 mmol/L (3.5-5.1); Protein, Total 6.8 g/dL (6.0-8.3); Sodium 139 mmol/L (136-145)
[2020-04-15] MEDS ORDERED: Morphine 4 MG/ML VIAL ONE (21:59)
[2020-04-15] MEDS ORDERED: Promethazine HCl 25 MG/ML VIAL ONE (22:00)
--- NOTE | 2020-04-16 09:42 | ULT ---
GALLBLADDER ULTRASOUND: HISTORY: Right upper quadrant pain. History of colon cancer. COMPARISON: 04/10/2020 and 04/06/2020 CT examinations. Real-time imaging of the right upper quadrant shows a normal-appearing gallbladder. No gallstones. The visualized liver parenchyma shows no focal findings. The technologist measured what appeared to be an extrahepatic portion of the common duct at 1.1 cm. It is possible this is a serpiginous course through the neck of the gallbladder as I do not see any intrahepatic ductal dilatation. The pancrea s is obscured. IMPRESSION: No evidence of gallstones. Possible dilatation of the extrahepatic bile duct, although I am not cert ain whether this is truly the bile duct, the area is obscured by gas. No intrahepatic ductal dilatat ion is seen and no ductal dilatation noted on recent CT. POS: [facility]
== END 2020-04-15 23:54 | disposition home or self-care (01) ==
LOC: ERS 19:19
DX: K62.5 Hemorrhage of anus and rectum (principal); R10.811 Right upper quadrant abdominal tenderness; G89.29 Other chronic pain; I10 Essential (primary) hypertension; F41.9 Anxiety disorder, unspecified; Z87.891 Personal history of nicotine dependence; Z79.899 Other long term (current) drug therapy; Z85.038 Personal history of other malignant neoplasm of large intestine
CPT/HCPCS: 76705; 80053; 83690; 85025; 93005; 96365; 96375; J2270; J2550

== ENCOUNTER 2020-06-16 03:00 | Emergency (ER) | payer OTHER, SELFPAY ==
--- NOTE | 2020-06-20 11:53 | EKG ---
Test Reason : Blood Pressure : / mmHG Vent. Rate : 072 BPM Atrial Rate : 072 BPM P-R Int : 144 ms QRS Dur : 082 ms QT Int : 428 ms P-R-T Axes : 052 006 067 degrees QTc Int : 468 ms Normal sinus rhythm Possible Anterior infarct , age undetermined Abnormal ECG Confirmed by DEANA DOWNS ([id number]), writer editor MANUEL WASHINGTON ([id number]) on 06/20/2020 11:52:53 AM Referred By: Confirmed By:DEANA DOWNS
== END 2020-06-16 03:36 | disposition left against medical advice (07) ==
LOC: ERS 03:00
DX: R06.02 Shortness of breath (principal); R11.10 Vomiting, unspecified; M54.2 Cervicalgia; F41.9 Anxiety disorder, unspecified; I10 Essential (primary) hypertension; Z85.038 Personal history of other malignant neoplasm of large intestine; Z85.41 Personal history of malignant neoplasm of cervix uteri; Z79.899 Other long term (current) drug therapy
CPT/HCPCS: 93005

== ENCOUNTER 2020-06-30 22:48 | Emergency (ER) | payer OTHER ==
--- NOTE | 2020-07-01 00:05 | ULT ---
ULTRASOUND DOPPLER DUPLEX VENOUS BILATERAL LOWER EXTREMITIES: DATE: 07/01/2020 HISTORY: Bilateral lower extremity edema TECHNIQUE: Grayscale, color-flow, and spectral analysis, of major veins of bilateral lower extremities. FINDINGS: There is demonstration of blood flow with normal compressibility, of the bilateral common femoral, pr ofunda femoral, greater saphenous, femoral, popliteal, and posterior tibial, veins. IMPRESSION: Negative. No deep venous thrombosis of bilateral lower extremities.
== END 2020-07-01 00:25 | disposition left against medical advice (07) ==
LOC: ERS 22:48
DX: R07.9 Chest pain, unspecified (principal); R55 Syncope and collapse; R06.00 Dyspnea, unspecified; I10 Essential (primary) hypertension; F41.9 Anxiety disorder, unspecified; Z79.899 Other long term (current) drug therapy
CPT/HCPCS: 93970

== ENCOUNTER 2020-11-09 06:48 | Emergency (ER) | payer SELFPAY ==
[2020-11-09] MEDS ORDERED: methylPREDNISolone Sod Succ/PF 125 MG/2 ML VIAL ONE ×2 (07:13→07:14)
[2020-11-09 07:54] LABS: ALT (SGPT) 12 U/L (8-55); AST (SGOT) 16 U/L (5-34); Albumin 3.8 g/dL (3.5-5.0); Alkaline Phosphatase 82 U/L (40-110); Anion Gap 18 mmol/L (10-20); BUN (Urea Nitrogen) 16 mg/dL (9.8-20.1); Bilirubin, Total 0.3 mg/dL (0.2-1.2); Calc. Creatinine Clearance 0 mL/min (70-130); Calcium 8.3 mg/dL (7.8-10.44); Carbon Dioxide 17 mmol/L (22-29); Chloride 109 mmol/L (98-107); Globulin 2.7 g/dL (2.4-3.5); Glucose 112 mg/dL (70-105); Lipase 23 U/L (8-78); Potassium 4.3 mmol/L (3.5-5.1); Protein, Total 6.5 g/dL (6.0-8.3); Sodium 140 mmol/L (136-145)
[2020-11-09 08:07] LABS: #Eosinphils 0.3 thou/uL (0.0-0.7); #Lymphocytes 1.3 thou/uL (1.20-3.40); #Monocytes 0.6 thou/uL (0.11-0.59); #Neutrophils 2.6 thou/uL (1.40-6.50); %Basophils 0.6 % (0.0-1.0); %Eosinophils 5.4 % (0.0-10.0); %Lymphocytes 26.7 % (21.0-51.0); %Monocytes 12.9 % (0.0-10.0); %Neutrophils 54.3 % (42.0-75.0); Hemoglobin 12.4 g/dL (12.0-16.0); Mean Corpuscular Hemoglobin 32.1 pg (27.0-31.0); Mean Corpuscular Volume 94.4 fL (78.0-98.0); Mean Platelet Volume 5.8 fL (7.4-10.4); Platelet Count 246 thou/uL (130-400); Red Blood Cell (RBC) Count 3.86 mill/uL (4.20-5.40); White Blood Cell (WBC) Count 4.8 thou/uL (4.8-10.8)
--- NOTE | 2020-11-09 08:17 | RAD ---
Portable frontal chest radiograph: 11/09/2020 COMPARISON: 06/30/2020 HISTORY: Short of breath FINDINGS: Stable prominence of the cardiac silhouette. Mild pulmonary vascular prominence. No focal c onsolidation or alveolar edema. IMPRESSION: No focal consolidation or alveolar edema.
--- NOTE | 2020-11-28 16:12 | EKG ---
Test Reason : Blood Pressure : / mmHG Vent. Rate : 086 BPM Atrial Rate : 086 BPM P-R Int : 144 ms QRS Dur : 082 ms QT Int : 412 ms P-R-T Axes : 041 010 088 degrees QTc Int : 493 ms Normal sinus rhythm Cannot rule out Anterior infarct , age undetermined Abnormal ECG Confirmed by WALTER HEBERT DO ([id number]), editor producer MANUEL WASHINGTON ([id number]) on 11/28/2020 4:11:39 PM Referred By: Confirmed By:WALTRE HEBERT DO
== END 2020-11-09 08:40 | disposition home or self-care (01) ==
LOC: ERS 06:48
DX: J44.1 Chronic obstructive pulmonary disease with (acute) exacerbation (principal); I10 Essential (primary) hypertension; Z85.038 Personal history of other malignant neoplasm of large intestine; Z85.41 Personal history of malignant neoplasm of cervix uteri; Z85.118 Personal history of other malignant neoplasm of bronchus and lung; Z79.899 Other long term (current) drug therapy
CPT/HCPCS: 36415; 71045; 80053; 83690; 84484; 85025; 93005; 94640; 96374; J2930

== ENCOUNTER 2020-11-17 22:56 | Emergency (ER) | payer SELFPAY | END 2020-11-17 23:29 | disposition left against medical advice (07) | LOC: ERS 22:56 | DX: K62.5 Hemorrhage of anus and rectum (principal); I10 Essential (primary) hypertension; Z85.41 Personal history of malignant neoplasm of cervix uteri; Z85.038 Personal history of other malignant neoplasm of large intestine; Z85.118 Personal history of other malignant neoplasm of bronchus and lung; Z86.73 Personal history of transient ischemic attack (TIA), and cerebral infarction without residual deficits | CPT/HCPCS: 99283 ==

== ENCOUNTER 2020-12-01 15:29 | Emergency (ER) | payer SELFPAY ==
[2020-12-01 16:49] LABS: #Eosinphils 0.1 thou/uL (0.0-0.7); #Lymphocytes 1.2 thou/uL (1.20-3.40); #Monocytes 0.9 thou/uL (0.11-0.59); #Neutrophils 8.2 thou/uL (1.40-6.50); %Basophils 0.1 % (0.0-1.0); %Lymphocytes 11.8 % (21.0-51.0); %Monocytes 8.8 % (0.0-10.0); %Neutrophils 78.4 % (42.0-75.0); Hemoglobin 13.8 g/dL (12.0-16.0); Mean Corpuscular HGB CONC 34.3 g/dL (32.0-36.0); Mean Corpuscular Hemoglobin 32.8 pg (27.0-31.0); Mean Corpuscular Volume 95.6 fL (78.0-98.0); Mean Platelet Volume 5.8 fL (7.4-10.4); Platelet Count 285 thou/uL (130-400); RBC Distribution Width 13.5 % (11.5-14.5); White Blood Cell (WBC) Count 10.4 thou/uL (4.8-10.8)
[2020-12-01] MEDS ORDERED: methylPREDNISolone Sod Succ/PF 125 MG/2 ML VIAL ONE ×2 (17:09→17:10)
[2020-12-01] MEDS ORDERED: Morphine 4 MG/ML VIAL ONE ×3 (17:09→18:54)
[2020-12-01] MEDS ORDERED: Promethazine HCl 25 MG/ML VIAL ONE ×3 (17:09→18:40)
[2020-12-01] MEDS ORDERED: Famotidine/PF 20 mg/2ml Vial ONE (17:09)
[2020-12-01] MEDS ORDERED: diphenhydrAMINE 50 MG/ML VIAL ONE (17:09)
[2020-12-01 17:14] LABS: ALT (SGPT) 17 U/L (8-55); AST (SGOT) 12 U/L (5-34); Albumin 4.1 g/dL (3.5-5.0); Alkaline Phosphatase 74 U/L (40-110); Anion Gap 13 mmol/L (10-20); BUN (Urea Nitrogen) 24 mg/dL (9.8-20.1); Bilirubin, Total 0.6 mg/dL (0.2-1.2); CK (CPK) 23 U/L (29-168); Calc. Creatinine Clearance 0 mL/min (70-130); Calcium 8.8 mg/dL (7.8-10.44); Carbon Dioxide 28 mmol/L (22-29); Chloride 104 mmol/L (98-107); Globulin 2.8 g/dL (2.4-3.5); Glucose 110 mg/dL (70-105); Lipase 25 U/L (8-78); Potassium 3.4 mmol/L (3.5-5.1); Protein, Total 6.9 g/dL (6.0-8.3); Sodium 142 mmol/L (136-145)
[2020-12-01] MEDS ORDERED: Fentanyl 100 MCG/2 ML VIAL ONE (18:46)
--- NOTE | 2020-12-01 19:21 | CT ---
CT abdomen and pelvis: 12/01/2020 COMPARISON: 04/06/2020 History: Vomiting, nausea, pain TECHNIQUE: Axial CT imaging at 5 mm intervals from lung bases through pubic symphysis with IV contras t. Coronal and sagittal reformatted imaging obtained. FINDINGS: The imaged lung bases appear unremarkable. No free intraperitoneal air or fluid is seen. Coronary arterial calcification is suspected. No focal liver lesion. Gallbladder, spleen, pancreas, adrenal glands, and kidneys are unremarkable. There is a colonic suture line in the region of the sigmoid. No evidence for bowel inflammatory pascual e or bowel obstruction. The uterus appears surgically absent. The patient is probably status post appendectomy as well. The vascular structures appear patent with no abdominal or pelvic lymphadenopat hy appreciated. Review of the osseous structures demonstrates no worrisome lytic or blastic lesion. IMPRESSION: No acute findings.
== END 2020-12-01 20:21 | disposition home or self-care (01) ==
LOC: ERS 15:29
DX: R10.84 Generalized abdominal pain (principal); I10 Essential (primary) hypertension; F17.210 Nicotine dependence, cigarettes, uncomplicated
CPT/HCPCS: 36415; 74177; 80053; 82550; 83605; 83690; 85025; 93005; 96365; 96366; 96375; 96376; J1200; J2270; J2550; J2930; J3010; S0028

== ENCOUNTER 2020-12-15 16:14 | Emergency (ER) | payer SELFPAY ==
--- NOTE | 2020-12-15 16:44 | CT ---
EXAM: CT brain without contrast HISTORY: Right facial numbness COMPARISON: 05/05/2019 TECHNIQUE: Multiple contiguous axial images were obtained and a CT of the brain without contrast. FINDINGS: There are scattered hypodensities in the subcortical and periventricular white matter consi stent with small vessel ischemic disease. There is no evidence of hydrocephalus, intracranial hemorrhage, or extra-axial fluid collection. The calvarium and overlying soft tissues are unremarkable. The visualized paranasal sinuses and masto id air cells are well aerated. IMPRESSION: No evidence of acute intracranial abnormality
--- NOTE | 2020-12-15 16:53 | RAD ---
EXAM: Single view of the chest HISTORY: Right facial numbness COMPARISON: 11/12/2020 FINDINGS: Single view of the chest shows a normal sized cardiomediastinal silhouette. There is no margi dence of consolidation, mass, or pleural effusion. No acute osseous abnormality. IMPRESSION: No evidence of acute cardiopulmonary disease
[2020-12-15 17:19] LABS: #Basophils 0.1 thou/uL (0.0-0.2); #Eosinphils 0.1 thou/uL (0.0-0.7); #Lymphocytes 0.8 thou/uL (1.20-3.40); #Monocytes 0.6 thou/uL (0.11-0.59); %Basophils 0.7 % (0.0-1.0); %Eosinophils 1.3 % (0.0-10.0); %Lymphocytes 10.9 % (21.0-51.0); %Monocytes 7.6 % (0.0-10.0); %Neutrophils 79.5 % (42.0-75.0); Hemoglobin 12.7 g/dL (12.0-16.0); Mean Corpuscular HGB CONC 34.7 g/dL (32.0-36.0); Mean Corpuscular Hemoglobin 32.8 pg (27.0-31.0); Mean Corpuscular Volume 94.5 fL (78.0-98.0); Mean Platelet Volume 5.6 fL (7.4-10.4); Platelet Count 230 thou/uL (130-400); RBC Distribution Width 12.4 % (11.5-14.5); Red Blood Cell (RBC) Count 3.88 mill/uL (4.20-5.40); White Blood Cell (WBC) Count 7.5 thou/uL (4.8-10.8)
[2020-12-15 17:24] LABS: INR-International Normal Ratio 0.9; PTT 26.9 sec (22.9-36.1); Prothrombin Time 12.6 sec (12.0-14.7)
[2020-12-15 17:46] LABS: ALT (SGPT) 11 U/L (8-55); AST (SGOT) 16 U/L (5-34); Albumin 3.8 g/dL (3.5-5.0); Alkaline Phosphatase 81 U/L (40-110); Anion Gap 14 mmol/L (10-20); BUN (Urea Nitrogen) 13 mg/dL (9.8-20.1); Bilirubin, Total 0.7 mg/dL (0.2-1.2); CK (CPK) 33 U/L (29-168); Calc. Creatinine Clearance 0 mL/min (70-130); Calcium 8.6 mg/dL (7.8-10.44); Carbon Dioxide 21 mmol/L (22-29); Chloride 107 mmol/L (98-107); Globulin 2.7 g/dL (2.4-3.5); Glucose 102 mg/dL (70-105); Potassium 3.8 mmol/L (3.5-5.1); Protein, Total 6.5 g/dL (6.0-8.3); Sodium 138 mmol/L (136-145)
[2020-12-15] MEDS ORDERED: HYDROcodone/Acetaminophen 10/325 mg Tablet ONE (17:49)
[2020-12-15] MEDS ORDERED: Promethazine HCl 25 MG/ML VIAL ONE (17:50)
[2020-12-15] MEDS ORDERED: Promethazine 25 MG TAB ONE (18:30)
== END 2020-12-15 18:52 | disposition home or self-care (01) ==
LOC: ERS 16:14
DX: R21 Rash and other nonspecific skin eruption (principal); G89.29 Other chronic pain; M54.5 Low back pain; R29.701 NIHSS score 1; I10 Essential (primary) hypertension; Z86.73 Personal history of transient ischemic attack (TIA), and cerebral infarction without residual deficits; F17.210 Nicotine dependence, cigarettes, uncomplicated
CPT/HCPCS: 36415; 36416; 70450; 71045; 80053; 82550; 83605; 83880; 84443; 84484; 85025; 85610; 85730; 93005; J2550; Q0169

== ENCOUNTER 2020-12-18 06:38 | Emergency (ER) | payer SELFPAY ==
[2020-12-18] MEDS ORDERED: Promethazine HCl 25 MG/ML VIAL ONE (07:25)
[2020-12-18] MEDS ORDERED: Morphine 4 MG/ML VIAL ONE (08:18)
[2020-12-18 09:25] LABS: #Eosinphils 0.1 thou/uL (0.0-0.7); #Lymphocytes 0.8 thou/uL (1.20-3.40); #Monocytes 0.8 thou/uL (0.11-0.59); #Neutrophils 3.8 thou/uL (1.40-6.50); %Basophils 0.8 % (0.0-1.0); %Eosinophils 2.7 % (0.0-10.0); %Monocytes 14.6 % (0.0-10.0); Hemoglobin 12.3 g/dL (12.0-16.0); Mean Corpuscular HGB CONC 34.2 g/dL (32.0-36.0); Mean Corpuscular Hemoglobin 33.2 pg (27.0-31.0); Mean Platelet Volume 5.8 fL (7.4-10.4); Platelet Count 226 thou/uL (130-400); RBC Distribution Width 12.5 % (11.5-14.5); White Blood Cell (WBC) Count 5.6 thou/uL (4.8-10.8)
[2020-12-18 09:45] LABS: ALT (SGPT) 12 U/L (8-55); AST (SGOT) 15 U/L (5-34); Albumin 3.6 g/dL (3.5-5.0); Alkaline Phosphatase 81 U/L (40-110); Anion Gap 15 mmol/L (10-20); BUN (Urea Nitrogen) 16 mg/dL (9.8-20.1); Bilirubin, Total 0.4 mg/dL (0.2-1.2); Calc. Creatinine Clearance 0 mL/min (70-130); Calcium 8.5 mg/dL (7.8-10.44); Carbon Dioxide 23 mmol/L (22-29); Chloride 106 mmol/L (98-107); Globulin 2.6 g/dL (2.4-3.5); Glucose 104 mg/dL (70-105); Lipase 31 U/L (8-78); Potassium 4.2 mmol/L (3.5-5.1); Protein, Total 6.2 g/dL (6.0-8.3); Sodium 140 mmol/L (136-145)
[2020-12-18 10:20] LABS: Bilirubin Negative (Negative); Blood, Urine Negative (Negative); Clarity Clear (Clear); Glucose, Urine (Dipstick) Normal (Negative); Ketone, Urine Negative (Negative); Leukocyte Negative Leu/uL (Negative); Nitrite Negative (Negative); Protein, Urine (Dipstick) Negative (Neg-Trace); Specific Gravity, Urine 1.014 (1.002-1.036); Urobilinogen Normal mg/dL (Less than 2)
== END 2020-12-18 10:52 | disposition home or self-care (01) ==
LOC: ERS 06:38
DX: R10.32 Left lower quadrant pain (principal); R11.2 Nausea with vomiting, unspecified; R19.7 Diarrhea, unspecified; R10.812 Left upper quadrant abdominal tenderness; K64.8 Other hemorrhoids; I10 Essential (primary) hypertension; Z86.73 Personal history of transient ischemic attack (TIA), and cerebral infarction without residual deficits; F17.210 Nicotine dependence, cigarettes, uncomplicated; Z79.899 Other long term (current) drug therapy
CPT/HCPCS: 36415; 80053; 81003; 82270; 83690; 85025; 96361; 96365; 96375; J2270; J2550

== ENCOUNTER 2020-12-20 15:00 | Emergency (ER) | payer SELFPAY ==
[2020-12-20 17:49] LABS: Bilirubin Negative (Negative); Blood, Urine Negative (Negative); Clarity Turbid (Clear); Glucose, Urine (Dipstick) Normal (Negative); Ketone, Urine Negative (Negative); Leukocyte Negative Leu/uL (Negative); Nitrite Negative (Negative); Protein, Urine (Dipstick) 20 mg/dL (Neg-Trace); Specific Gravity, Urine 1.038 (1.002-1.036)
[2020-12-20] MEDS ORDERED: Morphine 4 MG/ML VIAL ONE ×2 (18:04→19:41)
[2020-12-20] MEDS ORDERED: Promethazine HCl 25 MG/ML VIAL ONE (18:04)
[2020-12-20 18:24] LABS: #Eosinphils 0.1 thou/uL (0.0-0.7); #Lymphocytes 1.1 thou/uL (1.20-3.40); #Neutrophils 6.4 thou/uL (1.40-6.50); %Basophils 0.4 % (0.0-1.0); %Eosinophils 0.7 % (0.0-10.0); %Lymphocytes 13.2 % (21.0-51.0); %Monocytes 11.3 % (0.0-10.0); %Neutrophils 74.4 % (42.0-75.0); Hemoglobin 11.7 g/dL (12.0-16.0); Mean Corpuscular HGB CONC 32.5 g/dL (32.0-36.0); Mean Corpuscular Hemoglobin 31.1 pg (27.0-31.0); Mean Corpuscular Volume 95.8 fL (78.0-98.0); Mean Platelet Volume 5.7 fL (7.4-10.4); Platelet Count 280 thou/uL (130-400); RBC Distribution Width 12.3 % (11.5-14.5); Red Blood Cell (RBC) Count 3.76 mill/uL (4.20-5.40); White Blood Cell (WBC) Count 8.6 thou/uL (4.8-10.8)
[2020-12-20 18:44] LABS: ALT (SGPT) 11 U/L (8-55); AST (SGOT) 10 U/L (5-34); Albumin 3.8 g/dL (3.5-5.0); Alkaline Phosphatase 68 U/L (40-110); Anion Gap 11 mmol/L (10-20); BUN (Urea Nitrogen) 24 mg/dL (9.8-20.1); Bilirubin, Total 0.3 mg/dL (0.2-1.2); Calc. Creatinine Clearance 0 mL/min (70-130); Calcium 8.4 mg/dL (7.8-10.44); Carbon Dioxide 28 mmol/L (22-29); Chloride 107 mmol/L (98-107); Globulin 2.5 g/dL (2.4-3.5); Glucose 81 mg/dL (70-105); Lipase 21 U/L (8-78); Potassium 3.8 mmol/L (3.5-5.1); Protein, Total 6.3 g/dL (6.0-8.3); Sodium 142 mmol/L (136-145)
--- NOTE | 2020-12-21 07:50 | RAD ---
Exam: Abdomen 2 views HISTORY: Nausea vomiting and pain FINDINGS: Nonspecific bowel gas pattern. Scattered fecal dural nondistended, nondilated colon. Evalua tion pneumoperitoneum is limited as the diaphragms are not adequately assessed included on this exam. Upright chest radiograph be beneficial. There are phlebolith left hemipelvis. Suture chain is noted in the midline of the pelvis. There are s urgical clips project over the right lower quadrant No acute osseous abnormalities IMPRESSION: 1. Nonspecific bowel gas pattern 2. Limited evaluation pneumoperitoneum on the left and right hemidiaphragm are not adequately visuali zed on this exam. Consider portable upright chest radiograph.
== END 2020-12-20 19:56 | disposition home or self-care (01) ==
LOC: ERS 15:00
DX: R10.32 Left lower quadrant pain (principal); R11.2 Nausea with vomiting, unspecified; I10 Essential (primary) hypertension; F17.210 Nicotine dependence, cigarettes, uncomplicated; I72.9 Aneurysm of unspecified site; Z79.899 Other long term (current) drug therapy; Z85.048 Personal history of other malignant neoplasm of rectum, rectosigmoid junction, and anus; Z85.038 Personal history of other malignant neoplasm of large intestine
CPT/HCPCS: 74019; 80053; 81003; 83690; 85025; 87086; 94760; 96365; 96375; 96376; J2270; J2550

== ENCOUNTER 2020-12-22 13:44 | Emergency (ER) | payer BC, SELFPAY ==
[2020-12-22] MEDS ORDERED: Haloperidol Lactate 5 MG/ML VIAL ONE (14:28)
[2020-12-22 15:06] LABS: #Eosinphils 0.2 thou/uL (0.0-0.7); #Lymphocytes 0.8 thou/uL (1.20-3.40); #Monocytes 0.8 thou/uL (0.11-0.59); #Neutrophils 4.7 thou/uL (1.40-6.50); %Basophils 0.3 % (0.0-1.0); %Eosinophils 2.3 % (0.0-10.0); %Lymphocytes 11.8 % (21.0-51.0); %Neutrophils 72.5 % (42.0-75.0); Hemoglobin 13.3 g/dL (12.0-16.0); Mean Corpuscular HGB CONC 33.7 g/dL (32.0-36.0); Mean Corpuscular Hemoglobin 32.1 pg (27.0-31.0); Mean Corpuscular Volume 95.3 fL (78.0-98.0); Mean Platelet Volume 5.4 fL (7.4-10.4); Platelet Count 301 thou/uL (130-400); RBC Distribution Width 11.9 % (11.5-14.5); Red Blood Cell (RBC) Count 4.14 mill/uL (4.20-5.40); White Blood Cell (WBC) Count 6.5 thou/uL (4.8-10.8)
[2020-12-22] MEDS ORDERED: Promethazine HCl 25 MG/ML VIAL ONE (15:06)
[2020-12-22] MEDS ORDERED: diphenhydrAMINE 50 MG/ML VIAL ONE (15:11)
[2020-12-22] MEDS ORDERED: Morphine 4 MG/ML VIAL ONE ×2 (15:11→17:11)
[2020-12-22 15:30] LABS: ALT (SGPT) 9 U/L (8-55); AST (SGOT) 12 U/L (5-34); Alkaline Phosphatase 76 U/L (40-110); Anion Gap 14 mmol/L (10-20); BUN (Urea Nitrogen) 15 mg/dL (9.8-20.1); Bilirubin, Total 0.7 mg/dL (0.2-1.2); Calc. Creatinine Clearance 0 mL/min (70-130); Calcium 8.8 mg/dL (7.8-10.44); Carbon Dioxide 25 mmol/L (22-29); Chloride 105 mmol/L (98-107); Globulin 2.8 g/dL (2.4-3.5); Glucose 98 mg/dL (70-105); Lipase 15 U/L (8-78); Potassium 3.7 mmol/L (3.5-5.1); Protein, Total 6.8 g/dL (6.0-8.3); Sodium 140 mmol/L (136-145)
[2020-12-22] MEDS ORDERED: metroNIDAZOLE 500 MG/100 ML BAG ONE (18:00)
== END 2020-12-22 18:15 | disposition short-term general hospital (02) ==
LOC: ERS 13:44
DX: K57.92 Diverticulitis of intestine, part unspecified, without perforation or abscess without bleeding (principal); I10 Essential (primary) hypertension; F17.210 Nicotine dependence, cigarettes, uncomplicated; Z79.899 Other long term (current) drug therapy
CPT/HCPCS: 80053; 83605; 83690; 85025; 96361; 96365; 96375; 96376; J0744; J1200; J1630; J2270; J2550

== ENCOUNTER 2020-12-31 10:14 | Emergency (ER) | payer SELFPAY ==
[2020-12-31] MEDS ORDERED: Acetaminophen 500 MG TAB ONE (10:51)
[2020-12-31 11:09] LABS: #Eosinphils 0.2 thou/uL (0.0-0.7); #Lymphocytes 1.4 thou/uL (1.20-3.40); %Basophils 0.6 % (0.0-1.0); %Eosinophils 2.2 % (0.0-10.0); %Lymphocytes 18.8 % (21.0-51.0); %Monocytes 12.8 % (0.0-10.0); %Neutrophils 65.6 % (42.0-75.0); Hemoglobin 12.9 g/dL (12.0-16.0); Mean Corpuscular HGB CONC 33.9 g/dL (32.0-36.0); Mean Corpuscular Hemoglobin 32.5 pg (27.0-31.0); Mean Corpuscular Volume 95.9 fL (78.0-98.0); Mean Platelet Volume 5.5 fL (7.4-10.4); Platelet Count 257 thou/uL (130-400); RBC Distribution Width 11.7 % (11.5-14.5); Red Blood Cell (RBC) Count 3.96 mill/uL (4.20-5.40); White Blood Cell (WBC) Count 7.7 thou/uL (4.8-10.8)
[2020-12-31 11:29] LABS: Albumin 3.8 g/dL (3.5-5.0); Anion Gap 12 mmol/L (10-20); BUN (Urea Nitrogen) 25 mg/dL (9.8-20.1); Bilirubin, Total 0.7 mg/dL (0.2-1.2); Calc. Creatinine Clearance 0 mL/min (70-130); Calcium 8.4 mg/dL (7.8-10.44); Carbon Dioxide 27 mmol/L (22-29); Chloride 103 mmol/L (98-107); Globulin 2.5 g/dL (2.4-3.5); Glucose 84 mg/dL (70-105); Potassium 3.2 mmol/L (3.5-5.1); Protein, Total 6.3 g/dL (6.0-8.3); Sodium 139 mmol/L (136-145)
[2020-12-31 11:30] LABS: ALT (SGPT) 8 U/L (8-55); AST (SGOT) 8 U/L (5-34); Alkaline Phosphatase 62 U/L (40-110)
[2020-12-31] MEDS ORDERED: Diazepam 5 MG TAB ONE (11:55)
[2020-12-31] MEDS ORDERED: Morphine 4 MG/ML VIAL ONE ×2 (11:55→12:54)
== END 2020-12-31 13:11 | disposition home or self-care (01) ==
LOC: ERS 10:14
DX: M54.2 Cervicalgia (principal); I10 Essential (primary) hypertension; F17.210 Nicotine dependence, cigarettes, uncomplicated; Z79.899 Other long term (current) drug therapy
CPT/HCPCS: 36416; 70450; 80053; 84484; 85025; 93005; 96374; 96376; J2270

== ENCOUNTER 2021-01-02 11:08 | Emergency (ER) | payer SELFPAY ==
[2021-01-02 11:54] LABS: #Eosinphils 0.1 thou/uL (0.0-0.7); #Lymphocytes 0.7 thou/uL (1.20-3.40); #Monocytes 1.1 thou/uL (0.11-0.59); #Neutrophils 6.6 thou/uL (1.40-6.50); %Basophils 0.1 % (0.0-1.0); %Lymphocytes 8.6 % (21.0-51.0); %Monocytes 12.5 % (0.0-10.0); %Neutrophils 77.8 % (42.0-75.0); Hemoglobin 13.9 g/dL (12.0-16.0); Mean Corpuscular Hemoglobin 32.4 pg (27.0-31.0); Mean Corpuscular Volume 95.2 fL (78.0-98.0); Mean Platelet Volume 5.8 fL (7.4-10.4); Platelet Count 264 thou/uL (130-400); RBC Distribution Width 11.9 % (11.5-14.5); White Blood Cell (WBC) Count 8.4 thou/uL (4.8-10.8)
[2021-01-02 12:06] LABS: Digoxin Less than 0.15 ng/mL (0.8-2.0)
[2021-01-02 12:08] LABS: ALT (SGPT) 11 U/L (8-55); AST (SGOT) 10 U/L (5-34); Alkaline Phosphatase 72 U/L (40-110); Anion Gap 17 mmol/L (10-20); BUN (Urea Nitrogen) 18 mg/dL (9.8-20.1); Bilirubin, Total 0.7 mg/dL (0.2-1.2); Calc. Creatinine Clearance 0 mL/min (70-130); Calcium 8.7 mg/dL (7.8-10.44); Carbon Dioxide 22 mmol/L (22-29); Chloride 104 mmol/L (98-107); Globulin 2.7 g/dL (2.4-3.5); Glucose 125 mg/dL (70-105); Lipase 15 U/L (8-78); Potassium 3.6 mmol/L (3.5-5.1); Protein, Total 6.7 g/dL (6.0-8.3); Sodium 139 mmol/L (136-145)
[2021-01-02] MEDS ORDERED: Acetaminophen 500 MG TAB ONE (12:11)
[2021-01-02] MEDS ORDERED: Promethazine HCl 25 MG SUPP ONE (12:11)
[2021-01-02] MEDS ORDERED: Promethazine HCl 25 MG/ML VIAL ONE (12:21)
== END 2021-01-02 14:18 | disposition home or self-care (01) ==
LOC: ERS 11:08
DX: R10.31 Right lower quadrant pain (principal); R10.32 Left lower quadrant pain; I10 Essential (primary) hypertension; Z79.899 Other long term (current) drug therapy; F17.210 Nicotine dependence, cigarettes, uncomplicated
CPT/HCPCS: 71045; 74176; 80053; 80162; 83690; 84484; 85025; 93005; 96365; J2550

== ENCOUNTER 2021-01-04 00:24 | Emergency (ER) | payer SELFPAY ==
[2021-01-04] MEDS ORDERED: cloNIDine 0.1 MG TAB ONE (00:39)
== END 2021-01-04 00:58 | disposition home or self-care (01) ==
LOC: ERS 00:24
DX: R10.9 Unspecified abdominal pain (principal); I10 Essential (primary) hypertension; F17.210 Nicotine dependence, cigarettes, uncomplicated
CPT/HCPCS: 99283

== ENCOUNTER 2021-01-07 15:54 | Emergency (ER) | payer SELFPAY ==
[2021-01-07] MEDS ORDERED: Morphine 4 MG/ML VIAL ONE (17:12)
[2021-01-07] MEDS ORDERED: Promethazine HCl 25 MG/ML VIAL ONE (17:12)
[2021-01-07] MEDS ORDERED: Magnesium 2 GM/50 ML BAG (IN WATER) ONE (17:12)
[2021-01-07] MEDS ORDERED: Labetalol HCl 100 MG/20 ML VIAL ONE (17:57)
== END 2021-01-07 19:09 | disposition home or self-care (01) ==
LOC: ERS 15:54
DX: R10.11 Right upper quadrant pain (principal); I10 Essential (primary) hypertension; F17.210 Nicotine dependence, cigarettes, uncomplicated; Z79.899 Other long term (current) drug therapy
CPT/HCPCS: 36415; 76705; 80053; 81003; 82550; 83690; 83735; 84484; 85025; 93005; 96365; 96375; J2270; J2550; J3475

== ENCOUNTER 2021-03-27 14:16 | Emergency (ER) | payer SELFPAY ==
[2021-03-27] MEDS ORDERED: Promethazine HCl 25 MG/ML VIAL ONE (16:01)
[2021-03-27 16:39] LABS: #Lymphocytes 0.2 thou/uL (1.20-3.40); #Monocytes 0.1 thou/uL (0.11-0.59); #Neutrophils 3.5 thou/uL (1.40-6.50); %Basophils 1.2 % (0.0-1.0); %Eosinophils 0.1 % (0.0-10.0); %Lymphocytes 5.9 % (21.0-51.0); %Neutrophils 90.8 % (42.0-75.0); Hemoglobin 9.1 g/dL (12.0-16.0); Mean Corpuscular HGB CONC 32.8 g/dL (32.0-36.0); Mean Corpuscular Volume 82.4 fL (78.0-98.0); Mean Platelet Volume 6.4 fL (7.4-10.4); Platelet Count 344 thou/uL (130-400); RBC Distribution Width 15.1 % (11.5-14.5); Red Blood Cell (RBC) Count 3.36 mill/uL (4.20-5.40); White Blood Cell (WBC) Count 3.8 thou/uL (4.8-10.8)
[2021-03-27] MEDS ORDERED: Lorazepam 2 MG/ML VIAL ONE (16:56)
[2021-03-27] MEDS ORDERED: Famotidine/PF 20 mg/2ml Vial ONE (16:56)
[2021-03-27] MEDS ORDERED: diphenhydrAMINE 50 MG/ML VIAL ONE (16:56)
[2021-03-27] MEDS ORDERED: Morphine 4 MG/ML VIAL ONE ×2 (16:56→18:22)
[2021-03-27 17:05] LABS: ALT (SGPT) 8 U/L (8-55); AST (SGOT) 9 U/L (5-34); Albumin 3.8 g/dL (3.5-5.0); Alkaline Phosphatase 80 U/L (40-110); Anion Gap 17 mmol/L (10-20); BUN (Urea Nitrogen) 7 mg/dL (9.8-20.1); Bilirubin, Total 0.4 mg/dL (0.2-1.2); Calc. Creatinine Clearance 0 mL/min (70-130); Calcium 8.6 mg/dL (7.8-10.44); Carbon Dioxide 18 mmol/L (22-29); Chloride 107 mmol/L (98-107); Globulin 2.6 g/dL (2.4-3.5); Glucose 179 mg/dL (70-105); Lipase 9 U/L (8-78); Potassium 3.5 mmol/L (3.5-5.1); Protein, Total 6.4 g/dL (6.0-8.3); Sodium 138 mmol/L (136-145)
== END 2021-03-27 18:55 | disposition home or self-care (01) ==
LOC: ERS 14:16
DX: R11.2 Nausea with vomiting, unspecified (principal); R10.32 Left lower quadrant pain; I10 Essential (primary) hypertension; F17.210 Nicotine dependence, cigarettes, uncomplicated; Z79.899 Other long term (current) drug therapy
CPT/HCPCS: 36415; 71045; 80053; 83690; 84484; 85025; 93005; 94760; 96365; 96375; 96376; J1200; J2060; J2270; J2550; S0028

== ENCOUNTER 2023-02-14 02:32 | Emergency (ER) | payer SELFPAY ==
[2023-02-14] MEDS ORDERED: Promethazine HCl 12.5 MG in Sodium Chloride 0.9% 50 ML IVPB SCH (04:15)
[2023-02-14 05:01] LABS: #Basophils 0.1 thou/uL (0.0-0.2); #Eosinphils 0.1 thou/uL (0.0-0.7); #Monocytes 1.1 thou/uL (0.11-0.59); #Neutrophils 9.1 thou/uL (1.40-6.50); %Basophils 0.6 % (0.0-1.0); %Eosinophils 0.5 % (0.0-10.0); %Lymphocytes 16.3 % (21.0-51.0); %Monocytes 8.9 % (0.0-10.0); %Neutrophils 73.7 % (42.0-75.0); Mean Corpuscular HGB CONC 34.8 g/dL (32.0-36.0); Mean Corpuscular Hemoglobin 30.2 pg (27.0-31.0); Mean Platelet Volume 5.9 fL (7.4-10.4); Platelet Count 348 10x3/uL (130-400); RBC Distribution Width 14.8 % (11.5-14.5); Red Blood Cell (RBC) Count 4.29 mill/uL (4.20-5.40); White Blood Cell (WBC) Count 12.3 10x3/uL (4.8-10.8)
[2023-02-14] MEDS ORDERED: Morphine 4 MG/ML VIAL ONE ×2 (05:31→07:59)
[2023-02-14] MEDS ORDERED: diphenhydrAMINE 50 MG/ML VIAL ONE (05:32)
[2023-02-14 06:42] LABS: Albumin 4.3 g/dL (3.5-5.0)
[2023-02-14 06:43] LABS: Chloride 102 mmol/L (98-107); Potassium 3.2 mmol/L (3.5-5.1); Sodium 138 mmol/L (136-145)
[2023-02-14 06:44] LABS: Calcium 9.3 mg/dL (7.8-10.44); Glucose 122 mg/dL (70-105)
[2023-02-14 06:45] LABS: Globulin 3.2 g/dL (2.4-3.5); Protein, Total 7.5 g/dL (6.0-8.3)
[2023-02-14 06:46] LABS: Bacteria/HPF 4+ HPF (None Seen); Bilirubin Negative (Negative); Blood, Urine Negative (Negative); Clarity Turbid (Clear); Glucose, Urine (Dipstick) Normal (Negative); Ketone, Urine Negative (Negative); Leukocyte 250 Leu/uL (Negative); Nitrite Negative (Negative); Protein, Urine (Dipstick) Negative (Neg-Trace); RBC/HPF 0-3 HPF (0-3); Specific Gravity, Urine 1.019 (1.002-1.036); Urobilinogen Normal mg/dL (Less than 2); pH, Urine 5.5 (5.0-9.0)
[2023-02-14 06:46] LABS: Anion Gap 19 mmol/L (10-20); Bilirubin, Total 0.4 mg/dL (0.2-1.2); Carbon Dioxide 20 mmol/L (22-29)
[2023-02-14 06:47] LABS: Alkaline Phosphatase 93 U/L (40-110)
[2023-02-14 06:48] LABS: Calc. Creatinine Clearance 0 mL/min (70-130); Estimated GFR 72
[2023-02-14 06:49] LABS: BUN (Urea Nitrogen) 19 mg/dL (9.8-20.1)
[2023-02-14 06:50] LABS: ALT (SGPT) 10 U/L (8-55); AST (SGOT) 12 U/L (5-34)
[2023-02-14 06:51] LABS: Lipase 31 U/L (8-78)
[2023-02-14] MEDS ORDERED: Ondansetron PF 4 MG/2 ML Vial ONE (07:59)
== END 2023-02-14 09:22 | disposition home or self-care (01) ==
LOC: ERS 02:32
DX: R11.2 Nausea with vomiting, unspecified (principal); R10.31 Right lower quadrant pain; I10 Essential (primary) hypertension; F17.210 Nicotine dependence, cigarettes, uncomplicated
CPT/HCPCS: 36415; 74176; 80053; 81003; 81015; 83690; 85025; 93005; 94760; 96365; 96366; 96375; 96376; J1200; J2270; J2405; J2550